=== PATIENT | female | born 2000 | race Caucasian/White ===

== ENCOUNTER → 2018-06-01 | Outpatient (CLI) | payer BC, OTHER | LOC: M RAD 07:55 | DX: K22.70 Barrett's esophagus without dysplasia (principal); R11.2 Nausea with vomiting, unspecified; R19.07 Generalized intra-abdominal and pelvic swelling, mass and lump; K59.00 Constipation, unspecified | CPT/HCPCS: 78264 ==

== ENCOUNTER → 2018-10-23 | Outpatient (REF) | payer OTHER ==
[2018-10-23 18:48] LABS: AMORPHOUS SEDIMENT LARGE (NEGATIVE); APPEARANCE, URINE TURBID (CLEAR); BACTERIA, URINE AUTO NEGATIVE (NEGATIVE); BILIRUBIN, URINE AUTO NEGATIVE (NEGATIVE); BLOOD, URINE BLOOD NEGATIVE (NEGATIVE); COLOR, URINE YELLOW (YELLOW); GLUCOSE, URINE (UA) AUTO NEGATIVE (NEGATIVE); KETONE, URINE AUTO NEGATIVE (NEGATIVE); LEUKOCYTE ESTERASE, URINE AUTO NEGATIVE (NEGATIVE); MUCUS, URINE SMALL (NEGATIVE); NITRITE, URINE AUTO NEGATIVE (NEGATIVE); PROTEIN, URINE AUTO NEGATIVE (NEGATIVE); RBC, URINE AUTO 0 /HPF (0-3); SPECIFIC GRAVITY URINE AUTO 1.026 (1.002-1.035); SQUAMOUS EPITHELIAL CELL UR AU 3 /HPF (0-6); UROBILINOGEN, URINE AUTO 0.2 mg/dL (0.0-2.0); WBC, URINE AUTO 2 /HPF (0-3)
[2018-10-23 18:50] LABS: TOTAL PROTEIN,RANDOM URINE 11.6 MG/DL (0.0-12.0)
[2018-10-23 19:00] LABS: HCG, SERUM QUALITATIVE NEGATIVE (NEGATIVE)
[2018-10-23 19:06] LABS: FREE T4 1.34 NG/DL (0.78-1.33); THYROID STIMULATING HORMONE 0.702 uIU/ML (0.463-3.98)
== END ==
LOC: M SFHCLERA 10:43
PROVIDERS: ATTEND Family Medicine
DX: I10 Essential (primary) hypertension (principal); R63.5 Abnormal weight gain

== ENCOUNTER → 2018-12-21 | Outpatient (CLI) | payer BC, OTHER ==
--- NOTE | 2018-12-21 09:10 | REP ---
Clinical: Hypertension and chronic medical renal disease. Technique: Dockery scale and color Doppler evaluation of the kidneys and renal vasculature using curved array transducer. Findings: The kidneys are essentially normal in contour size and echogenicity and reniform shape without hydronephrosis, nephrolithiasis, cystic or renal mass lesion. Right kidney measures 11.1 x 4.2 x 4.8 cm . Left kidney measures 12.4 x 4.9 x 5.2 cm. Bladder is incompletely distended and grossly normal by current evaluation. Color Doppler evaluation of the renal vasculature demonstrates normal arterial wave patterns, velocities, renal aortic ratios, resistive indices and the acceleration time. No sonographic evidence for renal arterial stenosis noted. Renal vein is patent. Right Kidney: Peak arterial velocity: 99 cm/sec . Renal aortic ratio: 0.70 . Resistive indices: 0.57 - 0.70 . Acceleration times: 0.025 - 0.031 . Left kidney: Peak arterial velocity: 120 cm/sec . Renal aortic ratio: 0.85 . Resistive indices: 0.59 - 0.64 . Acceleration times: 0.023 - 0.036 . Impression: 1. Kidneys are normal in appearance. 2. Slight asymmetric main renal arterial velocities are nonspecific. No sonographic evidence for renal arterial stenosis. Electronically Signed by Jose Gonzalez MD 12/21/2018 09:02 A
== END ==
LOC: M RAD 07:17
PROVIDERS: ATTEND Family Medicine
DX: I10 Essential (primary) hypertension (principal)

== ENCOUNTER → 2019-03-04 | Outpatient (CLI) | payer BC, OTHER ==
--- NOTE | 2019-03-05 05:22 | REP ---
Clinical: Left foot pain Technique: AP, lateral, bilateral oblique views left foot . Findings: The osseous structures and joint spaces are intact and normal. There is no evidence for acute fracture or dislocation. Surrounding soft tissues are unremarkable. No subcutaneous emphysema or radiodense foreign body. Impression: Normal left foot series . No acute fracture or dislocation. Electronically Signed by Jose Gonzalez MD 03/05/2019 05:14 A
== END ==
LOC: M WUC 17:30
PROVIDERS: ATTEND Physician Assistant
DX: M79.672 Pain in left foot (principal)

== ENCOUNTER 2019-09-03 03:02 | Emergency (ER) | payer BC, OTHER ==
[~2019-09-03] VITALS: Ht 152.4 cm; Wt 66.7 kg
[2019-09-03] MEDS ORDERED: HYDR25TAB PO (03:09)
[2019-09-03] MEDS ORDERED: FAMO40TA3 PO (03:09)
[2019-09-03] MEDS ORDERED: LANS30CA PO (03:09)
[2019-09-03] MEDS ORDERED: AMLO5TAB6 PO (03:09)
[2019-09-03] MEDS ORDERED: NS 1,000 ML IV ONE (04:15)
[2019-09-03] MEDS ORDERED: PANTOPRAZOLE 40MG INJ (PROTONIX) (C9113) IV ONE (04:15)
[2019-09-03] MEDS ORDERED: GI COCKTAIL 50ML BTL(HYOSCYAMINE/MAALOX/LIDOCAINE VISCOUS)(1:3:1) PO ONE (04:15)
[2019-09-03 04:37] LABS: BASO # 0.1 10^3/uL (0.0-0.2); BASO % 0.6 % (0.0-1.0); EOS # 0.1 10^3/uL (0.0-0.5); EOS % 1.5 % (0.0-3.0); HEMATOCRIT 42.3 % (36.0-47.0); HEMOGLOBIN 14.1 g/dl (12.0-15.5); LYMPH # 3.1 10^3/uL (1.5-5.0); LYMPH % 32.5 % (24.0-44.0); MEAN CORPUSCULAR HEMOGLOBIN 28.8 pg (27.0-33.0); MEAN CORPUSCULAR HGB CONC 33.3 g/dl (32.0-36.5); MEAN CORPUSCULAR VOLUME 86.5 fl (80.0-96.0); MONO # 0.8 10^3/uL (0.0-0.8); MONO % 8.4 % (0.0-5.0); NEUTROPHILS # 5.5 10^3/uL (1.5-8.5); NEUTROPHILS % 56.8 % (36.0-66.0); PLATELET COUNT, AUTOMATED 252 10^3/uL (150-450); RED BLOOD COUNT 4.89 10^6/uL (4.00-5.40); WHITE BLOOD COUNT 9.6 10^3/uL (4.0-10.0)
[2019-09-03 05:24] LABS: ALBUMIN 3.8 GM/DL (3.2-5.2); ALT/SGPT 28 U/L (12-78); BILIRUBIN,DIRECT 0.1 MG/DL (0.0-0.2); BILIRUBIN,TOTAL 0.3 MG/DL (0.2-1.0); LIPASE 108 U/L (73-393); TOTAL PROTEIN 6.9 GM/DL (6.4-8.2)
[2019-09-03 05:29] LABS: HCG, SERUM QUALITATIVE NEGATIVE (NEGATIVE)
--- NOTE | 2019-09-03 06:40 | REPVR ---
PROCEDURE INFORMATION: Exam: CT Abdomen And Pelvis Without Contrast Exam date and time: 09/03/2019 5:54 AM Age: 19 years old Clinical indication: Abdominal pain; Flank; Right; Additional info: R pain TECHNIQUE: Imaging protocol: Computed tomography of the abdomen and pelvis without contrast. Radiation optimization: All CT scans at this facility use at least one of these dose optimization techniques: automated exposure control; mA and/or kV adjustment per patient size (includes targeted exams where dose is matched to clinical indication); or iterative reconstruction. COMPARISON: RENAL US 12/21/2018 7:19 AM FINDINGS: Liver: Normal. No mass. Gallbladder and bile ducts: The gallbladder is contracted with no stones. Pancreas: Normal. No ductal dilation. Spleen: Normal. No splenomegaly. Adrenals: Normal. No mass. Kidneys and ureters: Malrotation of the right kidney. No renal or ureteral calculi. Stomach and bowel: Unremarkable. No obstruction. No mucosal thickening. Appendix: A normal appendix is seen. Intraperitoneal space: Unremarkable. No free air. No significant fluid collection. Vasculature: Unremarkable. No abdominal aortic aneurysm. Lymph nodes: Unremarkable. No enlarged lymph nodes. Bladder: Unremarkable as visualized. Reproductive: Bilateral ovarian follicles. Bones/joints: Unremarkable. No acute fracture. Soft tissues: Unremarkable. IMPRESSION: 1. Malrotation of the right kidney. No renal or ureteral calculi are evident and there is no evidence of obstructive uropathy. 2. Otherwise negative CT abdomen/pelvis. Electronically signed by: Cj Mcmahan On 09/03/2019 06:40:42 AM
[2019-09-03 06:54] VITALS: BP 122/62
== END 2019-09-03 07:00 | disposition home or self-care (01) ==
LOC: M ED 03:02
DX: K29.50 Unspecified chronic gastritis without bleeding (principal); K21.9 Gastro-esophageal reflux disease without esophagitis; K59.04 Chronic idiopathic constipation; F90.9 Attention-deficit hyperactivity disorder, unspecified type; Z79.899 Other long term (current) drug therapy
CPT/HCPCS: 74176; 80047; 80076; 83690; 84703; 85025; 96374; 99284; C9113

== ENCOUNTER 2020-01-29 03:08 | Emergency (ER) | payer BC, OTHER ==
[~2020-01-29] VITALS: Ht 152.4 cm; Wt 69.4 kg
[~2020-01-29 03:08] MED LIST: AMLO5TAB6 PO; FAMO40TA3 PO; HYDR25TAB PO; LANS30CA PO
[2020-01-29 03:41] LABS: BILIRUBIN, URINE MANUAL NEGATIVE (NEGATIVE); GLUCOSE, URINE (UA) MANUAL NEGATIVE (NEGATIVE); KETONE, URINE MANUAL NEGATIVE (NEGATIVE); UROBILINOGEN, URINE MANUAL NORMAL (NORMAL)
[2020-01-29 03:45] LABS: RBC, URINE TNTC /hpf (0-3); SQUAMOUS EPITHELIAL CELL URINE SMALL AMOUNT /hpf (SMALL AMT)
[2020-01-29] MEDS ORDERED: NS 1,000 ML IV ONE (03:45)
[2020-01-29 03:49] LABS: BACTERIA, URINE NONE SEEN; HYALINE CAST, URINE NONE SEEN /lpf (0-1)
[2020-01-29 03:58] LABS: BASO # 0.1 10^3/uL (0.0-0.2); BASO % 0.4 % (0.0-1.0); EOS # 0.1 10^3/uL (0.0-0.5); EOS % 0.8 % (0.0-3.0); HEMATOCRIT 45.4 % (36.0-47.0); LYMPH # 3.1 10^3/uL (1.5-5.0); LYMPH % 19.6 % (24.0-44.0); MEAN CORPUSCULAR HEMOGLOBIN 30.2 pg (27.0-33.0); MEAN CORPUSCULAR HGB CONC 35.2 g/dl (32.0-36.5); MEAN CORPUSCULAR VOLUME 85.7 fl (80.0-96.0); MONO # 1.2 10^3/uL (0.0-0.8); MONO % 7.5 % (0.0-5.0); NEUTROPHILS # 11.2 10^3/uL (1.5-8.5); NEUTROPHILS % 71.4 % (36.0-66.0); PLATELET COUNT, AUTOMATED 297 10^3/uL (150-450); WHITE BLOOD COUNT 15.7 10^3/uL (4.0-10.0)
[2020-01-29] MEDS ORDERED: MORPHINE 4 MG/ML 1ML VIAL/SYRINGE (J2270) IV ONE (04:00)
[2020-01-29] MEDS ORDERED: ONDANSETRON 4MG/2ML VIAL IV ONE (04:00)
[2020-01-29 04:29] LABS: HCG, SERUM QUALITATIVE NEGATIVE (NEGATIVE)
[2020-01-29 04:44] LABS: ALBUMIN 4.3 GM/DL (3.2-5.2); ALT/SGPT 37 U/L (12-78); BILIRUBIN,DIRECT 0.1 MG/DL (0.0-0.2); BILIRUBIN,TOTAL 0.4 MG/DL (0.2-1.0); BLOOD UREA NITROGEN 11 MG/DL (7-18); CALCIUM LEVEL 9.1 MG/DL (8.5-10.1); CARBON DIOXIDE LEVEL 21 MEQ/L (21-32); CHLORIDE LEVEL 112 MEQ/L (98-107); CREATININE FOR GFR 0.82 MG/DL (0.55-1.30); GLOMERULAR FILTRATION RATE > 60.0 (>60); GLUCOSE, FASTING 97 MG/DL (70-100); LIPASE 83 U/L (73-393); POTASSIUM SERUM 4.4 MEQ/L (3.5-5.1); SODIUM LEVEL 140 MEQ/L (136-145); TOTAL PROTEIN 7.7 GM/DL (6.4-8.2)
--- NOTE | 2020-01-29 05:05 | REPVR ---
PROCEDURE INFORMATION: Exam: CT Abdomen And Pelvis Without Contrast Exam date and time: 01/29/2020 4:37 AM Age: 20 years old Clinical indication: Abdominal pain; Flank; Right; Additional info: R colic TECHNIQUE: Imaging protocol: Computed tomography of the abdomen and pelvis without contrast. Radiation optimization: All CT scans at this facility use at least one of these dose optimization techniques: automated exposure control; mA and/or kV adjustment per patient size (includes targeted exams where dose is matched to clinical indication); or iterative reconstruction. COMPARISON: CT ABD PELVIS W/O CONTRAST 09/03/2019 5:56 AM FINDINGS: Mediastinal space: There is food like material in the distal esophagus. Liver: Normal. No mass. Gallbladder and bile ducts: Normal. No calcified stones. No ductal dilation. Pancreas: Normal. No ductal dilation. Spleen: Normal. No splenomegaly. Adrenals: Normal. No mass. Kidneys and ureters: Normal. No hydronephrosis. Stomach and bowel: There is moderate to large colonic stool burden in the cecum and right colon. Appendix: The proximal aspect of the appendix is normal. The mid and distal aspect are obscured. Intraperitoneal space: Unremarkable. No free air. No significant fluid collection. Vasculature: Unremarkable. No abdominal aortic aneurysm. Lymph nodes: There is nonspecific small shotty mesenteric lymph nodes. Bladder: Unremarkable as visualized. Reproductive: Unremarkable as visualized. Bones/joints: Unremarkable. No acute fracture. Soft tissues: Unremarkable. IMPRESSION: 1. No CT evidence of nephrolithiasis or hydronephrosis. 2. Moderate to large cecal and right colonic stool burden. Proximal appendix is normal. Mid to distal aspect of the appendix are obscured and could not be evaluated however no gross evidence inflammation seen. Correlate with clinical history and symptoms. 3. Nonspecific small mesenteric shotty lymph nodes. Correlate clinically for enteritis. 4. Food like material in the distal esophagus. Correlate clinically for GERD and or esophagitis among other etiologies. Electronically signed by: Lemuel Palmer On 01/29/2020 05:04:51 AM
[2020-01-29] MEDS ORDERED: PHENAZOPYRIDINE 100 MG TAB PO ONE (05:15)
[2020-01-29] MEDS ORDERED: BACTRIM 160MG/800MG DS TAB PO ONE (05:15)
[2020-01-29] MEDS ORDERED: KETOROLAC 30 MG/ML 1ML VIAL IV ONE (05:30)
[2020-01-29] MEDS ORDERED: BACT800T5 PO (05:51)
[2020-01-29] MEDS ORDERED: PYRI1TAB5 PO (05:51)
[2020-01-29 06:00] VITALS: BP 101/73
== END 2020-01-29 06:18 | disposition home or self-care (01) ==
LOC: M ED 03:08
DX: N30.91 Cystitis, unspecified with hematuria (principal); I10 Essential (primary) hypertension; K21.9 Gastro-esophageal reflux disease without esophagitis; Z79.899 Other long term (current) drug therapy
CPT/HCPCS: 74176; 80048; 80076; 81000; 83690; 84703; 85025; 87088; 87186; 96374; 96375; 99284; J1885; J2270; J2405

== ENCOUNTER 2020-09-06 22:18 | Emergency (ER) | payer BC, OTHER ==
[~2020-09-06] VITALS: Ht 157.5 cm; Wt 67.7 kg
[~2020-09-06 22:18] MED LIST changes: +AMLO1TAB24 PO; -AMLO5TAB6 PO; +BACT800T5 PO; +HYDR-3490 PO; -HYDR25TAB PO; +PYRI1TAB5 PO
[2020-09-06] MEDS ORDERED: KETOROLAC 30 MG/ML 1ML VIAL IV ONE (22:45)
[2020-09-06] MEDS ORDERED: PANTOPRAZOLE 40MG VIAL (C9113 PER 1) IV ONE (22:45)
[2020-09-06] MEDS ORDERED: NS 1,000 ML IV ONE (22:45)
[2020-09-06] MEDS ORDERED: METOCLOPRAMIDE INJ 10MG/2ML VIAL (J2765 PER 1) IV ONE (22:45)
[2020-09-06] MEDS ORDERED: ONDANSETRON 4MG/2ML VIAL IV ONE (22:45)
[2020-09-06 23:22] LABS: BASO % 0.3 % (0.0-1.0); HEMATOCRIT 42.7 % (36.0-47.0); HEMOGLOBIN 14.9 g/dl (12.0-15.5); LYMPH # 0.9 10^3/uL (1.5-5.0); LYMPH % 14.5 % (24.0-44.0); MEAN CORPUSCULAR HEMOGLOBIN 28.1 pg (27.0-33.0); MEAN CORPUSCULAR HGB CONC 34.9 g/dl (32.0-36.5); MEAN CORPUSCULAR VOLUME 80.6 fl (80.0-96.0); MONO # 0.5 10^3/uL (0.0-0.8); MONO % 8.1 % (0.0-5.0); NEUTROPHILS # 4.6 10^3/uL (1.5-8.5); NEUTROPHILS % 76.8 % (36.0-66.0); PLATELET COUNT, AUTOMATED 339 10^3/uL (150-450)
[2020-09-06] MEDS ORDERED: HYOSPOW (23:33)
[2020-09-06] MEDS ORDERED: PRED20TA (23:33)
[2020-09-06] MEDS ORDERED: HYDR-3490 (23:33)
[2020-09-06 23:49] LABS: ALBUMIN 4.1 GM/DL (3.2-5.2); ALT/SGPT 31 U/L (12-78); BILIRUBIN,DIRECT 0.2 MG/DL (0.0-0.2); BILIRUBIN,TOTAL 0.6 MG/DL (0.2-1.0); BLOOD UREA NITROGEN 11 MG/DL (7-18); CALCIUM LEVEL 10.4 MG/DL (8.5-10.1); CARBON DIOXIDE LEVEL 21 MEQ/L (21-32); CHLORIDE LEVEL 107 MEQ/L (98-107); CREATININE FOR GFR 0.93 MG/DL (0.55-1.30); GLOMERULAR FILTRATION RATE > 60.0 (>60); GLUCOSE, FASTING 122 MG/DL (70-100); LIPASE 67 U/L (73-393); SODIUM LEVEL 138 MEQ/L (136-145); TOTAL PROTEIN 7.7 GM/DL (6.4-8.2)
[2020-09-06] MEDS ORDERED: HALOPERIDOL 5MG/ML VIAL (J1630 PER 1) IV STA (23:53)
[2020-09-07] MEDS ORDERED: ISOVUE-370 76% 100ML VIAL As Ordered ONE (00:01)
--- NOTE | 2020-09-07 00:01 | REPVR ---
PROCEDURE INFORMATION: Exam: XR Complete Acute Abdomen Series Exam date and time: 09/06/2020 11:47 PM Age: 20 years old Clinical indication: Abdominal pain; Acute; Prior surgery; Surgery date: <1 month; Surgery type: Hilital hernia post operative approximately 2weeks; Additional info: Abdominal pain/ vomiting TECHNIQUE: Imaging protocol: XR complete acute abdomen series, including 2 or more views of the abdomen and a single view chest. COMPARISON: CT ABD PELVIS W/O CONTRAST 01/29/2020 4:39 AM FINDINGS: Lungs: Minimal left lung base linear atelectasis or scar. Pleural spaces: Normal. No pleural effusions. No pneumothorax. Heart/Mediastinum: Normal. No cardiomegaly. Gastrointestinal tract: Mild gas throughout the GI tract, greatest in the colon without abnormal dilatation with extension of the level of the rectum. No abnormal air-fluid levels. Intraperitoneal space: No free air. Bones/joints: Normal. No acute fracture. Soft tissues: Normal. IMPRESSION: 1. Minimal left lung base linear atelectasis or scar. Otherwise negative chest. 2. Negative abdomen with mild gas which is within normal limits. Electronically signed by: Cj Mcmahan On 09/07/2020 00:01:32 AM
--- NOTE | 2020-09-07 00:27 | REPVR ---
PROCEDURE INFORMATION: Exam: CT Abdomen And Pelvis With Contrast Exam date and time: 09/06/2020 12:08 AM Age: 20 years old Clinical indication: Abdominal pain; Prior surgery; Surgery date: <1 month; Surgery type: Hiatal hernia; Additional info: Abd pain TECHNIQUE: Imaging protocol: Computed tomography of the abdomen and pelvis with contrast. Radiation optimization: All CT scans at this facility use at least one of these dose optimization techniques: automated exposure control; mA and/or kV adjustment per patient size (includes targeted exams where dose is matched to clinical indication); or iterative reconstruction. Contrast material: ISO 370; Contrast volume: 100 ml; Contrast route: INTRAVENOUS (IV); COMPARISON: CT ABD PELVIS W/O CONTRAST 01/29/2020 4:39 AM FINDINGS: Lungs: Minimal left lower lobe infiltrates and atelectasis. Pleural spaces: Trace left pleural effusion. Mediastinal space: There is trace gas adjacent to the distal esophagus and induration around the GE junction. There is probable fundoplication and may account for the extension of gas adjacent to the distal esophagus. Liver: Normal. No mass. Gallbladder and bile ducts: Normal. No calcified stones. No ductal dilation. Pancreas: Normal. No ductal dilation. Spleen: Normal. No splenomegaly. Adrenal glands: Normal. No mass. Kidneys and ureters: Malrotation of the right kidney. Stomach and bowel: Borderline fluid distention of small bowel with air-fluid levels which may reflect minimal ileus. Low-grade obstruction or enteritis is not excluded. Appendix: A normal appendix is seen. Intraperitoneal space: Mild free fluid in the pelvis with a Hounsfield measurement of 11. Vasculature: Unremarkable. No abdominal aortic aneurysm. Lymph nodes: Unremarkable. No enlarged lymph nodes. Urinary bladder: Unremarkable as visualized. Reproductive: Unremarkable as visualized. Bones/joints: Unremarkable. No acute fracture. Soft tissues: Unremarkable. IMPRESSION: 1. Suggestion of recent fundoplication at the GE junction. 2. Minimal left lower lobe infiltrates and atelectasis with trace left pleural effusion. 3. Mild free fluid in the pelvis which is nonspecific. 4. Borderline fluid distention of small bowel which may reflect minimal ileus. Low-grade obstruction or enteritis is not excluded. Electronically signed by: Cj Mcmahan On 09/07/2020 00:27:21 AM
[2020-09-07] MEDS ORDERED: PROMETHAZINE INJ 25 MG/ML VIAL (J2550) IV ONE (01:45)
[2020-09-07 02:27] LABS: AMPHETAMINES LEVEL URINE NEGATIVE (NEGATIVE); BARBITURATES URINE NEGATIVE (NEGATIVE); BENZODIAZEPINES URINE NEGATIVE (NEGATIVE); CANNABINOIDS URINE NEGATIVE (NEGATIVE); COCAINE METABOLITE URINE NEGATIVE (NEGATIVE); METHADONE URINE NEGATIVE (NEGATIVE); OPIATES URINE POSITIVE (NEGATIVE); PHENCYCLIDINE URINE NEGATIVE (NEGATIVE)
[2020-09-07] MEDS ORDERED: PROM12.56 PO (03:24)
[2020-09-07] MEDS ORDERED: ONDA4TAB6 PO (03:24)
[2020-09-07 03:51] VITALS: BP 126/62
== END 2020-09-07 03:58 | disposition home or self-care (01) ==
LOC: M ED 22:18
DX: R10.9 Unspecified abdominal pain (principal); I10 Essential (primary) hypertension; K21.9 Gastro-esophageal reflux disease without esophagitis
CPT/HCPCS: 74021; 74177; 80048; 80076; 80307; 81001; 83690; 85025; 87086; 96361; 96374; 96375; 99284; C9113; J1630; J1885; J2405; J2765; Q9967

== ENCOUNTER 2020-09-16 19:04 | Emergency (ER) | payer BC, OTHER ==
[~2020-09-16] VITALS: Ht 152.4 cm; Wt 60.9 kg
[~2020-09-16 19:04] MED LIST changes: +HYDR-3490; +HYOSPOW; +ONDA4TAB6 PO; +PRED20TA; +PROM12.56 PO
[2020-09-16 19:57] LABS: BASO % 0.2 % (0.0-1.0); HEMATOCRIT 47.6 % (36.0-47.0); LYMPH # 1.9 10^3/uL (1.5-5.0); LYMPH % 16.5 % (24.0-44.0); MEAN CORPUSCULAR HGB CONC 35.7 g/dl (32.0-36.5); MEAN CORPUSCULAR VOLUME 78.4 fl (80.0-96.0); MONO # 0.9 10^3/uL (0.0-0.8); MONO % 8.1 % (2.0-8.0); NEUTROPHILS # 8.4 10^3/uL (1.5-8.5); NEUTROPHILS % 74.1 % (36.0-66.0); PLATELET COUNT, AUTOMATED 408 10^3/uL (150-450); RED BLOOD COUNT 6.07 10^6/uL (4.00-5.40); WHITE BLOOD COUNT 11.4 10^3/uL (4.0-10.0)
[2020-09-16] MEDS ORDERED: HALOPERIDOL 5MG/ML VIAL (J1630 PER 1) IV ONE (20:00)
[2020-09-16] MEDS ORDERED: NS 500 ML IV ONE (20:00)
--- OUTSIDE RECORDS SUMMARY | 2020-09-16 20:06 | CCD ---
Author Author [facility] Organization [facility] [employer] Address Unknown Phone Unavailable Care Team Providers Care Tennis Coach Name Role Phone Lance Osborn Unavailable PROBLEMS Type Condition ICD9-CM Code [id number] Code Onset Dates Condition S tatus SNOMED Code Notes Problem General counseling for initiation of oth er contraceptive measures V25.02 Active [id number] Problem Depo contraception V25.49 Active 616217954 Problem Cyst on ear Q18.1 Active 07667251 Problem Hypertension, unspecified type I10 Active 3 7853919 Problem Screening examination for venereal disease V74.5 Active 434436003 Problem Irritable bowel syndrome with constipation K58.1 Active 368675532 Problem Surveillance for Depo-Provera contraception Z30.42 Active 780284515 Problem Influenza vaccination declined Z28.21 Active 3 67428043 Problem Adjustment disorder with mixed anxiety and depressed mood F43.23 Active 17414282 Problem Freedman''s esophagus with dysplasia K22.719 Acti ve [id number] ALLERGIES No Known Allergies ENCOUNTERS from 1998 to 2020-07-16 Encounter Location Date Provider Diagnosis [facility] [address] [place] [id number] 16 Jun, 2020 Lance Osborn Encounter for Depo-P rovera contraception Z30.42 IMMUNIZATIONS Vaccine Route Administration Date Status Depo-Provera 150mg/1mL (Medroxy-Progestrone Acetate) IM Intr amuscular Sep 12, 2017 Administered Depo-Provera 150mg/1mL (Medroxy-Progestrone Acetate) IM Intr amuscular December 05, 2017 Administered Depo-Provera 150mg/1mL (Medroxy-Progestrone Acetate) IM Intr amuscular Mar 01, 2018 Administered Depo-Provera 150mg/1mL (Medroxy-Progestrone Acetate) IM Intr amuscular May 22, 2018 Administered Depo-Provera 150mg/1mL (Medroxy-Progestrone Acetate) IM Intr amuscular Jul 15, 2020 Administered Depo provera 150mg (Medroxy-progestrone acetate) IM Intramus cular October 10, 2016 Administered Depo-Provera 150mg/1mL (Medroxy-Progestrone Acetate) ID Intr adermal January 03, 2017 Administered Depo-Provera 150mg/1mL (Medroxy-Progestrone Acetate) IM Intr amuscular Mar 30, 2017 Administered Influenza (6mo & up) Fluzone Unknown May 02, 2016 Adm inistered Depo-Provera 150mg/1mL (Medroxy-Progestrone Acetate) IM Intr amuscular Aug 20, 2018 Administered Depo-Provera 150mg/1mL (Medroxy-Progestrone Acetate) IM Intr amuscular November 12, 2019 Administered Depo-Provera 150mg/1mL (Medroxy-Progestrone Acetate) IM Intr amuscular February 04, 2020 Administered Depo provera 150mg (Medroxy-progestrone acetate) IM Intramuscula r Jul 19, 2016 Administered Depo provera 150mg (Medroxy-progestrone acetate) IM Intramuscula r Apr 28, 2016 Administered Depo provera 150mg (Medroxy-progestrone acetate) IM Intramuscula r February 04, 2016 Administered Depo provera 150mg (Medroxy-progestrone acetate) IM Intramus cular November 12, 2015 Administered Depo provera 150mg (Medroxy-progestrone acetate) IM Intramuscula r Aug 27, 2015 Administered Depo provera 150mg (Medroxy-progestrone acetate) IM Intramuscula r Jun 10, 2015 Administered Influenza Nasal Unknown May 14, 2015 Administered Influenza (6mo & up) Fluzone Unknown Jun 11, 2018 Adm inistered SOCIAL HISTORY Tobacco Use: Social History Observation Description Date Details (start date - stop date) Never Smoker Sex Assigned At : Social History Observation Description Sex Assigned At Unknown Education: Question Answer Notes Level of Education: College Audit Question Answer Notes Total Score: 1 Interpretation: Alcohol Education Language: Question Answer Notes Languages spoken: Venezuelan Restorationism: Question Answer Notes Restorationism 15 [employer] Sexual Hx: Question Answer Notes Had sex in the last 12 months (vaginal, oral, or anal)? Yes LMP: depo provera Have you ever had an STD? No Prevention Strategies discussed: Condoms with Men only Use protection? Yes How often? All of the time Drug and Alcohol Question Answer Notes Total Score: 0 Interpretation: No problems reported Alcohol Screening: Question Answer Notes Did you have a drink containing alcohol in the past year? Ye s Points 1 Interpretation Negative How often did you have six or more drinks on one occas ion in the past year? Never (0 points) How many drinks did you have on a typica l day when you were drinking in the past year? 1 or 2 (0 points) How often did you have a drink containing alcohol in t he past year? Monthly or less (1 point) Tobacco Use: Question Answer Notes Are you a: never smoker REASON FOR REFERRAL No Information VITAL SIGNS No information MEDICATIONS Medication SIG (Take, Route, Frequency, Duration) Notes Start Da te End Date Status Methocarbamol 500 MG 2 tablets Orally QID prn for 5 days 1 3 Dec, 2019 Active Amitiza 8 MCG 1 capsule with food Orally Twice a day for 90 days Unknown Norvasc 5 MG 1 tablet Orally Once a day for 90 days Active Depo-Provera 150 MG/ML 1 ml Intramuscular every 3 months for 30 day(s) Oct, Active Ondansetron 4 MG DISSOLVE ONE TABLET ON THE T ONGUE EVERY 8 HOURS NEEDED FOR NAUSEA Oral for 7 Active Pantoprazole Sodium 20 MG TAKE ONE TABLET BY MOUTH ONCE A DAY Oral fo r 30 Active Famotidine 20 MG TAKE ONE TABLET BY MOUTH AT BEDTIME DIRECTED Oral for 30 Active Hydrochlorothiazide 25 mg 1 tablet in the morning Orally Once a day for 30 Active PROCEDURES from 1998 to 2020-07-16 Procedure Date Ordered Result Body Site Medication: Depo-Provera 150mg/1mL IM (Medroxyprogesterone A cetate) 2020-07-15 N/A RESULTS No Results REASON FOR VISIT depo shot MEDICAL (GENERAL) HISTORY Type Description Date Medical History No chronic medical problems Surgical History endoscope & colonoscopy 01/2018 Hospitalization History [facility] - dehydration Hospitalization History [facility] 02/2018 Goals Section No Information Health Concerns No Information MEDICAL EQUIPMENT No Information MENTAL STATUS No Information FUNCTIONAL STATUS No Information ASSESSMENTS Encounter Date Diagnosis Assessment Notes Treatment Notes Treatm ent Clinical Notes Jun, Encounter for Depo-Provera contraception (ICD-10 - Z30.42) PLAN OF TREATMENT Medication Medication Name Sig Start Date Stop Date Methocarbamol 500 MG 2 tablets Orally QID prn for 5 days Dec, Next Appt Details Provider Name:Akilah Patel, 2020-09-30 08:00:00 AM, [address] [place], [id number], Insurance Providers Payer Name Payer Address Payer Phone Insured Name Patient Relati onship to Insured Coverage Start Date Coverage End Date [facility] [address] [facility] [id number] HARLEY VIZCAINO
--- OUTSIDE RECORDS SUMMARY | 2020-09-16 20:06 | CCD | Continuity of Care Document ---
Author Author Carol HOLM Organization Unknown Address [address] [place] [address] [address] [id number] Phone [phone] Care Team Providers Care Kier Boiler Name Role Phone Ruth Holm AUTM [phone] Ally Oconnor PA-C AUTM [phone] Problems Active Problems Provider Date Freedman's esophagus GEOVANNA Burns, PNP Onset: 0 Diaphragmatic hernia GEOVANNA Burns, PNP Onset: 02/11/20 20 Social History Type Date Description Comments Sex Unknown Tobacco Use Start: Unknown Never Smoked Cigarettes Tobacco Use Start: Unknown Never Smoked Cigars Tobacco Use Start: Unknown Never Smoked A Pipe Tobacco Use Start: Unknown Never Used Smokeless Tobacco ETOH Use Currently consumes alcohol twice a week Tobacco Use Start: Unknown Patient has never smoked Recreational Drug Use Denies Drug Use Allergies, Adverse Reactions, Alerts Description No Known Drug Allergies Medications Active Medications SIG Qnty Indications Ordering Provide r Date Advil 200mg Capsules 3 caps by mouth twice a day as needed GEOVANNA Burns, PNP 08/31/19 21 Escitalopram Oxalate 20mg Tablets 1 Half tab x 1 week then 1 whole tablet daily by mouth every day 30tabs GEOVANNA Burns, PNP 08/31/2020 Prazosin HCL 2mg Capsules 1 by mouth at bedtime 30caps GEOVANNA Burns, PNP 06/10/20 20 Ondansetron HCL 4mg Tablets 1 by mouth twice a day as needed 120tabs Unknown Hydrochlorothiazide 25mg Tablets 1 by mouth every morning 30tabs Unknown History Medications Bupropion Hydrochloride ER (SR) 150mg Tablets ER 12HR take one tablet by mouth every day in the morning 30tabs GEOVANNA Burns, PNP 06/10/2020 - 06/30/2020 Immunizations Description No Information Available Vital Signs Date Vital Result Comment 08/31/2020 8:53am BP Systolic 142 mmHg BP Diastolic 90 mmHg Heart Rate 96 /min Body Temperature 97.0 F Respiratory Rate 18 /min O2 % BldC Oximetry 98 % Weight 149.50 lb Weight 67.813 kg Height 60 inches 5'0" BMI (Body Mass Index) 29.2 kg/m2 BSA (Body Surface Area) 1.65 m2 06/10/2020 2:37pm BP Systolic 148 mmHg BP Diastolic 72 mmHg Heart Rate 100 /min Body Temperature 97.4 F Respiratory Rate 18 /min O2 % BldC Oximetry 98 % Weight 153.38 lb Weight 69.571 kg Height 60 inches 5'0" BMI (Body Mass Index) 30.0 kg/m2 BSA (Body Surface Area) 1.67 m2 Results Test Acquired Date Facility Test Result H/L Range Note Laboratory test finding 06/01/2020 [facility] Coronavirus Covid-19 Not Detected Not Detected 1 Laboratory test finding 04/10/2020 [facility] Coronavirus Covid-19 Not Detected Not Detected 2 1 This nucleic acid amplificat ion test was developed and its performance characteristics determined by [employer]. Nucleic acid amplification tests include PCR and TMA. This test has not been FDA cleared or approved. This test has been authorized by FDA under an Emergency Use Authorization (EUA). This test is only authorized for the duration of time the declaration that circumstances exist justifying the authorization of the emergency use of in vitro diagnostic tests for detection of SARS-CoV-2 virus and/or diagnosis of COVID-19 infection under section 564(b)(1) of the Act, 21 U.S.C. 360bbb-3(b) (1), unless the authorizatio n is terminated or revoked sooner. When diagnostic testing is negative, the possibility of a false negative result should be considered in the context of a patient's recent exposures and the presence of clinical signs and symptoms consistent with COVID-19. An individual without symptoms of COVID-19 and who is not shedding SARS-CoV-2 virus would expect to have a negative (not detected) result in this assay. 2 This nucleic acid amplificat ion test was developed and its performance characteristics determined by [facility]. Nucleic acid amplification tests include PCR and TMA. This test has not been FDA cleared or approved. This test has been authorized by FDA under an Emergency Use Authorization (EUA). This test is only authorized for the duration of time the declaration that circumstances exist justifying the authorization of the emergency use of in vitro diagnostic tests for detection of SARS-CoV-2 virus and/or diagnosis of COVID-19 infection under section 564(b)(1) of the Act, 21 U.S.C. 360bbb-3(b) (1), unless the authorizatio n is terminated or revoked sooner. When diagnostic testing is negative, the possibility of a false negative result should be considered in the context of a patient's recent exposures and the presence of clinical signs and symptoms consistent with COVID-19. An individual without symptoms of COVID-19 and who is not shedding SARS-CoV-2 virus would expect to have a negative (not detected) result in this assay. Procedures Description No Information Available Medical Devices Description No Information Available Encounters Description No Information Available Assessments Date Code Description Provider 08/31/2020 I10 Essential (primary) hypertension GEOVANNA Burns, PNP 08/31/2020 F43.23 Adjustment disorder with mixed a nxiety and depressed mood GEOVANNA Burns, PNP 08/31/2020 K22.70 Freedman's esophagus without dysp lasia GEOVANNA Burns, PNP 08/31/2020 K44.9 Diaphragmatic hernia without obs truction or gangrene GEOVANNA Burns, PNP 08/31/2020 K21.9 Gastro-esophageal reflux disease without esophagitis GEOVANNA Burns, PNP 06/10/2020 I10 Essential (primary) hypertension GEOVANNA Burns, PNP 06/10/2020 F43.23 Adjustment disorder with mixed a nxiety and depressed mood GEOVANNA Burns, PNP 06/10/2020 K22.70 Freedman's esophagus without dysp lasia GEOVANNA Burns, PNP 06/10/2020 K44.9 Diaphragmatic hernia without obs truction or gangrene GEOVANNA Burns, PNP 06/10/2020 Z02.1 Encounter for pre-employment exa mination GEOVANNA Burns, PNP 06/01/2020 Z20.828 Contact with and (giang spected) exposure to other viral communicable diseases GEOVANNA Burns, RAFIQ 06/01/2020 I10 Essential (primary) hypertension GEOVANNA Burns, RAFIQ 03/02/2020 I10 Essential (primary) hypertension GEOVANNA Burns, PNP 03/02/2020 K22.70 Freedman's esophagus without dysp lasia GEOVANNA Burns, PNP 03/02/2020 K44.9 Diaphragmatic hernia without obs truction or gangrene GEOVANNA Burns, PNP 03/02/2020 F43.23 Adjustment disorder with mixed a nxiety and depressed mood GEOVANNA Burns, PNP Plan of Treatment Future Appointment(s):* 09/29/2020 8:00 am - GEOVANNA Burns, PNP at [facility] 08/31/2020 - GEOVANNA Burns, RAFIQ* I10 Essential (primary) hypertension* Comments:* JNC8 Guidelines - Pt white Female > 60 To continue the prescribed thiazide diuretic.BP is at goal 142/90. Continue current treatment and monitor. She will benefit from maintaining a low sodium diet. * F43.23 Adjustment disorder with mixed anxiety and depressed mood* Comments:* Condition reviewed in detail, patient has emotional outburst.To continue Prazosin 2 mg 1 cap PO QHS for nightmares.To start Escitalopram 20 mg 1 half tab x1 week, then 1 tab PO daily.We will continue to monitor. * K22.70 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* Comments:* The patient was advised to continue with current medication. Avoid spicy food and control diet as advised. Maintain a healthy weight.Avoid lying down after a meal or eating late in the day. * K44.9 Diaphragmatic hernia without obstruction or gangrene* Comments:* She had her robotic primary repair of type 1 paraesophageal hernia and robotic p osterior [id number] fundoplication. She tolerated the procedure well.Patient to continue on the current plan of care and treatment.We will continue to monitor. * K21.9 Gastro-esophageal reflux disease without esophagitis* Comments:* She had her robotic primary repair of type 1 paraesophageal hernia and robotic p osterior [id number] fundoplication. She was advised to continue with her current medication. Avoid spicy food and control diet as advised. Functional Status Description No Information Available Mental Status Description No Information Available Referrals Description No Information Available
--- OUTSIDE RECORDS SUMMARY | 2020-09-16 20:06 | CCD | Continuity of Care Document ---
Author Carol Akhtar Organization Unknown Address Unknown Phone [phone] Care Team Providers Care Needle Punch Machine Operator Name Role Phone Ruth Holm AUTM [phone] Ally Oconnor PA-C AUTM [phone] Problems Active Problems Provider Date Freedman's esophagus [...] Date Facility Test Result H/L Range Note CBC W/Automated Diff 09/09/2020 [facility] CBC W/Automated Diff (SEE NOTE) 1 WBC 8.2 10^3/uL 4.2 - 11.0 RBC 4.69 10^6/uL 4.20 - 5.40 Hemoglobin 13.6 g/dL 12.0 - 16.0 Hematocrit 38.3 % 37.0 - 47.0 MCV 81.7 fL 81.0 - 101 MCH 29.0 pg 27.0 - 34.0 MCHC 35.5 g/dL 31.0 - 36.0 RDW 11.4 % Low 11.5 - 14.5 Platelets 342 10^3/uL 150 - 450 MPV 9.7 fL 7.4 - 10.4 Neut 67.6 % 37.0 - 80.0 Lymph 21.8 % Low 25.0 - 40.0 [place] 8.7 % High 3.0 - 8.0 Eos 1.2 % 0.0 - 7.0 Baso 0.6 % 0.0 - 2.5 %Ig 0.1 % High 0.0 - 0.0 %NRBC 0.0 % 0.0 - 0.0 #Neut 5.56 10^3/uL 2.00 - 6.90 #Lymph 1.80 10^3/uL 0.60 - 3.40 #[place] 0.72 10^3/uL 0.00 - 0.90 #Eos 0.10 10^3/uL 0.00 - 0.70 #Baso 0.05 10^3/uL 0.00 - 0.20 #Ig 0.01 10^3/uL 0.00 - 0.10 #NRBC 0.00 10^3/uL 0.00 - 0.00 Manual Diff NOT INDICATED RBC Morph NOT INDICATED Laboratory test [facility] 09[facility]09[facility] Serum Quant <0.5 mIU/mL 2 Lactic Acid (Lactate) 1.4 mmol/L 0.2 - 2.2 Lipase Serum 23 U/L 13 - 60 Comprehensive Metabolic Panel 09/09/2020 [facility] Comprehensive Metabo (SEE NOTE) 3 Sodium 138 mEq/L 134 - 153 Potassium 3.5 mEq/L Low 3.6 - 5.0 Chloride 101 mEq/L 98 - 107 Co2 21 mEq/L Low 22 - 30 Glucose 80 mg/dL 70 - 99 BUN 11 mg/dL 7 - 21 Creatinine 0.9 mg/dL 0.7 - 1.5 BUN/Creat 12 8 - 27 Total Protein 6.4 g/dL 6.3 - 8.2 Albumin 4.3 g/dL 3.9 - 5.0 Globulin 2.1 GM/DL Low 2.4 - 3.2 A/G Ratio 2.0 0.8 - 2.0 Calcium 9.4 mg/dL 8.4 - 10.2 Total Bili <0.7 mg/dL 0.2 - 1.3 Alkaline Phos 67 U/L 38 - 126 Sgot/Ast 17 U/L 5 - 40 SGPT/Alt 22 U/L 7 - 56 Anion Gap 16.0 mmol/L 8.0 - 16.0 Age 20 yrs Non-Aa GFR >60 mL/min Afr Amer GFR >60 mL/min 4 Laboratory test finding 06/01/2020 [facility] l Coronavirus Covid-19 Not Detected Not Detected 5 Laboratory test finding 04/10/2020 [facility] Coronavirus Covid-19 Not Detected Not Detected 6 1 COMPLETE BLOOD COUNT 2 Interpretation: Less than 5 mU/mL: Negative 6-10 mU/mL: Borderline (suggest repeat i n 48 hours) >10: Positive Approx HCG range (mU/mL) Weeks post LMP 5.4-708 mU/mL 3-4 Weeks 217-10935 mU/mL 5-6 Weeks 4059-787268 mU/mL 7-8 Weeks 58183-800143 mU/mL 9-10 Weeks 76247-42957 mU/mL 12-14 Weeks 44253-43281 mU/mL 15-16 Weeks 8240-64495 mU/mL 17-18 Weeks 3 COMPREHENSIVE METABOLIC PANE L 4 Male GFR Interprentation 20-49 yrs >60 mL/min Normal 50-59 yrs >56 mL/min Normal 60-69 yrs >49 mL/min Normal 70-79yrs >42 mL/min Normal 80 and above >35 mL/min Normal Female GFR Interpretation 20-39 yrs >60 mL/min Normal 40-49 yrs >58 mL/min Normal 50-59 yrs >51 mL/min Normal 60-69 yrs >45 mL/min Normal 70-79 yrs >39 mL/min Normal 80 and above >32 mL/min Normal 5 This nucleic acid amplificat ion test was developed and its performance characteristics determined by [employer]. Nucleic acid amplification tests include PCR and [...] negative (not detected) result in this assay. 6 This nucleic acid amplificat ion test was developed and its performance characteristics determined by [employer]. Nucleic acid amplification tests include PCR and [...] to other viral communicable diseases GEOVANNA Burns, PNP 06/01/2020 I10 Essential (primary) hypertension GEOVANNA Burns, PNP Plan of Treatment Future Appointment(s):* 09/29/2020 8:00 am - GEOVANNA Burns, PNP at [facility] 08/31/2020 - GEOVANNA Burns, PNP* I10 Essential (primary) hypertension* Comments:* JNC8 Guidelines - Pt white Female > 60 To continue the prescribed thiazide diuretic.BP is at goal 142/90. Continue current treatment and monitor. She will benefit from maintaining a low sodium diet. * Follow up:* FU 1 month for reassessment * F43.23 Adjustment disorder with mixed anxiety and depressed mood* Comments:* Condition reviewed in detail, patient has emotional outburst.Continue Prazosin 2 mg 1 cap PO QHS for nightmares.Start Escitalopram 20 mg 1 half tab x 1 week, then 1 tab PO daily.We will continue to monitor. * Follow up:* In 1 month for assessment response to new med. * K22.70 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* Comments:* Post surgical repair T[place]et - 270 Degree FundoplicationThe patient was advised to continue with current medication. Avoid spicy food and control diet as advised. Maintain a healthy weight.Avoid lying down after a meal or eating late in the day. * Follow up:* FU 1 month for reassessment * K44.9 Diaphragmatic hernia without obstruction or gangrene* Comments:* She had her robotic primary repair of type 1 paraesophageal hernia and robotic p osterior [id number] fundoplication. She tolerated the procedure well.Patient to continue on the current plan of care and treatment.We will continue to monitor. * K21.9 Gastro-esophageal reflux disease without esophagitis* Comments:* She had her robotic primary repair of type 1 paraesophageal hernia and robotic p osterior [id number] fundoplication. She was advised to continue with her current medication. Avoid spicy food and control diet as advised. Functional Status Description No Information Available Mental Status Description No Information Available Referrals Description No Information Available
--- OUTSIDE RECORDS SUMMARY | 2020-09-16 20:09 | CCD ---
Author Author [facility] Organization [facility] Address Unknown Phone Unavailable Care Team Providers Care Application Architect Manager Name Role Phone Rich SAMS IDALIA PA Unavailable Unavailable MATTES, L IDALIA PA Unavailable Unavailable MATTES, L IDALIA PA Unavailable Unavailable MATTES, L IDALIA PA Unavailable Unavailable MATTES, L IDALIA PA Unavailable Unavailable MATTES, L IDALIA PA Unavailable Unavailable MATTES, L IDALIA PA Unavailable Unavailable MATTES, L IDALIA PA Unavailable Unavailable MATTES, L IDALIA PA Unavailable Unavailable MATTES, L IDALIA PA Unavailable Unavailable MATTES, L IDALIA PA Unavailable Unavailable MATTES, L IDALIA PA Unavailable Unavailable MATTES, L IDALIA PA Unavailable Unavailable MATTES, L IDALIA PA Unavailable Unavailable MATTES, L IDALIA PA Unavailable Unavailable MATTES, L IDALIA PA Unavailable Unavailable MATTES, L IDALIA PA Unavailable Unavailable MATTES, L IDALIA PA Unavailable Unavailable MATTES, L IDALIA PA Unavailable Unavailable MATTES, L IDALIA PA Unavailable Unavailable MATTES, L IDALIA PA Unavailable Unavailable Ahmed, Holloway Unavailable Unavailable Ahmed, Holloway Unavailable Unavailable Ahmed, Holloway Unavailable Unavailable Ahmed, Holloway Unavailable Unavailable Ahmed, Holloway Unavailable Unavailable Marion, A Tamera FINANCIAL SERVICES SPECIALIST Unavailable Unavailable Marion, A Tamera FINANCIAL SERVICES SPECIALIST Unavailable Unavailable Marion, A Tamera FINANCIAL SERVICES SPECIALIST Unavailable Unavailable Marion, A Tamera FINANCIAL SERVICES SPECIALIST Unavailable Unavailable Marion, A Tamera FINANCIAL SERVICES SPECIALIST Unavailable Unavailable Marion, A Tamera FINANCIAL SERVICES SPECIALIST Unavailable Unavailable Marion, A Tamera FINANCIAL SERVICES SPECIALIST Unavailable Unavailable Marion, A Tamera FINANCIAL SERVICES SPECIALIST Unavailable Unavailable Marion, A Tamera FINANCIAL SERVICES SPECIALIST Unavailable Unavailable Marion, A Tamera FINANCIAL SERVICES SPECIALIST Unavailable Unavailable Marion, A Tamera FINANCIAL SERVICES SPECIALIST Unavailable Unavailable Marion, A Tamera FINANCIAL SERVICES SPECIALIST Unavailable Unavailable Marion, A Tamera FINANCIAL SERVICES SPECIALIST Unavailable Unavailable Marion, A Tamera FINANCIAL SERVICES SPECIALIST Unavailable Unavailable Marion, A Tamera FINANCIAL SERVICES SPECIALIST Unavailable Unavailable Marion, A Tamera FINANCIAL SERVICES SPECIALIST Unavailable Unavailable Marion, A Tamera FINANCIAL SERVICES SPECIALIST Unavailable Unavailable Marion, A Tamera FINANCIAL SERVICES SPECIALIST Unavailable Unavailable Marion, A Tamera FINANCIAL SERVICES SPECIALIST Unavailable Unavailable Marion, A Tamera FINANCIAL SERVICES SPECIALIST Unavailable Unavailable Marion, A Tamera FINANCIAL SERVICES SPECIALIST Unavailable Unavailable Marion, A Tamera FINANCIAL SERVICES SPECIALIST Unavailable Unavailable Marion, A Tamera FINANCIAL SERVICES SPECIALIST Unavailable Unavailable Marion, A Tamera FINANCIAL SERVICES SPECIALIST Unavailable Unavailable Marion, A Tamera FINANCIAL SERVICES SPECIALIST Unavailable Unavailable Marion, A Tamera FINANCIAL SERVICES SPECIALIST Unavailable Unavailable Marion, A Tamera FINANCIAL SERVICES SPECIALIST Unavailable Unavailable Marion, A Tamera FINANCIAL SERVICES SPECIALIST Unavailable Unavailable Marion, A Tamera FINANCIAL SERVICES SPECIALIST Unavailable Unavailable Marion, A Tamera FINANCIAL SERVICES SPECIALIST Unavailable Unavailable Marion, A Tamera FINANCIAL SERVICES SPECIALIST Unavailable Unavailable Marion, A Tamera FINANCIAL SERVICES SPECIALIST Unavailable Unavailable Marion, A Tamera FINANCIAL SERVICES SPECIALIST Unavailable Unavailable Marion, A Tamera FINANCIAL SERVICES SPECIALIST Unavailable Unavailable Marion, A Tamera FINANCIAL SERVICES SPECIALIST Unavailable Unavailable Marion, A Tamera FINANCIAL SERVICES SPECIALIST Unavailable Unavailable Marion, A Tamera FINANCIAL SERVICES SPECIALIST Unavailable Unavailable Marion, A Tamera FINANCIAL SERVICES SPECIALIST Unavailable Unavailable Marion, A Tamera FINANCIAL SERVICES SPECIALIST Unavailable Unavailable Maroin, A Tamera FINANCIAL SERVICES SPECIALIST Unavailable Unavailable Marion, A Tamera FINANCIAL SERVICES SPECIALIST Unavailable Unavailable Marion, A Tamera FINANCIAL SERVICES SPECIALIST Unavailable Unavailable Marion, A Tamera FINANCIAL SERVICES SPECIALIST Unavailable Unavailable Marion, A Tamera FINANCIAL SERVICES SPECIALIST Unavailable Unavailable MihaiShauna Ruth ANP-BC Unavailable Unavailable Mihai Shauna Ruth ANP-BC Unavailable Unavailable Mihai Shauna Ruth ANP-BC Unavailable Unavailable Mihai Shauna Ruth ANP-BC Unavailable Unavailable Shauna Holm Ruth ANP-BC Unavailable Unavailable Mihai Shauna Ruth ANP-BC Unavailable Unavailable Mihai Shauna Ruth ANP-BC Unavailable Unavailable Mihai Shauna Ruth ANP-BC Unavailable Unavailable Shauna Holm Ruth ANP-BC Unavailable Unavailable Shauna Holm Ruth ANP-BC Unavailable Unavailable Shauna Holm Ruth ANP-BC Unavailable Unavailable Shauna Holm Ruth ANP-BC Unavailable Unavailable Mihai Shauna Ruth ANP-BC Unavailable Unavailable Mihai Shauna Ruth ANP-BC Unavailable Unavailable Mihai Shauna Ruth ANP-BC Unavailable Unavailable Mihai Shauna Ruth ANP-BC Unavailable Unavailable Mihai Shauna Ruth ANP-BC Unavailable Unavailable Mihai Shauna Ruth ANP-BC Unavailable Unavailable Mihai Shauna Ruth ANP-BC Unavailable Unavailable Mihai Shauna Ruth ANP-BC Unavailable Unavailable Mihai Shauna Ruth ANP-BC Unavailable Unavailable Mihai Shauna Ruth ANP-BC Unavailable Unavailable Mihai Shauna Ruth ANP-BC Unavailable Unavailable Mihai Shauna Ruth ANP-BC Unavailable Unavailable Mihai Shauna Ruth ANP-BC Unavailable Unavailable Mihai Shauna Ruth ANP-BC Unavailable Unavailable Mihai, Shauna Ruth ANP-BC Unavailable Unavailable Mihai, Shauna Ruth ANP-BC Unavailable Unavailable Mihai, Shauna Ruth ANP-BC Unavailable Unavailable Mihai, Shauna Ruth ANP-BC Unavailable Unavailable Mihai, Shauna Ruth ANP-BC Unavailable Unavailable Mihai, Shauna Ruth ANP-BC Unavailable Unavailable Mihai, Shauna Ruth ANP-BC Unavailable Unavailable Mihai, Shauna Ruth ANP-BC Unavailable Unavailable Mihai, Shauna Ruth ANP-BC Unavailable Unavailable Mihai, Shauna Ruth ANP-BC Unavailable Unavailable Mihai, Shauna Ruth ANP-BC Unavailable Unavailable Mihai, Shauna Ruth ANP-BC Unavailable Unavailable Mihai, Shauna Ruth ANP-BC Unavailable Unavailable Mihai, Shauna Ruth ANP-BC Unavailable Unavailable Mihai, Shauna Ruth ANP-BC Unavailable Unavailable Mihai, Shauna Ruth ANP-BC Unavailable Unavailable Mihai, Shauna Ruth ANP-BC Unavailable Unavailable Mihai, Shauna Ruth ANP-BC Unavailable Unavailable Mihai, Shauna Ruth ANP-BC Unavailable Unavailable Mihai, Shauna Ruth ANP-BC Unavailable Unavailable Mihai, Shauna Ruth ANP-BC Unavailable Unavailable Mihai, Shauna Ruth ANP-BC Unavailable Unavailable Mihai, Shauna Ruth ANP-BC Unavailable Unavailable Mihai, Shauna Ruth ANP-BC Unavailable Unavailable Mihai, Shauna Ruth ANP-BC Unavailable Unavailable Mihai, Shauna Ruth ANP-BC Unavailable Unavailable Mihai, Shauna Ruth ANP-BC Unavailable Unavailable Mihai, Shauna Ruth ANP-BC Unavailable Unavailable Mihai, Shauna Ruth ANP-BC Unavailable Unavailable Mihai, Shauna Ruth ANP-BC Unavailable Unavailable Mihai, Shauna Ruth ANP-BC Unavailable Unavailable Mihai, Shauna Ruth ANP-BC Unavailable Unavailable Mihai, Shauna Ruth ANP-BC Unavailable Unavailable Mihai, Shauna Ruth ANP-BC Unavailable Unavailable Mihai, Shauna Ruth ANP-BC Unavailable Unavailable Mihai, Shauna Ruth ANP-BC Unavailable Unavailable Mihai, Shauna Ruth ANP-BC Unavailable Unavailable Mihai, Shauna Ruth ANP-BC Unavailable Unavailable Robert BOND Unavailable Unavailable TURRIN, OZZY Unavailable Unavailable TURRIN, OZZY Unavailable Unavailable TURRIN, OZZY Unavailable Unavailable TURRIN, OZZY Unavailable Unavailable MAINI, JOE MD Unavailable Unavailable MAINI, JOE MD Unavailable Unavailable MAINI, JOE MD Unavailable Unavailable MAINI, JOE MD Unavailable Unavailable MAINI, JOE MD Unavailable Unavailable MAINI, JOE MD Unavailable Unavailable MAINI, JOE MD Unavailable Unavailable MAINI, JOE MD Unavailable Unavailable MAINI, JOE MD Unavailable Unavailable MAINI, JOE MD Unavailable Unavailable MAINI, JOE MD Unavailable Unavailable MAINI, JOE MD Unavailable Unavailable MAINI, JOE MD Unavailable Unavailable MAINI, JOE MD Unavailable Unavailable MAINI, JOE MD Unavailable Unavailable MAINI, JOE MD Unavailable Unavailable MAINI, JOE MD Unavailable Unavailable MAINI, JOE MD Unavailable Unavailable MAINI, JOE MD Unavailable Unavailable MAINI, JOE MD Unavailable Unavailable MAINI, JOE MD Unavailable Unavailable MAINI, JOE MD Unavailable Unavailable MAINI, JOE MD Unavailable Unavailable MAINI, JOE MD Unavailable Unavailable MAINI, JOE MD Unavailable Unavailable MAINI, JOE MD Unavailable Unavailable MAINI, JOE MD Unavailable Unavailable MAINI, JOE MD Unavailable Unavailable MAINI, JOE MD Unavailable Unavailable MAINI, JOE MD Unavailable Unavailable MAINI, JOE MD Unavailable Unavailable MAINI, JOE MD Unavailable Unavailable MAINI, JOE MD Unavailable Unavailable MAINI, JOE MD Unavailable Unavailable MAINI, JOE MD Unavailable Unavailable MAINI, JOE MD Unavailable Unavailable MAINI, JOE MD Unavailable Unavailable MAINI, JOE MD Unavailable Unavailable MAINI, JOE MD Unavailable Unavailable MAINI, JOE MD Unavailable Unavailable MAINI, JOE MD Unavailable Unavailable MAINI, JOE MD Unavailable Unavailable MAINI, JOE MD Unavailable Unavailable MAINI, JOE MD Unavailable Unavailable MAINI, JOE MD Unavailable Unavailable MAINI, JOE MD Unavailable Unavailable MAINI, JOE MD Unavailable Unavailable MAINI, JOE MD Unavailable Unavailable MAINI, JOE MD Unavailable Unavailable MAINI, JOE MD Unavailable Unavailable MAINI, JOE MD Unavailable Unavailable MAINI, JOE MD Unavailable Unavailable MAINI, JOE MD Unavailable Unavailable MAINI, JOE MD Unavailable Unavailable MAINI, JOE MD Unavailable Unavailable MAINI, JOE MD Unavailable Unavailable MAINI, JOE MD Unavailable Unavailable MAINI, JOE MD Unavailable Unavailable MAINI, JOE MD Unavailable Unavailable MAINI, JOE MD Unavailable Unavailable MAINI, JOE MD Unavailable Unavailable MAINI, JOE MD Unavailable Unavailable MAINI, JOE MD Unavailable Unavailable MAINI, JOE MD Unavailable Unavailable MAINI, JOE MD Unavailable Unavailable JOE HELTON MD Unavailable Unavailable JOE HELTON MD Unavailable Unavailable Kia Eden MD Unavailable Unavailable Kia Eden MD Unavailable Unavailable Kia Eden MD Unavailable Unavailable Kia Eden MD Unavailable Unavailable Kia Eden MD Unavailable Unavailable Mihai, Shauna Ruth ANP-BC Unavailable Unavailable Mihai, Shauna Ruth ANP-BC Unavailable Unavailable Mihai, Shauna Ruth ANP-BC Unavailable Unavailable Mihai, Shauna Ruth ANP-BC Unavailable Unavailable Mihai, Shauna Ruth ANP-BC Unavailable Unavailable Mihai, Shauna Ruth ANP-BC Unavailable Unavailable Mihai, Shauna Ruth ANP-BC Unavailable Unavailable Mihai, Shauna Ruth ANP-BC Unavailable Unavailable Mihai, Shauna Ruth ANP-BC Unavailable Unavailable Mihai, Shauna Ruth ANP-BC Unavailable Unavailable Mihai, Shauna Ruth ANP-BC Unavailable Unavailable Mihai, Shauna Ruth ANP-BC Unavailable Unavailable Mihai, Shauna Ruth ANP-BC Unavailable Unavailable Mihai, Shauna Ruth ANP-BC Unavailable Unavailable Mihai, Shauna Ruth ANP-BC Unavailable Unavailable Mihai, Shauna Ruth ANP-BC Unavailable Unavailable Mihai, Shauna Ruth ANP-BC Unavailable Unavailable Mihai, Shauna Ruth ANP-BC Unavailable Unavailable Mihai, Shauna Ruth ANP-BC Unavailable Unavailable Mihai, Shauna Ruth ANP-BC Unavailable Unavailable Mihai, Shauna Ruth ANP-BC Unavailable Unavailable Mihai, Shauna Ruth ANP-BC Unavailable Unavailable Mihai, Shauna Ruth ANP-BC Unavailable Unavailable Mihai, Shauna Ruth ANP-BC Unavailable Unavailable Mihai, Shauna Ruth ANP-BC Unavailable Unavailable Mihai, Shauna Ruth ANP-BC Unavailable Unavailable Mihai, Shauna Ruth ANP-BC Unavailable Unavailable Mihai, Shauna Ruth ANP-BC Unavailable Unavailable Mihai, Shauna Ruth ANP-BC Unavailable Unavailable Mihai, Shauna Ruth ANP-BC Unavailable Unavailable Mihai, Shauna Ruth ANP-BC Unavailable Unavailable Mihai, Shauna Ruth ANP-BC Unavailable Unavailable Mihai, Shauna Ruth ANP-BC Unavailable Unavailable Mihai, Shauna Ruth ANP-BC Unavailable Unavailable Mihai, Shauna Ruth ANP-BC Unavailable Unavailable Mihai, Shauna Ruth ANP-BC Unavailable Unavailable Mihai, Shauna Ruth ANP-BC Unavailable Unavailable Mihai, Shauna Ruth ANP-BC Unavailable Unavailable Mihai, Shauna Ruth ANP-BC Unavailable Unavailable Mihai, Shauna Ruth ANP-BC Unavailable Unavailable Mihai, Shauna Ruth ANP-BC Unavailable Unavailable Mihai, Shauna Ruth ANP-BC Unavailable Unavailable Mihai, Shauna Ruth ANP-BC Unavailable Unavailable Mihai, Shauna Ruth ANP-BC Unavailable Unavailable Mihai, Shauna Ruth ANP-BC Unavailable Unavailable Mihai, Shauna Ruth ANP-BC Unavailable Unavailable Mihai, Shauna Ruth ANP-BC Unavailable Unavailable Mihai, Shauna Ruth ANP-BC Unavailable Unavailable Mihai, Shauna Ruth ANP-BC Unavailable Unavailable Mihai, Shauna Ruth ANP-BC Unavailable Unavailable Mihai, Shauna Ruth ANP-BC Unavailable Unavailable Mihai, Shauna Ruth ANP-BC Unavailable Unavailable Mihai, Shauna Ruth ANP-BC Unavailable Unavailable Mihai, Shauna Ruth ANP-BC Unavailable Unavailable Mihai, Shauna Ruth ANP-BC Unavailable Unavailable Mihai, Shauna Ruth ANP-BC Unavailable Unavailable Mihai, Shauna Ruth ANP-BC Unavailable Unavailable Mihai, Shauna Ruth ANP-BC Unavailable Unavailable Mihai, Shauna Ruth ANP-BC Unavailable Unavailable Mihai, Shauna Ruht ANP-BC Unavailable Unavailable Mihai, Shauna Ruth ANP-BC Unavailable Unavailable Mihai, Shauna Ruth ANP-BC Unavailable Unavailable Mihai, Shauna Ruth ANP-BC Unavailable Unavailable Mihai, Shauna Ruth ANP-BC Unavailable Unavailable Oconnor, M Ally PA-C Unavailable Unavailable Oconnor, M Ally PA-C Unavailable Unavailable Oconnor, M Ally PA-C Unavailable Unavailable Oconnor, M Ally PA-C Unavailable Unavailable Oconnor, M Ally PA-C Unavailable Unavailable Oconnor, M Ally PA-C Unavailable Unavailable Oconnor, M Ally PA-C Unavailable Unavailable Oconnor, M Ally PA-C Unavailable Unavailable Oconnor, M Ally PA-C Unavailable Unavailable Oconnor, M Ally PA-C Unavailable Unavailable Oconnor, M Ally PA-C Unavailable Unavailable Oconnor, M Ally PA-C Unavailable Unavailable Oconnor, M Ally PA-C Unavailable Unavailable Oconnor, M Ally PA-C Unavailable Unavailable Oconnor, M Ally PA-C Unavailable Unavailable Oconnor, M Ally PA-C Unavailable Unavailable Oconnor, M Ally PA-C Unavailable Unavailable Oconnor, M Ally PA-C Unavailable Unavailable Oconnor, M Ally PA-C Unavailable Unavailable Oconnor, M Ally PA-C Unavailable Unavailable Oconnor, M Ally PA-C Unavailable Unavailable Oconnor, M Ally PA-C Unavailable Unavailable Oconnor, M Ally PA-C Unavailable Unavailable Oconnor, M Ally PA-C Unavailable Unavailable Oconnor, M Ally PA-C Unavailable Unavailable Oconnor, M Ally PA-C Unavailable Unavailable Oconnor, M Ally PA-C Unavailable Unavailable Oconnor, M Ally PA-C Unavailable Unavailable Oconnor, M Ally PA-C Unavailable Unavailable Oconnor, M Ally PA-C Unavailable Unavailable Oconnor, M Ally PA-C Unavailable Unavailable Oconnor, M Ally PA-C Unavailable Unavailable Oconnor, M Ally PA-C Unavailable Unavailable SHAHAB (MALI), Robert RECIO MD Unavailable Unavailab le SHAHAB (MALI), Robert RECIO MD Unavailable Unavailab le SHAHAB (MALI), Robert RECIO MD Unavailable Unavailab le SHAHAB (MALI), Robert RECIO MD Unavailable Unavailab le SHAHAB (MALI), Robert RECIO MD Unavailable Unavailab le SHAHAB (MALI), Robert RECIO MD Unavailable Unavailab le SHAHAB (MALI), Robert RECIO MD Unavailable Unavailab le SHAHAB (MALI), Robert RECIO MD Unavailable Unavailab le SHAHAB (MALI), Robert RECIO MD Unavailable Unavailab le SHAHAB (MALI), Robert RECIO MD Unavailable Unavailab le SHAHAB (MALI), Robert RECIO MD Unavailable Unavailab le SHAHAB (MALI), Robert RECIO MD Unavailable Unavailab le SHAHAB (MALI), Robert RECIO MD Unavailable Unavailab le SHAHAB (MALI), Robert RECIO MD Unavailable Unavailab le SHAHAB (MALI), Robert RECIO MD Unavailable Unavailab le SHAHAB (MALI), Robert RECIO MD Unavailable Unavailab le SHAHAB (MALI), Robert RECIO MD Unavailable Unavailab le SHAHAB (MALI), Robert RECIO MD Unavailable Unavailab le SHAHAB (MALI), Robert RECIO MD Unavailable Unavailab le SHAHAB (MALI), Robert RECIO MD Unavailable Unavailab le SHAHAB (MALI), Robert RECIO MD Unavailable Unavailab le SHAHAB (MALI), Robert RECIO MD Unavailable Unavailab le SHAHAB (MALI), Robert RECIO MD Unavailable Unavailab le SHAHAB (MALI), Robert RECIO MD Unavailable Unavailab le SHAHAB (MALI), Robert RECIO MD Unavailable Unavailab le SHAHAB (MALI), Robert RECIO MD Unavailable Unavailab le SHAHAB (MALI), Robert RECIO MD Unavailable Unavailab le SHAHAB (MALI), Robert RECIO MD Unavailable Unavailab le SHAHAB (MALI), Robert RECIO MD Unavailable Unavailab le SHAHAB (MALI), Robert RECIO MD Unavailable Unavailab le SHAHAB (MALI), Robert RECIO MD Unavailable Unavailab le SHAHAB (MALI), Robert RECIO MD Unavailable Unavailab le SHAHAB (MALI), Robert RECIO MD Unavailable Unavailab le SHAHAB (MALI), Robert RECIO MD Unavailable Unavailab le SHAHAB (MALI), Robert RECIO MD Unavailable Unavailab le SHAHAB (MALI), Robert RECIO MD Unavailable Unavailab le SHAHAB (MALI), Robert RECIO MD Unavailable Unavailab le SHAHAB (MALI), Robert RECIO MD Unavailable Unavailab le SHAHAB (MALI), Robert RECIO MD Unavailable Unavailab le SHAHAB (MALI), Robert RECIO MD Unavailable Unavailab le SHAHAB (MALI), Robert RECIO MD Unavailable Unavailab le SHAHAB (MALI), Robert RECIO MD Unavailable Unavailab le SHAHAB (MALI), Robert RECIO MD Unavailable Unavailab le SHAHAB (MALI), Robert RECIO MD Unavailable Unavailab le SHAHAB (MALI), Robert RECIO MD Unavailable Unavailab le SHAHAB (MALI), Robert RECIO MD Unavailable Unavailab le SHAHAB (MALI), Robert RECIO MD Unavailable Unavailab le SHAHAB (MALI), Robert RECIO MD Unavailable Unavailab le SHAHAB (MALI), Robert RECIO MD Unavailable Unavailab le SHAHAB (MALI), Robert RECIO MD Unavailable Unavailab le SHAHAB (MALI), Robert RECIO MD Unavailable Unavailab le SHAHAB (MALI), Robert RECIO MD Unavailable Unavailab le SHAHAB (MALI), Robert RECIO MD Unavailable Unavailab le SHAHAB (MALI), Robert RECIO MD Unavailable Unavailab le SHAHAB (MALI), Robert RECIO MD Unavailable Unavailab le SHAHAB (MALI), Robert RECIO MD Unavailable Unavailab le SHAHAB (MALI), Robert RECIO MD Unavailable Unavailab le SHAHAB (MALI), Robert RECIO MD Unavailable Unavailab le SHAHAB (MALI), Robert RECIO MD Unavailable Unavailab le SHAHAB (MALI), Robert RECIO MD Unavailable Unavailab le SHAHAB (MALI), Robert RECIO MD Unavailable Unavailab le SHAHAB (MALI), Robert RECIO MD Unavailable Unavailab le SHAHAB (MALI), Robert RECIO MD Unavailable Unavailab le SHAHAB (MALI), Robert RECIO MD Unavailable Unavailab le SHAHAB (MALI), Robert RECIO MD Unavailable Unavailab le SHAHAB (MALI), Robert RECIO MD Unavailable Unavailab le SHAHAB (MALI), Robert RECIO MD Unavailable Unavailab le SHAHAB (MALI), Robert RECIO MD Unavailable Unavailab le SHAHAB (MALI), Robert RECIO MD Unavailable Unavailab le SHAHAB (MALI), Robert RECIO MD Unavailable Unavailab le SHAHAB (MALI), Robert RECIO MD Unavailable Unavailab le SHAHAB (MALI), Robert RECIO MD Unavailable Unavailab le SHAHAB (MALI), Robert RECIO MD Unavailable Unavailab le SHAHAB (MALI), Robert RECIO MD Unavailable Unavailab le SHAHAB (MALI), Robert RECIO MD Unavailable Unavailab le SHAHAB (MALI), Robert RECIO MD Unavailable Unavailab le SHAHAB (MALI), Robert RECIO MD Unavailable Unavailab le SHAHAB (MALI), Robert RECIO MD Unavailable Unavailab le SHAHAB (MALI), Robert RECIO MD Unavailable Unavailab le SHAHAB (MALI), Robert RECIO MD Unavailable Unavailab le SHAHAB (MALI), Robert RECIO MD Unavailable Unavailab le SHAHAB (MALI), Robert RECIO MD Unavailable Unavailab le SHAHAB (MALI), Robert RECIO MD Unavailable Unavailab le SHAHAB (MALI), Robert RECIO MD Unavailable Unavailab le SHAHAB (MALI), Robert RECIO MD Unavailable Unavailab le SHAHAB (MALI), Robert RECIO MD Unavailable Unavailab le SHAHAB (MALI), Robert RECIO MD Unavailable Unavailab le SHAHAB (MALI), Robert RECIO MD Unavailable Unavailab le SHAHAB (MALI), Robert RECIO MD Unavailable Unavailab le SHAHAB (MALI), Robert RECIO MD Unavailable Unavailab le SHAHAB (MALI), Robert RECIO MD Unavailable Unavailab le SHAHAB (MALI), Robert RECIO MD Unavailable Unavailab le SHAHAB (MALI), Robert RECIO MD Unavailable Unavailab le KRACHT, J MARIVEL DO Unavailable Unavailable KRACHT, J MARIVEL DO Unavailable Unavailable KRACHT, J MARIVEL DO Unavailable Unavailable KRACHT, J MARIVEL DO Unavailable Unavailable KRACHT, J MARIVEL DO Unavailable Unavailable KRACHT, J MARIVEL DO Unavailable Unavailable KRACHT, J MARIVEL DO Unavailable Unavailable KRACHT, J MARIVEL DO Unavailable Unavailable KRACHT, J MARIVEL DO Unavailable Unavailable KRACHT, J MARIVEL DO Unavailable Unavailable KARL PALAFOX Unavailable Unavailable Rydberg, Alison PA Unavailable Unavailable Rydberg, Alison PA Unavailable Unavailable Rydberg, Alison PA Unavailable Unavailable Rydberg, Alison PA Unavailable Unavailable Rydberg, Alison PA Unavailable Unavailable Rydberg, Alison PA Unavailable Unavailable Rydberg, Alison PA Unavailable Unavailable Rydberg, Alison PA Unavailable Unavailable Rydberg, Alison PA Unavailable Unavailable Rydberg, Alison PA Unavailable Unavailable Rydberg, Alison PA Unavailable Unavailable Rydberg, Alison PA Unavailable Unavailable Rydberg, Alison PA Unavailable Unavailable Rydberg, Alison PA Unavailable Unavailable Rydberg, Alison PA Unavailable Unavailable Rydberg, Alison PA Unavailable Unavailable Rydberg, Alison PA Unavailable Unavailable Rydberg, Alison PA Unavailable Unavailable Rydberg, Alison PA Unavailable Unavailable Rydberg, Alison PA Unavailable Unavailable Rydberg, Alison PA Unavailable Unavailable Rydberg, Alison PA Unavailable Unavailable SHAHAB (MALI), Robert RECIO MD Unavailable Unavailab le SHAHAB (MALI), Robert RECIO MD Unavailable Unavailab le SHAHAB (MALI), Robert RECIO MD Unavailable Unavailab le SHAHAB (MLAI), Robert RECIO MD Unavailable Unavailab le SHAAHB (MALI), Robert RECIO MD Unavailable Unavailab le SHAHAB (MALI), Robert RECIO MD Unavailable Unavailab le SHAHAB (MALI), Robert RECIO MD Unavailable Unavailab le SHAHAB (MALI), Robert RECIO MD Unavailable Unavailab le SHAHAB (MALI), Robert RECIO MD Unavailable Unavailab le SHAHAB (MALI), Robert RECIO MD Unavailable Unavailab le SHAHAB (MALI), Robert RECIO MD Unavailable Unavailab le SHAHAB (MALI), Robert RECIO MD Unavailable Unavailab le SHAHAB (MALI), Robert RECIO MD Unavailable Unavailab le SHAHAB (MALI), Robert RECIO MD Unavailable Unavailab le SHAHAB (MALI), Robert RECIO MD Unavailable Unavailab le SHAHAB (MALI), Robert RECIO MD Unavailable Unavailab le SHAHAB (MALI), Robert RECIO MD Unavailable Unavailab le SHAHAB (MALI), Robert RECIO MD Unavailable Unavailab le SHAHAB (MALI), Robert RECIO MD Unavailable Unavailab le SHAHAB (MALI), Robert RECIO MD Unavailable Unavailab le SHAHAB (MALI), Robert RECIO MD Unavailable Unavailab le SHAHAB (MALI), Robert RECIO MD Unavailable Unavailab le SHAHAB (MALI), Robert RECIO MD Unavailable Unavailab le SHAHAB (MALI), Robert RECIO MD Unavailable Unavailab le SHAHAB (MALI), Robert RECIO MD Unavailable Unavailab le SHAHAB (MALI), Robert RECIO MD Unavailable Unavailab le SHAHAB (MALI), Robert RECIO MD Unavailable Unavailab le SHAHAB (MALI), Robert RECIO MD Unavailable Unavailab le SHAHAB (MALI), Robert RECIO MD Unavailable Unavailab le SHAHAB (MALI), Robert RECIO MD Unavailable Unavailab le SHAHAB (MALI), Robert RECIO MD Unavailable Unavailab le SHAHAB (MALI), Robert RECIO MD Unavailable Unavailab le SHAHAB (MALI), Robert RECIO MD Unavailable Unavailab le SHAHAB (MALI), Robert RECIO MD Unavailable Unavailab le SHAHAB (MALI), Robert RECIO MD Unavailable Unavailab le SHAHAB (MALI), Robert RECIO MD Unavailable Unavailab le SHAHAB (MALI), Robert RECIO MD Unavailable Unavailab le SHAHAB (MALI), Robert RECIO MD Unavailable Unavailab le SHAHAB (MALI), Robert RECIO MD Unavailable Unavailab le SHAHAB (MALI), Robert RECIO MD Unavailable Unavailab le SHAHAB (MALI), Robert RECIO MD Unavailable Unavailab le SHAHAB (MALI), Robert RECIO MD Unavailable Unavailab le SHAHAB (MALI), Robert RECIO MD Unavailable Unavailab le SHAHAB (MALI), Robert RECIO MD Unavailable Unavailab le SHAHAB (MALI), Robert RECIO MD Unavailable Unavailab le SHAHAB (MALI), Robert RECIO MD Unavailable Unavailab le SHAHAB (MALI), Robert RECIO MD Unavailable Unavailab le SHAHAB (MALI), Robert RECIO MD Unavailable Unavailab le SHAHAB (MALI), Robert RECIO MD Unavailable Unavailab le SHAHAB (MALI), Robert RECIO MD Unavailable Unavailab le SHAHAB (MALI), Robert RECIO MD Unavailable Unavailab le SHAHAB (MALI), Robert RECIO MD Unavailable Unavailab le SHAHAB (MALI), Robert RECIO MD Unavailable Unavailab le SHAHAB (MALI), Robert RECIO MD Unavailable Unavailab le SHAHAB (MALI), Robert RECIO MD Unavailable Unavailab le SHAHAB (MALI), Robert RECIO MD Unavailable Unavailab le SHAHAB (MALI), Robert RECIO MD Unavailable Unavailab le SHAHAB (MALI), Robert RECIO MD Unavailable Unavailab le SHAHAB (MALI), Robert RECIO MD Unavailable Unavailab le SHAHAB (MALI), Robert RECIO MD Unavailable Unavailab le SHAHAB (AMLI), Robert RECIO MD Unavailable Unavailab le SHAHAB (MALI), Robert RECIO MD Unavailable Unavailab le SHAHAB (MALI), Robert RECIO MD Unavailable Unavailab le SHAHAB (MALI), Robert RECIO MD Unavailable Unavailab le SHAHAB (MALI), Robert RECIO MD Unavailable Unavailab le SHAHAB (MALI), Robert RECIO MD Unavailable Unavailab le SHAHAB (MALI), Robert RECIO MD Unavailable Unavailab le SHAHAB (MALI), Robert RECIO MD Unavailable Unavailab le SHAHAB (MALI), Robert RECIO MD Unavailable Unavailab le SHAHAB (MALI), Robert RECIO MD Unavailable Unavailab le SHAHAB (MALI), Robert RECIO MD Unavailable Unavailab le SHAHAB (MALI), Robert RECIO MD Unavailable Unavailab le SHAHAB (MALI), Robert RECIO MD Unavailable Unavailab le SHAHAB (MALI), Robert RECIO MD Unavailable Unavailab le SHAHAB (MALI), Robert RECIO MD Unavailable Unavailab le SHAHAB (MALI), Robert RECIO MD Unavailable Unavailab le SHAHAB (MALI), Robert RECIO MD Unavailable Unavailab le SHAHAB (MALI), Robert RECIO MD Unavailable Unavailab le SHAHAB (MALI), Robert RECIO MD Unavailable Unavailab le SHAHAB (MALI), Robert RECIO MD Unavailable Unavailab le SHAHAB (MALI), Robert RECIO MD Unavailable Unavailab le SHAHAB (MALI), Robert RECIO MD Unavailable Unavailab le SHAHAB (MALI), Robert RECIO MD Unavailable Unavailab le SHAHAB (MALI), Robert RECIO MD Unavailable Unavailab le SHAHAB (MALI), Robert RECIO MD Unavailable Unavailab le SHAHAB (MALI), Robert RECIO MD Unavailable Unavailab le SHAHAB (MALI), Robert RECIO MD Unavailable Unavailab le SHAHAB (MALI), Robert RECIO MD Unavailable Unavailab le SHAHAB (MALI), Robert RECIO MD Unavailable Unavailab le SHAHAB (MALI), Robert HEMAL BONNER Unavailable Unavailab le SHAHAB (MALI), Robert HEMAL BONNER Unavailable Unavailab le SHAHAB (MALI), Robert HEMAL BONNER Unavailable Unavailab le SHAHAB (MALI), Robert RECIO MD Unavailable Unavailab le Diliberto, A Alice PA Unavailable Unavailable Diliberto, A Alice PA Unavailable Unavailable Diliberto, A Alice PA Unavailable Unavailable Diliberto, A Alice PA Unavailable Unavailable Diliberto, A Alice PA Unavailable Unavailable Diliberto, A Alice PA Unavailable Unavailable Diliberto, A Alice PA Unavailable Unavailable Diliberto, A Alice PA Unavailable Unavailable Diliberto, A Aliec PA Unavailable Unavailable Diliberto, A Alice PA Unavailable Unavailable Diliberto, A Alice PA Unavailable Unavailable Diliberto, A Alice PA Unavailable Unavailable Diliberto, A Alice PA Unavailable Unavailable Diliberto, A Alice PA Unavailable Unavailable Diliberto, A Alice PA Unavailable Unavailable Diliberto, A Alice PA Unavailable Unavailable Diliberto, A Alice PA Unavailable Unavailable Diliberto, A Alice PA Unavailable Unavailable Diliberto, A Alice PA Unavailable Unavailable Diliberto, A Alice PA Unavailable Unavailable Diliberto, A Alice PA Unavailable Unavailable Diliberto, A Alice PA Unavailable Unavailable Diliberto, A Alice PA Unavailable Unavailable Diliberto, A Alice PA Unavailable Unavailable Diliberto, A Alice PA Unavailable Unavailable Diliberto, A Alice PA Unavailable Unavailable Diliberto, A Alice PA Unavailable Unavailable Diliberto, A Alice PA Unavailable Unavailable Diliberto, A Alice PA Unavailable Unavailable Diliberto, A Alice PA Unavailable Unavailable Diliberto, A Alice PA Unavailable Unavailable Diliberto, A Alice PA Unavailable Unavailable Diliberto, A Alice PA Unavailable Unavailable Diliberto, A Alice PA Unavailable Unavailable Re-disclosure Warning The records that you are about to access may contain information from federally-assisted alcohol or drug abuse programs. If such information is present, then the following federally mandated warning applies: This information has been disclosed to you from records protected by federal confidentiality rules (42 CFR part 2). The federal rules prohibit you from making any further disclosure of this information unless further disclosure is expressly permitted by the written consent of the person to whom it pertains or as otherwise permitted by 42 CFR part 2. A general authorization for the release of medical or other information is NOT sufficient for this purpose. The Federal rules restrict any use of the information to criminally investigate or prosecute any alcohol or drug abuse patient.The records that you are about to access may contain highly sensitive health information, the redisclosure of which is protected by Article 27-F of the [facility] Public Health law. If you continue you may have access to information: Regarding HIV / AIDS; Provided by facilities licensed or operated by the [facility] Office of Mental Health; or Provided by the [facility] Office for People With Developmental Disabilities. If such information is present, then the following [facility] mandated warning applies: This information has been disclosed to you from confidential records which are protected by state law. State law prohibits you from making any further disclosure of this information without the specific written consent of the person to whom it pertains, or as otherwise permitted by law. Any unauthorized further disclosure in violation of state law may result in a fine or assisted sentence or both. A general authorization for the release of medical or other information is NOT sufficient authorization for further disc losure. Family History Family Member Name Family Member Gender Family Member Status Date o f Status Description Data Source(s) Unknown Unknown Problem [facility] ([facility] Encounters Encounter Providers Location Date Indications Data Source(s ) Inpatient Attender: JOE Verdugo ruiz: Jewel AhmedAdmitter: JOE HELTON MDConsultant: Cher Eden MD [id number] 09/09/2020 06:51:00 PM EST - 09/14/2020 01:54:00 PM EST [facility] Patient discharged. Emergency Attender: OZZY ZEPEDAConsultant: Ruth JOHNSTON-BC 09/09/2020 07:01:00 AM EST - 09/09/2020 09:28:00 AM EST [facility] Patient discharged. Outpatient Attender: IDALIA MORALES [id number] 09/08 10:08:40 AM EST - 09/08/2020 11:21:33 AM EST [facility] Outpatient Attender: KARL PALAFOX 09/07/2020 11:10:00 AM [facility] Outpatient Attender: Ruth Holm ANP-BCConsultant: Ruth bryant ANP-BC 08/31/2020 08:52:00 AM EST - 08/31/2020 08:52:00 AM EST [facility] Inpatient Attender: JOE HELTON MDAdmit ter: JOE HELTON MDReferrer: IDALIA MORALES 1-31 08/24/2020 05:25:00 AM EST - 08/25/2020 04:14:00 PM EST [facility] Patient discharged. Outpatient Attender: RAMIRO BOND 08/20/2020 01:00:00 PM [facility] Outpatient Referrer: JOE HELTON MD MOB-MOB.PAT 08/19/19 11:18:52 AM EST - 08/19/2020 11:18:57 AM EST [facility] Outpatient Attender: JOE HELTON MDReferrer: JOE Jones OB-MOB.PAT 08/19/2020 10:10:15 AM EST - 08/19/2020 11:35:45 AM EST [facility] Attender: HEMAL GUDINO MD ([place]) 08:21:01 PM EST [facility] Attender: HEMAL GUDINO MD ([place]) 08:21:01 PM EST [facility] Outpatient Attender: RAMIRO BOND 08/12/2020 08:02:00 AM [facility] Outpatient Attender: RAMIRO BOND 08/05/2020 08:56:00 AM [facility] Outpatient Attender: RAMIRO BOND 07/20/2020 05:00:00 PM [facility] Attender: HEMAL GUDINO MD ([place]) 0 08:20:12 PM EST [facility] Attender: HEMAL GUDINO MD ([place]) 0 08:20:12 PM EST [facility] Attender: HEMAL GUDINO MD ([place]) 0 08:20:12 PM EST [facility] Attender: HEMAL GUDINO MD ([place]) 0 08:20:12 PM EST [facility] ([facility]) [facility] Nurse Visit [address] [place] [id number] 07/15/2020 12:00:00 AM EST eCW1 ([facility]) Attender: HEMAL GUDINO MD ([place]) 0 08:20:12 PM EST [facility] Attender: HEMAL GUDINO MD ([place]) 0 08:20:12 PM EST [facility] Attender: HEMAL GUDINO MD ([place]) 0 08:20:12 PM EST [facility] Attender: HEMAL GUDINO MD ([place]) 0 08:20:12 PM EST [facility] Attender: HEMAL GUDINO MD ([place]) 0 08:20:12 PM EST [facility] Attender: HEMAL GUDINO MD ([place]) 0 08:20:12 PM EST [facility] Attender: HEMAL GUDINO MD ([place]LL) 0 08:20:12 PM EST [facility] Attender: HEMAL GUDINO MD ([place]) 0 08:20:12 PM EST [facility] Attender: HEMAL GUDINO MD ([place]) 0 08:20:12 PM EST [facility] Attender: HEMAL GUDINO MD ([place]) 0 08:20:12 PM EST [facility] Outpatient Attender: JOE HELTON MDRefer rer: HEMAL GUDINO ([place]) MDConsultant: JOE HELTON MD [id number] 07/02/2020 12:06:33 PM EST - 07/02/2020 11:01:20 AM EST [facility] Outpatient Attender: Ruth KAUFFMANonsultant: Ruth AUSTIN 06/10/2020 02:31:00 PM EST - 06/10/2020 02:31:00 PM [facility] Outpatient Attender: Ruth BEEBE ttender: Ally BENAVIDEZCConsultant: Ruth AUSTIN 06/01/2020 11:31:00 AM EST - 06/01/2020 11:31: 00 AM [facility] Attender: HEMAL GUDINO MD ([place]) 0 08:20:09 PM EDT [facility] Attender: HEMAL GUDINO MD ([place]) 0 08:20:09 PM EDT [facility] Attender: HEMAL GUDINO MD ([place]) 0 08:20:09 PM EDT [facility] Attender: HEMAL GUDINO MD ([place]) 0 08:20:09 PM EDT [facility] Outpatient Attender: Ruth KAUFFMANonsultant: Ruth AUSTIN 04/10/2020 01:09:00 PM EDT - 04/10/2020 02:09:00 PM EDT [facility] Attender: HEMAL GUDINO MD ([place]) 0 08:20:09 PM EDT [facility] Attender: HEMAL GUDINO MD ([place]) 0 08:20:09 PM EDT [facility] Attender: HEMAL GUDINO MD ([place]) 0 08:20:07 PM EDT [facility] Attender: HEMAL GUDINO MD ([place]) 0 08:20:07 PM EDT [facility] Attender: HEMAL GUDINO MD ([place]) 0 08:20:07 PM EDT [facility] Outpatient Attender: Ruth AUSTIN [facility] 01/28 09:20:00 AM EDT [facility] ([facility]) Outpatient Attender: Ruth JOHNSTON-BC 01/28 09:17:00 AM EDT - 02/11/2020 09:17:00 AM EDT [facility] [address] [place] [address] 02/03/2020 12:00:00 AM EDT eCW1 ([facility]) [facility] Dermatology [address] [place] [address] 01/24/2020 12:00:00 AM EDT eCW1 (Pending sale to [facility]) Attender: HEMAL GUDINO MD ([place]) 0 08:20:05 PM EDT [facility] [address] [place] [address] 11/12/2019 12:00:00 AM EDT eCW1 ([facility]) Outpatient Attender: MARIVEL CHU DO ED-LAB 10/22/2019 08 :37:00 AM [facility] Referrer: Alice MORALES 10/01/2019 08:54:00 AM EST [facility] Outpatient Referrer: Alice MORALES 10/01/2019 08:51:00 AM EST [facility] Outpatient Attender: HEMAL GUDINO ([facility]) MDAdmitter: HEMAL GUDINO MD ([place]) [id number].[id number] 09/27/2019 09:34:55 AM EST [facility] Attender: HEMAL GUDINO MD ([place]) 0 08:20:02 PM EST [facility] Outpatient Referrer: Alice MORALES 09/26/2019 10:40:00 AM EST [facility] Outpatient Referrer: Alice MORALES 09/26/2019 10:07:00 AM EST [facility] Outpatient 09/26/2019 10:05:00 AM EST [facility] Attender: HEMAL GUDINO MD ([place]) 0 08:20:02 PM EST [facility] Outpatient 09/21/2019 08:36:00 AM EST [facility] Outpatient Attender: Alison Matthew: Tamera GODOY 12/11/2017 06:01:00 PM EDT - 12/11/2017 06:01:00 PM EDT [facility] Immunizations Vaccine Date Status Description Data Source(s) Depo-Provera 150mg/1mL (Medroxy-Progestrone Acetate) 03:48:00 PM EST completed eCW1 (Pending sale to [facility]) Depo-Provera 150mg/1mL (Medroxy-Progestrone Acetate) 09:58:00 AM EDT completed eCW1 (Pending sale to [facility]) Depo-Provera 150mg/1mL (Medroxy-Progestrone Acetate) 02:08:00 PM EDT completed eCW1 (Pending sale to [facility]) Depo-Provera 150mg/1mL (Medroxy-Progestrone Acetate) 02:08:00 PM EDT completed eCW1 (Pending sale to [facility]) Medications Medication Brand Name Start Date Product Form Dose Route Admi nistrative Instructions Pharmacy Instructions Status Indications Reaction Description Data Source(s) Metoclopramide 10 MG Oral Tablet metoclopramide (GREGG N) tablet 10 mg metoclopramide (REGLAN) tablet 10 mg 09/14/2020 02:00:00 PM EST 10 mg Oral active 10 mg, Oral, Nilsa ry 6 hours PRN, heartburn, Starting 09/14/20 at 1400 [facility] Medication administered onsite pantoprazole 40 MG Delayed Release Oral Tablet pantoprazole (PROTONIX) 40 MG tablet pantoprazole (PROTONIX) 40 MG tablet 09/14/2020 12:00:00 AM EST 40 mg Oral aborted Take 1 tablet (40 mg total) by mouth 2 (two) times a day [facility] Sucralfate 1000 MG Oral Tablet sucralfate (CARAFATE) 1 g tablet sucralfate (CARAFATE) 1 g tablet 09/14/2020 12:00:00 AM EST 1 g Oral active Take 1 tablet (1 g total) by mouth 4 (four) times a day for 28 days [facility] POLYETHYLENE GLYCOL 3350 142 MG/ML Oral Solution polyethylene glycol (GLYCOLAX) 17 g packet polyethylene glycol (GLYCOLAX) 17 g packet 09/14/2020 12:00:00 AM EST 17 g Oral active Take 17 g by mouth daily for 5 days Then as needed for constipation [facility] Sertraline 100 MG Oral Tablet sertraline (ZOLOFT) 100 MG tablet sertraline (ZOLOFT) 100 MG tablet 09/14/2020 12:00:00 AM EST 100 mg Oral active Take 1 tablet (100 mg total) by mouth nightly [facility] Ondansetron 4 MG Disintegrating Oral Tab let ondansetron (ZOFRAN-ODT) 4 MG disintegrating tablet ondansetron (ZOFRAN-ODT) 4 MG disintegrating tablet 09/14/2020 12:00:00 AM EST 4 mg Oral active Take 1 tablet (4 mg total) by mouth every 8 (eight) hours as needed for nausea [facility] lansoprazole 15 MG Delayed Release Oral Capsule lansoprazole (PREVACID) 15 MG capsule lansoprazole (PREVACID) 15 MG capsule 09/14/2020 12:00:00 AM EST 30 mg Oral active Take 2 capsules (30 mg t otal) by mouth 2 (two) times a day [facility] 1 ML Lorazepam 2 MG/ML Injection LORazepam (ATIVAN) in jection 0.5 mg LORazepam (ATIVAN) injection 0.5 mg 09/13/2020 03:06:44 PM EST 0.5 mg Intrave nous active 0.5 mg, Intravenous, Every 6 hours PRN, N/V, Starting 09/13/20 at 1506, For 7 days
immediately prior to intravenous use, lorazepam injection must be diluted with an equal volume of sodium chloride 0.9%
[facility] Medication administered onsite Sertraline 100 MG Oral Tablet sertraline (ZOLOFT) tabl et 100 mg sertraline (ZOLOFT) tablet 100 mg 09/12/2020 09:00:00 PM EST 100 mg Oral active 100 mg, Oral, Nightly, First dose on 09/12/20 at 2100 [facility] Medication administered onsite diphenhydrAMINE (BENADRYL) injection 50 mg [id number] 09/12/2020 02:00:00 PM EST 50 mg Intravenous completed 50 mg, Intravenous, Once, 09/12/20 at 1400, For 1 dose [facility] Medication administered onsite pantoprazole 4 MG/ML Injectable Solution pantoprazole (PROTONIX) injection 40 mg pantoprazole (PROTONIX) injection 40 mg 09/12/2020 02:00:00 PM EST 40 mg Intravenous active Vomiting 40 mg, Intrav enous, Daily, Indications: Vomiting, First dose on 09/12/20 at 1400
For IV Push - Dilute with 10 mL of 0.9% NaCl and push over 2 minutes.
[facility] Vomiting Medication administered onsite sodium chloride 0.9% (NS) infusion [id number] 09/12/2020 12:00:00 P M EST Intravenous active at 75 mL/hr, Intravenous, Continuous, Starting 09/12/20 at 1200 [facility] Medication administered onsite Prochlorperazine 5 MG/ML Injectable Solu tion Prochlorperazine Edisylate (COMPAZINE) injection 5 mg Prochlorperazine Edisylate (COMPAZINE) i njection 5 mg 09/11/2020 07:51:26 PM EST 5 mg Intravenous active 5 mg, Intravenous, Every 6 hours PRN, nausea, vomiting, Starting 09/11/20 at 1951 [facility] Medication administered onsite Sucralfate 1000 MG Oral Tablet sucralfate (CARAFATE) t ablet 1 g sucralfate (CARAFATE) tablet 1 g 09/11/2020 07:00:00 PM EST 1 g Oral active 1 g, Oral, Every 6 hours (scheduled), First dose on 09/11/20 at 1900, For 30 doses
If patient is unable to swallow the tablet, Nursing should dissolve tablet in 10-15 ml of water prior to administration. Sucralfate should NOT be administered via feeding tubes.
[facility] Medication administered onsite pantoprazole 40 MG Delayed Release Oral Tablet pantoprazole (PROTONIX) EC tablet 40 mg pantoprazole (PROTONIX) EC tablet 40 mg 09/11/2020 06:00:[address] 40 mg Oral aborted Gastroesophageal Reflux Diseas e 40 mg, Oral, 2 times daily, Indications: Gastroesophageal Reflux Disease, First dose on Mon09/11/20 at 1800, For 30 days [facility] Gastroesophageal Reflux Disease Medication administered onsite 1 ML Lorazepam 2 MG/ML Injection LORazepam (ATIVAN) in jection 0.5 mg LORazepam (ATIVAN) injection 0.5 mg 09/11/2020 12:19:37 PM EST 0.5 mg Intrave nous completed 0.5 mg, Intravenous, Every 6 hours PRN, anxiety, Starting Mon09/11/20 at 1219, For 3 doses
immediately prior to intravenous use, lorazepam injection must be diluted with an equal volume of sodium chloride 0.9%
[facility] Medication administered onsite 72 HR Scopolamine 0.0139 MG/HR Transderm al Patch scopolamine (TRANSDERM-SCOP) 1.5 MG 1 patch scopolamine (TRANSDERM-SCOP) 1.5 MG 1 patch 09/11/2020 12:00:00 PM EST 1 {patch} Transdermal active 1 patch, Transdermal, Administer over 72 Hours, Every 72 hours, First dose on Mon09/11/20 at 1200 [facility] Medication administered onsite Bisacodyl 10 MG Rectal Suppository bisacodyl (DULCOLAX ) suppository 10 mg bisacodyl (DULCOLAX) suppository 10 mg 09/11/2020 11:00:00 AM EST 10 mg Rectal active 10 mg, Rectal, Daily, First dose on Mon09/11/20 at 1100
hold for loose stools
[facility] Medication administered onsite Prednisone 20 MG Oral Tablet predniSONE (DELTASONE) 20 MG tablet predniSONE (DELTASONE) 20 MG tablet 09/11/2020 12:00:00 AM EST active 2 tablet qd for 5 days [facility] Famotidine 20 MG Oral Tablet famotidine (PEPCID) 20 MG tablet famotidine (PEPCID) 20 MG tablet 09/11/2020 12:00:00 AM EST 20 mg Oral active Take 1 tablet (20 mg total) by mouth nightly [facility] Acetaminophen 32 MG/ML Oral Solution susana taminophen (TYLENOL) 160 MG/5ML solution acetaminophen (TYLENOL) 160 MG/5ML solution 09/11/2020 12:00:00 AM EST 650 mg Oral active Take 20.3 mL ( 650 mg total) by mouth every 6 (six) hours as needed [facility] dexamethasone (DECADRON) injection 8 mg [id number] 09/10/19 10:00:00 AM EST 8 mg Intravenous active 8 mg, Intrav enous, Every 6 hours (relative), First dose on Annie 09/10/20 at 1000 [facility] Medication administered onsite normal saline flush 0.9 % injection 3 mL [id number] 09/09/2020 10:00:00 PM EST 3 mL Intravenous active 3 mL , Intravenous, PROTOCOL, First dose on Mon09/09/20 at 2200
flush per protocol, D/C Main IV fluid if appropriate
[facility] Medication administered onsite Glucose 50 MG/ML / Potassium Chloride 0. 04 MEQ/ML / Sodium Chloride 0.0769 MEQ/ML Injectable Solution dextrose 5 % and sodium chloride 0.45 % with KCl 40 mEq/L infusion dextrose 5 % and sodium chloride 0.45 % with KCl 40 mEq/L infusion 09/09/2020 10:00:00 PM EST Intravenous abor heidi at 75 mL/hr, Intravenous, Continuous, Starting Mon09/09/20 at 2200
This is a "Triggered Filled Infusion" and is automatically sent based on the current rate documented in the flow sheets
[facility] Medication administered onsite heparin (porcine) injection 5,000 Units [id number] 09/09/19 09:00:00 PM EST 5000 U Subcutaneous active 5,000 Units , Subcutaneous, Every 12 hours (scheduled), First dose on Mon09/09/20 at 2100
If platelet count is less than 100,000 or hematocrit is less than 25, or if there is a 5 point decrease in hematocrit, do not give the dose and call physician/designee.
[facility] Medication administered onsite Famotidine (PEPCID) injection 20 mg [id number] 09/09/2020 09:00:0 0 PM EST 20 mg Intravenous aborted 20 mg, I ntravenous, 2 times daily, First dose on Mon09/09/20 at 2100
Refrigerated only product.Located in med refrigerator on unit.Dilute with sodium chloride 0.9% to equal 10 ml. Administration Rate = 20mg/2 minutes

Alternative medication per therapeutic substitution policy
(pantoprazole iv for non-GIB indication --> famotidine iv, renally dose adjusted)
[facility] Medication administered onsite Hyoscyamine Sulfate 0.125 MG Sublingual Tablet hyoscyamine (LEVSIN/SL) SL tablet 250 mcg hyoscyamine (LEVSIN/SL) SL tablet 250 mcg 09/09/2020 08:52:26 PM EST 250 ug Sublingual active 250 mcg, Sublingual, Every 4 hours PRN, esophageal spasms, Starting Mon09/09/20 at 2052 [facility] Medication administered onsite Morphine Sulfate (PF) injection 4 mg [id number] 09/09/2020 08:14: 22 PM EST 4 mg Intravenous active 4 mg, In travenous, Every 4 hours PRN, severe pain (7-10), Starting Mon09/09/20 at 2014, For 7 days [facility] Medication administered onsite 1 ML Ketorolac Tromethamine 15 MG/ML [place] ketorolac (TORADOL) injection 15 mg ketorolac (TORADOL) injection 15 mg 09/09/2020 08:13:45 PM EST 15 mg Intravenous completed 15 mg, Intrav enous, Every 6 hours PRN, moderate pain (4-6), Starting Mon09/09/20 at 2013, For 24 hours [facility] Medication administered onsite dextrose 5 % and sodium chloride 0.9 % infusion [id number] 09/09/2020 08:00:00 PM EST Intravenous aborted at 1 25 mL/hr, Intravenous, Continuous, Starting Mon09/09/20 at 2000 [facility] Medication administered onsite Acetaminophen 32 MG/ML Oral Solution susana taminophen (TYLENOL) 160 MG/5ML solution 650 mg acetaminophen (TYLENOL) 160 MG/5ML solution 650 mg 04/2021 07:41:57 PM EST 650 mg Oral active 650 mg, Oral, Every 6 hours PRN, mild pain (1- 3), Starting Mon09/09/20 at 194 [facility] Medication administered onsite 2 ML Metoclopramide 5 MG/ML Prefilled Sy ringe metoclopramide (REGLAN) injection 10 mg metoclopramide (REGLAN) injection 10 mg 09/09/2020 07:41:[address] 10 mg Intravenous aborted 10 mg, I ntravenous, Every 6 hours PRN, for Nausea/Vomiting not relieved by zofran, Starting Mon09/09/20 at 194 [facility] Medication administered onsite ondansetron (ZOFRAN) injection 4 mg [id number] 09/09/2020 07:41:0 7 PM EST 4 mg Intravenous active 4 mg, In travenous, Every 4 hours PRN, nausea, vomiting, Starting Mon09/09/20 at 194 [facility] Medication administered onsite sodium chloride 0.9% (NS) bolus 1,000 mL [id number] 09/09/2020 07:40:00 PM EST 1000 mL Intravenous completed 1, 000 mL, Intravenous, Administer over 1 Hours, Once, Mon09/09/20 at 1940, For 1 dose [facility] Medication administered onsite ondansetron (ZOFRAN) injection 4 mg [id number] 09/09/2020 07:40:0 0 PM EST 4 mg completed 4 mg, Intr avenous Push, Once, Mon09/09/20 at 1940, For 1 dose [facility] Medication administered onsite Lorazepam 0.5 MG Oral Tablet LORazepam (ATIVAN) 0.5 MG tablet LORazepam (ATIVAN) 0.5 MG tablet 09/08/2020 12:00:00 AM EST 0.5 mg Oral acti ve Take 1 tablet (0.5 mg total) by mouth every 6 (six) hours as needed for anxiety Max Daily Amount: 2 mg [facility] 72 HR Scopolamine 0.0139 MG/HR Transderm al Patch scopolamine (TRANSDERM-SCOP) 1.5 MG scopolamine (TRANSDERM-SCOP) 1.5 MG 09/08/2020 12:00:00 AM EST 1 {patch} Transdermal active Place 1 patch on the skin every third day [facility] Prochlorperazine 5 MG Oral Tablet prochlorperazine (CO MPAZINE) 5 MG tablet prochlorperazine (COMPAZINE) 5 MG tablet 09/08/2020 12:00:00 AM EST 5 mg Oral active Take 1 tablet ( 5 mg total) by mouth every 6 (six) hours as needed for nausea [facility] Hyoscyamine Sulfate 0.125 MG Oral Tablet hyoscyamine (ANASPAZ,LEVSIN) 0.125 MG tablet hyoscyamine (ANASPAZ,LEVSIN) 0.125 MG tablet 09/04/2020 12:0 0:00 AM EST active One tablet q 4 h ours for gi symptoms [facility] Prednisone 20 MG Oral Tablet predniSONE (DELTASONE) 20 MG tablet predniSONE (DELTASONE) 20 MG tablet 09/04/2020 12:00:00 AM EST aborted 2 tablet qd for 5 days [facility] Escitalopram 20 MG Oral Tablet Escitalopram Oxalate 08/31/2020 1 2:00:00 AM EST ORAL active [facility] ( [facility]) Ibuprofen 200 MG Oral Capsule [Advil] Advil 08/31/2020 12:00:00 AM EST ORAL active [facility] ([facility]) Simethicone 80 MG Chewable Tablet simethicone (MYLICON ) chewable tablet 80 mg simethicone (MYLICON) chewable tablet 80 mg 08/24/2020 11:30:46 PM EST 80 mg Oral active 80 mg, Oral, 4 times daily PRN, flatulence, Starting 08/24/20 at 2330 [facility] Medication administered onsite 1 ML Ketorolac Tromethamine 15 MG/ML [place] ketorolac (TORADOL) injection 15 mg ketorolac (TORADOL) injection 15 mg 08/24/2020 03:00:00 PM EST 15 mg Intravenous completed 15 mg, Intrav enous, Once, Mon08/24/20 at 1500, For 1 dose [facility] Medication administered onsite heparin (porcine) injection 5,000 Units [id number] 08/24/19 02:00:00 PM EST 5000 U Subcutaneous active 5,000 Units , Subcutaneous, Every 8 hours (scheduled), First dose on Mon08/24/20 at 1400, Post-op
If platelet count is less than 100,000 or hematocrit is less than 30, or if there is a 5 point decrea se in hematocrit, do not give the dose and call physician/designee.
[facility] Medication administered onsite sodium chloride 0.9% (NS) infusion [id number] 08/24/2020 01:00:00 P M EST Intravenous active at 100 mL/hr, Intravenous, Continuous, Starting Mon08/24/20 at 1300, Post-op [facility] Medication administered onsite Docusate Sodium 100 MG Oral Capsule docusate sodium (C OLACE) capsule 100 mg docusate sodium (COLACE) capsule 100 mg 08/24/2020 01:00:00 PM EST 100 mg Oral active 100 mg, Oral, 2 times daily, First dose on Mon08/24/20 at 1300, Post-op
Hold for loose stool.
[facility] Medication administered onsite 2 ML Metoclopramide 5 MG/ML Prefilled Sy ringe metoclopramide (REGLAN) injection 10 mg metoclopramide (REGLAN) injection 10 mg 08/24/2020 11:59:[address] 10 mg Intravenous active 10 mg, I ntravenous, Every 6 hours PRN, nausea, vomiting, if zofran is not effective, Starting Mon08/24/20 at 1159, Post-op [facility] Medication administered onsite ondansetron (ZOFRAN) injection 4 mg [id number] 08/24/2020 11:59:2 6 AM EST 4 mg Intravenous active 4 mg, In travenous, Every 6 hours PRN, nausea, vomiting, Starting Mon08/24/20 at 1159, Post-op [facility] Medication administered onsite Morphine Sulfate (PF) injection 4 mg [id number] 08/24/2020 11:59: 26 AM EST 4 mg Intravenous active 4 mg, In travenous, Every 4 hours PRN, severe pain (7-10), when Oral pain meds can't be used, Starting Mon08/24/20 at 1159, For 7 days, Post-op [facility] Medication administered onsite Acetaminophen 325 MG / Hydrocodone Ángela trate 5 MG Oral Tablet HYDROcodone- acetaminophen (NORCO) 5-325 MG per tablet 1-2 tablet HYDROcodone-acetaminophen (NORCO) 5-325 MG per tablet 1-2 tablet 08/24/2020 11:18:02 AM EST Oral active 1-2 tablet, Oral, Ev nadege 4 hours PRN, moderate pain (4-6), severe pain (7-10), Starting Mon08/24/20 at 1118, For 7 days, Post-op [facility] Medication administered onsite Magnesium Chloride 0.82292 MEQ/ML / Pota ssium Chloride 0.0497 MEQ/ML / Sodium Acetate 0.0163 MEQ/ML / Sodium Chloride 0.0899 MEQ/ML / Sodium gluconate 5.02 MG/ML Injectable Solution [Normosol-R] electrolyte-R (NORMOSOL-R/PLASMALYTE-R) solution electrolyte-R (NORMOSOL-R/PLASMALYTE-R) solution 08/24 08:00:00 AM EST Intravenous aborted at 1 00 mL/hr, Intravenous, Continuous, Starting Mon08/24/20 at 0800 [facility] Medication administered onsite Docusate Sodium 100 MG Oral Capsule docusate sodium (C OLACE) 100 MG capsule docusate sodium (COLACE) 100 MG capsule 08/24/2020 12:00:00 AM EST 100 mg Oral active Take 1 capsule (100 mg total) by mouth 2 (two) times a day [facility] Acetaminophen 325 MG / Hydrocodone Ángela trate 5 MG Oral Tablet HYDROcodone- acetaminophen (NORCO) 5-325 MG per tablet HYDROcodone-acetaminophen (NORCO) 5- 325 MG per tablet 08/24/2020 12:00:00 AM EST Oral active Take 1-2 tablets by mouth every 6 (six) hours as needed Max Daily Amount: 8 tablets [facility] 12 HR Bupropion Hydrochloride 150 MG Extended Release Oral Tablet Bupropion Hydrochloride ER (SR) 06/10/2020 12:00:00 AM EST ORAL c ompleted [facility] ([facility]) Prazosin 2 MG Oral Capsule Prazosin HCL 06/10/2020 12:00:00 AM EST ORAL active [facility] ([facility]) Escitalopram 10 MG Oral Tablet Escitalopram Oxalate 02/11/2020 1 2:00:00 AM EDT ORAL completed [facility] ([facility]) Methocarbamol 500 MG Oral Tablet Methocarbamol 500 MG 2019 12:00:00 AM EDT 2.0 {tablets} active Methocarba mol 500 MG eCW1 ([facility]) medroxyprogesterone acetate 150 MG/ML In jectable Suspension [Depo-Provera] Depo- Provera 150 MG/ML Depo-Provera 150 MG/ML 11/12/2019 12:00:00 AM EDT active 1 ml eCW1 ([facility]) medroxyprogesterone acetate 150 MG/ML In jectable Suspension [Depo-Provera] Depo- Provera 150 MG/ML Depo-Provera 150 MG/ML 11/12/2019 12:00:00 AM EDT 1.0 {ml} active Depo-Provera 150 MG/ ML eCW1 ([facility]) Metoclopramide 5 MG Oral Tablet metoclopramide (REGLAN ) 5 MG tablet metoclopramide (REGLAN) 5 MG tablet 5 mg Oral ab orted Take 5 mg by mouth 2 (two) times a day [facility] Ondansetron 4 MG Disintegrating Oral Tab let ondansetron (ZOFRAN-ODT) 4 MG disintegrating tablet ondansetron (ZOFRAN-ODT) 4 MG disintegrating tablet 4 mg Oral aborted Take 4 mg by mouth 2 (two) times a day as needed for nausea [facility] Cholestyramine Resin 66.7 MG/ML Oral Sivan pension cholestyramine (QUESTRAN) 4 GM/DOSE powder cholestyramine (QUESTRAN) 4 GM/DOSE powder 4 g Oral aborted Take 4 g by mouth nightly [facility] pantoprazole 40 MG Delayed Release Oral Tablet pantoprazole (PROTONIX) 40 MG tablet pantoprazole (PROTONIX) 40 MG tablet 40 mg Oral aborted Take 40 mg by mouth 2 (two) times a day [facility] Insurance Providers Payer name Policy type / Coverage type Policy ID Covered republican ID Covered republican's relationship to renae Policy Renae Plan Information [facility] [id number] FA2 [id number] BCBS EMPIRE TASHA DIV [id number] FA2 [id number] [facility] [id number] CHILD [id number] [employer] BCBS [id number] [facility] EMPIRE -PHYSICIAN [id number] [facility] EMPIRE -CLINIC [id number] 19 [id number] EMPIRE BLUE CROSS BLUE SHIELD -O/P [id number] [employer] BCBS [id number] CDF [id number] [id number] INSURANCE COVID-19 COVID Latrice C OVID [facility] [id number] FA2 [id number] BCBS EMPIRE [id number] CHILD [id number] [facility] [id number] CHILD [id number] [facility] [id number] [facility] LTV STEEL [id number] S [id number] INSURANCE COVID-19 [id number] BCBS EMPIRE [id number] CHILD [id number] [facility] [id number] CHILD [id number] [facility] [id number] CHILD [id number] [facility] [id number] [facility] [id number] 3 [id number] [facility] MEDICAID [id number] S [id number] [facility] Insurance [id number] 3 [id number] [facility] -CLINIC [id number] [facility] [place] [id number] 19 [id number] [facility] [place] PLAN [place] [id number] EMPIRE (STATE EMP) O [id number] C [id number] [facility] [id number] S [id number] [facility] [id number] CHILD [id number] BCBS EMPIRE [id number] CHILD [id number] ANSI-Commercial [id number] [facility] [id number] FA2 [id number] ANSI-Commercial [id number] PREFERRED MUTUAL [id number] MIREYA [id number] [employer] [place]MPIRE [id number] MIREYA [id number] ANSI-Commercial [id number] BCBS EMPIRE TASHA DIV [id number] PREFERRED MUTUAL [id number] MIREYA [id number] [employer]CE[employer]BS [place] EMPIRE [id number] MIREYA [id number] ANSI-Commercial [id number] ANSI-Commercial [id number] [facility] [id number] CHILD [id number] [facility] [id number] FA2 [id number] BCBS EMPIRE TASHA DIV [id number] FA2 [id number] BCBS EMPIRE [id number] CHILD [id number] [facility] [id number] CHILD [id number] [employer] [id number] CHILD [id number] [facility] [id number] CHILD [id number] [employer] [id number] CHILD [id number] ANSI-Commercial [id number] BLUE CROSS [id number] [facility] EMPIRE [id number] CHILD [id number] ANSI-Commercial [id number] ANSI-Commercial [id number] [facility] Commercial [id number] Family Dependent [id number] SELF-PAY UNAVAILABLE UNAVAILA BLE OTHER1 / S / [id number] Problems, Conditions, and Diagnoses Code Display Name Description Problem Type Effective Dates Data Source(s) K20.90 Esophagitis Esophagitis [id number] 09/14/2020 12:00:00 AM [facility] R13.10 Dysphagia Dysphagia [id number] 09/09/2020 12:00:00 AM [facility] R11.2 Nausea and vomiting Nausea and vomiting [id number] 0 09/09/2020 12:00:00 AM [facility] K44.9 Paraesophageal hernia Paraesophageal hernia [id number] 08/31/2020 12:00:00 AM [facility] R07.89 Other chest pain Other chest pain [id number] 08/25/2020 12 :00:00 AM [facility] K21.9 Gastroesophageal reflux disease with hia donte hernia Gastroesophageal reflux disease with hiatal hernia [id number] 07/02/2020 12:00:00 AM [facility] [id number] Diaphragmatic hernia Diaphragmatic hernia Problem 02/11/2020 12:00:00 AM EDT [facility] ([facility]) [id number] Freedman's esophagus Freedman's esophagus Problem 0 02/11/2020 12:00:00 AM EDT [facility] ([facility]) R11.2 Nausea with vomiting, unspecified Nausea with vo miting, unspecified Diagnosis 09/09/2020 07:18:31 PM [facility] P25897 Other specified postprocedural states Ot her specified postprocedural states Diagnosis 09/09/2020 07:01:00 AM [facility] I10 Essential (primary) hypertension Essential (primary) h ypertension Diagnosis 09/09/2020 07:01:00 AM [facility] F411 Generalized anxiety disorder Generalized anxiety disor ruiz Diagnosis 09/09/2020 07:01:00 AM [facility] K2900 Acute gastritis without bleeding Acute gastritis without bleeding Diagnosis 09/09/2020 07:01:00 AM [facility] K2100 Gastro-esophageal reflux disease with es ophagitis, without bleeding Gastro-esophageal reflux disease with esophagitis, without bleeding Diagnosis 09/09/2020 07:01:00 AM [facility] R112 Nausea with vomiting, unspecified Nausea with vo miting, unspecified Diagnosis 09/09/2020 07:01:00 AM [facility] F32.9 Major depressive disorder, single episod e, unspecified MAJOR DEPRESSIVE DISORDER, SINGLE EPISODE, UNSPECIFIED Diagnosis 09/07/2020 11:10:00 AM [facility] K44.9 Diaphragmatic hernia without obstruction or gangrene Diaphragmatic hernia without obstruction Diagnosis 08/24/2020 05:25:00 AM [facility] K21.9 Gastro-esophageal reflux disease without esophagitis Gastro-esophageal reflux disease without Diagnosis 08/24/2020 05:25:00 AM [facility] F41.9 Anxiety disorder, unspecified ANXIETY DISORDER, UNSPEC IFIED Diagnosis 08/20/2020 01:00:00 PM [facility] U07.1 COVID-19 COVID-19 Diagnosis 08/19/2020 11:18:52 AM ES T [facility] K449 Diaphragmatic hernia without obstruction or gangrene Diaphragmatic hernia without obstruction or gangrene Diagnosis 06/10/2020 02:31:00 PM [facility] K2270 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 Ba rrett's esophagus without dysplasia Diagnosis 06/10/2020 02:31:00 PM [facility] F4323 Adjustment disorder with mixed anxiety a nd depressed mood Adjustment disorder with mixed anxiety and depressed mood Diagnosis 020 02:31:00 PM [facility] P41105 Contact with and (suspected) exposure to other viral communicable diseases Contact with and (suspected) exposure to other viral communicable diseases Diagnosis 06/01/2020 11:31:00 AM [facility] R1013 Epigastric pain Epigastric pain Diagnosis 04/10/2020 01:0 9:00 PM EDT [facility] R1084 Generalized abdominal pain Generalized abdominal pain Diagnosis 04/10/2020 01:09:00 PM EDT [facility] K5900 Constipation, unspecified Constipation, unspecified Di agnosis 04/10/2020 01:09:00 PM EDT [facility] R13.10 Dysphagia, unspecified Dysphagia, unspecified Diagnosi s 10/17/2019 05:22:50 PM EDT [facility] Surgeries/Procedures Procedure Description Date Indications Data Source(s) GLUC BLD GLUC MNTR DEV CLEARED FDA SPEC HOME USE POCT GLUCOSE Routine 09/13/2020 6:07 PM EST 09/13/2020 11:07:00 PM [facility] GLUC BLD GLUC MNTR DEV CLEARED FDA SPEC HOME USE POCT GLUCOSE Routine 09/13/2020 8:54 AM EST 09/13/2020 01:54:00 PM [facility] BLOOD COUNT COMPLETE AUTOMATED CBC Routine 09/12/2020 6:31 A M EST 09/12/2020 11:31:00 AM [facility] BASIC METABOLIC PANEL CALCIUM TOTAL BASIC METABOLIC PANEL Routi ne 09/12/2020 6:31 AM EST 09/12/2020 11:31:00 AM [facility] UPPER GI NDSC DX W/WO COLLECTION SPECIMEN ESOPHAGOGASTRODUODENO SCOPY (EGD) 09/11/2020 5:04 PM EST Nausea and vomiting, intractability of vomiting not specified, unspecified vomiting type Esophagitis determined by endoscopy 09/11/2020 10:04:0 0 PM EST - 09/11/2020 10:39:00 PM EST Esophagitis determined by endoscopyNause a and vomiting, intractability of vomiting not specified, unspecified vomiting type [facility] Esophagitis determined by endoscopy Nausea and vomiting, intractability of v omiting not specified, unspecified vomiting type BLOOD COUNT COMPLETE AUTOMATED CBC Routine 09/11/2020 5:47 A M EST 09/11/2020 10:47:00 AM EST [facility] BASIC METABOLIC PANEL CALCIUM TOTAL BASIC METABOLIC PANEL Routi ne 09/11/2020 5:47 AM EST 09/11/2020 10:47:00 AM [facility] CT HEAD/BRAIN W/O CONTRAST MATERIAL CT HEAD WO CONTRAST STAT 09/10/2020 7:48 PM EST 09/11/2020 12:48:24 AM [facility] URINE CULTURE HOLD SPECIMEN URINE CULTURE HOLD SPECIMEN STAT 09/10/2020 10:13 AM EST 09/10/2020 03:13:00 PM [facility] URINE TEST VISUAL COLOR CMPRSN METHS , URINE STAT 09/10/2020 10:13 AM EST 09/10/2020 03:13:00 PM [facility] URNLS DIP STICK/TABLET RGNT AUTO W/O MICROSCOPY URINALYSIS W/O MICRO STAT 09/10/2020 10:13 AM EST 09/10/2020 03:13:00 PM EST [facility] BLOOD COUNT COMPLETE AUTOMATED CBC Routine 09/10/2020 4:41 A M EST 09/10/2020 09:41:00 AM EST [facility] BASIC METABOLIC PANEL CALCIUM TOTAL BASIC METABOLIC PANEL Routi ne 09/10/2020 4:41 AM EST 09/10/2020 09:41:[address] [facility] COVID/FLU AB/RSV PCR COVID/FLU AB/RSV PCR STAT 09/09/2020 8:06 PM EST 09/10/2020 01:06:00 AM EST [facility] BLOOD COUNT COMPLETE AUTO&AUTO DIFRNTL WBC COUNT CBC AND DIFFER ENTIAL STAT 09/09/2020 7:38 PM EST 09/10/2020 12:38:00 AM EST [facility] PHOSPHORUS INORGANIC PHOSPHORUS STAT 09/09/2020 7:38 PM EST 09/10/2020 12:38:00 AM EST [facility] MAGNESIUM MAGNESIUM STAT 09/09/2020 7:38 PM EST 09/10/2020 12:38:00 AM EST [facility] LIPASE LIPASE STAT 09/09/2020 7:38 PM EST 09/10/19 12:38:00 AM EST [facility] COMPREHENSIVE METABOLIC PANEL COMPREHENSIVE METABOLIC PANEL STA T 09/09/2020 7:38 PM EST 09/10/2020 12:38:00 AM [facility] ECG ROUTINE ECG W/LEAST 12 LDS TRCG ONLY W/O I&R ECG 12-LEAD STAT 08/25/2020 9:43 AM EST 08/25/2020 02:43:27 PM [facility] LAPS RPR PARAESPHGL HRNA INCL FUNDPLSTY W/O MESH FUND OPLICATION, ROBOT- ASSISTED, LAPAROSCOPIC, USING XI, WITH PARAESOPHAGEAL HERNIA REPAIR 08/24/2020 7:29 AM EST Gastroesophageal reflux disease with hiatal hernia 12:29:00 PM EST - 08/24/2020 02:38:00 PM EST Gastroesophageal reflux disease with hiatal hernia [facility] Gastroesophageal reflux disease with hia donte hernia POCT I-STAT BETA HCG POCT I-STAT BETA HCG Routine 08/24/2020 7:00 AM EST 08/24/2020 12:00:00 PM EST [facility] BLOOD TYPING ABO TYPE AND SCREEN Routine 08/24/2020 6:54 AM EST 08/24/2020 11:54:00 AM EST [facility] BASIC METABOLIC PANEL CALCIUM TOTAL BASIC METABOLIC PANEL Routi ne 08/19/2020 11:30 AM EST Gastroesophageal reflux disease with hiatal hernia 1 04:30:00 PM EST Gastroesophageal reflux disease with hiatal hernia [facility] Gastroesophageal reflux disease with hia donte hernia ECG ROUTINE ECG W/LEAST 12 LDS TRCG ONLY W/O I&R ECG 12-LEAD Routine 08/19/2020 11:25 AM EST Gastroesophageal reflux disease with hiatal hernia 1 04:25:12 PM EST Gastroesophageal reflux disease with hiatal hernia [facility] Gastroesophageal reflux disease with hia donte hernia Injection, medroxyprogesterone acetate for contraceptive use , 150 mg 07/15/2020 12:00:00 AM EST eCW1 ([facility]) Brief Emotional/Behav Assessment W/ Scoring Doc Per Standard Inst 02/11/2020 12:00:00 AM EDT [facility] ([facility]) Admin Patient Focused Health Risk Assessment Instrument 02/11/2020 12:00:00 AM EDT [facility] ([facility]) Injection, medroxyprogesterone acetate, 1 mg 0 12:00:00 AM EDT eCW1 ([facility]) THER/PROPH/DIAG INJ, SC/IM 11/12/2019 12:00:00 AM EDT eCW1 ([facility]) REMOVE DRUG IMPLANT DEVICE 11/12/2019 12:00:00 AM EDT eCW1 ([facility]) Results ID Date Data Source [id number] 09/13/2020 06:09:50 PM EST [facility] Name Value Range Interpretation Code Description Data Yisel rce(s) Supporting Document(s) POC NOVA GLU 108 mg/dL (70-99) H [facility] [place] [facility]ICAL STAFF ID Date Data Source [id number] 09/13/2020 10:05:41 AM EST [facility] Name Value Range Interpretation Code Description Data Yisel rce(s) Supporting Document(s) POC NOVA GLU 108 mg/dL (70-99) H [facility] [place] [facility] ID Date Data Source [id number] 09/12/2020 08:20:34 AM EST [facility] Name Value Range Interpretation Code Description Data Yisel rce(s) Supporting Document(s) SODIUM 138 mmol/L (136-145) [facility] POTASSIUM 4.0 mmol/L (3.6-5.2) [facility] CHLORIDE 104 mmol/L (100-108) [facility] CO2 19 mmol/L (22-31) L [facility] ANION GAP 15 mmol/L (7-16) [facility] UREA NITROGEN 10 mg/dL (7-24) [facility] CREATININE 1.04 mg/dL (0.60-1.00) H [facility] BUN/CREAT RATIO 9.6 RATIO (10.0-20.0) L [facility] GLUCOSE 160 mg/dL (70-99) H [facility] CALCIUM 9.7 mg/dL (8.4-10.2) [facility] GFR >60 ml/min/1.73m2 (>59) [facility] GFR ( AMER) >60 ml/min/1.73m2 (>59) [facility] GFR INTERPRETATION [facility] --NORMAL KIDNEY FUNCTION OR MILD DISEASE - GFR >OR= 60CHRONIC KIDNEY DISEASE - GFR 15 - 59RENAL FAILURE - GFR <15 Est. GFR calculation based on the MDRDstudy equation, which assumes a steadystate for creatinine. Est. GFR should notbe used for medication dosing. ID Date Data Source [id number] 09/12/2020 08:11:45 AM EST [facility] Name Value Range Interpretation Code Description Data Yisel rce(s) Supporting Document(s) WBC 11.2 10*3/uL (4.1-11.0) H [facility] RBC 5.09 10*6/uL (4.00-5.40) [facility] HGB 14.7 g/dL (12.0-16.0) [facility] HCT 41.2 % (36.0-47.0) [facility] PERFOR[facility] [place] [address] [place] [address] MCV 81.0 fL (80.0-95.0) [facility] MCH 28.8 pg (27.0-32.0) [facility] MCHC 35.5 g/dL (32.0-36.0) [facility] RDW 12.5 % (10.5-14.5) [facility] PLT 426 10*3/uL (150-450) [facility] MPV 8.8 fL (7.1-10.7) [facility] ID Date Data Source [id number] 09/11/2020 05:27:46 PM [facility]FORMATION[facility] MR[facility] Name Date of Age Gend*PT [id number] Carol Rasheed 2000 20 years F OBSPT Location Admission Date/Time Visit ID Attending ProviderEndo [place] 09/09/201917 --- Joe Helton MD([id number]) EPI ID [facility] Admitting Provider [id number] Joe Helton MD([id number])EGD Procedure NoteIndication: 20-year-old female having EGD done for evaluation of dysphagia,nausea and vomiting.A full consultation was placed in the chart. Please refer to that note forfurther details.Participants:Surgeon(s):Sheikh Kenneth MDENDO Nurse: Tabby Hlal, TATA; Analy Lombardo RNENDO Tech: LOUISE Pulidore-operative Diagnosis:Nausea and vomiting, intractability of vomiting not specified, unspecifiedvomiting type [R11.2]Post-Op Diagnosis Codes: * Nausea and vomiting, intractability of vomiting not specified, unspecifiedvomiting type [R11.2] * Esophagitis determined by endoscopy [K20.90]Procedure(s):ESOPHAGOGASTRODUODENOSCOPY (EGD)Consent: An informed consent was obtained and placed in the chart.Risks,benefits, & other alternatives to the procedure were explained to thepatient/HCP in detail. Risks included, but are not limited to bleeding,infection, perforation, possible need for immediate corrective surgery, andrisks of cardiopulmonary events. These were explained to the patient in detail.The patient requests that we proceed with the procedure.Sedation: MAC per anesthesiologist.Procedure description: Vital signs and pulse oximetry were monitored throughoutthe procedure, and they remained acceptable. The patient was placed in the leftlateral decubitus position, and a bite block was put in place. After adequatemonitored sedation was obtained, the endoscope was introduced into oropharynxand advanced under direct visualization to the 3rd portion of the duodenum. Thefindings are listed below. Subsequently, the endoscope was withdrawn withcareful examination of the mucosa.Findings:Duodenum: NormalStomach: NormalRetroflexion: No mass or varices seen.Esophagus: Distal esophagitis. Diaphragmatic pinch was at 40 cm, GE junctionwas at 40 cm. The Z line was irregular. The tubular esophagus was otherwisenormal.Specimens:* No specimens in log *Grafts/Implants:NoneComplications: None; patient tolerated the procedure well.Impression:1. Distal esophagitis2. Irregular Z- lineRecommendations:1. Return the patient to the inpatient [facility] for ongoing care.2. Resume diet as tolerated.3. Carafate 1 g 4 times daily for 4 weeks4. Pantoprazole 40 mg twice daily (if unable to swallow pills this can bereplaced with soluble lansoprazole 30 mg twice daily) for 8 weeks.5. Avoid NSAIDs6. Outpatient GI clinic follow up.Sheikh Kenneth MD5:24 PM 09/11/2020 Name Value Range Interpretation Code Description Data Yisel rce(s) Supporting Document(s) ID Date Data Source [id number] 09/11/2020 04:58:55 PM EST [facility] INFORMATIONPatient MRN Name Date of Age Gend*PT [id number] Carol Rasheed 2000 20 years F OBSPT Location Admission Date/Time Visit ID Attending [id number] 09/09/201917 --- Joe Helton MD([id number]) EPI ID CSN Admitting Provider [id number] Joe Helton MD([id number])Gastroenterology Consult NotePHYSICIAN REQUESTING CONSULT: MANSOOR Escobar FOR GI CONSULT: Dysphagia, chronic nausea and vomitingHOSPITAL PROBLEM LIST:Principal Problem: DysphagiaActive Problems: Nausea and vomitingIMPRESSION AND RECOMMENDATIONS:Ms. Carol Rasheed is a 20 years female patient with history of dysphagia,chronic nausea and vomiting, distal ulcerative esophagitis noted on EGD on 2019, paraesophageal hernia s/p Toupet fundoplication on is admitted to the hospital for dysphagia, nausea and vomiting. Reportstaking [id number]-qqghieu NSAIDs for pain at home. We will plan on doingendoscopy for further evaluation of her symptoms.HISTORYHistory of Presenting IllnessMs. Carol Rasheed is a 20 years female with a past medical history ofdysphagia, chronic nausea and vomiting, distal ulcerative esophagitis noted onEGD on April,, paraesophageal hernia s/p fundoplication on 2020 he was admitted to the hospital for dysphagia, nausea andvomiting.Patient report that she has had nausea, vomiting and dysphagia for years. Aftersurgery she felt better for a week but now she is again having the symptoms.Reports that she is unable to swallow and throws up right away. She reportshaving abdominal pain in the epigastric area. No fever or chills. She has beentaking [id number] NSAIDs for pain. She denies any history of alcoholabuse.Past Medical & Surgical HistoryPast Medical History:Diagnosis Date Hiatal hernia with GERD Hypertension PUD (peptic ulcer disease)Past Surgical History:Procedure Laterality Date COLONOSCOPY PANENDOSCOPY PARAESOPHAGEAL HERNIA REPAIR N/A 08/24/2020 Procedure: FUNDOPLICATION, ROBOT- ASSISTED, LAPAROSCOPIC, USING XI, WITHPARAESOPHAGEAL HERNIA REPAIR; Surgeon: Joe Helton MD; Laterality: N/A;No Known Drug AllergiesMedications at this timeCurrent Facility-Administered MedicationsMedication Dose Route Frequency Provider Last Rate Last Dose acetaminophen (TYLENOL) 160 MG/5ML solution 650 mg 650 mg Oral Q6H PRN ANDREW Vegas bisacodyl (DULCOLAX) suppository 10 mg 10 mg Rectal Daily Galina Peraltamarissa NP10 mg at 09/11/20 1220 dexamethasone (DECADRON) injection 8 mg 8 mg Intravenous Q6H ANDREW Walker 8 mg at 09/11/20 0931 Famotidine (PEPCID) injection 20 mg 20 mg Intravenous BID ANDREW Moore20 mg at 09/11/20 0849 heparin (porcine) injection 5,000 Units 5,000 Units Subcutaneous Q12H ANDREW Schmidt hyoscyamine (LEVSIN/SL) SL tablet 250 mcg 250 mcg Sublingual Q4H PRN ANDREW Vegas LORazepam (ATIVAN) injection 0.5 mg 0.5 mg Intravenous Q6H PRN ANDREW Love 0.5 mg at 09/11/20 1233 metoclopramide (REGLAN) injection 10 mg 10 mg Intravenous Q6H PRN ANDREW Vegas 10 mg at 09/11/20 1008 Morphine Sulfate (PF) injection 4 mg 4 mg Intravenous Q4H PRN ANDREW Moore4 mg at 09/11/20 1016 normal saline flush 0.9 % injection 3 mL 3 mL Intravenous Per Protocol ANDREW Vegas 3 mL at 09/11/20 0516 ondansetron (ZOFRAN) injection 4 mg 4 mg Intravenous Q4H PRN ANDREW Moore4 mg at 09/11/20 0929 scopolamine (TRANSDERM-SCOP) 1.5 MG 1 patch 1 patch Transdermal Q72H ANDREW Avitia 1 patch at 09/11/20 1226 sertraline (ZOLOFT) tablet 50 mg 50 mg Oral Nightly ANDREW Walker 50mg at 09/10/202106 Followed by [START ON 09/12/2020] sertraline (ZOLOFT) tablet 100 mg 100 mg Oral NightlyPReno Piedra HistoryShe is Single. She reports that she has quit smoking. Her smoking use includedcigarettes. She has a 0.50 pack-year smoking history. She has never usedsmokeless tobacco. She reports that she drank alcohol. She reports that she doesnot use drugs.Family History no pertinent family history.Review of systems:All systems reviewed. Please see HPI for pertinent findings.PHYSICAL EXAMINATIONBlood pressure (!) 175/96, pulse 78, te mperature 98.3 F, temperature sourceOral, resp. rate 18, height 1.524 m (5'), SpO2 97 %, not currentlybreastfeeding.Constitutional: She is oriented to person, place, and time.HENT: Head: Normocephalic and atraumatic. Eyes: Pupils are equal, round, andreactive to light. No scleral icterus.Neck: Normal range of motion. Neck supple. No tracheal deviation present.Pulmonary/Chest: Effort normal and breath sounds normal. No stridor.There are nowheezes.Abdominal: Bowel sounds are normal. She exhibits no distension and no mass.There is generalized tenderness. There is no rebound and no guarding.Musculoskeletal: Normal range of motion.Neurological: She is alert and oriented to person, place, and time.Extremities: No cyanosis, clubbing or edema.DATA REVIEWAll relevant laboratory data, outside records and imaging that were availablewere reviewed.Laboratory Data:HemoglobinDate Value Ref Range Cawzib4509/11/2020 13.6 12.0 - 16.0 g/dL Final09/10/2020 11.3 (L) 12.0 - 16.0 g/dL Final09/09/2020 13.4 12.0 - 16.0 g/dL FinalHematocritDate Value Ref Range Ussyuc6809/11/2020 38.8 36.0 - 47.0 % Final09/10/2020 31.2 (L) 36.0 - 47.0 % Final Comment: PERFORMED AT [address] [place] [address] 3209038/04/2021 38.0 36.0 - 47.0 % Final Comment: PERFORMED AT [address] [place] [address] [id number] Value Ref Range Tockkl2209/11/2020 82.8 80.0 - 95.0 fL Final09/10/2020 81.1 80.0 - 95.0 fL Final09/09/2020 83.4 80.0 - 95.0 fL FinalPlateletsDate Value Ref Range Mqhffh0209/11/2020 354 150 - 450 10*3/uL Final09/10/2020 280 150 - 450 10*3/uL Final09/09/2020 328 150 - 450 10*3/uL FinalWBCDate Value Ref Range Jpurjr9209/11/2020 8.0 4.1 - 11.0 10*3/uL Final09/10/2020 6.6 4.1 - 11.0 10*3/uL Final09/09/2020 6.9 4.1 - 11.0 10*3/uL FinalSodiumDate Value Ref Range Qsqwpl0509/11/2020 140 136 - 145 mmol/L Final09/10/2020 142 136 - 145 mmol/L Final09/09/2020 139 136 - 145 mmol/L Final08/19/2020 141 136 - 145 mmol/L FinalPotassiumDate Value Ref Range Khjtvd0709/11/2020 4.5 3.6 - 5.2 mmol/L Final09/10/2020 3.8 3.6 - 5.2 mmol/L Final09/09/2020 3.4 (L) 3.6 - 5.2 mmol/L Final08/19/2020 4.5 3.6 - 5.2 mmol/L FinalChlorideDate Value Ref Range Giykeh0009/11/2020 108 100 - 108 mmol/L Final09/10/2020 112 (H) 100 - 108 mmol/L Final09/09/2020 107 100 - 108 mmol/L Final08/19/2020 108 100 - 108 mmol/L FinalUrea nitrogenDate Value Ref Range Vattle4709/11/2020 4 (L) 7 - 24 mg/dL Final09/10/2020 10 7 - 24 mg/dL Final09/09/2020 9 7 - 24 mg/dL Final08/19/2020 13 7 - 24 mg/dL FinalCreatinineDate Value Ref Range Qvjbsv9009/11/2020 0.68 0.60 - 1.00 mg/dL Final09/10/2020 0.61 0.60 - 1.00 mg/dL Final09/09/2020 0.69 0.60 - 1.00 mg/dL Final08/19/2020 0.95 0.60 - 1.00 mg/dL FinalAlbuminDate Value Ref Range Fqkxhs9309/09/2020 3.8 3.5 - 4.6 g/dL FinalALTDate Value Ref Range Csbzae0609/09/2020 31 12 - 78 U/L FinalASTDate Value Ref Range Ltzyvd9209/09/2020 11 11 - 39 U/L FinalAlkaline PhosphataseDate Value Ref Range Nnawwz8409/09/2020 69 45 - 117 U/L FinalLipaseDate Value Ref Range Smddsw1009/09/2020 78 65 - 230 U/L FinalSignature: Sheikh Kenneth, MDDate: September 11, 2020Time: 4:45 PM Name Value Range Interpretation Code Description Data Yisel rce(s) Supporting Document(s) ID Date Data Source [id number] 09/11/2020 06:42:40 AM EST [facility] Name Value Range Interpretation Code Description Data [facility] Supporting Document(s) SODIUM 140 mmol/L (136-145) [facility] POTASSIUM 4.5 mmol/L (3.6-5.2) [facility] CHLORIDE 108 mmol/L (100-108) [facility] CO2 23 mmol/L (22-31) [facility] ANION GAP 9 mmol/L (7-16) [facility] UREA NITROGEN 4 mg/dL (7-24) L [facility] CREATININE 0.68 mg/dL (0.60-1.00) [facility] BUN/CREAT RATIO 5.9 RATIO (10.0-20.0) L [facility] GLUCOSE 101 mg/dL (70-99) H [facility] CALCIUM 9.3 mg/dL (8.4-10.2) [facility] GFR >60 ml/min/1.73m2 (>59) [facility] GFR ( AMER) >60 ml/min/1.73m2 (>59) [facility] GFR INTERPRETATION [facility] --NORMAL KIDNEY FUNCTION OR MILD DISEASE - GFR >OR= 60CHRONIC KIDNEY DISEASE - GFR 15 - 59RENAL FAILURE - GFR <15 Est. GFR calculation based on the MDRDstudy equation, which assumes a steadystate for creatinine. Est. GFR should notbe used for medication dosing. ID Date Data Source [id number] 09/11/2020 06:18:58 AM EST [facility] Name Value Range Interpretation Code Description Data Yisel rce(s) Supporting Document(s) WBC 8.0 10*3/uL (4.1-11.0) [facility] RBC 4.69 10*6/uL (4.00-5.40) [facility] HGB 13.6 g/dL (12.0-16.0) [facility] HCT 38.8 % (36.0-47.0) [facility] MCV 82.8 fL (80.0-95.0) [facility] MCH 29.0 pg (27.0-32.0) [facility] MCHC 35.0 g/dL (32.0-36.0) [facility] RDW 12.1 % (10.5-14.5) [facility] PLT 354 10*3/uL (150-450) [facility] MPV 8.0 fL (7.1-10.7) [facility] ID Date Data Source [id number] 09/10/2020 08:20:51 PM EST [address] [address]E[place] Name: Carol Jones RadhaB: 2000Sex: FOrdering Provider: ELANA Reese Prov: ELANA Urena Provider: Procedure Performed: CT HEAD WO CONTRASTExam Date: 09/10/2020 19:37MRN: [id number] Number: [id number] Class: INFORMATION: Exam: CT Head Without Contrast Exam date and time: 09/10/2020 7:37 PM Age: 20 years old Clinical indication: Other: Blurred vision; Additional info: New onset of blurry vision TECHNIQUE: Imaging protocol: Computed tomography of the head without contrast. Radiation optimization: All CT scans at this facility use at least one of these dose optimization techniques: automated exposure control; mA and/or kV adjustment per patient size (includes targeted exams where dose is matched to clinical indication); or iterative reconstruction. COMPARISON: No relevant prior studies available. FINDINGS: Limitations: Extreme posterior scalp not included. Brain: N ormal. No hemorrhage. Unremarkable white matter. No mass effect. Cerebral ventricles: No ventriculomegaly. Bones/joints: Unremarkable. No acute fracture. Paranasal sinuses: Visualized sinuses are unremarkable. No fluid levels. Mastoid air cells: Visualized mastoid air cells are well aerated. Soft tissues: Unremarkable. IMPRESSION: No acute intracranial process. Report electronically signed by: YASMIN JORDAN MD on 09/10/2020 20:20:51 Name Value Range Interpretation Code Description Data Yisel rce(s) Supporting Document(s) ID Date Data Source [id number] 09/10/2020 03:49:26 PM EST [facility] NT INFORMATIONPatient MRN Name Date of Age Gend*PT [id number] Carol Rasheed 2000 20 years F OBSPT Location Admission Date/Time Visit ID Attending [id number] 09/09/201917 --- Joe Helton MD([id number]) EPI ID CSN Admitting Provider [id number] Joe Helton MD([id number]) Attestation signed by Joe Helton MD at 09/10/2020 3:49 PMPatient well-known to me admitted by my partner overnight for observationShe has more of psychiatric issues than a mechanical problem at the [facility]. I discussed the case with the PA and agree with the findings andplan as documented in the PAt's note.Joe Helton MDFACS213:49 PM --- Surgical Services History&PhysicalCarol Rasheed 2000 20 years09/09/2020 PCP: RUTH HOLM NPInformant: Carol Rasheed, Reliable Yes; [facility] Nausea and vomiting with dysphagiaHPI: Carol Rasheed is a 20 years old White or female [facility] today with c/o nausea vomiting with dysphagia since her surgery inJanuary. Patient is familiar to the surgical service and is status post roboticprimary repair of type I Paraesophageal hernia and Robotic posterior / Toupet-270 degree fundoplication on 08/24/2020. Since patient has had symptoms ofnausea vomiting, dysphagia with solids and occasionally fluids. She was seen inDr. Helton's office yesterday by ANDREW Mclean. Patient has been on multiplemedications such as steroids, muscle relaxant and antianxiety medications.Unfortunately, patient has not been able to tolerate the medications either.No abdominal pain, diarrhea or constipation. No melena or BRBPR. Last oralintake was minimal today which is a glass of water. Last BM was Monday.PMH:Past Medical History:Diagnosis Date Hiatal hernia with GERD Hypertension PUD (peptic ulcer disease)PSH:Past Surgical History:Procedure Laterality Date COLONOSCOPY PANENDOSCOPY PARAESOPHAGEAL HERNIA REPAIR N/A 08/24/2020 Procedure: FUNDOPLICATION, ROBOT- ASSISTED, LAPAROSCOPIC, USING XI, WITHPARAESOPHAGEAL HERNIA REPAIR; Surgeon: Joe Helton MD; Laterality: N/A;MEDICATIONS: Medication reconciliation will be completed separately.Medications Prior to AdmissionMedication Sig Dispense Refill Last Dose docusate sodium (COLACE) 100 MG capsule Take 1 capsule (100 mg total) by mouth2 (two) times a day 60 capsule 5 09/09/2020 at 1000 hydrochlorothiazide (HYDRODIURIL) 25 MG tablet Take 25 mg by mouth daily09/09/2020 at 1000 hyoscyamine (ANASPAZ,LEVSIN) 0.125 MG tablet One tablet q 4 hours for gisymptoms (Patient taking differently: Take 0.125 mg by mouth every 4 (four)hours as needed (for GI symptoms) ) 30 tablet 0 09/08/2020 at Unknown time LORazepam (ATIVAN) 0.5 MG tablet Take 1 tablet (0.5 mg total) by mouth every 6(six) hours as needed for anxiety Max Daily Amount: 2 mg 30 tablet 0 1at 1000 ondansetron (ZOFRAN-ODT) 4 MG disintegrating tablet Take 4 mg by mouth 2 (two)times a day as needed for nausea 09/08/2020 at Unknown time predniSONE (DELTASONE) 20 MG tablet 2 tablet qd for 5 days 10 tablet 09/08/2020 at Unknown time prochlorperazine (COMPAZINE) 5 MG tablet Take 1 tablet (5 mg total) by mouthevery 6 (six) hours as needed for nausea 30 tablet 0 09/09/2020 at 1000 scopolamine (TRANSDERM-SCOP) 1.[address] 1 patch on the skin every third day10 patch 1 09/09/2020 at 1000ALLERGY: No Known Drug AllergiesFH:Family HistoryProblem Relation Age of Onset Malig Hyperthermia Neg HxPt is unaware of a personal or familial intolerance to general anesthesia.SH:Social HistorySocioeconomic History Marital status: Single Spouse name: Not on file Number of children: Not on file Years of education: Not on file Highest education level: Not on fileOccupational History Not on fileSocial Needs Financial resource strain: Not on file Food insecurity: Worry: Not on file Inability: Not on file Transportation needs: Medical: Not on file Non-medical: Not on fileTobacco Use Smoking status: Former Smoker Packs/day: 0.25 Years: 2.00 Pack years: 0.50 Types: Cigarettes Smokeless tobacco: Never Used Tobacco comment: has not smoked since 07/03/20ubstance and Sexual Activity Alcohol use: Not Currently Comment: social Drug use: Never Sexual activity: Not on fileLifestyle Physical activity: Days per week: Not on file Minutes per session: Not on file Stress: Not on fileRelationships Social connections: Talks on phone: Not on file Gets together: Not on file Attends faith service: Not on file Active member of club or organization: Not on file Attends meetings of clubs or organizations: Not on file Relationship status: Not on file Intimate partner violence: Fear of current or ex partner: Not on file Emotionally abused: Not on file Physically abused: Not on file Forced sexual activity: Not on fileOther Topics Concern Not on fileSocial History Narrative Not on fileROS:Constitutional: Denies fever, chills, general malaise or recent weight change.HEENT: Denies recent visual or hearing changes.Respiratory: Denies cough, shortness of breath, wheezing, or hemoptysis.Cardiovascular: Denies chest pain or pressure, or palpitations.Gastrointestinal: See HPI.Genitourinary: Denies dysuria, hematuria or difficulty urinating.Extremities/Musculoskeletal: Denies current joint pain or muscle weakness.Neurological: Denies dizziness, seizures, speech difficulty, or headaches.Psychiatric: Denies anxiety or depression.Endocrine: Denies night sweats or temperature intolerance.Hematological: Denies unusual bruising or bleeding disorder.Integumentary: Denies current rashes or lesions.Allergic/Immunology: Denies current hives/itchingPhysical Exam:BP 128/77 | Pulse 65 | Temp 98.5 F (Oral) | Resp 12 | Ht 1.524 m (5') |LMP (LMP Unknown) | SpO2 99% | BMI 29.10 kg/m General: Alert and oriented. NAD, cooperative.Skin: Warm and dry. No rashes/lesions.Head: Atraumatic, normocephalic.Eyes: PERRL. Sclerae anicteric, conjunctivae clear bilaterally.Ears: Hearing grossly intact, external ears normal.Nose: Symmetric.Mouth: Dentition is fair, oropharynx without exudates or lesions.Neck: Supple, no lymphadenopathy, ROM appears normal.Heart: S1S2 regular rate and rhythm.Lungs: CTA bilaterally. Respiratory effort non-labored.Abdomen: soft, non distended. Nontender with no guarding. No rebound tendernessis noted on exam.Incision/Trocar sites/dressings, C/D/I without drainage, erythema or edema.Back: Normal curvature, no CVA tenderness.: Deferred.Musculoskeletal: No muscle atrophy or weakness appreciated.Vascular/Ext: No JVD, calf tenderness or LE edema. Distal pulses intact.Neurologic: Cranial nerves II-XII grossly intact. No focal deficits appreciated.Rectal/breast exam: Deferred to PCP.Labs, Imaging and other Diagnostics:PendingAssessment and Plan:Principal Problem: Dysphagia Nausea and vomitingStatus post robotic primary repair of type I Paraesophageal hernia and Roboticposterior / Toupet -270 degree fundoplication on 08/24/2020- Plan: VSS. Labs pending The patient does not have an acute surgical abdomen.Patient will be admitted to the hospital under the service of Dr. Helton.Plan is for conservative management tonight with hydration and strict bowel restPatient will be made NPO. IVF will be started. IV morphine and Toradol will beused for analgesic therapy, and zofran will be provided for antiemetic therapy.IV Protonix, Levsin ordered.Hypertension-we will resume home meds when med rec is done. Current bloodpressure stableThe patient and/or HCP has been encouraged to contact appropriate medical staffwith any questions or concerns she may have in the interim. I have discussedthis patient with ethylbenzene converter operator Dr. Eden. Further plan per the attendingphysician.Patient did not want her boyfriend called.ADOD: TBDCode status: Full CodeSignature: Jeffrey Moore 18:17 PM Name Value Range Interpretation Code Description Data Yisel rce(s) Supporting Document(s) ID Date Data Source [id number] 09/10/2020 02:49:54 PM EST [facility] NT INFORMATIONPatient MRN Name Date of Age Gend*PT [id number] Carol Rasheed 2000 20 years F OBSPT Location Admission Date/Time Visit ID Attending [id number] 09/09/201917 --- Joe Helton MD([id number]) EPI ID CSN Admitting Provider [id number] Joe Helton MD([id number])Psychiatric Consult NoteBajose RasheedMRN: [id number] for consult:Evaluate for anxiety and depressionImpression and Recommendations:Principal Problem: DysphagiaActive Problems: Nausea and vomitingPsychiatric Diagnosis:Major Depressive Disorder, moderate.Recommendations:Start Pt on Zoloft 50 mg at HS,if Pt tolerates itcan be increased to 100 mg intwo or three days.Pt also agrees to follow outpatient Psychiatric treatment, please haveyourSocial Worker or Tie Knitter Helper refer Pt to a Mental health clinic.There are several alcoholics in her family, Benzodiazepines are not indicated,because of increased risk of abuse, in children of alcoholics.HPI:Pt is a 20y/o W/S/F, who says she has been feeling depressed and anxious for"months" even before having the surgery. 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 Denies suicidal ideation.Pt denies past suicidal behaviors.Denies drug, tobacco and alcohol abuse.Family History: Father is alcoholic, Paternal aunt is alcoholic, aunt's son 17y/o committed suicide by hanging.Pt lives with her Lana, who is 20 years her senior, herfamily doesn't likehim, so she has been apart From them. Says her relationship with Lana isvery good, "he is very supportive"Past Medical History:Past Medical History:Diagnosis Date Hiatal hernia with GERD Hypertension PUD (peptic ulcer disease)Past Surgical History:Past Surgical History:Procedure Laterality Date COLONOSCOPY PANENDOSCOPY PARAESOPHAGEAL HERNIA REPAIR N/A 08/24/2020 Procedure: FUNDOPLICATION, ROBOT- ASSISTED, LAPAROSCOPIC, USING XI, WITHPARAESOPHAGEAL HERNIA REPAIR; Surgeon: Joe Helton MD; Laterality: N/A;Medications:Medications Prior to AdmissionMedication Sig Dispense Refill Last Dose docusate sodium (COLACE) 100 MG capsule Take 1 capsule (100 mg total) by mouth2 (two) times a day 60 capsule 5 09/09/2020 at 1000 hydrochlorothiazide (HYDRODIURIL) 25 MG tablet Take 25 mg by mouth daily09/09/2020 at 1000 hyoscyamine (ANASPAZ,LEVSIN) 0.125 MG tablet One tablet q 4 hours for gisymptoms (Patient taking differently: Take 0.125 mg by mouth every 4 (f our)hours as needed (for GI symptoms) ) 30 tablet 0 09/08/2020 at Unknown time LORazepam (ATIVAN) 0.5 MG tablet Take 1 tablet (0.5 mg total) by mouth every 6(six) hours as needed for anxiety Max Daily Amount: 2 mg 30 tablet 0 09/09/2020t 1000 ondansetron (ZOFRAN-ODT) 4 MG disintegrating tablet Take 4 mg by mouth 2 (two)times a day as needed for nausea 09/08/2020 at Unknown time predniSONE (DELTASONE) 20 MG tablet 2 tablet qd for 5 days 10 tablet 09/08/2020 at Unknown time prochlorperazine (COMPAZINE) 5 MG tablet Take 1 tablet (5 mg total) by mouthevery 6 (six) hours as needed for nausea 30 tablet 0 09/09/2020 at 1000 scopolamine (TRANSDERM-SCOP) 1.[address] 1 patch on the skin every third day10 patch 1 09/09/2020 at 1000Allergies:Patient has no known drug allergies. Family History: See above.Family HistoryProblem Relation Age of Onset Malig Hyperthermia Neg HxSocial History:Social HistoryTobacco Use Smoking status: Former Smoker Packs/day: 0.25 Years: 2.00 Pack years: 0.50 Types: Cigarettes Smokeless tobacco: Never Used Tobacco comment: has not smoked since 07/03/20ubstance Use Topics Alcohol use: Not Currently Comment: social Drug use: NeverReview of SystemsAs per ROS by ANDREW Pryor on 09/09/20Psychiatric: See HPI.Mental Status Exam/Findings:Pt is sitting in bed, in NAD, she is cooperative during the interview, has goodeye contact. No Abnormal movements.Alert, well oriented as in time, person and place.Memory is intact.Insight is fair.Judgement is good.Intellect is average.Thought Process: Coherent and goal directed.Thought Content: No hallucinations, but has had auditory illusions; when she isalone, sometimes hears her name being called. Not delusional. Denies suicidalideation, intentions and plans. Not homicidal.Affect: anxious and depressed.Electronic Signature: SAGAR Alexate: September 10, 2020Time: 2:25 PM Name Value Range Interpretation Code Description Data Yisel iniguez(s) Supporting Document(s) ID Date Data Source [id number] 09/10/2020 10:48:04 AM EST [facility] Name Value Range Interpretation Code Description Data Yisel rce(s) Supporting Document(s) URINE HCG (NEG) [facility] ID Date Data Source [id number] 09/10/2020 10:43:05 AM EST [facility] Name Value Range Interpretation Code Description Data Yisel rce(s) Supporting Document(s) COLOR [facility] APPEARANCE [facility] SPEC GRAV URINE 1.003 (1.003-1.030) [facility] PH URINE 6.5 (5.0-7.5) [facility] LEUK ESTERASE (NEG) A [facility] NITRITE URINE (NEG) [facility] PROTEIN URINE (NEG) [facility] GLUCOSE URINE (NEG) [facility] KETONE URINE (NEG) [facility] UROBILINOGEN 1.0 mg/dL (0-1.0) [facility] BILIRUBIN URINE (NEG) [facility] BLOOD/HGB URINE (NEG) [facility] EPITHELIAL CELLS (NEG) [facility] HYALINE CASTS 0.0 [LPF] (0-5) [facility] BACTERIA (NEG) [facility] URINE WBC 2.9 [HPF] (0-8) [facility] URINE RBC 0.2 [HPF] (0-3) [facility] ID Date Data Source [id number] 09/10/2020 10:28:58 AM EST [facility] Name Value Range Interpretation Code Description Data Yisel rce(s) Supporting Document(s) URN CULTURE HOLD [facility] FOR ADD ON CULTURE ID Date Data Source [id number] 09/10/2020 06:20:28 AM EST [facility] Name Value Range Interpretation Code Description Data Yisel rce(s) Supporting Document(s) SODIUM 142 mmol/L (136-145) [facility] POTASSIUM 3.8 mmol/L (3.6-5.2) [facility] CHLORIDE 112 mmol/L (100-108) H [facility] CO2 22 mmol/L (22-31) [facility] ANION GAP 8 mmol/L (7-16) [facility] UREA NITROGEN 10 mg/dL (7-24) [facility] CREATININE 0.61 mg/dL (0.60-1.00) [facility] BUN/CREAT RATIO 16.4 RATIO (10.0-20.0) [facility] GLUCOSE 88 mg/dL (70-99) [facility] CALCIUM 8.0 mg/dL (8.4-10.2) L [facility] GFR >60 ml/min/1.73m2 (>59) [facility] GFR ( AMER) >60 ml/min/1.73m2 (>59) [facility] GFR INTERPRETATION [facility] --NORMAL KIDNEY FUNCTION OR MILD DISEASE - GFR >OR= 60CHRONIC KIDNEY DISEASE - GFR 15 - 59RENAL FAILURE - GFR <15 Est. GFR calculation based on the MDRDstudy equation, which assumes a steadystate for creatinine. Est. GFR should notbe used for medication dosing. ID Date Data Source [id number] 09/10/2020 05:54:43 AM EST [facility] Name Value Range Interpretation Code Description Data Yisel rce(s) Supporting Document(s) WBC 6.6 10*3/uL (4.1-11.0) [facility] RBC 3.84 10*6/uL (4.00-5.40) L [facility] HGB 11.3 g/dL (12.0-16.0) L [facility] HCT 31.2 % (36.0-47.0) L [facility] PERFORMED AT [address] [place] [address] [address] [place] [address] MCV 81.1 fL (80.0-95.0) [facility] MCH 29.3 pg (27.0-32.0) [facility] MCHC 36.1 g/dL (32.0-36.0) H [facility] RDW 12.0 % (10.5-14.5) [facility] PLT 280 10*3/uL (150-450) [facility] MPV 8.0 fL (7.1-10.7) [facility] ID Date Data Source [id number] 09/09/2020 08:08:22 PM EST [facility] INFORMATIONPatient MRN Name Date of Age Gend*PT [id number] Carol Rasheed 2000 20 years F OBSPT Location Admission Date/Time Visit ID Attending [id number] 09/09/201917 --- Joe Helton MD([id number]) EPI ID CSN Admitting Provider [id number] Joe Helton MD([id number]) Attestation signed by Rosita Chaparro MD at 09/09/2020 8:08 PMED Attestations:Attestation Type: Mid-Level: SUPERVISED APC: I was the attending physician onduty at the time the patient visited the ED . The patient was evaluated by thePA/[employer] STUDIES PROFESSOR. I was personally available for consultation; however, I did not seethe patient nor participated in the medical decision making [facility]. The patient was dispositioned without my knowledge and I amadministratively signing the chart after the fact.Rosita Chaparro MD 8:08 PM --Provider in Triage NotesNo notes on fileHistory of Present IllnessChief ComplaintPatient presents with Post-op Problem "i had fundoplication with Dr Helton 08/24 and since monday I haven't beenable to keep anything down even water" reports abd pain EmesisThe patient is a 20yo female s/p hiatal hernia repair with Toupet fundoplicationfor GERD by Dr. Helton on 08/24. Presented her [place] ED today as she has beenunable to eat or drink for the last 4 days. She was hydrated and went home withnausea medicine but has continued to have persistent nausea, vomiting. Calledon-call for Dr. Helton, Dr. Eden who instructed her to come to [facility] admission to better evaluate cause of persistent n/v. Patient does notesome mild epigastric abdominal tenderness, worse with vomiting but better withrest. No other complaints at this time. Denies headache, blurry vision,dizziness, chest pain, shortness of breath, change in bowel or bladder habits,diarrhea, fever, chills.History provided by: PatientNauseaSeverity: ModerateOnset quality: GradualDuration: 4 daysTiming: ConstantProgression: UnchangedChronicity: NewAssociated symptoms: abdominal pain, nausea and vomitingAssociated symptoms: no chest pain, no congestion, no cough, no diarrhea, no earpain, no fatigue, no fever, no headaches, no loss of consciousness, no myalgias,no rash, no rhinorrhea, no shortness of breath, no sore throat and no wheezingHistoryPast Medical History:Diagnosis Date Hiatal hernia with GERD Hypertension PUD (peptic ulcer disease)Past Surgical History:Procedure Laterality Date COLONOSCOPY PANENDOSCOPY PARAESOPHAGEAL HERNIA REPAIR N/A 08/24/2020 Procedure: FUNDOPLICATION, ROBOT- ASSISTED, LAPAROSCOPIC, USING XI, WITHPARAESOPHAGEAL HERNIA REPAIR; Surgeon: Rosemary Helton MD; Laterality: N/A;Family HistoryProblem Relation Age of Onset Malig Hyperthermia Neg HxSocial HistoryTobacco Use Smoking status: Former Smoker Packs/day: 0.25 Years: 2.00 Pack years: 0.50 Types: Cigarettes Smokeless tobacco: Never Used Tobacco comment: has not smoked since 07/03/20ubstance Use Topics Alcohol use: Not Currently Comment: social Drug use: NeverROSReview of SystemsConstitutional: Negative for activity change, chills, fatigue and fever.HENT: Negative for congestion, ear pain, rhinorrhea and sore throat.Respiratory: Negative for cough, shortness of breath and wheezing.Cardiovascular: Negative for chest pain.Gastrointestinal: Positive for abdominal pain, nausea and vomiting. Negative forconstipation and diarrhea.Genitourinary: Negative for dysuria, frequency and hematuria.Musculoskeletal: Negative for joint swelling, myalgias and neck stiffness.Skin: Negative for color change and rash.Neurological: Positive for weakness. Negative for loss of consciousness,numbness and headaches.Psychiatric/Behavioral: The patient is not nervous/anxious.All other systems reviewed and are negative.Physical ExamBP 144/84 (BP Location: Left upp er arm, Patient Position: Sitting) | Pulse 62| Temp 98.2 F (Oral) | Resp 18 | LMP (LMP Unknown) | SpO2 98%Physical ExamConstitutional: She is oriented to person, place, and time. Vital signs ar enormal. She appears well-developed.HENT:Head: Normocephalic.Eyes: Conjunctivae and lids are normal.Cardiovascular: Normal rate, regular rhythm, normal heart sounds and normalpulses. Exam reveals no gallop and no friction rub.No murmur heard.Pulmonary/Chest: Effort normal and breath sounds normal. No stridor. Norespiratory distress. She has no wheezes. She has no rales. She exhibits notenderness.Abdominal: Soft. Normal appearance and bowel sounds are normal. She exhibits nodistension and no mass. There is tenderness (minimal epigastric tenderness).There is no rebound and no guarding. No hernia.Neurological: She is alert and oriented to person, place, and time. No cranialnerve deficit or sensory deficit. She exhibits normal muscle tone. Coordinationnormal.Skin: Skin is warm and dry.Psychiatric: She has a normal mood and affect. Her behavior is normal. Judgmentand thought content normal.Nursing note and vitals reviewed.ED CourseED Course as of Sep 09 1944Wed Sep 09 Patient admitted to [facility] rgical service via physician office assistant Elana Colladofor further management. [MM]ED Course User Index[MM] Eleanor Zamarripa, PAProceduresMDMNumber of Diagnoses or Management OptionsDiagnosis management comments: 20yo female with post-op nausea, vomiting,inability to keep anything down. Labs ordered but patient was instructed tocome to ED for surgical admission. Patient has been admitted by the surgicalteam at this time.Amount and/or Complexity of Data ReviewedClinical lab tests: reviewed and ordered (CBC, CMP, Lipase, UA, Upreg, Mag,Phos)Risk of Complications, Morbidity, and/or MortalityPresenting problems: lowDiagnostic procedures: lowManagement options: lowPatient ProgressPatient progress: stableThis was electronically signed by ANDREW Campbell, 09/09/20 7:22 PM.ANDREW Campbell09/09/20 1946Rosita Chaparro MD09/09/202007 Name Value Range Interpretation Code Description Data Yisel rce(s) Supporting Document(s) ID Date Data Source [id number] 09/09/2020 08:06:00 PM EST [facility] Name Value Range Interpretation Code Description Data Yisel rce(s) Supporting Document(s) SARS coronavirus 2 RNA [Presence] in Res piratory specimen by SANTY with probe detection NOT DETECTED [facility] This lab was reported by [facility]. ID Date Data Source [id number] 09/09/2020 09:37:29 PM EST [facility] Name Value Range Interpretation Code Description Data Yisel rce(s) Supporting Document(s) SPECIMEN DESCRIPTION [facility] INFLUENZA A (NEG) [facility] INFLUENZA B (NEG) [facility] RSV (NEG) [facility] COMMENT [facility] THE U.[place]. FDA HAS MADE THIS TEST AVAILABL EUNDER AN EMERGENCY USE AUTHORIZATION(EUA) FOR THE DETECTION AND/OR DIAGNOSISOF THE VIRUS THAT CAUSES COVID-19.PERFORMED AT [address] [place] [id number] COVID19 RESULT (NDET) [facility] THIS ASSAY AMPLIFIES AND DETECTSTHE TARG ET RNA USING REAL-TIME PCR.TESTING PERFORMED ON Social RecruitingID GENEXPERTNEGATIVE 2019_NCOV RT-PCR RESULTS DONOT PRECLUDE 2019_NCOV INFECTION ANDSHOULD NOT BE USED THE SOLE BASISFOR PATIENT MANAGEMENT DECISIONS. FIRST TEST [facility] SYMPTOMATIC [facility] DATE OF SYMPT ONSET [facility] HOSPITALIZED [facility] ICU [facility] CONGREGATE CARE SET [facility] ID Date Data Source [id number] 09/09/2020 09:34:48 PM EST [facility] Name Value Range Interpretation Code Description Data Yisel rce(s) Supporting Document(s) SODIUM 139 mmol/L (136-145) [facility] POTASSIUM 3.4 mmol/L (3.6-5.2) L [facility] CHLORIDE 107 mmol/L (100-108) [facility] CO2 19 mmol/L (22-31) L [facility] ANION GAP 13 mmol/L (7-16) [facility] UREA NITROGEN 9 mg/dL (7-24) [facility] CREATININE 0.69 mg/dL (0.60-1.00) [facility] BUN/CREAT RATIO 13.0 RATIO (10.0-20.0) [facility] GLUCOSE 78 mg/dL (70-99) [facility] CALCIUM 8.6 mg/dL (8.4-10.2) [facility] TOTAL PROTEIN 7.1 g/dL (6.4-8.2) [facility] ALBUMIN 3.8 g/dL (3.5-4.6) [facility] GLOBULIN 3.3 g/dL (2.7-4.3) [facility] ALB/GLOB RATIO 1.2 RATIO [facility] ALKALINE PHOSPHATASE 69 U/L (45-117) [facility] BILIRUBIN,TOTAL 0.7 mg/dL (0.0-1.0) [facility] PLEASE NOTE:Total bilirubin results may be falselyelevated in patients taking Eltrombopag. AST (SGOT) 11 U/L (11-39) [facility] ALT (SGPT) 31 U/L (12-78) [facility] GFR >60 ml/min/1.73m2 (>59) [facility] GFR ( AMER) >60 ml/min/1.73m2 (>59) [facility] GFR INTERPRETATION [facility] --NORMAL KIDNEY FUNCTION OR MILD DISEASE - GFR >OR= 60CHRONIC KIDNEY DISEASE - GFR 15 - 59RENAL FAILURE - GFR <15 Est. GFR calculation based on the MDRDstudy equation, which assumes a steadystate for creatinine. Est. GFR should notbe used for medication dosing. ID Date Data Source [id number] 09/09/2020 09:31:52 PM EST [facility] Name Value Range Interpretation Code Description Data Yisel rce(s) Supporting Document(s) PHOSPHORUS 3.0 mg/dL (2.5-4.5) [facility] ID Date Data Source [id number] 09/09/2020 09:31:52 PM EST [facility] Name Value Range Interpretation Code Description Data Yisel rce(s) Supporting Document(s) MAGNESIUM 2.0 mg/dL (1.7-2.4) [facility] ID Date Data Source [id number] 09/09/2020 09:31:52 PM EST [facility] Name Value Range Interpretation Code Description Data Yisel rce(s) Supporting Document(s) LIPASE 78 U/L (65-230) [facility] ID Date Data Source [id number] 09/09/2020 09:18:50 PM EST [facility] Name Value Range Interpretation Code Description Data Yisel rce(s) Supporting Document(s) WBC 6.9 10*3/uL (4.1-11.0) [facility] RBC 4.55 10*6/uL (4.00-5.40) [facility] HGB 13.4 g/dL (12.0-16.0) [facility] HCT 38.0 % (36.0-47.0) [facility] PERFORMED AT [address] [place] [address] [address] [place] [address] MCV 83.4 fL (80.0-95.0) [facility] MCH 29.4 pg (27.0-32.0) [facility] MCHC 35.2 g/dL (32.0-36.0) [facility] RDW 11.8 % (10.5-14.5) [facility] PLT 328 10*3/uL (150-450) [facility] MPV 8.5 fL (7.1-10.7) [facility] NEUT % 62.6 % (35.0-75.0) [facility] LYMPH % 27.7 % (16.0-52.0) [facility] MONO % 8.1 % (0.0-8.0) H [facility] EOS % 0.9 % (0.0-5.0) [facility] BASO % 0.7 % (0.0-4.0) [facility] NEUT # 4.3 10*3/uL (1.8-7.7) [facility] LYMPH # 1.9 10*3/uL (1.2-4.8) [facility] MONO # 0.6 10*3/uL (0.0-0.8) [facility] Eosinophils [#/volume] in Blood by Automated count 0.1 10*3/uL (0.0-0 .5) [facility] BASO # 0.0 10*3/uL (0.0-0.2) [facility] ID Date Data Source [id number] 09/09/2020 02:19:38 PM EST [facility] NT INFORMATIONPatient MRN Name Date of Age Gend*PT [id number] Carol Rasheed 2000 20 years F ---PT Location Admission Date/Time Visit ID Attending Provider --- --- --- --- EPI ID CSN Admitting Provider [id number] ---Carol [id number]/08/2020HPI : Pt presents s/p paraesophageal hernia repair.2 weeks.PROCEDURE:1. Robotic primary repair of type I Paraesophageal hernia.2. Robotic posterior / Toupet -270 degree fundoplication. she is here today with her boyfriend. She is complaining of severe dysphagiato everything solid and liquid. She is only able to get down some liquids. Sheis not hungry. She is weak. She went to the ER in [place] on Monday night.She had called last week and was given steroids and levsin on Monday, but shedidn't pick them up until Monday. In the ER, a CT scan was done and it isnegative for any post op problems. She states she is always nauseated.HB Intake Assessment 07/01/20 Consult 09/08/20 post opHeartburn Intake Call/QuestionaireHow Bad Is Your Heartburn? 5Heartburn lying down? 5Heartburn when standing up? 3Heartburn after meals? 5Does heartburn change your diet? 5Does heartburn wake you from sleep 5Do you have difficulty swallowing 3Do you have bloating or gassy feelings? 5Do you have pain with swallowing? 0Heartburn total score 36If you take medication does heartburn still affect your daily life? yesHow satisfied are you with your present condition? noGERD/Medication HistoryHow many months/years have you taken anti-reflux medications? 2+ yrsWhat medications (including dose) have you taken and are currently taking?How many months/years have you experienced heartburn? 2+ yrsPast Medical HistoryPast Medical History:Diagnosis Date Hiatal hernia with GERD Hypertension PUD (peptic ulcer disease)Past Surgical HistoryPast Surgical History:Procedure Laterality Date COLONOSCOPY PANENDOSCOPY PARAESOPHAGEAL HERNIA REPAIR N/A 08/24/2020 Procedure: FUNDOPLICATION, ROBOT- ASSISTED, LAPAROSCOPIC, USING XI, WITHPARAESOPHAGEAL HERNIA REPAIR; Surgeon: Joe Helton MD; Laterality: N/A;(Not in a hospital admission)Patient has no known drug allergies.Family HistoryProblem Relation Age of Onset Malig Hyperthermia Neg HxSocial HistoryTobacco Use Smoking status: Former Smoker Packs/day: 0.25 Years: 2.00 Pack years: 0.50 Types: Cigarettes Smokeless tobacco: Never Used Tobacco comment: has not smoked since 07/03/20ubstance Use Topics Alcohol use: Not Currently Comment: social Drug use: NeverReview of Systems: As per HPI all other systems are negative.There were no vitals filed for this visit.Exam:Const: Appears pleasant. No signs of acute distress present. Alert and oriented.Patient is a good historian.Head/Face: Atraumatic, normocephalic and no lesions or masses.Eyes: Conjunctivae clear. Sclerae are anicteric.Abdomen: Bowel sounds are normoactive. Palpation of the abdomen revealssoftness, but no distension. No palpable hepat osplenomegaly. Post-Op wound:Erythema is not present. Induration is not present. Drainage is not present.Five laparoscopy incision sites are well approximated.Skin: No jaundice, rash.Neuro: No focal deficits noted.A/P: S/p davinci assisted paraesophageal hernia repairDysphagia- she is not quite done with steroids which she started on Monday.Levsin she states to be taking every 4 hours routinely. States zofran does notwork on her.I have advised her to finish the steroids at this time and I will supplement hermeds with anti-nausea medications of compazine and scopolamine patch. I alsodiscussed this case with Dr. Helton who advised I should start her onanti-anxiety meds as well. I have given her ativan. Looking back her SPEEDY scoreis marginal at 13. She does not appear toxic or ill today in the office. Maybetired, but not critically ill. I urged protein shakes or ensure drinks at leastthree times a day. The inflammation at the GE will get better. I will call tiffany to check in.Signature: JUANJO Gilate: September 09, 2020Time: 2:19 PM Name Value Range Interpretation Code Description Data Yisel rce(s) Supporting Document(s) ID Date Data Source [id number] 09/09/2020 07:01:00 AM EST [facility] 1 OrderSheet [facility] Emergency Department [address] [place] [address] Phone #: ext- [phone] 09/09/2020 06:55 Patient: CAROL RASHEED Sex: F : 2000 Age: 20yWEIGHT:64.4 kg (S) HEIGHT:60 inches (S) BMI:27.7ALLERGIES: No Known Drug AllergyCHIEF COMPLAINT: vomiting, nauseaDIAGNOSIS: Gastritis, Gastroesophageal reflux disease, AnxietyLAB ORDERSOrder Description Priority Entered Acknowledged InitialedCBC w Diff STAT 07:23 09/09/2020 07:25 Fareed, Turrin, Ozzy Ethel R.N. M.D.;CMP STAT 07:09/09/2020 07:25 Fareed, Turrin, Ozzy Ethel R.N. M.D.;Lipase STAT 07:09/09/2020 07:25 Fareed, Turrin, Ozzy Ethel R.N. M.D.;Urinalysis (Clean STAT 07:09/09/2020 Cancelled: Physician Order 09:13Catch) Ozzy Zepeda Blair M.D.;Lactic Acid STAT 07:09/09/2020 07:25 Fareed, Aliciarin, Ozzy Ethel R.N. M.D.;HCG Serum Qual STAT 07:09/09/2020 07:25 Fareed, Ken, Ozzy Ethel R.N. M.D.; DIAGNOSTIC STUDY ORDERSOrder Description Priority Entered Acknowledged InitialedMEDICATION/IV/DRIP/FLUID ORDERSOrder Description Priority Entered Acknowledged InitialedNS IV 1000 mL 07:23 09/09/2020 07:38 Fareed,Bolus: : Bolus 1000 Turrin, Ozzy Ethel R.N.mL (X1) M.D.;Phenergan IV 25mg 07:09/09/2020 07:39 Fareed,in 50mL NS, give Turrin, Ozzy Ethel R.N.wide open: 25 mg M.D.;(NOW x1, HIGH 2 OrderSheet [facility] Emergency Department [address] [place] [address] Phone #: ext- [phone] 09/09/2020 06:55 Patient: CAROL RASHEED Sex: F : 2000 Age: 20yALERTMEDICATION)Protonix IV Push 40 07:23 09/09/2020 07:38 Fareed, (in 10 mL NS, Ozzy Zepeda R.N.administer over at M.D.;least 2 minutes,NOW x1)GENERAL ORDERSOrder Description Priority Entered Acknowledged Initia ledNPO 07:09/09/2020 07:37 Ken Guerrier Riccardo Jessica R.N. M.D.;Saline Lock 07:09/09/2020 07:25 Ken Guerrier Riccardo Jessica R.N. M.D.;[Electronically signed by Ethel Guerrier R.N. (09/09/2020)][Electronically signed by Ozzy Zepeda M.D. (11:18 09/09/2020)][Electronically locked by Ethel Guerrier R.N. (09/09/2020)] Name Value Range Interpretation Code Description Data Yisel rce(s) Supporting Document(s) ID Date Data Source [id number] 09/09/2020 07:01:00 AM EST [facility] 1 Medication Reconciliation Report [facility] Emergency Department [address] [place] [address] Phone #: ext- [phone] 09/09/2020 06:55 Patient: CAROL RASHEED Sex: F : 2000 Age: 20yWeight: 64.4 kgHeight/Length: 60 in.BMI: 27.7ALLERGIES: No Known Drug AllergyThe patient's Home Medications are listed below:CONTINUE TAKING THE FOLLOWING MEDICATIONS: Colace Oral Famotidine Oral hydroCHLOROthiazide Oral predniSONE Oral Reglan Oral Zofran OralThe source(s) of the original Home Medication information:Not obtained.The following Medications were given to the patient in the Emergency Department:PROTONIX [IVP] IVP 40 mg, administered: 07:33 09/09/2020NS [IV] IV Fluids bolus 1000 mL over 60 minute(s), administered: 07:36 09/09/2020henergan [IV Drip] Drip IV bolus 0, then 25 mg 100 mL/hr, administered: 07:39 09/09/2020The following Medications were prescribed to the patient:None. Name Value Range Interpretation Code Description Data Yisel rce(s) Supporting Document(s) ID Date Data Source [id number] 09/09/2020 07:01:00 AM EST [facility] 1 Medication Administration Record [facility] Emergency Department [address] [place] [address] Phone #: ext- [phone] 09/09/2020 06:55 Patient: CAROL RASHEED Sex: F : 2000 Age: 20yWeight: 64.4 kgHeight/Length: 60 inBMI: 27.7ALLERGIES: No Known Drug Allergy Date/Time Medication Administered Medication OrderedStart NS [IV] NS IV 1000 mL Bolus: : Bolus [id number] 09/09/2020 Dose: IV Fluids mL (X1)Ethel Guerrier, R.NIleana Bolus: 1000 mL over 60 minute(s)---- Dispensed: 1000 mL bagStop Site: #1 right :03 09/09/2020Ethel Guerrier, R.NIleanaStart PHENERGAN [IV DRIP] Phenergan IV 25mg in 50mL NS,07:39 09/09/2020 (PROMETHAZINE HCL) give wide open: 25 mg (NOW x1,Ethel Guerrier, R.NIleana Dose: 25 mg Drip IV HIGH ALERT MEDICATION)---- Rate: 100 mL/hr over 30 minute(s)Stop Dispensed: 50 mL bag08:00 09/09/2020 Site: #1 right forearmEthel Guerrier R.N.Given PROTONIX [IVP] (PANTOPRAZOLE Protonix IV Push 40 mg (in 10 mL07:33 09/09/2020 SODIUM) NS, administer over at least 2WaiteEthel R.N. Dose: 40 mg IVP minutes, NOW x1) Site: #1 right forearm Name Value Range Interpretation Code Description Data Yisel rce(s) Supporting Document(s) ID Date Data Source [id number] 09/09/2020 07:01:00 AM EST [facility] 1 General Instructions [facility] Emergency Department [address] [place] [address] Phone #: ext- [id number] 09/09/2020 06:55 Patient: CAROL RASHEED Sex: F : 2000 Age: 20yGastroesophageal reflux disease with esophagitis (chronic).Acute gastritis. No alcoholic gastritis or hemorrhagic gastritis.Anxiety reaction.S/P Teri Fundoplication (08-24-20).INSTRUCTIONSDrink plenty of fluids. Avoid alcohol and NSAIDS. NSAIDS include aspirin, ibuprofen (Advil) and naproxen(Aleve). Avoid fatty, fried/greasy, lactose-containing (such as milk, cheese and ice cream), salty and spicyfoods. No alcohol. Do not smoke.(THE PHARMACY HAS A LORAZEPAM SCRIPT FROM THE SURGICAL CLINIC (30 DAYS WORTH)FROM YESTERDAY, SO WE CANCELLED THE XANAX SCRIPT).Warnings: Further evaluation is necessary (Gastric surgeon). It is very [facility]GENERAL WARNINGS: Return or contact your physician immediately if your condition worsens orchanges unexpectedly, if not improving as expected, or if other problems arise. SPECIFICALLY, return ifyou develop pain in the abdomen, pelvis or back, fever, vomiting, the inability to keep fluids down, blood invomitus, blood in diarrhea, fainting or lightheadedness.Your Current Medications: Your current home medications have been reviewed.CONTINUE TAKING THE FOLLOWING MEDICATIONS:Colace Oral.Famotidine Oral.hydroCHLOROthiazide Oral.predniSONE Oral.Reglan Oral.Zofran Oral.Follow-up:Return to the emergency department as needed. Follow up with your healthcare provider in five dayseven if well. Call for an appointment. Reason for referral: evaluation and treatment. Summary of careprovided to iradorinda t via paper. Follow up with a surgeon in five days even if well. Call for an appointment.Reason for referral: evaluation and treatment. Summary of care provided to patient via paper.Understanding of the discharge instructions verbalized by patient. Expected course of illness, dischargeinstructions, activity level, diet, prescriptions x1, follow-up appointment and risks and benefits of treatmentreviewed with patient and understanding verbalized. Agrees to plan of care. 2 General Instructions [facility] Emergency Department [address] [place] [address] Phone #: ext- [phone] 09/09/2020 06:55 Patient: CAROL RASHEED Sex: F : 2000 Age: 20y ADDITIONAL INFORMATIONGastritis (Adult)Gastritis is inflammation and irritation of the stomach lining. You can have it for a short time (acute) guille long lasting (chronic). Infection with bacteria called H pylori most often causes gastritis. More thana third of people in the [place] have these bacteria in their bodies. In many cases, H pylori causes noproblems or symptoms. In some people, though, the infection irritates the stomach lining and causesgastritis. H. pylori may be diagnosed through blood, stool, or breath tests, we well as through biopsyduring an endoscopy. Other causes of stomach irritation include drinking alcohol, smoking or chewingtobacco, or taking pain-relieving medicines called NSAIDs (such as aspirin or ibuprofen). Certaindrugs (such as cocaine) and immune conditions can also cause gastritis.Symptoms of gastritis can include: Belly pain or bloating Feeling full quickly Loss of appetite Nausea or vomiting Vomiting blood or having black stools 3 General Instructions [facility] Emergency Department [address] [place] [address] Phone #: ext- [phone] 09/09/2020 06:55 Patient: CAROL RASHEED Sex: F : 2000 Age: 20y Feeling more tired than usualAn inflamed and irritated stomach lining is more likely to develop a sore called an ulcer. To helpprevent this, gastritis should be treated.Home careIf needed, our healthcare provider may prescribe medicines. If you have H pylori infection, treating itwill likely relieve your symptoms. Other changes can help reduce stomach irritation and help it heal. If you have been prescribed medicines for H pylori infection, take them as directed. Take all of the medicine until it is finished or your healthcare provider tells you to stop, even if you feel better. Your healthcare provider may advise you not to take NSAIDs. If you take daily aspirin for your heart or other medical reasons, do not stop without talking to your healthcare provider first. Don't drink alcohol. Stop smoking. Smoking can irritate the stomach and delay healing. As much as possible, stay away from second hand smoke.Follow-up careFollow up with your healthcare provider, or as advised by our staff. You may need testing to check forinflammation or an ulcer.When to seek medical adviceCall your healthcare provider for any of the following: Stomach pain that gets worse or moves to the lower right belly (appendix area) Chest pain that appears or gets worse, or spreads to the back, neck, shoulder, or arm Frequent vomiting (can't keep down liquids) Blood in the stool or vomit (red or black in color) Feeling weak or dizzy Shortness of breath Unexplained weight loss Fever of 100.4F (38C) or higher, or as directed by your healthcare provider [phone] [employer]. [address] [place] [address], [place] [address]. All rights reserved. 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 Always follow your healthcare professional's instructions.Anxiety ReactionAnxiety is the feeling we all get when we think something bad might happen. It is a normal responseto stress and usually causes only a mild reaction. When anxiety becomes more severe, itcan interfere with daily life. In some cases, you may not even be aware of what it is you're anxiousabout. There may also be a genetic link or it may be a learned behavior in the home.Both psychological and physical triggers cause stress reaction. It's often a response to fear oremotional stress, real or imagined. This stress may come from home, family, work, or socialrelationships.During an anxiety reaction, you may feel: Helpless Nervous Depressed IrritableYour body may show signs of anxiety in many ways. You may experience: Dry mouth Shakiness Dizziness Weakness Trouble breathing Breathing fast (hyperventilating) Chest pressure Sweating Headache Nausea Diarrhea Tiredness Inability to sleep 5 General Instructions [facility] Emergency Department [address] [place], [place] [id number] Phone #: ext- [phone] 09/09/2020 06:55 Patient: CAROL RASHEED Sex: F : 2000 Age: 20y Sexual problemsHome care Try to locate the sources of stress in your life. They may not be obvious. These may include: o Daily hassles of life (such as traffic jams, missed appointments, or car troubles) o Major life changes, both good (new baby or job promotion) and bad (loss of job or loss of loved one) o Overload: feeling that you have too many responsibilities and can't take care of all of them at once o Feeling helpless or feeling that your problems are beyond what you're able to solve Notice how your body reacts to stress. Learn to listen to your body signals. This will help you take action before the stress becomes severe. When you can, do something about the source of your stress. (Avoid hassles, limit the amount of change that happens in your life at one time and take a break when you feel overloaded). Unfortunately, many stressful situations can't be avoided. It is necessary to learn how to better manage stress. There are many proven methods that will reduce your anxiety. These include simple things like exercise, good nutrition, and adequate rest. Also, there are certain techniques that are helpful: o Relaxation o Breathing exercises o Visualization o Biofeedback o MeditationFor more information about this, consult your healthcare provider or go to a local bookstore andreview the many books and tapes available on this subject.Follow-up careIf you feel that your anxiety is not responding to self- help measures, contact your healthcare provideror make an appointment with a counselor. You may need short-term psychological counseling andtemporary medicine to help you manage stress. 6 General Instructions [facility] Emergency Department [address] [place] [address] Phone #: ext- [phone] 09/09/2020 06:55 Patient: CAROL RASHEED Sex: F : 2000 Age: 20yCall 911Call 911 if any of these happen: Trouble breathing Confusion Drowsiness or trouble wakening Fainting or loss of consciousness Rapid heart rate Seizure New chest pain that becomes more severe, lasts longer, or spreads into your shoulder, arm, neck, jaw, or backWhen to seek medical adviceCall your healthcare provider right away if any of these happen: Your symptoms get worse Severe headache not relieved by rest and mild pain reliever [id number] [employer]. [address] [place] [address]. All rights reserved. This information is not intended as asubstitute for professional medical care. Always follow your healthcare professional's instructions.GERD (Adult) 7 General Instructions [facility] Emergency Department [address] [place] [address] Phone #: ext- [phone] 09/09/2020 06:55 Patient: CAROL RASHEED Sex: F : 2000 Age: 20y The esophagus is a tube that carries food from the mouthto the stomach. A valve (the LES, lower esophageal sphincter) at the lower end of the esophagusprevents stomach acid from flowing upward. When this valve doesn't work properly, stomach contentsmay repeatedly flow back up (reflux) into the esophagus. This is called gastroesophageal refluxdisease (GERD). GERD can irritate the esophagus. It can cause problems with pain, swallowing orbreathing. In severe cases, GERD can cause recurrent pneumonia (from aspiration or breathing inparticles) or other serious problems.Symptoms of reflux include burning, pressure or sharp pain in the upper abdomen or mid to lowerchest. The pain can spread to the neck, back, or shoulder. There may be belching, an acid taste inthe back of the throat, chronic cough, or sore throat, or hoarseness. GERD symptoms often occurduring the day after a big meal. They can also occur at night when lying down.Home careLifestyle changes can help reduce symptoms. If needed, your healthcare provider may prescribemedicines. Symptoms often improve with treatment, but if treatment is stopped, the symptoms oftenreturn after a few months. So most persons with GERD will need to continue treatment or gettreatment on and off.Lifestyle changes 8 General Instructions [facility] Emergency Department [address] [place] [address] Phone #: ext- [phone] 09/09/2020 06:55 Patient: CAROL RASHEED Sex: F : 2000 Age: 20y Limit or avoid fatty, fried, and spicy foods, as well as coffee, chocolate, mint, and foods with high acid content such as tomatoes and citrus fruit and juices (orange, grapefruit, lemon). Don't eat large meals, especially at night. Frequent, smaller meals are best. Don't lie down right after eating. And don't eat anything 3 hours before going to bed. Don't drink alcohol or smoke. As much as possible, stay away from second hand smoke. If you are overweight, losing weight will reduce symptoms. Don't wear tight clothing around your stomach area. If your symptoms occur during sleep, use a foam wedge to elevate your upper body (not just your head.) Or, place 4" blocks under the head of your bed. Or use 2 bed risers under your bedframe.MedicinesIf needed, medicines can help relieve the symptoms of GERD and prevent damage to the esophagus.Discuss a medicine plan with your healthcare provider. This may include one or more of the followingmedicines: Antacids to help neutralize the normal acids in your stomach. Acid blockers (Histamine or H2 blockers) to decrease acid production. Acid inhibitors (proton pump inhibitors PPIs) to decrease acid production in a different way than the blockers. They may work better, but can take a little longer to take effect.Take an antacid 30 to 60 minutes after eating and at bedtime, but not at the same time as an acidblocker.Try not to take medicines such as ibuprofen and aspirin. If you are taking aspirin for your heart orother medical reasons, talk to your healthcare provider about stopping it.Follow-up careFollow up with your healthcare provider or as advised by our staff.When to seek medical adviceCall your healthcare provider if any of the following occur: Stomach pain gets worse or moves to the lower right abdomen (appendix area) Chest pain appears or gets worse, or spreads to the back, neck, shoulder, or arm An [id number] trial of medicine doesn't relieve your symptoms 9 General Instructions [facility] Emergency Department [address] [place] [address] Phone #: ext- [phone] 09/09/2020 06:55 Patient: CAROL RASHEED Sex: F : 2000 Age: 20y Weight loss that can't be explained Trouble or pain swallowing Frequent vomiting (can't keep down liquids) Blood in the stool or vomit (red or black in color) Feeling weak or dizzy Fever of 100.4F (38C) or higher, or as directed by your healthcare provider [phone] [employer]. [address] [place] [address]. All rights reserved. This information is not intended as asubstitute for professional medical care. Always follow your healthcare professional's instructions. You have been given the following additional information: Gastritis (Adult) Anxiety Reaction GERD (Adult)(Electronically signed by Ozzy Zepeda M.D. 09/09/2020 11:18) Name Value Range Interpretation Code Description Data Yisel rce(s) Supporting Document(s) ID Date Data Source [id number] 09/09/2020 07:01:00 AM EST [facility] 1 Clinical Report - Nurses [facility] Emergency Department [address] [place] [address] Phone #: exu- [phone] 09/09/2020 06:55 Patient: CAROL RASHEED Sex: F : 2000 Age: 20yTRIAGEArrived by EMS. Historian: patient. ( Patient has had Nausea and vomiting starting this past monday.Patient had a recent surgery at [facility], surgery was called teri fundoplication for Tylor esophasusdisease. Patient states abd 12/07.).Acuity: LEVEL 3.Chief Complaint: ABDOMINAL PAIN, NAUSEA and VOMITING.Alert. No acute distress.Onset. (3 days). The patient has had nausea, vomiting and abdominal pain.SEPSIS SCREEN: SIRS SCREEN NEGATIVE. SEPSIS SCREEN NEGATIVE. No suspected or confirmedsigns of infection present. --07:01 09/09/20 Sandip Garcia06:56 09/09/20. BP: 141/71 taken on the right arm, via an automated monitor, while sitting. MAP: 94. HR:89 (regular, normal rate and strong). RR: 16 (regular, unlabored and normal). O2 saturation: 99% on roomair. Temp: 98.3 F (oral). Pain level now: 12/07. --07:01 09/09/20 Sandip Garcia.Weight: 64.4 kg stated. Height/Length: 60 inches Per Patient. BMI: 27.7. --07:00 09/09/20 Sandip Garcia.MedicationsFamotidine Oral. --07:13 09/09/20 Ethel Guerrier R.NIleana hydroCHLOROthiazide Oral. --07:14 09/09/20 Ethel Guerrier R.N. Reglan Oral. --07:14 09/09/20 Ethel Guerrier R.N. Zofran Oral. --07:14 09/09/20 Ethel Guerrier R.N. predniSONE Oral. --07:14 09/09/20 Ethel Guerrier R.N. Colace Oral. --07:14 09/09/20 Ethel Guerrier R.N.AllergiesNo Known Drug Allergy. --06:58 09/09/20 Sandip Garcia.PROBLEMS:Freedman's esophagus: Active. --06:58 09/09/20 Rene Garcia. --07:15 09/09/20 Ethel Guerrier R.N.ADDITIONAL SURGERIES:Hernia Repair. --07:21 09/09/20 Ethel Guerrier R.N.Teri Fundoplasty [08/24/2020]. --07:37 09/09/20 Ozzy Zepeda M.D.The following entry was struck by Ozzy Zepeda M.D., 07:37 09/09/20 2 Clinical Report - Nurses [facility] Emergency Department [address] [place] [address] Phone #: ext- [phone] 09/09/2020 06:55 Patient: CAROL RASHEED Sex: F : 2000 Age: 20y Teri Fundoplasty. --07:20 09/09/20 Ethel Guerrier R.N.. History PAST MEDICAL HX: Last normal menstrual period unknown. SURGERY HX: ( Teri Fundoplication and Hernia Repair). SOCIAL HX: Never smoker. No alcohol use or drug use. The patient was offered HIV testing but declined and hepatitis C testing but declined. The patient has not traveled outside the [place] SELF HARM ASSESSMENT: Self harm assessment was performed. The patient answered "no" to the question(s) "Have you recently felt down, depressed, or hopeless?", "Do you have thoughts of harming or killing yourself?", "Do you have a plan for harming or killing yourself?", "Have you recently had thoughts about harming or killing others?", "Do you have any dangerous items in your possession?", "Have you noticed less interest or pleasure in doing things?", "Are you here because you tried to hurt yourself?" and "Have you ever tried to hurt yourself before today?". ABUSE ASSESSMENT: Abuse assessment. Abuse denied. No report of abuse. NUTRITIONAL RISK ASSESSMENT: The nutritional risk assessment revealed no deficiencies. FUNCTIONAL ASSESSMENT: Functional assessment: no impairments noted. LEARNING NEEDS ASSESSMENT: The learning needs assessment revealed no barriers. FALL RISK ASSESSMENT: Fall risk assessment completed. No risk factors identified. SKIN INTEGRITY ASSESSMENT: Skin integrity risk assessment completed. No skin integrity risk identified. --07:09/09/20 Sandip Garcia SOCIAL HX: The patient has not traveled outside the [place] Infectious disease exposure: No infectious disease exposure. --09:27 09/09/20 Ethel Guerrier R.N. Interventions Identification band on patient. To treatment room. --07:09/09/20 Sandip Garcia.PHYSICAL ASSESSMENTTo room via stretcher. Patient gowned.GENERAL / NEURO / PSYCH: Alert. Oriented X 4. Appears in pain.HEENT: Mucous membranes are pink.RESPIRATORY: Respirations not labored. Breath sounds within normal limits.CVS: Normal sinus rhythm noted. Capillary refill less than 2 seconds.GI / : The patient has had nausea. Emesis noted. Has vomited several times. Abdominal tendernessin the upper abdomen. Bowel sounds within normal limits. No diarrhea.SKIN: Skin is warm and dry. ( 5 lap sites to ABD s/p teri fundoplica tion/hernia repair surgery on 3 Clinical Report - Nurses [facility] Emergency Department [address] [place] [address] Phone #: ext- [phone] 09/09/2020 06:55 Patient: CAROL RASHEED Sex: F : 2000 Age: 20y 08/24/20. All sites C/D/I). --07:20 09/09/20 Ethel Guerrier R.N.NURSING PROGRESS NOTES07:03 09/09/2020 Site #1 started via IV in the right forearm with an 20g angiocath, with aseptic techniqueand good blood return; one attempt. Blo od drawn: rainbow set. Saline lock flushed with 10 mL saline.--07:08 09/09/20 Finn De Leon RN 07:33 09/09/2020 PROTONIX (Pantoprazole Sodium) IVP 40 mg given over 4 minute(s) via site #1. Allergies verified and confirmed 5 rights. IV patency established. IV site checked: no pain, redness, or swelling. IV flushed thoroughly pre- and post-medication administration. IVP given by RN. Information reviewed with patient. --07:38 09/09/20 Ethel Guerrier R.N. 07:36 09/09/2020 Started bag #1 1000 mL IV Fluids NS; bolus of 1000 mL over 60 minute(s) via site #1 via IV pump. Allergies verified and confirmed 5 rights. IV patency established. IV site checked: no pain, redness, or swelling. IV flushed thoroughly pre- and post-medication administration. Information reviewed with patient. --07:38 09/09/20 Ethel Guerrier R.N. 07:39 09/09/2020 Started 25 mg of Phenergan (Promethazine HCl) Drip IV in bag #1 50 mL; at 100 mL/hr over 30 minute(s) via site #1. via IV pump. Allergies verified and confirmed 5 rights. I V patency established. IV site checked: no pain, redness, or swelling. IV flushed thoroughly pre- and post-medication administration. Information reviewed with patient. --07:39 09/09/20 Ethel Guerrier R.N. 08:00 09/09/2020 Phenergan Drip IV via IV site #1 Discontinued: completed. Total amount infused: 50 mL. IV patency established. IV site checked: no pain, redness, or swelling. IV flushed thoroughly. --08:49 09/09/20 Ethel Guerrier R.N. 09:00 09/09/20. Reassessment after medication administered and fluids administered. She is calm and resting quietly. Overall patient status is improved- she states feels better. --09:09/09/20 Ethel Guerrier R.N. 09:09/09/2020 IV Fluids NS via IV site #1 Discontinued: completed. Total amount infused: 1000 mL. IV patency established. IV site checked: no pain, redness, or swelling. IV flushed thoroughly. --09:09/09/20 Ethel Guerrier R.N. 09:09/09/2020 Site #1 removed upon discharge. Bandaid applied. --09:09/09/20 Ethel Guerrier R.N.DISPOSITION / DISCHARGE 09:09/09/20. BP: 141/80. MAP: 100. HR: 75. RR: 16. O2 saturation: 98%. Temp: 98.2 F. Pain level now: 010. --09:09/09/20 Ethel Guerrier R.N. No learning barriers present. Discharge instructions provided and reviewed with the patient. Reviewed medication(s). Reviewed referral to a packing machine feeder. Reviewed low fat diet and need for increased fluid intake. Patient verbalized understanding. Written instructions provided in Maltese. --:09/09/20 Ethel Guerrier R.N. 4 Clinical Report - Nurses [facility] Emergency Department [address] [place] [address] Phone #: ext- [phone] 09/09/2020 06:55 Patient: CAROL RASHEED Sex: F : 2000 Age: 20y Departure time: 09:09/09/2020. --09:09/09/20 Ethel Guerrier R.N.Locked/Released at 09/09/2020 09:27 by Ethel Guerrier R.N. Name Value Range Interpretation Code Description Data Yisel rce(s) Supporting Document(s) ID Date Data Source [id number] 09/09/2020 07:01:00 AM [facility] 1 Clinical Report - Physicians/Mid Levels [facility] Emergency Department [address] [place] [address] Phone #: ext- [phone] 09/09/2020 06:55 Patient: CAROL RASHEED Sex: F : 2000 Age: 20y Time Seen: 07:11 09/09/2020; initial patient contact. Arrived- By ambulance. Historian- patient. Disposition decision: 09:08 09/09/2020.HISTORY OF PRESENT ILLNESS Chief Complaint: VOMITING. NAUSEA. No recent travel. She has had severe nausea. She has had severe vomiting (per day). The vomiting has occurred several times. No diarrhea, black stools, bloody stools, constipation or flank pain. No history of possible bad food exposure, known contact with a sick individual or change in routine. She has had mild, intermittent abdominal pain (since Teri on 08-24-20). The pain is described as located in the upper abdomen and epigastrium and associated with nausea and vomiting. Has not recently been camping or on antibiotics. This started 5 days ago and is still present. It was gradual in onset and has been intermittent. The illness is described as severe. (pt had Teri Fundoplication on 08-24-[address] [facility], Dr. Keane (#[phone]) for Freedman's esophagitis; pt has had post-op epigastric pain since; pt started w N/V on 09-05-20, several times per day; pt saw PA of Dr. Keane yesterday at [facility] and was prescribed scopolamine patch which she did not black pickler yet and was also told that "this was nml healing process"). Similar symptoms previously. Recent medical care: The patient was seen recently at another facility in the office. ( see above; and [facility] ER 09-05-20, was given anti-nausea Rx).REVIEW OF SYSTEMSNo fever, muscle aches, difficulty with urination, dark urine or headache. No dizziness, sore throat, cough,chest pain or difficulty breathing. No excessive urination, skin rash, jaundice, back pain or faintingepisodes. No blurred vision. All other systems reviewed and are negative.PAST HISTORYSee nurses notes. Problems: Hypertension. Freedman's esophagus. Additional Surgeries: Hernia Repair. Teri Fundoplasty [08/24/2020]. 2 Clinical Report - Physicians/Mid Levels [facility] Emergency Department [address] [place] [address] Phone #: ext- [phone] 09/09/2020 06:55 Patient: CAROL RASHEED Sex: F : 2000 Age: 20y Medications: Colace Oral. predniSONE Oral. Zofran Oral. Reglan Oral. hydroCHLOROthiazide Oral. Famotidine Oral. Allergies: No Known Drug Allergy.SOCIAL HISTORYNever smoker. No alcohol use or drug use.ADDITIONAL NOTESThe nursing notes have been reviewed with agreement regarding the chief complaint, HPI, ROS, PMH andpatient medications and allergies.PHYSICAL EXAMVital Signs: 09/09/2020 06:56 BP: sitting 141/71. MAP: 94. HR: 89. RR: 16. O2 saturation: 99% on roomair. Temp: 98.3 F. Pain level now: 10. Have been reviewed. Oxygen saturation normal.Appearance: Alert. Oriented X3. No acute distress. Anxious.Eyes: Pupils equal, round and reactive to light. Eyes normal inspection.ENT: Nose normal. Pharynx normal.Neck: Normal inspection. Neck supple.CVS: Normal heart rate and rhythm. Heart sounds normal. Pulses normal.Respiratory: No respiratory distress. Painless inspiration. Breath sounds normal.Abdomen: Soft. Mild tenderness in the upper abdomen and epigastric area. No guarding or reboundtenderness. Bowel sounds normal. No organomegaly. No mass. Femoral pulses equal.Back: Normal inspection. No CVA tenderness.Skin: Skin warm and dry. Normal skin color. No rash. Normal skin turgor.Extremities: Extremities exhibit normal ROM. No lower extremity edema.Neuro: Oriented X 3. No motor deficit. No sensory deficit.LABS, X-RAYS, AND EKGLaboratory Tests: Laboratory tests have been ordered, with results reviewed and considered in themedical decision making process. CBC w Diff: (JAZZY: 09/09/2020 07:00) ( MsgRcvd 09/09/2020 07:46) Final results Test Result Flag Units (Reference) CBC W/AUTOMATED DIFF COMPLETE BLOOD COUNT WBC 8.2 10/uL (4.2 - 11.0) RBC 4.69 10/uL (4.20 - 5.40) HEMOGLOBIN 13.6 g/dL (12.0 - 16.0) HEMATOCRIT 38.3 % (37.0 - 47.0) MCV 81.7 fL (81.0 - 101) 3 Clinical Report - Physicians/Mid Levels [facility] Emergency Department [address] [place] [address] Phone #: ext- [phone] 09/09/2020 06:55 Patient: CAROL RASHEED Sex: F : 2000 Age: 20y MCH 29.0 pg (27.0 - 34.0) MCHC 35.5 g/dL (31.0 - 36.0) RDW 11.4 L % (11.5 - 14.5) PLATELETS 342 10/uL (150 - 450) MPV 9.7 fL (7.4 - 10.4) NEUT 67.6 % (37.0 - 80.0) LYMPH 21.8 L % (25.0 - 40.0) MONO 8.7 H % (3.0 - 8.0) EOS 1.2 % (0.0 - 7.0) BASO 0.6 % (0.0 - 2.5) %IG 0.1 H % (0.0 - 0.0) %NRBC 0.0 % (0.0 - 0.0) #NEUT 5.56 10/uL (2.00 - 6.90) #LYMPH 1.80 10/uL (0.60 - 3.40) #MONO 0.72 10/uL (0.00 - 0.90) #EOS 0.10 10/uL (0.00 - 0.70) #BASO 0.05 10/uL (0.00 - 0.20) #IG 0.01 10/uL (0.00 - 0.10) #NRBC 0.00 10/uL (0.00 - 0.00) MANUAL DIFF NOT INDICATED RBC MORPH NOT INDICATEDCMP: (JAZZY: 09/09/2020 07:00) ( MsgRcvd 09/09/2020 08:34) Final results Test Result Flag Units (Reference) COMPREHENSIVE METABOLIC PANEL COMPREHENSIVE METABOLIC PANEL SODIUM 138 mEq/L (134 - 153) POTASSIUM 3.5 L mEq/L (3.6 - 5.0) CHLORIDE 101 mEq/L (98 - 107) CO2 21 L MEQ/L (22 - 30) GLUCOSE 80 MG/DL (70 - 99) BUN 11 MG/DL (7 - 21) CREATININE 0.9 MG/DL (0.7 - 1.5) BUN/CREAT 12 (8 - 27) TOTAL PROTEIN 6.4 G/DL (6.3 - 8.2) ALBUMIN 4.3 G/DL (3.9 - 5.0) GLOBULIN 2.1 L GM/DL (2.4 - 3.2) A/G RATIO 2.0 (0.8 - 2.0) CALCIUM 9.4 MG/DL (8.4 - 10.2) TOTAL BILI <0.7 MG/DL (0.2 - 1.3) ALKALINE PHOS 67 U/L (38 - 126) SGOT/AST 17 U/L (5 - 40) SGPT/ALT 22 U/L (7 - 56) ANION GAP 16.0 mmol/L (8.0 - 16.0) AGE 20 yrs NON-AA GFR >60 mL/min AFR AMER GFR >60 mL/min Male GFR Interprentation 20-49 yrs >60 mL/min Xarzps05-46 yrs >56 mL/min Normal 60-69 yrs >49 mL/min Normal 70-79yrs>42 mL/min Normal 80 and above >35 mL/min Normal Female GFRInterpretation 20-39 yrs >60 mL/min Normal 40-49 yrs >58 mL/minNormal 50-59 yrs >51 mL/min Normal 60-69 yrs >45 mL/min Jdckuj11-19 yrs >39 mL/min Normal 80 and above >32 mL/min NormalLipase: (JAZZY: 09/09/2020 07:00) ( MsgRcvd 09/09/2020 08:21) Final results Test Result Flag Units (Reference) LIPASE 23 U/L (13 - 60) 4 Clinical Report - Physicians/Mid Levels [facility] Emergency Department [address] [place] [address] Phone #: ext- [phone] 09/09/2020 06:55 Patient: CAROL RASHEED Sex: F : 2000 Age: 20y Lactic Acid: (JAZZY: 09/09/2020 07:00) ( MsgRcvd 09/09/2020 08:12) Final results Test Result Flag Units (Reference) LACTIC ACID 1.4 MMOL/L (0.2 - 2.2) Beta-HCG, Qual Serum: (JAZZY: 09/09/2020 07:23) ( MsgRcvd 09/09/2020 07:26) Canceled Beta-HCG, Quant Serum: (JAZZY: 09/09/2020 07:00) ( MsgRcvd 09/09/2020 08:10) Final results Test Result Flag Units (Reference) HCG QUANT <0.5 mIU/mL Interpretation: Less than 5 mU/mL: Negative 6-10 mU/mL: Borderline (suggest repeat in 48 hours) >10: Positive Approx HCG range (mU/mL) Weeks post LMP 5.4-708 mU/mL 3-4 Weeks 217-05597 mU/mL 5-6 Weeks 4059-124735 mU/mL 7-8 Weeks 75962-303995 mU/mL 9-10 Weeks 90433-26692 mU/mL 12-14 Weeks 74978-19170 mU/mL 15-16 Weeks 8240-63961 mU/mL 17-18 Weeks.PROGRESS AND PROCEDURESCourse of Care: 08:54 09/09/20. workup all in and reviewed and nml except mild hypoK at 3.5; pt has notvomited in ER at all; call made out to Dr. Keane, her surgeon 09:05 09/09/20. Dr. Keane called back and recommends Xanax PO since he stated that there is nothing physically wrong with patient; pt made aware of the conve rsation and understands d/c instructions and agrees 09:18 09/09/20. [facility] pharmacy called back and they have a 30 day Lorazepam script from surgical clinic from yesterday so Xanax script cancelled. Patient counseled in person regarding the patient's stable condition, test results, diagnosis and need for follow-up. Patient agrees with plan of care. Disposition: Condition: good and stable. Discharge decision based on the following: patient's condition is stable; patient's condition is improved; patient is ambulatory; patient is active; patient drinking fluids; patient's pain is controlled; patient's exam is improved; no abnormal test results; improving condition on multiple repeat evaluations; social support is good; transportation is available; follow-up is available; clinical impression is consistent with outpatient treatment.CLINICAL IMPRESSION Gastroesophageal reflux disease with esophagitis (chronic). Acute gastritis. No alcoholic gastritis or hemorrhagic gastritis. Anxiety reaction. S/P Teri Fundoplication (08-24-20). 5 Clinical Report - Physicians/Mid Levels [facility] Emergency Department [address] [place] [address] Phone #: ext- [phone] 09/09/2020 06:55 Patient: CAROL RASHEED Sex: F : 2000 Age: 20yINSTRUCTIONS Drink plenty of fluids. Avoid alcohol and NSAIDS. NSAIDS include aspirin, ibuprofen (Advil) and naproxen (Aleve). Avoid fatty, fried/greasy, lactose-containing (such as milk, cheese and ice cream), salty and spicy foods. No alcohol. Do not smoke. (THE PHARMACY HAS A LORAZEPAM SCRIPT FROM THE SURGICAL CLINIC (30 DAYS WORTH) FROM YESTERDAY, SO WE CANCELLED THE XANAX SCRIPT). Warnings: Further evaluation is necessary (Gastric surgeon). It is very important to follow up with a healthcare provider. GENERAL WARNINGS: Return or contact your physician immediately if your condition worsens or changes unexpectedly, if not improving as expected, or if other problems arise. SPECIFICALLY, return if you develop pain in the abdomen, pelvis or back, fever, vomiting, the inability to keep fluids down, blood in vomitus, blood in diarrhea, fainting or lightheadedness. Your Current Medications: Your current home medications have been reviewed. CONTINUE TAKING THE FOLLOWING MEDICATIONS: Colace Oral. Famotidine Oral. hydroCHLOROthiazide Oral. predniSONE Oral. Reglan Oral. Zofran Oral. Follow-up: Return to the emergency department as needed. Follow up with your healthcare provider in five days even if well. Call for an appointment. Reason for referral: evaluation and treatment. Summary of care provided to patient via paper. Follow up with a surgeon in five days even if well. Call for an appointment. Reason for referral: evaluation and treatment. Summary of care provided to patient via paper. Understanding of the discharge instructions verbalized by patient. Expected course of illness, discharge instructions, activity level, diet, prescriptions x1, follow-up appointment and risks and benefits of treatment reviewed with patient and understanding verbalized. Agrees to plan of care.(Electronically signed by Ozzy Zepeda M.D. 09/09/2020 11:18) Name Value Range Interpretation Code Description [facility] Supporting Document(s) ID Date Data Source [id number] 09/09/2020 07:00:00 AM EST [facility] ([facility]) Name Value Range Interpretation Code Description Data Yisel e(s) Supporting Document(s) Comprehensive [facility] Laboratory test result [facility] ([facility]) COMPREHENSIVE METABOLIC PANEL Sodium 138 meq/L 134-153 [facility] ([facility]) Chloride 101 meq/L 98-107 [facility] ([facility]) Potassium 3.5 meq/L 3.6-5.0 Below low normal [facility] ( [facility]) Co2 21 meq/L 22-30 Below low normal [facility] ([facility]) BUN 11 mg/dL 7-21 [facility] ([facility]) Creatinine 0.9 mg/dL 0.7-1.5 [facility] ([facility]) Glucose 80 mg/dL 70-99 [facility] ([facility]) Total Protein 6.4 g/dL 6.3-8.2 [facility] ([facility]) Albumin 4.3 g/dL 3.9-5.0 [facility] ([facility]) BUN/Creat 12 8-27 [facility] ([facility]) A/G Ratio 2.0 0.8-2.0 [facility] ([facility]) Calcium 9.4 mg/dL 8.4-10.2 [facility] ([facility]) Globulin 2.1 GM/DL 2.4-3.2 Below low normal [facility] ( [facility]) Sgot/Ast 17 U/L 5-40 [facility] ([facility]) Alkaline Phos 67 U/L 38-126 [facility] ([facility]) Total Bili Laboratory test result 0.2-1.3 [facility] ([facility]) Anion Gap 16.0 mmol/L 8.0-16.0 [facility] ([facility]) Age 20 yrs [facility] ([facility]) SGPT/Alt 22 U/L 7-56 [facility] ([facility]) Non-Aa GFR Laboratory test result [facility] ([facility]) Afr Amer GFR Laboratory test result [facility] ([facility]) Male GFR Interprentation 20-49 yrs >60 mL/min Normal 50-59 yrs >56 mL/min Normal 60-69 yrs >49 mL/min Normal 70-79yrs >42 mL/min Normal 80 and above >35 mL/min Normal Female GFR Interpretation 20-39 yrs >60 mL/min Normal 40-49 yrs >58 mL/min Normal 50-59 yrs >51 mL/min Normal 60-69 yrs >45 mL/min Normal 70-79 yrs >39 mL/min Normal 80 and above >32 mL/min Normal ID Date Data Source [id number] 09/09/2020 07:00:00 AM EST [facility] ([facility]) Name Value Range Interpretation Code Description Data Yisel rce(s) Supporting Document(s) Lactate [Mass/volume] in Serum or Plasma 1.4 mmol/L 0.2-2.2 [facility] ([facility]) Choriogonadotropin.beta subunit [Moles/volume] in Seru m or Plasma Laboratory test result [facility] ([facility]) Interpretation: Less than 5 mU/mL: Negative 6-10 mU/mL: Borderline (suggest repeat i n 48 hours) >10: Positive Approx HCG range (mU/mL) Weeks post LMP 5.4-708 mU/mL 3-4 Weeks 217-33891 mU/mL 5-6 Weeks 4059-175610 mU/mL 7-8 Weeks 09414-639618 mU/mL 9-10 Weeks 13696-95061 mU/mL 12-14 Weeks 18520-18313 mU/mL 15-16 Weeks 8240-72398 mU/mL 17-18 Weeks Lipase [Enzymatic activity/volume] in Serum or Plasma 23 U/L 13-6 0 [facility] ([facility]) ID Date Data Source [id number] 09/09/2020 07:00:00 AM EST [facility] ([facility]) Name Value Range Interpretation Code Description Data Yisel rce(s) Supporting Document(s) CBC W/Automated Diff Laboratory test result [facility] ([facility]) COMPLETE BLOOD COUNT WBC 8.2 10^3/uL 4.2-11.0 [facility] ([facility]) RBC 4.69 10^6/uL 4.20-5.40 [facility] ([facility]) Hematocrit 38.3 % 37.0-47.0 [facility] ([facility]) Hemoglobin 13.6 g/dL 12.0-16.0 [facility] ([facility]) MCH 29.0 pg 27.0-34.0 [facility] ([facility]) MCHC 35.5 g/dL 31.0-36.0 [facility] ([facility]) MCV 81.7 fL 81.0-101 [facility] ([facility]) Platelets 342 10^3/uL 150-450 [facility] ([facility]) RDW 11.4 % 11.5-14.5 Below low normal [facility] ([facility]) MPV 9.7 fL 7.4-10.4 [facility] ([facility]) Lymph 21.8 % 25.0-40.0 Below low normal [facility] ( [facility]) Alger 8.7 % 3.0-8.0 Above high normal [facility] ([facility]) Neut 67.6 % 37.0-80.0 [facility] ([facility]) %Ig 0.1 % 0.0-0.0 Above high normal [facility] ([facility]) Eos 1.2 % 0.0-7.0 [facility] ([facility]) Baso 0.6 % 0.0-2.5 [facility] ([facility]) %NRBC 0.0 % 0.0-0.0 [facility] ([facility]) #Lymph 1.80 10^3/uL 0.60-3.40 [facility] ([facility]) #Neut 5.56 10^3/uL 2.00-6.90 [facility] ([facility]) #Alger 0.72 10^3/uL 0.00-0.90 [facility] ([facility]) #Eos 0.10 10^3/uL 0.00-0.70 [facility] ([facility]) #Baso 0.05 10^3/uL 0.00-0.20 [facility] ([facility]) #Ig 0.01 10^3/uL 0.00-0.10 [facility] ([facility]) Manual Diff Laboratory test result [facility] ([facility]) #NRBC 0.00 10^3/uL 0.00-0.00 [facility] ([facility]) RBC Morph Laboratory test result [facility] ([facility]) ID Date Data Source [id number] 09/09/2020 08:34:00 AM EST [facility] Name Value Range Interpretation Code Description Data Yisel rce(s) Supporting Document(s) COMPREHENSIVE METABOLIC PANEL [facility] COMPREHENSIVE METABOLIC PANEL Sodium [Moles/volume] in Serum or Plasma 138 mEq/L 134 - 153 [facility] Potassium [Moles/volume] in Serum or Plasma 3.5 mEq/L 3.6 - 5.0 L [facility] Chloride [Moles/volume] in Serum or Plasma 101 mEq/L 98 - 107 [facility] Carbon dioxide, total [Moles/volume] in Serum or Plasma 21 MEQ/L 22 - 30 L [facility] Glucose [Mass/volume] in Serum or Plasma 80 MG/DL 70 - 99 [facility] BUN 11 MG/DL 7 - 21 [facility] al Creatinine [Mass/volume] in Serum or Plasma 0.9 MG/DL 0.7 - 1.5 [facility] BUN/CREAT 12 8 - 27 [facility] al Protein [Mass/volume] in Serum or Plasma 6.4 G/DL 6.3 - 8.2 [facility] Albumin [Mass/volume] in Serum or Plasma 4.3 G/DL 3.9 - 5.0 [facility] Globulin [Mass/volume] in Serum by calculation 2.1 GM/DL 2.4 - 3.2 L [facility] A/G RATIO 2.0 0.8 - 2.0 [facility] Calcium [Mass/volume] in Serum or Plasma 9.4 MG/DL 8.4 - 10.2 [facility] Bilirubin.total [Mass/volume] in Serum or Plasma <0.7 MG/DL 0.2 - 1.3 [facility] Alkaline phosphatase [Enzymatic activity/volume] in Serum or Plasma 67 U/L 38 - 126 [facility] Aspartate aminotransferase [Enzymatic activity/volume] in Serum or Plasma 17 U/L 5 - 40 [facility] Alanine aminotransferase [Enzymatic activity/volume] in Seru m or Plasma 22 U/L 7 - 56 [facility] Anion gap 3 in Serum or Plasma 16.0 mmol/L 8.0 - 16.0 [facility]GE 20 [facility] >60 mL/min [facility] ital AFR AMER GFR >60 mL/min [facility] Ho spital Male GFR In terprentation 20-49 yrs >60 mL/min Normal 50-59 yrs >56 mL/min Normal 60-69 yrs >49 mL/min Normal 70-79yrs >42 mL/min Normal 80 and above >35 mL/min Normal Female GFR Interpretation 20-39 yrs >60 mL/min Normal 40-49 yrs >58 mL/min Normal 50-59 yrs >51 mL/min Normal 60-69 yrs >45 mL/min Normal 70-79 yrs >39 mL/min Normal 80 and above >32 mL/min Normal ID Date Data Source [id number] 09/09/2020 08:21:00 AM [facility] Name Value Range Interpretation Code Description Data Yisel rce(s) Supporting Document(s) Lipase [Enzymatic activity/volume] in Serum or Plasma 23 U/L 13 - 60 [facility] ID Date Data Source [id number] 09/09/2020 08:12:00 AM [facility] Name Value Range Interpretation Code Description Data Yisel rce(s) Supporting Document(s) Lactate [Moles/volume] in Serum or Plasma 1.4 MMOL/L 0.2 - 2.2 [facility] ID Date Data Source [id number] 09/09/2020 08:10:00 AM [facility] Value Range Interpretation Code Description Data Yisel rce(s) Supporting Document(s) Choriogonadotropin.intact [Units/volume] in Serum or Plasma <0.5 mIU/ mL [facility] Interpr etation: Less than 5 mU/mL: Negative 6-10 mU/mL: Borderline (suggest repeat in 48 hours) >10: Positive Approx HCG range (mU/mL) Weeks post LMP 5.4-708 mU/mL 3-4 Weeks 217-01697 mU/mL 5-6 Weeks 4059-093041 mU/mL 7-8 Weeks 55119-062405 mU/mL 9-10 Weeks 85757-74854 mU/mL 12-14 Weeks 39126-37629 mU/mL 15-16 Weeks 8240- 07808 mU/mL 17-18 Weeks ID Date Data Source [id number] 09/09/2020 07:46:00 AM EST [facility] Name Value Range Interpretation Code Description Data Yisel e(s) Supporting Document(s) CBC W/AUTOMATED DIFF [facility] COMPLETE BLOOD COUNT Leukocytes [#/volume] in Blood by Automated count 8.2 10^3/uL 4.2 - 1 1.0 [facility] Erythrocytes [#/volume] in Blood by Automated count 4.69 10^6/uL 4. 20 - 5.40 [facility] Hemoglobin [Mass/volume] in Blood 13.6 g/dL 12.0 - 16.0 [facility] Hematocrit [Volume Fraction] of Blood by Automated count 38.3 % 3 7.0 - 47.0 [facility] Erythrocyte mean corpuscular volume [Entitic volume] by Auto mated count 81.7 fL 81.0 - 101 [facility] Erythrocyte mean corpuscular hemoglobin [Entitic mass] by Automated count 29.0 pg 27.0 - 34.0 [facility] Erythrocyte mean corpuscular hemoglobin concentration [Mass/volume] by Automated count 35.5 g/dL 31.0 - 36.0 [facility] Erythrocyte distribution width [Ratio] by Automated count 11.4 % 11.5 - 14.5 L [facility] Platelets [#/volume] in Blood by Automated count 342 10^3/uL 150 - 45 0 [facility] Platelet mean volume [Entitic volume] in Blood by Automated count 9.7 fL 7.4 - 10.4 [facility] Neutrophils/100 leukocytes in Blood by Automated count 67.6 % 37. 0 - 80.0 [facility] Lymphocytes/100 leukocytes in Blood by Manual count 21.8 % 25.0 - 40.0 L [facility] Monocytes/100 leukocytes in Blood by Automated count 8.7 % 3.0 - 8.0 H [facility] Eosinophils/100 leukocytes in Blood by Automated count 1.2 % 0.0 - 7.0 [facility] Basophils/100 leukocytes in Blood by Automated count 0.6 % 0.0 - 2.5 [facility] %IG 0.1 % 0.0 - 0.0 [facility] %NRBC 0.0 % 0.0 - 0.0 [facility] al Neutrophils [#/volume] in Blood by Automated count 5.56 10^3/uL 2.00 - 6.90 [facility] Lymphocytes [#/volume] in Blood by Automated count 1.80 10^3/uL 0.60 - 3.40 [facility] Monocytes [#/volume] in Blood by Automated count 0.72 10^3/uL 0.00 - 0.90 [facility] Eosinophils [#/volume] in Blood by Automated count 0.10 10^3/uL 0.00 - 0.70 [facility] Basophils [#/volume] in Blood by Automated count 0.05 10^3/uL 0.00 - 0.20 [facility] #IG 0.01 10^3/uL 0.00 - 0.10 [facility]ital #NRBC 0.00 10^3/uL 0.00 - 0.00 [facility] MANUAL DIFF NOT INDICATED [facility] RBC MORPH NOT INDICATED [facility] Ho spital ID Date Data Source [id number] 08/25/2020 10:45:15 AM EST [facility] Name Value Range Interpretation Code Description Data Yisel rce(s) Supporting Document(s) EKG [facility] YSWETi7sIzFMMxUff9ArVlIiINIdSX0zqtj1E2X7nJLfH9PsaTFap0yrK6HkZ8PtOVBuJGRRIF4QjAIq jb2 [file] 3J8VL8XoCPfL7P2XA9OiEngJ8T7Un1OlNjmJ6J1Pc6SwOlzY6h0BcC72CM4ILawDJ86Qnp4h+6+R/+claim technician uPvLgt4mP0aYWpRcKY9zDonXVbWQ7e0kXtJQLCnZCvK+XwDfsqChizRZncyVrRfL4OvTI3IChVTPIBfT gWU6ZNQugMQKEx4hqTic8tXWvO4FhOGjMkMxMwYFPE 7DLLxped8sKNvhHVEgiVOmdxVDHKuYGNwhDLQGAlvnQPGZt+q0ANC8IwvCCnRvPwGEwsgJGS6o2KzDUp D6SfQcn7RD/95YylUoeMsJrhHKODKvXTKvfPWcNHB4wuInAF+q5Jx2CSNAzvVFB4rYuOI1ce3zCQYQb2 1EiXUbQT5qx4Sxro2XHQ/llU37uVvtDH47v4Oq3dC4 Qe0kugQTavC3No851Vok2vx6gedYnIA7406OoTah2hydV1yOfhgopvCdJX2/0OmkKsWE9EhZLpcDl0Bs M29b/+IS56Wpz78EV88naZjYCBoNX3LCmOvieK3fI9XqNqi2tO3FkCVyVchrHOBoac8+PYzFBIC2gpDr UXZwAQFmNRtgE1pJ00ehMx45gQSCoRfkgLUirZJLhO HvgwXW8yVjneVIBKqH50vNOU2kYRnkiH1mJDveZuGXLMPap92oOBy09OFkW8+Kv9qmg5M21LxbW4+Jailene [file] Ana Cristina+HUaZtojQGUhsKAfHTs0pegD9aqZfeiCIGZOcAFH5FHrOJnE4hwT6PmzS1jRaGLHG1tthBQiXbbTR [file] accounts manager//ef/7V7uRxtUPYN/WK3Lcf9v8gjZgwyODbFBPV+yb5jcjcFVquSrSo2wxuw9KoCKTmXBGX5oufcz [file] kgMDAwMDAgbiAKMDAwMDAwMTczNCAwMDAwMCBuIAow XUNoORZnBPT3GPTwHOQdNK8nInWeCWXsOWMgPMRvEzX8FqZaPeOIsGNhpNrwhyo8SHoaK9a1MEVaWWsz UI3swqWvZKHxWlulKn0sbSC8WXZdKjoNDv4Hu6HcmqD7bhKdMwU0DHx9OwPzUH4Y ID Date Data Source [id number] 08/24/2020 11:15:08 AM EST [facility] INFORMATIONPatient MRN Name Date of Age Gend*PT [id number] Carol Rasheed 2000 20 years F SDCXPT Location Ad[facility] Date/[facility] --- Joe Helton MD([id number]) EPI ID [facility] Admitting Provider [id number] Joe Helton MD([id number])NameAlistairjose Jones WiliMRN:[id number] Surgeon: Joe Helton MD FIleanaAAllaSAssistant: Idalia Sams Surgical PAPreoperative Diagnosis: Gastroesophageal reflux disease with a type I hiatalhernia.Postoperative Diagnosis: Gastroesophageal reflux disease with a typeI hiatalhernia.Informed Consent:A thorough informed consent was taken from the patient in the office and thecomplications including but not limited to infection, bleeding, injury toabdominal viscera with their own surgical management and chronic pain syndromewas again discussed with patient in the preop holding area. Patient seemed tounderstand the complications and agree with the planned procedure.PROCEDURE:1. Robotic primary repair of type I Paraesophageal hernia.2. Robotic posterior / Toupet -270 degreefundoplication.ANESTHESIA: General.COMPLICATIONS: None.Specimen: noneEBL: Minimal.REASON FOR SURGERY: The patient had multiple episodes of chest discomfort andreflux disease for many years and was unable to be managed conservatively withmedical management. A diagnosis of GERD was made. A decision was made tooperate on the patient semi-electively to perform a robotic possible open repairof paraesophageal hernia and fundoplication.Informed Consent:A thorough informed consent was taken from the patient in the office and thecomplications including but not limited to infection, bleeding, injury toabdominal viscera with their own surgical management and chronic pain syndromewas again discussed with patient in the preop holding area. Patient and familymembers seemed to understand the complications and agree with the plannedprocedure.ANESTHESIA: GETACOMPLICATIONS: None.ESTIMATED BLOOD LOSS: Minimal.SPECIMEN REMOVED: NONECOMPLICATIONS: None.DESCRIPTION OF PROCEDURE:The patient was taken to the operating room and placed supine on the table.After successful endotracheal intubation anterior abdominal wall was prepped anddraped in usual fashion. We made an incision in the epigastric region carrieddown to the fascia and a 8 mm port was introduced by an Optiview method.Pneumoperitoneum was created, a camera was introduced, two separate incisionswere made in the subcostal region and Da Amarilis 8 mm ports were introducedthrough these incisions in the abdominal cavity under direct vision. Twoseparate incisions were made l ateral to umbilicus on either side and two 12 mmports were introduced under direct vision. A liver paddle retractor wasintroduced through the patient's right lateral umbilical port and left lobe ofthe liver was retracted laterally and upwards. Da Amarilis robot was now broughtin, arms and camera were docked. A forced bipolar was introduced through thepatient's right subcostal Da Amarilis 8-mm trocar and Harmonic was introducedthrough the patient's left subcostal 8-mm trocar. A 10 mm [place] was nowintroduced through the patient's left lower trocar. Stomach was manipulatedthroughout the case using the chu.At this point I broke my scrubs and went to the surgeons console and dissectionwas started . It was type I hiatal hernia. Initially gastrohepatic omentum wastaken down completely exposing the right deyvi of the diaphragm. Then thephreno- esophageal membrane was carefully taken down and now the right deyvi ofthe diaphragm was now completely exposed. Now we started mobilizing thephreno-esop hageal membrane thus freeing up the stomach on the left deyvi area.Once that was done we identified the sac of the hernia into the mediastinumwhich was taken down from the patient's left deyvi and completely dissected outand removed. Now we returned back to the right side and the right deyvi wasdissected out all the way distally and with some fine and blunt dissection theleft deyvi was also brought into the view. The V junction of the left andright deyvi was identified cleanly. The fenestrated bipolar was passed underthe GE junction in the retrogastric space and a Anam drain was passedunderneath the esophagus and controlled using an Endoloop. The Attica drainwas now utilized to basically retract and manipulate the esophagus. Now shortgastric vessels were taken from upper third of the stomach using HarmonicScalpel mobilizing the stomach completely. By this time esophagus has mobilizedcompletely into the abdominal cavity at least 2 to 3 cm. Both deyvi were nowidentified and clearly visible. The greater curvature of the stomach wasbrought underneath the esophagus and a Shoe-shine maneuver was performed, themobilization was satisfactory.Now the harmonic scalpel was exchanged to a needle suture cut. The 0 PBTsuture was introduced and the hiatus was loosely closed in a running fashionthus approximating the crura primarily. The suture was run back onto the crurato provide more strength to the closure.. Once this was done we were satisfiedwith this part and now 2-0 silk sutures were brought in to do a Toupet repair.The posterior fundus was brought posterior to the Esophagus and medial to theright deyvi. Now using 2-0 silk sutures a 270 degree wrap was done around thedistal esophagus. . On the right side at the highest point on the esophagusstich was placed from the esophagus to right deyvi to the stomch and tied in anintracorporal fashion. On the left side the stomach was sutured to the leftcrus and then to the esophagus using the 2 O silk stich. A single stitchof 2 O Silk was also placed on either side securing the fundus to theEsophagus in interrupted fashion. A third stitch was placed on either sideusing 2-0 silk to perform a longer neck of the fundoplication wrap. The Penrosedrain was now transected and removed. We were satisfied with our repair. All the trocars were now removed under vision. The skin incisions were closedusing 4-0 Monocryl in running fashion. Steri-Strips were applied. Steriledressing applied. The patient extubated and sent to recovery room in stablecondition.I personally called the family member explained to them the surgical proceedingsand discharge planning.Joe Helton [facility] 20200731:11 AM Name Value Range Interpretation Code Description Data Yisel rce(s) Supporting Document(s) ID Date Data Source [id number] 08/24/2020 07:50:34 AM EST [facility] INFORMATIONPatient MRN Name Date of Age Gend*PT [id number] Carol Rasheed 2000 20 years F SDCXPT Location Admission Date/Time Visit ID Attending Provider --- --- --- --- EPI ID CSN Admitting Provider [id number] ---AirwayPatient location during procedure: ORUrgency: electiveDifficult airway: noAdvanced airway equipment used: noStaffingPerformed by: Francosi Dutton CRNAAnesthesiologist: Freddie Kirkpatrick MDIndications and Patient ConditionIndications for airway management: anesthesiaPreoxygenated: yesPatient position: sniffingIn-line stabilization: noMask ventilation: 0 - not attemptedFinal Airway/ApproachesFinal airway type: ETTNumber of attempts at final approach: 1Number of other approaches attempted: 0Final Airway DetailsFinal ETT airway: ETT - singleCuffed: yesTechnique used for successful ETT placement: direct laryngoscopyCricoid pressure: noRSI: noInsertion site: oralBlade type/size: MAC 3.5ETT size: 7.0 mmMeasured from: lipsETT to lips: 22 cmPlacement verified by: chest auscultation and + [id number]: equal breath sounds bilateralGrade view: grade I - full view of glottis Name Value Range Interpretation Code Description Data Yisel rce(s) Supporting Document(s) ID Date Data Source [id number] 08/24/2020 07:37:04 AM EST [facility] INFORMATIONPatient MRN Name Date of Age Gend*PT [id number] Carol Rasheed 2000 20 years F SDCXPT Location Admission Date/Time Visit [facility] --- Joe Helton MD([id number]) EPI ID CSN Admitting Provider [id number] Joe Helton MD([id number])H&P reviewed. The patient was examined and there are no changes to the H&P.Joe Helton MD7:36 AM Name Value Range Interpretation Code Description Data Yisel rce(s) Supporting Document(s) ID Date Data Source [id number] 08/24/2020 07:12:32 AM EST [facility] Name Value Range Interpretation Code Description Data Yisel rce(s) Supporting Document(s) POC [facility] <5.0 IU/L [facility] INTERPRETATION:<5.0 NEGATIVE5.0- 25.0 INDETERMINATE>25.0 POSITIVELEVELS BETWEEN 5 AND 25 IU/L MAY INDICATEEARLY AND SHOULD BE REPEATED AL BLOOD SAMPLE AFTER 48 HOURS.PERFORMED BY [facility] CLIN[facility] ID Date Data Source [id number] 08/24/2020 08:47:23 AM EST [facility] SPE[facility] EXP DATE 08/27/2020ATI ENT ABO/Rh O POSITIVEANTIBODY SCREEN NEGATIVETESTING SITE PERFORMED AT [address] [place] [address] [id number] BANK COMMENT BLOOD TYPE CONFIRMED. 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 [file] OTggMDAwMDAgbiAKMDAwMDAwMDQwOSAwMDAwMCBuIA xePPEzIJInNBOjVMSgDBMkFW7rBjXyOKEjSKM2OIFfQEOaLXTbjyORSRUuDZXnYEd4QXImWCIsDCItMA feMPStBZYtYYX7XEBgSEHbOM8tMvHfVRSbVDM5LkGbTSFqVZMyonYMUBIfLZPeUGU8BoSsJWPrPOVsXS ggGFWgZETxPMaiTHCpFBTsUN9gYiDuICQzIDLuKLsm XIFvZUBmhqAAZADsNGZvOEMbCgLiWJXiAKVkUGufJOCzKFEaVPupENRsCXYnQS6mAdJbPEHfMEC9QWns TYXrZUMsxxCOEATtHNUjJKbfMCQmNPTmIYIqCYzyVXTrZSVuUNB3RTXdYUNcQY3zMrWaMCUeLOXjQBJo GnY9BpThDvEJwCSwqZzvkvi5ILjjZ1s7DRTdMLnsBB 2drfIsXAZyJfzuBg5eoQU3BVXkPhcEId7Xz2WzgtJ5iaLoZbJuKHK1CxGxMY8L ID Date Data Source [id number] 08/19/2020 12:05:41 PM EST [facility] NT INFORMATIONPatient MRN Name Date of Age Gend*PT [id number] Carol Rasheed 2000 20 years F OPPT Location Admission Date/Time Visit ID Attending Provider --- --- --- Joe Helton MD([id number]) EPI ID CSN Admitting Provider [id number] ---OUTPATIENT / OBSERVATIONAL SURGICAL OR INVASIVE PROCEDUREName: Carol Rasheed : 2000 Sex: female Care Provider: RUTH HOLM NPAttending Physician: Dr. BolañosISTORY OF PRESENT ILLNESS: Ms Rasheed is a 20 years old white female withhistory of hypertension who reports of 2-year history of epigastric pain,belching, coughing, heartburn, nausea, and early satiety. She was evaluated bygastroenterologist. Patient was diagnosed with hiatal hernia and GERD. She wasreferred to Dr. Helton for surgical evaluation. Options were discussed. Patienthas elected to undergo ossicle intervention.PAST MEDICAL HISTORY:Past Medical History:Diagnosis Date Hiatal hernia with GERD Hypertension PUD (peptic ulcer disease)PAST SURGICAL HISTORY:Past Surgical History:Procedure Laterality Date COLONOSCOPY PANENDOSCOPYALLERGIES: No Known Drug AllergiesMEDICATIONS:Prior to Admission medicationsMedication Sig Start Date End Date Taking? Authorizing Providercholestyramine (QUESTRAN) 4 GM/DOSE powder Take 4 g by mouth nightlyHistorical Provider, hydrochlorothiazide (HYDRODIURIL) 25 MG tablet Take 25 mg by mouth dailyHistorical Provider, MDmetoclopramide (REGLAN) 5 MG tablet Take 5 mg by mouth 2 (two) times a dayHistorical Provider, ondansetron (ZOFRAN-ODT) 4 MG disintegrating tablet Take 4 mg by mouth daily asneeded for nausea Historical Provider, MDpantoprazole (PROTONIX) 40 MG tablet Take 40 mg by mouth 2 (two) times a dayHistorical Provider, MDSocial HistoryTobacco Use Smoking status: Current Every Day Smoker Packs/day: 0.25 Years: 2.00 Pack years: 0.50 Types: Cigarettes Smokeless tobacco: Never Used Tobacco comment: has not smoked since 07/03/20ubstance Use Topics Alcohol use: Yes Comment: 3-4 a week or more on weekends Drug use: NeverFamily HistoryProblem Relation Age of Onset Malig Hyperthermia Neg HxREVIEW OF SYSTEMS:Respiratory: Denies any shortness of breath, cough, yellow sputum production orwheezing.Cardiovascular: Denies any chest pain, pressure or tightness. Denies anyparoxysmal nocturnal dyspnea or orthopnea.GI: Positive nausea, vomiting as above. Denies diarrhea, constipation ormelena.Neurologic: Denies any numbness, tingling, tremors or syncope.Vascular: Denies any edema. Denies claudication.PHYSICAL EXAM:GENERAL: She is a 20 years old, pleasant white female, in no acute distress attime of examination. Vitals on arrival to the office are BP 137/90 (BP Location:Left upper arm, Patient Position: Sitting) | Pulse 69 | Ht 1.575 m (5' 2") |Wt 67.9 kg (149 lb 11.2 oz) | SpO2 98% | BMI 27.38 kg/m Body mass index is27.38 kg/m ..Skin is pink, warm, and dry.NECK: She has a grade I airway. Neck is supple, midline, without cervicaladenopathy. No thyromegaly. No carotid bruits.MENTAL / NEUROLOGICAL STATUS: [id number]: Clear to auscultation. No wheezes, rhonchi or crackles.HEART: Rate rhythm regular. S1, S2. No murmur, rub or gallop.ABDOMEN: Bowel sounds positive times four. Soft, non tender. No reboundtenderness. No hepatosplenomegaly. Negative CVAT.EXTREMITIES: Pulses are symmetrical. No edema.Anesthesia complications: DeniesHA Frailty Scale :: 2/10 Well (without active disease, but less fit thanpeople in category I. Often they exercise or are very active occasionally, e.g.seasonally).Stop Bang Questionnaire - Total Score:STOP-Bang Total Score: 1ASSESSMENT: Primary Diagnosis/Indication: Gastroesophageal reflux disease withhiatal hernia.PLAN: Procedure: Ms Rasheed is a 20-year-old female with hiatal hernia and GERD.She now has elected to undergo FUNDOPLICATION, ROBOT-ASSISTED, LAPAROSCOPIC,USING XI, WITH PARAESOPHAGEAL HERNIA REPAIR on 12:05 Claudy Casillas document or parts of this document, were dictated using [employer] software. A reasonable attempt at proofreading has beenmade to minimize errors. Please call with any questions or corrections.* Name Value Range Interpretation Code Description Data Yisel rce(s) Supporting Document(s) ID Date Data Source [id number] 08/19/2020 04:04:26 PM EST [facility] Name Value Range Interpretation Code Description Data Yisel rce(s) Supporting Document(s) SODIUM 141 mmol/L (136-145) [facility] POTASSIUM 4.5 mmol/L (3.6-5.2) [facility] CHLORIDE 108 mmol/L (100-108) [facility] CO2 25 mmol/L (22-31) [facility] ANION GAP 8 mmol/L (7-16) [facility] UREA NITROGEN 13 mg/dL (7-24) [facility] CREATININE 0.95 mg/dL (0.60-1.00) [facility] BUN/CREAT RATIO 13.7 RATIO (10.0-20.0) [facility] GLUCOSE 77 mg/dL (70-99) [facility] CALCIUM 9.3 mg/dL (8.4-10.2) [facility] GFR >60 ml/min/1.73m2 (>59) [facility] GFR ( AMER) >60 ml/min/1.73m2 (>59) [facility] GFR INTERPRETATION [facility] --NORMAL KIDNEY FUNCTION OR MILD DISEASE - GFR >OR= 60CHRONIC KIDNEY DISEASE - GFR 15 - 59RENAL FAILURE - GFR <15 Est. GFR calculation based on the MDRDstudy equation, which assumes a steadystate for creatinine. Est. GFR should notbe used for medication dosing. ID Date Data Source [id number] 08/19/2020 09:35:00 AM EST [facility] Name Value Range Interpretation Code Description Data Yisel rce(s) Supporting Document(s) SARS coronavirus 2 RNA Not Detected [facility] [place] This lab was ordered by [facility] and reported by [employer]. ID Date Data Source [id number] 08/20/2020 06:07:39 PM EST [facility] Name Value Range Interpretation Code Description Data Yisel rce(s) Supporting Document(s) SARS-COV-2 SANTY [facility] Not DetectedReference range: Not Detecte d This nucleic acid amplification test was developed and its performance characteristics determined by [employer]. Nucleic acid amplification tests include RT-PCR and TMA. This test has not been [...] Act, 21 U.S.C. 360bbb-3(b) (1), unless the authorization is terminated or revoked sooner. When diagnostic testing is negative, the possibility of a false negative result should be considered in the context of a patient's recent exposures and the presence of clinical signs and symptoms consistent with COVID- 19. An individual without symptoms of COVID- 19 and who is not shedding S ARS-CoV-2 virus would expect to have a negative (not detected) result in this assay. Performed At: [facility] [address] [place], [place] [id number] Brittney Riley PhD Ph:[phone] ID Date Data Source [id number] 07/02/2020 12:06:33 PM EST [facility] NT INFORMATIONPatient MRN Name Date of Age Gend*PT [id number] Carol Rasheed 2000 20 years F ---PT Location Admission Date/Time Visit ID Attending Provider --- --- --- --- EPI ID CSN Admitting Provider [id number] ---NameBajose RasheedMRN:[id number] The patient presents for consultation of hiatal hernia. The patient hasbeen referred by Dr Hemal Gudino. The patient is accompanied by boyfriend,Lennox.Gastroesophageal RefluxShe complains of abdominal pain, belching, coughing, dysphagia, early satiety,heartburn and nausea. She reports no chest pain, no choking, no globussensation, no hoarse voice, no sore throat or no wheezing. This is a chronicproblem. The current episode started more than 1 year ago. The problem occursconstantly. The problem has been gradually worsening. The heartburn duration ismore than one hour. The heartburn is located in the substernum. The heartburn isof severe intensity. The heartburn wakes her from sleep. The heartburn limitsher activity. The heartburn changes with position. The symptoms are aggravatedby certain foods, exertion, lying down, smoking, stress and ETOH. Associatedsymptoms include fatigue. Pertinent negatives include no melena or weight loss.Risk factors include smoking/tobacco exposure and hiatal hernia. She has tried adiet change, head elevation and a PPI for the symptoms. The treatment providedmild relief. Past procedures include an EGD, esophageal manometry, esophageal pHmonitoring and a UGI. .HB Intake Assessment 07/01/20 ConsultHeartburn Intake Call/QuestionaireHow Bad Is Your Heartburn? 5Heartburn lying down? 5Heartburn when standing up? 3Heartburn after meals? 5Does heartburn change your diet? 5Does heartburn wake you from sleep 5Do you have difficulty swallowing 3Do you have bloating or gassy feelings? 5Do you have pain with swallowing? 0Heartburn total score 36If you take medication does heartburn still affect your daily life? yesHow satisfied are you with your present condition? noGERD/Medication HistoryHow many months/years have you taken anti-reflux medications? 2+ yrsWhat medications (including dose) have you taken and are currently taking?How many months/years have you experienced heartburn? 2+ yrsGAD Score 13 somewhat difficultPast Medical HistoryNo past medical history on file.Past Surgical HistoryNo past surgical history on file.Patient has no allergy information on record.No family history on file.Social HistoryTobacco Use Smoking status: Not on fileSubstance Use Topics Alcohol use: Not on file Drug use: Not on fileReview of SystemsConstitutional: Positive for fatigue. Negative for weight loss.HENT: Negative. Negative for hoarse voice and sore throat.Eyes: Negative.Respiratory: Positive for cough. Negative for choking and wheezing.Cardiovascular: Negative. Negative for chest pain.Gastrointestinal: Positive for abdominal pain, diarrhea, dysphagia, heartburn,nausea and vomiting. Negative for melena.Endocrine: Positive for polyphagia.Genitourinary: Negative.Musculoskeletal: Negative.Skin: Negative.Allergic/Immunologic: Negative.Neurological: Positive for dizziness and light- headedness.Hematological: Negative.Psychiatric/Behavioral: Positive for sleep disturbance.Physical Exam:Vitals: 07/02/20 1036BP: 143/88Pulse: 83Weight: 68.5 kg (151 lb)Height: 1.524 m (5')Exam:Const: Appears healthy and well developed. No signs of acute distress present.Neuro: Alert and oriented x3.Head/Face: Atraumatic, normocephalic on inspection.Eyes: Sclerae are anicteric.ENMT: Oral mucosa: pink, smooth and moist.Neck: No masses appreciated. Trachea midline.Resp: Respiration rate is normal. No use of accessory muscles noted. Nowheezing.CV: Rate is regular. Rhythm is regular.Extremities: No clubbing, cyanosis or edema.Abdomen: Soft non distended non tenderNo inguinal hernias bilaterally. No palpable hepatosplenomegaly.Upper Extremities: Normal to inspectionLower Extremities: Normal to inspectionSkin: Skin is warm and dry.Labs, Imaging and other Diagnostics Reviewed:EGD:BARIUM SWALLOW:ESOPHAGEAL MOTILITY STUDY: none yet24 HOUR PH: .DeMeester score- 6411/2/18 gastric emptying Normal.Service Date and Time: 01/29/2020 0447Technologist: Cha Requested: CT ABD & PELVIS W/O CONTRASTReason for Patient Visit: Madhavi Malloy for Exam: R colicPROCEDURE INFORMATION:Exam: CT Abdomen And Pelvis Without ContrastExam date and time: 01/29/2020 4:37 AMAge: 20 years oldClinical indication: Abdominal pain; Flank; Right; Additional info: R colicTECHNIQUE:Imaging protocol: Computed tomography of the abdomen and pelvis withoutcontrast.Radiation optimization: All CT scans at this facility use at least one of thesedose optimization techniques: automated exposure control; mA and/or kVadjustment per patient size (includes targeted exams where dose is matched toclinical indication); or iterative reconstruction.COMPARISON:CT ABD PELVIS W/O CONTRAST 09/03/2019 5:56 AMFINDINGS:Mediastinal space: There is food like material in the distal esophagus.Liver: Normal. No mass.Gallbladder and bile ducts: Normal. No calcified stones. No ductal dilation.Pancreas: Normal. No ductal dilation.Spleen: Normal. No splenomegaly.Adrenals: Normal. No mass.Kidneys and ureters: Normal. No hydronephrosis.Stomach and bowel: There is moderate to large colonic stool burden in the cecumand right colon.Appendix: The proximal aspect of the appendix is normal. The mid and distalaspect are obscured.Intraperitoneal space: Unremarkable. No free air. No significant fluidcollection.Vasculature: Unremarkable. No abdominal aortic aneurysm.Lymph nodes: There is nonspecific small shotty mesenteric lymph nodes.Bladder: Unremarkable as visualized.Reproductive: Unremarkable as visualized.Bones/joints: Unremarkable. No acute fracture.Soft tissues: Unremarkable.IMPRESSION:1. No CT evidence of nephrolithiasis or hyd ronephrosis.2. Moderate to large cecal and right colonic stool burden. Proximal appendix isnormal. Mid to distal aspect of the appendix are obscured and could not beevaluated however no gross evidence inflammation seen. Correlate with clinicalhistory and symptoms.3. Nonspecific small mesenteric shotty lymph nodes. Correlate clinically forenteritis.4. Food like material in the distal esophagus. Correlate clinically for GERDand or esophagitis among other etiologies.Electronically signed by: Lemuel Palmer On 01/29/2020 05:04:51 AMAssessment and plan:Patient presents with chronic and progressive gastro esophageal reflux diseasedespite maximal medical therapy. 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 Radha Gudino in the past.Patient should benefit from an anti-reflux procedure given the severity andchronicity of the disease despite maximal medical therapy.The options arerobotic hiatal hernia repair with placement of magnetic sphincter augmentationdevice versus creation of partial fundoplication. Unfortunately because of patient's strictures and dilatation in the past amagnetic sphincter device placement is probably not the right surgery in thispatient. I discussed this with her and her boyfriendwho agreed with the plan ofher robotic hiatal hernia repair and fundoplication.Patient also smokes e-cigarettes and drinks about 4-5 drinks on the weekendsevery day. Explained to her that she needs to work on her lifestylemodification and needs to give up smoking and drinking before the surgery.Complications from surgery include but not limited to infection, bleeding,injury to bowel or other organs, including spleen, with its own seriousconsequences. Side effects also include gas bloat syndrome, inability to vomit,and short and long-term dysphagia. Patient verbalizes understanding of therisks and benefits and has decided to go ahead with surgery to be arranged inthe near future.Migdalia Escobar 201912:03 PM Name Value Range Interpretation Code Description Data [facility] rce(s) Supporting Document(s) ID Date Data Source [id number] 06/01/2020 12:05:00 PM EST [facility] ([facility]) Name Value Range Interpretation Code Description Data [facility] rce(s) Supporting Document(s) Coronavirus Covid-19 Laboratory test result [facility] ([facility]) This nucleic acid amplification test was developed and its performance characteristics determined by [employer]. Nucleic acid amplification tests include PCR and [...] negative (not detected) result in this assay. ID Date Data Source [id number] 06/01/2020 12:04:00 PM EST [facility] Name Value Range Interpretation Code Description Data Yisel rce(s) Supporting Document(s) SARS coronavirus 2 RNA [facility] This lab was ordered by [facility] gomez and reported by [facility]. ID Date Data Source [id number] 06/03/2020 07:14:00 PM EST [facility] Name Value Range Interpretation Code Description Data Yisel rce(s) Supporting Document(s) SARS-CoV-2, SANTY Not Detected Not Detected [facility] This nucleic acid amplification test was developed and its performancecharacteristics determined by [facility]. Nucleic acidamplification tests include PCR and TMA. This test has not been FDAcleared or approved. This test has been authorized by FDA under anEmergency Use Authorization (EUA). This test is only authorized forthe duration of time the declaration that circumstances existjustifying the authorization of the emergency use of in vitrodiagnostic tests for detection of SARS-CoV-2 virus and/or diagnosisof COVID-19 infection under section 564(b)(1) of the Act, 21 U.S.C.360bbb-3(b) (1), unless the authorization is terminated or revokedsooner.When diagnostic testing is negative, the possibility of a falsenegative result should be considered in the context of a patient'srecent exposures and the presence of clinical signs and symptomsconsistent with COVID- 19. An individual without symptoms of COVID-19and who is not shedding SARS-CoV-2 virus would expect to have anegative (not detected) result in this assay. ID Date Data Source [id number] 05/27/2020 09:00:00 AM EDT [facility] Name Value Range Interpretation Code Description Data Yisel rce(s) Supporting Document(s) EGD [facility] NGOJHn4qWwTIPhWuYFCvNapSJOmfOImdXIUwQ9Z5GMmrCq5VPSkuciRvZBDwQa3+FZSnBL1rwb2rQPPa gMy 0jWKVyRnndH9KdEETjx22RKYYdNMsUNqPeBeAgGDQ2JPitNNM2ZKU4NiVxXgfoPX7xHYH5LLSrSAdaTK OvINKyKJF2TpasKZ9kVDewQEzpMo3WYN1oa5MzWSHuDIGsErqZAMpdWLlgIICqZPMhUZChE448euQlVg 9TkYLsSGp6TXUhYcX9QAPrOuR3JBLtYm5sJwXwp5Il L3EySUd1L0lKUbsgF3BfQSnhYO9uTJX7VSOlHc5LaTkpEZcwSIBIV4acEqCfXAEiPWTJPp6+Pj4+DWVu UG6zzs67HMAvg5HtBZa7U5H3bSYrC6ReA8JbOQSftIVJc1qsXnYpCCN3SNUzXgrkEL8YVAGxiIEfAISj QIytAN7viaUycHZ1JB1XiOpiBPHgTSRGOd0+Pi9QYX WdhdJeQfKgLJSeV44ptWYbcTQpQxeyUPPYDB5+LBUnEB8ttg09DVPxj4IbXZa1R3tvcxs0jXWaFkE5FM TqJwApUUPtPC9rBB1CmKR1dQIrXL2DmATzQM5LfRNqJV3SK2TkUVF1O6VnjRRiinGhF4FaAMQqVHAck6 QdXQ1FZ8YNYWLeGCHvH6IspO9oF2IlB4BvP1Lculkv OTTAAy5BdEJ7oXOeCYDgR9iltLpvnVGdMEkbS5GnjNIZTFDPp32ef15gyvBsZO0+c3BkZMCrWUe21jp5 ZVAcX/rsUQZZQud9MTbxCJHfGcUEnw7jV2uoXmJ2LUy2LtjemKG6L2dJvHRE3//shxo3puz1yy/eD+/z 8XDSqd9+q7kp5lQo3zNd4QZTMZvcZKQKjXTDHMPC69 yghSm6ICzwqFafnXcM+AZmDINTyOWay2pK8M0Qh8PJxtJkMeW96+He6ulh5zbv9oYi2+Lm/PciUS7xt2 ZHQyfGwCDmfEv+lvP/DE61HFkszAvcqsBRNmWNHgNHL+IrZ6FMLHLaJpfTAP9gVNmMJsLna1Zxh0W3XB CPDXiFAAS+QgQiISEi/u31+ghRWSWUpe2Q6CSCA2aF [file] xyKZiUPRaYEZJ3DPU+Rf8oc+7kxDhrtcePX/cKPiGVi26D6sd7hLB4URIaSjgwKNQeBmKbCYDPnI/Everett 6Z5Ls/ulT7k0Jjq1x6Dcm0/bYKZ/f1SHUQhjHc6tONBp4rw1+keg varnisher+OEfr2EO+sjG1crAXxL0yy7Om6v+ [file] PRIVATE CHEF+YOs/yEnWtjTUSpOixaNkCU3r3i4Z8G+m0uvA+3b hYvbWKq/XkN9S44KNuX9GrzBUuIpgkp6SP/w0eBKE/Rn5fNapXr0UnP4+x6CeQ5uwrvUpvQWtIDbvPTV x2H0xo3FR960WAAYr7vCMayq1gOdkFwr8R/oYVqspri4rIfey7w2qLPeSvlibJJsv854KFGftpz1fSfP 07IWqAA/fe22Wrg+wV9eMWvFTKCr+P6Xz5xd9u7LRG RoKmEArDTY2iFy7KE3e1NUC1kojXS7p7+fvf2D1ib4oxuNKMIF/VqEILHFji+r6Zf13KTHDtJHJjZfs5 C0DLyFysRsLsG80dZKYTYas5yX4eAMaxUDm82aFjqYGpwv3Rd348KBjd/L1IStS9I2yj/NZb55/7HAX5 Debbie/ZnR6EFXjPbqym7BRrOs6/nmEK6qzb4RlAId4vB [file] 3CdBph67p6dtC0Jt4pSaAGeLetqJT83YNK9vKih9JynfQd3y3/clarification operator+r7HvAYSS9T0kmIVuADzptMxUZx [file] Wu0Ky1PJC0LV5aWx9+RuX+LFMsXgVn3lDFIm1KDa9m93xbrArANh0v4JZ/+evp [place]+fMcx1AEuL1EJDAMdr2 S3QvhMLRSzgGzoIsdhpR4jirSbaYBHqHw+cdVEGW6n FaibxzTf2BEZqT83bzLJ6X23hnjH16YsYraATJiIXbVxHxu5/T2uX9s+y8Clc2gntaw/ZG8kjRNgwoSp TiG0RCb7Rhw3whdG9rCEbkLq0ps/qMY+GXJMJ8SaeOlz8xep4iTPLyzzGQvrJzdgUwPcYzXd7epZRAz0 56a/aFLnegMrNT2HXJmGkM12hg5642n5qHboEmn04O LhZr7J7nuhoT4b30UBD3Rzga8U6r4qs/y2Xye+K4+Fo5KGFrzEnyFBpGkjxBtE4QusHXDgttwrwNe3i6 vkYUy7rmIJZOSAEhP8P4Rp3gsTXAC5cWq+3wxES1B2XK4B5CAct0DFZY5LFfZNFp7dXmQArQo7uA/MhX 3r3xX6jv3exaFeFA5bxWwxVCgTBJ2FJ3azewUbMAv6 +LOPjCBpnLYSbzsvISME3aGjv+u3uEFN6dC9iUJnL/6wc4xSX/LuOITM1f3NE7BBfe41jPYryENozeYL 0xdb3ShDPOc/PHNVobb7lL8bom1e3KccNPgJCYzc2KecL8LaYZ/fv8iEPOwtfHAjIjwS4QyOmEgKy5jJ HwYhBQoAXZOWBwIGxEu9/n/FfqRmGhWhN7bhZZLnOc Mallory+xIMFOXEN9eO1K3y+yVv39VHYlCXCJYNSheyrw5C7N+6/ygJSY8w1i8Tjw8m1YhD9ugRlZn90R1BW [file] RApn80oaBqsFpCuqkD6OxIpyLWqpoxPr3jzR2er [file] ppkb9DBeqaKLOML4R0Ncrside0OtDQbJLQPst/5+evp [place] [file] HNgFf2PJj6t6YAZg3gJEPKK9EnghheodUdTcZc++3lUJp2kjpWq86zcThfOxN11BO677hZChHkH//food and nutrition professor [file] RQFsIuJx00D4v18cwgRvjqplEhqFauLNythTmB0/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 [file] wVCkAj0VMTd9IqbtGBfiRKBGDe== ID Date Data Source [id number] 04/15/2020 10:45:00 AM EDT [facility] Name Value Range Interpretation Code Description Data Yisel rce(s) Supporting Document(s) EGD with MAXWELL [facility] EVUWLt6tBbZJMsBnQQHhVhwYATvpIMabLUTeJ0R8QNltQv5DEYuxohGuVEEfAf0+SRWeGJ9ysd1cSNNy gMy [file] XWuj2E2i+U4Yv/OuVgJmMyUehbaEx+K/PRIVATE CHEF+fziUrtbzcNM9gqh31Fzf18ThogspTkPCJ6FNYkaBgQzF8 [file] 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+rhRxibayciuvwzSTdjUrVwWK0hSJrjdvxBEcAoYe0yrhh5okV/nAogftficiPM85xbWIOtKRK69l+ [file] Plisse Machine Operator/8zkq7ESPaqLaQBD4HmxOkJuqFNzyknpKESCA6smkAOa8tbilFjjXdspWTLPYz/I6YG2IoGB8VNA1b [file] pryY2YYpNPlato0SZLH7RO6imF2OoJF2ONGVc01bBju25f2k0VwvGmCWxVmwKlnegYlsjLm6f8Un7+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 [file] nrFM3+Plisse Machine [file] 1+DK/VwjFKX2B2kWiUTEEf8HNIxppASB4XqtP720BHhX7mQ8lpyhgrjHi4zS1Rt/Business Support Assistant+eGzKlzigktmU [file] DaSdIkCDV1DJSvPz2kwPMjOK8HVoYMJZWMYPFMFSJJJDTCFGD2LUBNSGBrUYXXAIFtRKDXNJDPDLUOJ8 srVRLEQ1kyTVHTP6g1XIILKIpFBMHUFUmrUC7XPA1r r5KgNELjDHbrfuUbVapSFXxqdPWwtHncKNFKHbQjZYvkFM5YYGGEQ3U= ID Date Data Source [id number] 04/10/2020 01:25:00 PM EDT [facility] ([facility]) Name Value Range Interpretation Code Description Data Yisel rce(s) Supporting Document(s) Coronavirus Covid-19 Laboratory test result [facility] ([facility]) This nucleic acid amplification test was developed and its performance characteristics determined by [facility]. Nucleic acid amplification tests include PCR and [...] negative (not detected) result in this assay. ID Date Data Source [id number] 04/10/2020 01:25:00 PM EDT [facility] Name Value Range Interpretation Code Description Data Yisel rce(s) Supporting Document(s) SARS coronavirus 2 RNA [facility] This lab was ordered by [facility] and reported by [facility]. ID Date Data Source [id number] 04/11/2020 11:01:00 PM EDT [facility] Name Value Range Interpretation Code Description Data Yisel rce(s) Supporting Document(s) SARS-CoV-2, SANTY Not Detected Not Detected [facility] This nucleic acid amplification test was developed and its performancecharacteristics determined by [facility]. Nucleic acidamplification tests include PCR and TMA. This test has not been FDAcleared or approved. This test has been authorized by FDA under anEmergency Use Authorization (EUA). This test is only authorized forthe duration of time the declaration that circumstances existjustifying the authorization of the emergency use of in vitrodiagnostic tests for detection of SARS-CoV-2 virus and/or diagnosisof COVID-19 infection under section 564(b)(1) of the Act, 21 U.S.C.360bbb-3(b) (1), unless the authorization is terminated or revokedsooner.When diagnostic testing is negative, the possibility of a falsenegative result should be considered in the context of a patient'srecent exposures and the presence of clinical signs and symptomsconsistent with COVID- 19. An individual without symptoms of COVID-19and who is not shedding SARS-CoV-2 virus would expect to have anegative (not detected) result in this assay. ID Date Data Source [id number] 02/26/2020 10:15:00 AM EDT [facility] Name Value Range Interpretation Code Description Data Yisel rce(s) Supporting Document(s) Follow Up [facility] NNVIEt4iNfUPCoUoFKCaCbpOFSojFFsnHHQeH7W3AQbbSg4HXNzmurKsJRZvQy7+JKZxSL9wmt0fJBUx [facility] [file] pW6mgLaAIptrZYuKFvbmxRC9C5bwxdOvnnanTW5H2JyElHboEroAAydB7xnfCb2eYOXcdYZs72z2/Trap Operator JnDmtfT5ju0wO9B6ecJO9pemlDIfNIXMz0ngOketvV v3pdWW8R6BclST7/4P/MuxfOMXlhHA95n2x50YRALBmEGuiE4V7dv+UBUU4Q+GWQ8eqWGrU1Vg0sTGm6 Q8JJ42LIq914RhuHujosowMT72V5R2ryLD9u2Z/IT8UWZQliuf2LM6yZen+oGN6CF4PRihsnEy5RkFX4 jkkPxC0Zy100erRz44yWS4lDd8f35CiBpdrI9IxYLn hMVt0mGOL/Y4hnTZQeq5rzmQyhmXs//lzctzDdnDrGclboKf/3JyhP34Xfs8Qu1baIBf3znL5EuIjQX1 8U/ctKrv3i9ksItT9Q//j9zt6tA9GuR0zyJIaQhhFetVYM91aJm1k7db2n18DUYsU6fILD2jUwG7e4ce OMj9GCQt+lozdKpFD+b6Nv6pZYYqImdvbP+V0LvPf5 CM7ddk8a/p7CU8AzuoYhR2FmqHM1jcNVpl2Mve/A8USk1GdmuaO+l3P8RHDyxrsO0Hih0u7vJ4Pw/Eber [file] mTiI10dkLLb5pOzcvQNqP1lM6AC8UHxD4/yQ951J0WuIa7bkb0S+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/TKJma+PXt8+Tn4nYWdEXDm9H7 [file] eba6ckrdDGwLBBK8z6kpcy0+veCqf3n4o4qdj+MTZUagravbZNCaKw9vsg8lwM3nFj6Kr74DHl/+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+1 [file] HHad2Q1Bu6h/Xz2YuRYZZW9RWMus5IMA8aDw23BmmJSlWonHY712uaMKGzhBCFZGQy43qDbCDCvR/salesperson flying squad cpXspDYlnKI5q7YmJSfL8G2xxtUphlSWFvrGYEI2lt XHIEBth+j69uDblreTj3E+Pjb8WJM5ZUIAJJZ8a/BgZ71YNY2cV1yf/XiIOK62ZJYmyQUbTJfAK7ju+D yDvuFYQqrtBu34RimQOqSRf15peb8V0Bd7pir3eUVLguDdOkyiLumEaJREk6HkJwVyZJswY5JjXqnfoy TXgEMeS5Hxejh0/TY9OEemfeCK+LAuxgQ1Wz1WFEud L833jezAQdVNBZtq6OxuXlagMNQ0OtDnlkrHE56FFCzDziIvsGVepo5yPknUUjI/mXYL+FCdbf81bVyE 1T2p+IOrC5rUJBRFPISwsErUiUm2MgI4icfCkC3x9kFvzdeK38vZOZtAJZ3WavxFkAvb/Ei5ql0wj9tL 4fKAXvqVfd53aXLTXbDtE+llPGxYRehPJkH0fFQcdc HTUdd73wyQlji5+Ybx+HCvQJ++PgrCs/4xkwHYBbyKCR4UMwLkK6joeEdN3fdBd29AdR51W7+Luther+733 [file] +hDDlVkI5f+Enmanuel+BorURe5reQcx6wiwN+ostdbkFYB qiCp2BbIgL5sXut6Ksc3/2H6h85Hy9xV/b2cFBBwfSHBrRegnvpaVi5eiWoCIfg8f2oT0sakkd9KhdwO 8X27fZFMWDm4aWscY6DPj1Li+JXbfnuhSzJ+qoKE7WFcST+aXjN5fcV7q8DhvlzncfG7xyhhodnUjLox jXwFnlR9efIJN7y41TkONP7XxWCKeNnBNfae/I8Hqq q5wM4Q+2RgHkGEjM3DvuphM8zEAIbr96GogM3GQ6V4bVve0jC+aYpYYOVnioXHJkrB9oVPa7y+tJLzeW BMNeL2mgXeRJpfL8Q018VXS85XAkPPESEdBm6Eb5r142mdDO4ccjinq6mGEqiV8u8ikFWVm27EMs0Q6T hz/UHR4kxavFjXhvem8wVwV7cndNTqYO0r5CJW9pR1 colUdATCp32a2Yf7Gy9IbRjuKcPERMSQSCJ3KS1EQZKR95hg5v/UuGgfhZricV3ele3MmSRJTVgx6w8Y eWY6iDxy3xMxHhCInEAEwD9bivmsMVHF6chVBIvuI9z13F8x6kG4nfvvO59rAot+M7pUwUOSi1GbD6K8 6QXvUNR8s2h2mKgwlv/iCT/GH3kBEhYxtuLzSxHbZ6 +IqLQ+0Br1Z6c2vzcVj1Mc4dVXO04zISP/eSrrGR5vRlFXMimw9Rp1dQI+aWT7vPPVhCCE2rB6vWsaJo hyzo0SHvJBaNGr71uI2zRQ2E3ezDqnAvy5hv6Pl9ZkP3IXrpdUB9QhpM27LmfOGX5QPLcKqIwu2AV749 01Bvo7/6yOMm0JU5vNRx/aEFHJrj/4ihqM7lH8RnYo eONz5pV2DUTQWZriTD1g2uHixmoRP2sLYSNvl+wWWi9MDtMP692LMSfJC/faculty criminal justice/H/Xaj24pnD8c1k6PPk B6HpX9rGIpgxZGBq2oIJ/GV7/h3sCLKVj7f6/HtQf0stN9GnQBjZ3XWxZZsBo9wcywzNYuGsXpZbIPPv VXicc8gE4mTe1/o64RuYA23/kJ7306KiCewpNkerpL 4QyaGnbBuT9LdvL7UiRBC6SC5bdkh02ZHy2JicZ16z6lmet21kiLIIC4+E9kOgbdhUYl0JaDIHgj45rd ZBFAyhblnX2X7Bd7596LO/qYdLib0qNLTnERviu0lne+fUTtr6RTapQ4iQoDU5FjuzdWCtK7q6oCwIFf Bxwcznh6mN88BF79cd+L61NbJTkfA77gIALZxH5z8V JT/Top3jvNP0eJ/Patrick/Y5MrUBsGlMANuE4RWsT4/awINIGF/2T+pml/K7cvmJepz86JrlVldEJsK0wIFL [file] 5zYmo+Sánchez+N/3qU+oQlkc7ry1GchF6esMe33MJ+Kvw3vhnswgbQ/PEYvjXWNE1zqhEYdhElzqeoLCbOG [file] ryeEDiBbm1gMJucuc+PRIVATE CHEF/3rLC5MKixB+cHyv+1zbpd [file] D+4dpYbVXG+F/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/7/MT5UXeOwcfx6pxuxItcZHkXYpOn9O8oVmCSIv5PYAGIXH7PNcZ1FgAE5f0XlCg n932/4oxwYWqJz5ziN8WQoth/lROgGBXJa5XYp55ggl6J+e8b+G/+N/+/MxBbVtx12CVQaDhKvvymKXs coiY/5+MWAs0/uOQMoaws3H0e0JzLAkhy7l25TI/Te nG9satwGH29PcmtbK//7lz0v1ua7w8pvXr8qe6WibZIwdzFo8qxoMBF+fkb1HwpgZxeFIEOZFF4iOSwP wo4rHHMG6o0rdh10/SPuj+sErOloHUHCFEp9hM62j9xve6Y0koEUNrP5tkIUJS09YokTcHyoCqi3DJID cj8/+mOruhujeSTlRzYIQGIrTeq9tvvazkDS2L/9e7 DSXlZJk8lUGRxVh7qTV03Rxb5EwBa6URAya6l2NaolBUQpR87s8NuSvZvQaziPT/qOqbEvzZL+b28rDQ IxuFdWMeZT7/tMmImb1lWEfzBXQefNTSKDph27bDWMDe02ex/DqCR9wIBASIBJ7alTFBz+DR7bYlKNd5 n4IMcVs7xBlV5w6fRtQvVe1b+br527gW7C/0ugkVIW +3kfOVzFG3o24VjFqZ1A/DR+Msr8MG3vFJ+LMS2d3tISdat/ZL8hOR4YfoMB866mtWJP9Hm0TnsFds+5 qI0I+ajtgUsWVWs+zWaHXgFFXnom7klkLbcK0Mbb4RMX0oQbszxwYvGdKnjSjIhBJ5dEotE8RdA+HiJn Pfgx0LbJEYJr8X7RjzkkHBVT0NEXiaE2I0LWNFskMr RyiGsvFHdikMb6bzWqJ0UiXhqknYBWwRUO8PKyRZ6BiK8JCxoyimJD4QHmFbjosi9NTOUlpK9jalx+Khmer [file] F5B1bmDP/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/npuFNhjrbAZurxbLjLLvF9YUe8TplhXOf2VM3Aacbgx24ZUoGCO1+ZFQEWNda/1bc3Is [file] WpgkuMJvaj0EEDzSk30KemlZlvUx0Im/JOmpxlJ6IYyIHPzIDGdO4SCp1h0c9R+zQzOpKHAti3B6+Slip Seat Coverer [file] CA6TfbSlkqX7ezn8EodN5GosOUlYg2YnM9uqSxwsGBpDFEFKNRy8OOGhFRRM5tiTZ+jose antonio/9mZ/+uy00Z [file] L8wMT5cjSaqTdiNZoKjI3WGIaq21lQCRWGy0EsLu5QTM48L4nXscETCxdZ/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/kStexY1TxLtxBtKMP [file] Jni3wQwVTN1/9lBQnr2tgHIkmNR6deUFeE+pjWhhVtkYkWiKojJj33wD9JmW1E227eeik0KuL/w5c/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 [file] towyw/Io4itHPmDYHMHaMoORy/CcZPm7WHMq7k7KI+ohH1Z2k9C3m2+J7y0ThKGeS4nM/FQPtrT7/STACEY KIBVeNrqtwopO1VmR4GCmhx8G3Iw22qDLQv69RZE0haBlo6Lo92CKvLkwpiaZZ6urctzBkGVCHIiNIjz ssglKiRSyaRQOgEjuDelBgHtlZ5uRhORSkax/ZPUuQ uS5zBd8dfFtc6nMxOMBMgl/F7+fdxw6kcszUO9qZrc1o5/einTifhXKzmn77Q2oWjD0+mDiRUHi+XC7e dzjpaFXOEci+A3yLQNP4+OINlKnupicevqxEyHU6B6CMS9onRoNilC0T8ZOyT3hLUMmggYhT7jkDOCv7 XUb7fzMpy+NaokG8oWS6cRSVNYNQNP7UliURgSqz5M Uw/7la54Atz89+46oc2Spn8STkJEMouMN5EDXqiiMOQzt/lEstLTdX+p/YlNB5dxbRZl3Gzd/lkBHoFD ohLE58DZ2h8E9c023rOS0poX5dH6ox2VuEeHfsJ3271asVtTeA+vE3sX92+3C7gK8scZcG8ZjII7t7J2 yNpV43ClW+/04SOqaHxGNMsOw5hUgU/siebel crm developer+dF4CxxW [file] IOcPD9KNcp6QeQthesYxTHqv5d/Ольга+f09X/w95bBc [file] CbmFeRux6Qm3oCpwk/+og05Tx8ajB4f5i+n5FT+julián+IqQTsE7oiuFq6P/A8YYV+GgZaF+A53fkLuSTK [file] kCv8YY5Ab/wExJm9n3ppS9tpHYlTUR0nPaOd+WXt1CJ8CIKlzspe+aJMvZJvN64drwx5zYw7kr8A0+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 [file] SvdNX/iSdmv+c84vI/evp [place]/eseGn6hH/h3AdiThDnHeVBmm3feNRsD1pneiZyYZAK9zpUbLkcIAB3++2l/ [file] zBhObgJPff8onLqb3yJhFYH7OX4K+J3VFlcDCADxsK0nNFDljnBWvs7adOVe+pena/lX4iHhy8KkZbj7sQ 5zJzgGCnSHSv09gtLNmoVzZLxb9yY/qlGP9aa9p//1 YTYhh1wEiPu1NXqfapfV9Qvz4YXZm5r5ubmLw66D0OCKCAMg7CyJaWyFy0oTC2U0RHPU6pg4aUhs/Dq0 7c0fpC6EKdxVI/o+yaiq9ZAt7WO7foq+NjsfCDcyHJd0eh5mGVsFZMhrSu90lhjqipHjxpfohvEdajdB zzRxPxAVZVO/ZX5w8weuZTTrKyX84rmFuDGxD8iJuT UE91hkbHRuFXHwDFUFgUl/NtzstiOSo/9c6b6T9l4F0FnLKLMcnwYbe3x3S5PTrfFvip4sDHQAp3Bnha zx/w7Ft7ysQEnB0EAtUQdHm3a4MBEI3byQv/ajGqi3HK+Ai2Au8HZMffAbD7ozNvk3MVeRB3YL5kz9e2 k1Qgz2zSlMxfmXAOL6jKE9AmG9xpznGgRFIdha4qUz aBq90pp0JI9UzX6SF+rAg8MjW1c1+fx7k0vyxadyXRB1e4SDxE+jqzH0kl0pgruoT3lyau9KTUzKc8dX D4Dc+eiK9WvdZnX7bO1MSuFU/NwOIeBRXy6iWCB0QxiuE7nm2H4ei2tH4thVi09isQ6XIY6aBVxJzBBs PB7N2DxigCr48MadQaOYqH6fp98u+jdN4gcE4cryah txE6/mVhKaWvoPonPHpUPmgsPT1G9Jun5O2v9JHBfMR2GZImpYMCwcqNDLghJSTzjJ1t1xrTQFRfk+i1 aR/M3LC/vAzb+nX1DfRvgIcSY5+XAQk+CDpDsOnOgHC38ca++e0wbY9beoP/az27jlIZy2zgywlMthBA fDxZR66XyhtvA3vbebJ9Q1c9qfan638A31uFhhUCmk I832710NleKGNnvYA/MpoUBgjCZ8EHepGfwRdeJRw2SpHDz0bDRUZ4pw0719Vx3wZTV1LpT7kxmBYMCO [facility]+j446cfYxcps3GHZeD2ISNqH9YbBzmD7VrhKOdyvojLtZw5AgjDNYpGaGnFlZAsfL2SUMW2qcMF [file] Maicol/2yP2/7dSoWoUR6ZcYwnMASXVXs5OjtO2gDi4nU Mh+9k5BTCLqJcjHz8loXE2eqegE5DB6VYSg1CNeMNnPQBFgH5R85b37NeSQ6gc0k2XIg+qJT1jri14rQ ajDIGg3WRhSydvTKkdzmz4ZDT1fuf56L4ary91WS2QmUkBpCnWotvPrBO1GrA1XVM0ZMmQfBtsND7VFG n4O3qqOVuvMgByplFnlo/+bX02+FGoi2lmmIVHuyNi PwmgN96d3nBe092B4dt+WFAZQAfcxpOQFiq/f6ny6kQCs/PpX0ah02z2cXMV8/vc5/izam4NHkYwKV2Y 5XNp0hvA0y0z9Aujrc1E5/yAftnu3K/e6/Q0/eAJLzD9fXNGxwOTsjhHCWM/NsNw9UKdTzv20iyTMwSA DMlb9ZDVk93XsOaxgnsOvKPH0nN+HTos59QY4wco3s oV0kZZKx7h4vpRww10aWHJvxxNgid2kiX1h56SuJcQqjv9Xf9VZnk2ttIHEFpADcTFjo+CyiRDJt5cOj Ye0YnK+ANf3VFYPFZqf97pPc8qUkNSHcb7btrfkFb7oQPEIKhaYlDhYmLWs8OpXtR/y+PuDuAGt0meJs +iNi6VOXjpVjuMBDXkqLjPkMqV/xt+jMWvxjbiFAME oiuaoXUD+0J7/iAy6xf+YqbJhsPXGXMbVbYDnZcFmO7WHc8X5NdYcni016tbuYVCh+XBifN/9tb/TPxj 4nzrGVifu2R0HZ7yY6x5A0xs7jd/K0qYIYa3GYPcmUGwOXPJGss1BmvlrPWiEo63GX+gYwS1Uz9E0AJ8 hU0Jbv1UbIkVYAEUM5nQv7D3JIrPgmVxUYV+Yxzk40 Z2dco/roKrOctQQ9HyEj0qAWb2NhQ4aila6Bls2kAyezCRah2GWYbjWp3MMgiK+8AlDf6qs7briJukpn 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/bMDwU297Ew2e1pAIXpy1Q2pRC7aS/s4JF1auNBIqeCpu5CCCNuBvfUX0VdROurtV002hc7nKNS9ls [file] 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+DV8jnBJQnnbUS+s1SWRhqRYMi0xQG0vVOpkhW8YvQPFzz+pZoxDXfxH9dpFgTWLg+Lnw+xFbFSVJb [file] Matthias+iVcUpNtjHV845TWpp49Yg7BrrUxSOECEdMu8Y4 smJbWLbrQO/rD6uvmMxFgVxNcjapf67T5VzlXaNaZjRlVTSruAD67Mf2zwR17spWQDnEPZqiOj7CMzKN v4HNkGqlyDaJnYZgKaGmbBig3jW2m2/YJrlIFuuEO1OxqxxwBdEFieUva+sQ431WTBz9+LKbLR46m6Qq 972vtS+hL0GcZZvOZFuDlBZ2vsXiuedBeBDO6ijVf1 XkoQHPql49FawtjXOWE1s0KqafN1/4/5yyH7ePI2nUyFuK7F6U8xxDwGP5TLqc9Ia89/OgtensJMHIQq 33H2zSRPnKVIZi3SCT7/R3kkN/GI6V9VFXrnt0z5jGFfaFQdkMlhQbmTxE/z1AiR/GYrj+7rZ4+61FkD ELNQwJCel/BXiPC/7gMzOtPY2JIQ4tp1EeFDBiJHMz SQ4lzb1kDYNpGL3kqo75UO1MXL2gjPjxTvB+RpY6yqGixZ5ZwVu8LRDnWSLfUAt8IjWtSWVnN21AZ2wx JlGjQL1QHH8TZE5ow1MnMXUmPXCxTB2dqq0lQOLuLK8fbp79HS1ClZz3EOHaK1IkSAFtHNEpy2DcN5em oqj0dXK0Im2BLMDhGBI4XXPGFGE5PUXzX8I8PPw5Vs W6NznRY3SwUWsQTsJ2PuP9CHW6ZIYyLHSwWDZ3NAywCPXQDYceGOXhVjUPVEU8BeY+FZ9Uw382AKYrLQ FUH0ooJv3wEwAhTHHbI6n8NAYdXB6FpOFfIM9GPzPrE0rkKyCrQQZlPY0+i4LeQRAeEYw82wAmKHDEYz YGundh7bVVatNUtESLLAMiyAO7+JOqMdLI9I1hjDQa IOm3bpfGwmGxVYhNHlD2iZUTaIYm/ehD1cbLgymPjDG5QtvvXlXRqtOTol3TEX1by0BgYHErQHrypbYi YgiOVXlmxEEapDflFSRONjP6VJZ6WyVUHyImLL4X ID Date Data Source [id number] 02/11/2020 10:03:00 AM EDT [facility] ([facility]) Name Value Range Interpretation Code Description Data Yisel rce(s) Supporting Document(s) Thyrotropin [Units/volume] in Serum or Plasma 0.58 uIU/mL 0.47-5.01 [facility] ([facility]) FASTING~.~.~<DG1.3.1>K22.70</DG1.3.1><DG1.3.1>Z00.01</DG1.3.1><DG1.3.1>F43.23</D G1.3.1><DG1. ID Date Data Source [id number] 02/11/2020 10:03:00 AM EDT [facility] ([facility]) Name Value Range Interpretation Code Description Data Yisel rce(s) Supporting Document(s) Cve Panel Laboratory test result [facility] ([facility]) FASTING~.~.~<DG1.3.1>K22.70</DG1.3.1><DG1.3.1>Z00.01</DG1.3.1><DG1.3.1>F43.23</D G1.3.1><DG1. Triglycerides 127 mg/dL 35-160 [facility] ([facility]) FASTING~.~.~<DG1.3.1>K22.70</DG1.3.1><DG1.3.1>Z00.01</DG1.3.1><DG1.3.1>F43.23</D G1.3.1><DG1. Cholesterol 146 mg/dL 131-200 [facility] ([facility]) FASTING~.~.~<DG1.3.1>K22.70</DG1.3.1><DG1.3.1>Z00.01</DG1.3.1><DG1.3.1>F43.23</D G1.3.1><DG1. Risk Factor 2.8 3.4-4.9 Below low normal [facility] ([facility]) FASTING~.~.~<DG1.3.1>K22.70</DG1.3.1><DG1.3.1>Z00.01</DG1.3.1><DG1.3.1>F43.23</D G1.3.1><DG1. HDL 52 mg/dL 29-86 [facility] ([facility]) FASTING~.~.~<DG1.3.1>K22.70</DG1.3.1><DG1.3.1>Z00.01</DG1.3.1><DG1.3.1>F43.23</D G1.3.1><DG1. LDL 73 mg/dL 65-175 [facility] ([facility]) FASTING~.~.~<DG1.3.1>K22.70</DG1.3.1><DG1.3.1>Z00.01</DG1.3.1><DG1.3.1>F43.23</D G1.3.1><DG1. LDL/HDL 1.40 1.00-3.55 [facility] ([facility]) FASTING~.~.~<DG1.3.1>K22.70</DG1.3.1><DG1.3.1>Z00.01</DG1.3.1><DG1.3.1>F43.23</D G1.3.1><DG1. ID Date Data Source [id number] 02/11/2020 10:03:00 AM EDT [facility] ([facility]) Name Value Range Interpretation Code Description Data Yisel rce(s) Supporting Document(s) Hemoglobin A1c/Hemoglobin.total in Blood 5.0 % 4.4-6.1 [facility] ([facility]) FASTING~.~.~<DG1.3.1>K22.70</DG1.3.1><DG1.3.1>Z00.01</DG1.3.1><DG1.3.1>F43.23</D G1.3.1><DG1. ID Date Data Source [id number] 02/11/2020 10:03:00 AM EDT [facility] ([facility]) Name Value Range Interpretation Code Description Data Yisel rce(s) Supporting Document(s) Sodium 138 meq/L 134-153 [facility] ([facility]) FASTING~.~.~<DG1.3.1>K22.70</DG1.3.1><DG1.3.1>Z00.01</DG1.3.1><DG1.3.1>F43.23</D G1.3.1><DG1. Potassium 4.0 meq/L 3.6-5.0 [facility] ([facility]) FASTING~.~.~<DG1.3.1>K22.70</DG1.3.1><DG1.3.1>Z00.01</DG1.3.1><DG1.3.1>F43.23</D G1.3.1><DG1. Comprehensive [employer] Laboratory test result [facility] ([facility]) FASTING~.~.~<DG1.3.1>K22.70</DG1.3.1><DG1.3.1>Z00.01</DG1.3.1><DG1.3.1>F43.23</D G1.3.1><DG1. Glucose 91 mg/dL 65-110 [facility] ([facility]) FASTING~.~.~<DG1.3.1>K22.70</DG1.3.1><DG1.3.1>Z00.01</DG1.3.1><DG1.3.1>F43.23</D G1.3.1><DG1. Chloride 105 meq/L 98-107 [facility] ([facility]) FASTING~.~.~<DG1.3.1>K22.70</DG1.3.1><DG1.3.1>Z00.01</DG1.3.1><DG1.3.1>F43.23</D G1.3.1><DG1. Co2 22 meq/L 22-30 [facility] ([facility]) FASTING~.~.~<DG1.3.1>K22.70</DG1.3.1><DG1.3.1>Z00.01</DG1.3.1><DG1.3.1>F43.23</D G1.3.1><DG1. BUN/Creat 16 8-27 [facility] ([facility]) FASTING~.~.~<DG1.3.1>K22.70</DG1.3.1><DG1.3.1>Z00.01</DG1.3.1><DG1.3.1>F43.23</D G1.3.1><DG1. BUN 14 mg/dL 7-21 [facility] ([facility]) FASTING~.~.~<DG1.3.1>K22.70</DG1.3.1><DG1.3.1>Z00.01</DG1.3.1><DG1.3.1>F43.23</D G1.3.1><DG1. Creatinine 0.9 mg/dL 0.7-1.5 [facility] ([facility]) FASTING~.~.~<DG1.3.1>K22.70</DG1.3.1><DG1.3.1>Z00.01</DG1.3.1><DG1.3.1>F43.23</D G1.3.1><DG1. Total Protein 6.8 g/dL 6.3-8.2 [facility] ([facility]) FASTING~.~.~<DG1.3.1>K22.70</DG1.3.1><DG1.3.1>Z00.01</DG1.3.1><DG1.3.1>F43.23</D G1.3.1><DG1. Globulin 2.1 GM/DL 2.4-3.2 Below low normal [facility] ( [facility]) FASTING~.~.~<DG1.3.1>K22.70</DG1.3.1><DG1.3.1>Z00.01</DG1.3.1><DG1.3.1>F43.23</D G1.3.1><DG1. Albumin 4.7 g/dL 3.9-5.0 [facility] ([facility]) FASTING~.~.~<DG1.3.1>K22.70</DG1.3.1><DG1.3.1>Z00.01</DG1.3.1><DG1.3.1>F43.23</D G1.3.1><DG1. A/G Ratio 2.2 0.8-2.0 Above high normal [facility] ([facility]) FASTING~.~.~<DG1.3.1>K22.70</DG1.3.1><DG1.3.1>Z00.01</DG1.3.1><DG1.3.1>F43.23</D G1.3.1><DG1. Total Bili 0.7 mg/dL 0.2-1.3 [facility] ([facility]) FASTING~.~.~<DG1.3.1>K22.70</DG1.3.1><DG1.3.1>Z00.01</DG1.3.1><DG1.3.1>F43.23</D G1.3.1><DG1. Calcium 9.4 mg/dL 8.4-10.2 [facility] ([facility]) FASTING~.~.~<DG1.3.1>K22.70</DG1.3.1><DG1.3.1>Z00.01</DG1.3.1><DG1.3.1>F43.23</D G1.3.1><DG1. Alkaline Phos 84 U/L 38-126 [facility] ([facility]) FASTING~.~.~<DG1.3.1>K22.70</DG1.3.1><DG1.3.1>Z00.01</DG1.3.1><DG1.3.1>F43.23</D G1.3.1><DG1. Sgot/Ast 21 U/L 5-40 [facility] ([facility]) FASTING~.~.~<DG1.3.1>K22.70</DG1.3.1><DG1.3.1>Z00.01</DG1.3.1><DG1.3.1>F43.23</D G1.3.1><DG1. SGPT/Alt 34 U/L 7-56 [facility] ([facility]) FASTING~.~.~<DG1.3.1>K22.70</DG1.3.1><DG1.3.1>Z00.01</DG1.3.1><DG1.3.1>F43.23</D G1.3.1><DG1. Non-Aa GFR Laboratory test result [facility] ([facility]) FASTING~.~.~<DG1.3.1>K22.70</DG1.3.1><DG1.3.1>Z00.01</DG1.3.1><DG1.3.1>F43.23</D G1.3.1><DG1. Anion Gap 11.0 mmol/L 8.0-16.0 [facility] ([facility]) FASTING~.~.~<DG1.3.1>K22.70</DG1.3.1><DG1.3.1>Z00.01</DG1.3.1><DG1.3.1>F43.23</D G1.3.1><DG1. Age 20 yrs [facility] ([facility]) FASTING~.~.~<DG1.3.1>K22.70</DG1.3.1><DG1.3.1>Z00.01</DG1.3.1><DG1.3.1>F43.23</D G1.3.1><DG1. Afr Amer GFR Laboratory test result [facility] ([facility]) FASTING~.~.~<DG1.3.1>K22.70</DG1.3.1><DG1.3.1>Z00.01</DG1.3.1><DG1.3.1>F43.23</D G1.3.1><DG1. ID Date Data Source [id number] 02/11/2020 10:03:00 AM EDT [facility] ([facility]) Name Value Range Interpretation Code Description Data Yisel rce(s) Supporting Document(s) WBC 6.9 10^3/uL 4.2-11.0 [facility] ([facility]) FASTING~.~.~<DG1.3.1>K22.70</DG1.3.1><DG1.3.1>Z00.01</DG1.3.1><DG1.3.1>F43.23</D G1.3.1><DG1. CBC W/Automated Diff Laboratory test result [facility] ([facility]) FASTING~.~.~<DG1.3.1>K22.70</DG1.3.1><DG1.3.1>Z00.01</DG1.3.1><DG1.3.1>F43.23</D G1.3.1><DG1. Hematocrit 44.6 % 41.0-51.0 [facility] ([facility]) FASTING~.~.~<DG1.3.1>K22.70</DG1.3.1><DG1.3.1>Z00.01</DG1.3.1><DG1.3.1>F43.23</D G1.3.1><DG1. Hemoglobin 14.9 g/dL 14.0-16.0 [facility] ([facility]) FASTING~.~.~<DG1.3.1>K22.70</DG1.3.1><DG1.3.1>Z00.01</DG1.3.1><DG1.3.1>F43.23</D G1.3.1><DG1. RBC 5.07 10^6/uL 4.50-6.30 [facility] ([facility]) FASTING~.~.~<DG1.3.1>K22.70</DG1.3.1><DG1.3.1>Z00.01</DG1.3.1><DG1.3.1>F43.23</D G1.3.1><DG1. MCHC 33.4 g/dL 31.0-36.0 [facility] ([facility]) FASTING~.~.~<DG1.3.1>K22.70</DG1.3.1><DG1.3.1>Z00.01</DG1.3.1><DG1.3.1>F43.23</D G1.3.1><DG1. MCH 29.4 pg 27.0-34.0 [facility] ([facility]) FASTING~.~.~<DG1.3.1>K22.70</DG1.3.1><DG1.3.1>Z00.01</DG1.3.1><DG1.3.1>F43.23</D G1.3.1><DG1. MCV 88.0 fL 80.0-94.0 [facility] ([facility]) FASTING~.~.~<DG1.3.1>K22.70</DG1.3.1><DG1.3.1>Z00.01</DG1.3.1><DG1.3.1>F43.23</D G1.3.1><DG1. RDW 12.5 % 11.5-14.8 [facility] ([facility]) FASTING~.~.~<DG1.3.1>K22.70</DG1.3.1><DG1.3.1>Z00.01</DG1.3.1><DG1.3.1>F43.23</D G1.3.1><DG1. MPV 10.0 fL 7.4-10.4 [facility] ([facility]) FASTING~.~.~<DG1.3.1>K22.70</DG1.3.1><DG1.3.1>Z00.01</DG1.3.1><DG1.3.1>F43.23</D G1.3.1><DG1. Platelets 267 10^3/uL 150-450 [facility] ([facility]) FASTING~.~.~<DG1.3.1>K22.70</DG1.3.1><DG1.3.1>Z00.01</DG1.3.1><DG1.3.1>F43.23</D G1.3.1><DG1. Alger 8.2 % 3.0-8.0 Above high normal [facility] ([facility]) FASTING~.~.~<DG1.3.1>K22.70</DG1.3.1><DG1.3.1>Z00.01</DG1.3.1><DG1.3.1>F43.23</D G1.3.1><DG1. Neut 52.3 % 37.0-80.0 [facility] ([facility]) FASTING~.~.~<DG1.3.1>K22.70</DG1.3.1><DG1.3.1>Z00.01</DG1.3.1><DG1.3.1>F43.23</D G1.3.1><DG1. Lymph 36.8 % 25.0-40.0 [facility] ([facility]) FASTING~.~.~<DG1.3.1>K22.70</DG1.3.1><DG1.3.1>Z00.01</DG1.3.1><DG1.3.1>F43.23</D G1.3.1><DG1. Eos 1.7 % 0.0-7.0 [facility] ([facility]) FASTING~.~.~<DG1.3.1>K22.70</DG1.3.1><DG1.3.1>Z00.01</DG1.3.1><DG1.3.1>F43.23</D G1.3.1><DG1. Baso 0.7 % 0.0-2.0 [facility] ([facility]) FASTING~.~.~<DG1.3.1>K22.70</DG1.3.1><DG1.3.1>Z00.01</DG1.3.1><DG1.3.1>F43.23</D G1.3.1><DG1. %NRBC 0.0 % 0.0-0.0 [facility] ([facility]) FASTING~.~.~<DG1.3.1>K22.70</DG1.3.1><DG1.3.1>Z00.01</DG1.3.1><DG1.3.1>F43.23</D G1.3.1><DG1. %Ig 0.3 % 0.0-0.0 Above high normal [facility] ([facility]) FASTING~.~.~<DG1.3.1>K22.70</DG1.3.1><DG1.3.1>Z00.01</DG1.3.1><DG1.3.1>F43.23</D G1.3.1><DG1. #Neut 3.61 10^3/uL 2.00-6.90 [facility] ([facility]) FASTING~.~.~<DG1.3.1>K22.70</DG1.3.1><DG1.3.1>Z00.01</DG1.3.1><DG1.3.1>F43.23</D G1.3.1><DG1. #Eos 0.12 10^3/uL 0.00-0.70 [facility] ([facility]) FASTING~.~.~<DG1.3.1>K22.70</DG1.3.1><DG1.3.1>Z00.01</DG1.3.1><DG1.3.1>F43.23</D G1.3.1><DG1. #Alger 0.57 10^3/uL 0.00-0.90 [facility] ([facility]) FASTING~.~.~<DG1.3.1>K22.70</DG1.3.1><DG1.3.1>Z00.01</DG1.3.1><DG1.3.1>F43.23</D G1.3.1><DG1. #Lymph 2.55 10^3/uL 0.60-3.40 [facility] ([facility]) FASTING~.~.~<DG1.3.1>K22.70</DG1.3.1><DG1.3.1>Z00.01</DG1.3.1><DG1.3.1>F43.23</D G1.3.1><DG1. #Baso 0.05 10^3/uL 0.00-0.20 [facility] ([facility]) FASTING~.~.~<DG1.3.1>K22.70</DG1.3.1><DG1.3.1>Z00.01</DG1.3.1><DG1.3.1>F43.23</D G1.3.1><DG1. #Ig 0.02 10^3/uL 0.00-0.10 [facility] ([facility]) FASTING~.~.~<DG1.3.1>K22.70</DG1.3.1><DG1.3.1>Z00.01</DG1.3.1><DG1.3.1>F43.23</D G1.3.1><DG1. #NRBC 0.00 10^3/uL 0.00-0.00 [facility] ([facility]) FASTING~.~.~<DG1.3.1>K22.70</DG1.3.1><DG1.3.1>Z00.01</DG1.3.1><DG1.3.1>F43.23</D G1.3.1><DG1. RBC Morph Laboratory test result [facility] ([facility]) FASTING~.~.~<DG1.3.1>K22.70</DG1.3.1><DG1.3.1>Z00.01</DG1.3.1><DG1.3.1>F43.23</D G1.3.1><DG1. Manual Diff Laboratory test result [facility] ([facility]) FASTING~.~.~<DG1.3.1>K22.70</DG1.3.1><DG1.3.1>Z00.01</DG1.3.1><DG1.3.1>F43.23</D G1.3.1><DG1. ID Date Data Source [id number] 02/11/2020 05:44:00 PM EDT [facility] Name Value Range Interpretation Code Description Data Yisel rce(s) Supporting Document(s) COMPREHENSIVE METABOLIC PANEL [facility] COMPREHENSIVE METABOLIC PANEL Sodium [Moles/volume] in Serum or Plasma 138 mEq/L 134 - 153 [facility] Potassium [Moles/volume] in Serum or Plasma 4.0 mEq/L 3.6 - 5.0 [facility] Chloride [Moles/volume] in Serum or Plasma 105 mEq/L 98 - 107 [facility] Carbon dioxide, total [Moles/volume] in Serum or Plasma 22 MEQ/L 22 - 30 [facility] Glucose [Mass/volume] in Serum or Plasma 91 MG/DL 65 - 110 [facility] BUN 14 MG/DL 7 - [facility] Creatinine [Mass/volume] in Serum or Plasma 0.9 MG/DL 0.7 - 1.5 [facility] BUN/CREAT 16 8 - 27 [facility] Protein [Mass/volume] in Serum or Plasma 6.8 G/DL 6.3 - 8.2 [facility] Albumin [Mass/volume] in Serum or Plasma 4.7 G/DL 3.9 - 5.0 [facility] Globulin [Mass/volume] in Serum by calculation 2.1 GM/DL 2.4 - 3.2 L [facility] A/G RATIO 2.2 0.8 - 2.[address] [facility] Calcium [Mass/volume] in Serum or Plasma 9.4 MG/DL 8.4 - 10.2 [facility] Bilirubin.total [Mass/volume] in Serum or Plasma 0.7 MG/DL 0.2 - 1.3 [facility] Alkaline phosphatase [Enzymatic activity/volume] in Serum or Plasma 84 U/L 38 - 126 [facility] Aspartate aminotransferase [Enzymatic activity/volume] in Serum or Plasma 21 U/L 5 - 40 [facility] Alanine aminotransferase [Enzymatic activity/volume] in Seru m or Plasma 34 U/L 7 - 56 [facility] Anion gap 3 in Serum or Plasma 11.0 mmol/L 8.0 - 16.0 [facility] AGE [address] [facility] al NON-AA GFR >60 mL/min [facility] ital AFR AMER GFR >60 mL/min [facility] spital Male GFR In terprentation 20-49 yrs >60 mL/min Normal 50-59 yrs >56 mL/min Normal 60-69 yrs >49 mL/min Normal 70-79yrs >42 mL/min Normal 80 and above >35 mL/min Normal Female GFR Interpretation 20-39 yrs >60 mL/min Normal 40-49 yrs >58 mL/min Normal 50-59 yrs >51 mL/min Normal 60-69 yrs >45 mL/min Normal 70-79 yrs >39 mL/min Normal 80 and above >32 mL/min Normal ID Date Data Source [id number] 02/11/2020 05:44:00 PM EDT [facility] Name Value Range Interpretation Code Description Data Yisel rce(s) Supporting Document(s) CVE PANEL [facility] LIPID PANEL Cholesterol [Mass/volume] in Serum or Plasma 146 MG/DL 131 - 200 [facility] Deprecated Triglyceride [Mass/volume] in Serum or Plasma 127 MG/DL 3 5 - 160 [facility] HDL 52 MG/DL 29 - 86 [facility] Cholesterol in LDL [Mass/volume] in Serum or Plasma by Direc t assay 73 mg/dL 65 - 175 [facility] Cholesterol.total/Cholesterol in HDL [Mass Ratio] in Serum o r Plasma 2.8 3.4 - 4.9 L [facility] LDL/HDL 1.40 1.00 - 3.55 [facility] ital CVE RISK CHOL/HDL LDL/HDLMEN: 1/2 AVERAGE 3.43 1.00 AVERAGE 4.97 3.55 2X AVERAGE 9.55 6.25 3X AVERAGE 23.99 7.99WOMEN: 1/2 AVERAGE 3.27 1.47 AVERAGE 4.44 3.22 2X AVERAGE 7.05 5.03 3X AVERAGE 11.04 6.14 ID Date Data Source [id number] 02/11/2020 05:44:00 PM EDT [facility] Name Value Range Interpretation Code Description Data Yisel rce(s) Supporting Document(s) Thyrotropin [Units/volume] in Serum or Plasma by Detec tion limit <= 0.05 mIU/L 0.58 uIU/mL 0.47 - 5.01 [facility] ID Date Data Source [id number] 02/11/2020 05:08:00 PM EDT [facility] Name Value Range Interpretation Code Description Data Yisel rce(s) Supporting Document(s) Hemoglobin A1c/Hemoglobin.total in Blood 5.0 % 4.4 - 6.1 [facility] {A1]{HB] ID Date Data Source [id number] 02/11/2020 05:25:00 PM EDT [facility] Name Value Range Interpretation Code Description Data Yisel rce(s) Supporting Document(s) CBC W/AUTOMATED DIFF [facility] COMPLETE BLOOD COUNT Leukocytes [#/volume] in Blood by Automated count 6.9 10^3/uL 4.2 - 1 1.0 [facility] Erythrocytes [#/volume] in Blood by Automated count 5.07 10^6/uL 4. 50 - 6.30 [facility] Hemoglobin [Mass/volume] in Blood 14.9 g/dL 14.0 - 16.0 [facility] Hematocrit [Volume Fraction] of Blood by Automated count 44.6 % 4 1.0 - 51.0 [facility] Erythrocyte mean corpuscular volume [Entitic volume] by Auto mated count 88.0 fL 80.0 - 94.0 [facility] Erythrocyte mean corpuscular hemoglobin [Entitic mass] by Automated count 29.4 pg 27.0 - 34.0 [facility] Erythrocyte mean corpuscular hemoglobin concentration [Mass/volume] by Automated count 33.4 g/dL 31.0 - 36.0 [facility] Erythrocyte distribution width [Ratio] by Automated count 12.5 % 11.5 - 14.8 [facility] Platelets [#/volume] in Blood by Automated count 267 10^3/uL 150 - 45 0 [facility] Platelet mean volume [Entitic volume] in Blood by Automated count 10.0 fL 7.4 - 10.4 [facility] Neutrophils/100 leukocytes in Blood by Automated count 52.3 % 37. 0 - 80.0 [facility] Lymphocytes/100 leukocytes in Blood by Manual count 36.8 % 25.0 - 40.0 [facility] Monocytes/100 leukocytes in Blood by Automated count 8.2 % 3.0 - 8.0 H [facility] Eosinophils/100 leukocytes in Blood by Automated count 1.7 % 0.0 - 7.0 [facility] Basophils/100 leukocytes in Blood by Automated count 0.7 % 0.0 - 2.0 [facility] %IG 0.3 % 0.0 - 0.0 H [facility] al %NRBC 0.0 % 0.0 - 0.0 [facility] al Neutrophils [#/volume] in Blood by Automated count 3.61 10^3/uL 2.00 - 6.90 [facility] Lymphocytes [#/volume] in Blood by Automated count 2.55 10^3/uL 0.60 - 3.40 [facility] Monocytes [#/volume] in Blood by Automated count 0.57 10^3/uL 0.00 - 0.90 [facility] Eosinophils [#/volume] in Blood by Automated count 0.12 10^3/uL 0.00 - 0.70 [facility] Basophils [#/volume] in Blood by Automated count 0.05 10^3/uL 0.00 - 0.20 [facility] #IG 0.02 10^3/uL 0.00 - 0.10 [facility] ospital #NRBC 0.00 10^3/uL 0.00 - 0.00 [facility] H ospital MANUAL DIFF NOT INDICATED [facility] RBC MORPH NOT INDICATED [facility] spital ID Date Data Source [id number] 10/01/2019 12:00:00 AM EST [facility] ANDREW Gutierrez Patient Name: CAROL [id number] [facility] Date of Exam: 10/01/2019FLAVIA Gee [id number]#: Fax: [phone] EXAM: UGI AIR CONTRAST WITH KUBCLINICAL INFORMATION: Dysphagia, early satiety.The procedure was performed by Eulalio Talamantes [facility] under the directsupervision of Dr. Dockery. The images were reviewed with Dr. Dockery.The plate sensitizer film shows no organomegaly or pathological masses. The intestinalgas pattern is nonspecific.Liquid barium and gas producing granules were given in the erect positionas well as liquid barium in the prone oblique position in order to performa double contrast upper GI examination.The oral and pharyngeal stages of deglutition are unremarkable. Esophagealtransport is prompt and efficient. There is a mucosa irregularity in thedistal esophagus which likely is related to esophagitis. There is nostricture or hiatal hernia. There is gastroesophageal reflux demonstratedto above the level of the rylie.The stomach lawson are normally outlined. The rugal folds are smooth andregular. There is no gastritis, neoplasm, or ulcer disease.The duodenal lawson are normally outlined. The mucosal folds are smooth andregular. There is no duodenitis, pancreatitis, peptic ulcer disease orneoplasm. The visualized portions of the proximal small bowel appearsnormal in course and caliber.IMPRESSION:There is mucosal irregular ity in the distal esophagus which likely isrelated to esophagitis. There is gastroesophageal reflux demonstrated toabove the level of the rylie.Fluoroscopy time was 2 minutes and 19 seconds at 15 pulses/second. This isequal to 1 minute 32 seconds of continuous fluoroscopy time which is a 33%reduction in radiation.YASIR Morgan/Mathieu you for referring CAROL RASHEED to our office. 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 z55UPGHYEdp/V71lErZQ3t0SSC7jnsh1Xjn4n4S/rnoCv8BbdYscgYLcin+NzXYSP3OaVvUJyjEGBKTP ku1Rj/OEUnfZXcaU2YkkhmjqfM2uDaCHRXwHy2nARD IujfILFZqVNdht/njOsvJk2UJ98aCxDm+CFm8xAagELuLB3eAp65/I5X/SiwlvxOYscU3P0q2sg16mJp Vk6WPMpis2N6d6oCdygC+kYw9MQ55jywqdoNoj4RFwiGWV1HzQNA+M5roEXRjRwV/J+yGhbBUxPoochj PXRP9mZuDvSivFgWdJfcJnf4UAf9na2V6ExhMUFj9q BkHU3QfIVUVWZwEI/JG3JIm79eQEgbR4jLr4YWruCBVOqRyGcKpzliVTwgZxhZMza6A/+gTWHmgrwiFr uo82cInPUj5A0T1+qX8Ke5dmxG9srUkJcjZWqaukf2YkZAQssqWQVDHndJMVeA0lSyvn42NPgq4SLFTy eHs+29TXQxVhUhoLOdwXWxFFxvgMdBswx0guQTOeiC D+kj6uv7/6SCvOVusbzhMh4uLmUuRM+abEJJ60ydJWoqe+g1niF+Bg+77sOPpd8EZqZbRWHZ9sAW8cSN yuEOLEuHhr4dtsFoGMTLOKOOuaPOwdzttQtgXUh3AcilDnHJTQpQR9MHo8rq49PDcS3V7O1SgURH+c78 5f90USGAkB2n+yLu+eerqQcV1QkTER9gOGub57x57U bivLuLF+YT6ATNojAJ44WoVxmJ9KXKfxaHhZwW/eJYcyIA7jrqlL86yEZrWbH3/0N7IAyJnhT6q7l+ELIANA [file] [facility]+ln37CAH4ZQNOKETjpxEIkake1WovwDc3Lyg7gCosBOXWPp9B3eMMgU6ZRvsqnbA1QjiF/sJUFZ0v [file] cE0/n4OSKvcX/aDae87P9PHPeNhYHOWRvT7G7mtLOGjLoVGeZhlMf5SFrGfHmUmlLTiVYnb2Gopr+rose marie [file] RpvRbMTkmd6h/lKd/K+RavjYleHzpo808qGbqQ+[place] [file] r+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/ZgSYFQEfZEcxSjwCtCLBkaAze6FjbXiXGZNV+OCDJ3WgCqqWXaCYqP9RCoPEEyjdhHszseiKJPK [file] mutton puncher+3e3OGc9Wmmf9+LkkdvsaKrxDem+QeXeNN1RZy8JuIfI3Iy7hINH7jNs+9ZbMiSF3G/Xu6oUoiv2 [file] jlUZtLi2gpEUA+/Z9pBQPoagKD5kpk98kwCv+fsn1/mary ann/xDcekKcRenYF2HmtYaLLYxbSsRE1TDZPXj [file] BPJLM3lbzbEHDUOndNBoJe48hgeOEtw3itKQXIFBGG hXTJMTR8OH74n/94htwst3rVtaXiE6b19MaZaXXvYo7UnPtbgqbcaztdQWy9UEkxfcRuB2ykZqiixABj gypsum calciner+uJJujKvmFT/3PO3rRPkJRGQ3D323LhlIciboEtizlzD3TZNmLHTeT1kzEqMTM7NkNVZX3LWme9Z/ [file] +u8gijS4o4jA9/sMJgcEJM4MYBmiJkHJgRFBdvP302dHwkrJGNOn5ta2JRjM7kLIN0QDSllHgYSL+Derrell xzuEtZrw1MYnaNEuJIASlNZNc8+AojEq7ZTl5t+yAIGaV/2EaccHWO4GMYgJtCrpl9tr03BOlvamaU9S fSqlhFwTNuHytx/FVE7PSLu13W8SDoU7d++HsptcyI oUhFNiIfqZqHDXNfknCzn9wqbmP2XQ9jc8fXzdTg79KVW4daNXihU5ZPY9D8QW+h/na43tGRkOr1LfOo lX9fag+RJ4RjU8gyEinVwQktFxmOhYohhI2DfBDaQ1tt695EF4i17epxJL/Ymz3eurBZgQsyT/EWVWG/ PizTUXK21x7RHvx1PkQK8XobadeSKFR4c24bgHLCmA 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+sIkmXBRAZezmlZoyEPs15lOrPibhDFcWJkGm48xuQE8xfARUeqlhykD/VbXvLC/IX28uePJ0ZcH88 [file] t/aiOO//B1rW/GgnwYEE2rMizTI2/bE8dkliznD9Fio/9dih/w+EaQ1zddXe7zy13kJeIamdThSq/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 [file] [place]/p5i9XIUC60hE/LkgLrx9nwY9MKAcTqDFnz+VBG +NspKXo1p9xYH5NmusNz20YOblPOe30uvC/A/nxw3Y2k7auaYkgmzOQbFoHzFwq0IW0Vxf2cUHn0uB8E saUqzuklD9/2pRhD1Q9JS3AzmHKvZZ94BKf+KgAqtB6BtnBzPvKS65JU49OlblhO9eKehd/tXMN9Hx+w DfUqHtvvy4O6xc6+mfk+hKg0ltGkXdF72WmrVyusSX ltERKYe7mdaKMW4FB9wcdeG8ypCwqh+9Z5F3eQcKtMs7ibyXAQej5gtEGPdO8VdPBfKFr6jcjygKbqN0 6XnaF0nykwGTPxtg3U30VHO5Ey2z/bu08N9Hx8GuQwR+9O+bYkWQaSBiwCYYvKVayPY0M1ISX7lVvsHL Nmd773TglcT088v05vgg+muVywTIsMSyknDfAdSRe1 NRgZuVTWXTGIm+AETCJiNkfXU189Fm2C9No+WMcRX2uzVcXpynOMRDOHXcE3Ed8ieqZ2JfzRVBVHd8ws PD6d4Sn7RNjsPiIQzSXbJrzh0RspC5eTJkv27vbPsf4hiv3qx+lKeHMWo5mhnAK4bSeIqK3L5ZqslGiz FYxPS88QL7/bNHCRV9VxnQbd0zd7Ru8PfGMFNfWeiL VgJ/T2BGAgrqW2SK+uVUDkk0lvxcA3RJhd3qdyFj5q/Qz/tjt95jHcbvuczD2v+4Urf37SoQOJe6BZGs LxQmC9B4gnYmYh6x7HWVTd75esGoxhdCZmmkgyvmpMmFsNv0ZGTNo+trLkGt5dQZdqnFF8GT7kMuOnAN Vcx1xLJ/jek22mL6jmIazRVKY4uCIHxkQy+EDCD6ng CVc+38ut9enpoHD2U9UfZB2sDYNJNQ5LWncIp5Lhw4UUbA7dBkyB5TxWgiHkKYX8m8bdIU9r6jLyAxEl hcDfMIel8lBT5ZuQRok+Tj2qeXJ3Du3icXB0p34lKF5XdfE7A1EQSZcypO9zNinp67KO4KYlAoblQ6DE [facility] [place] [facility]+x3N4yCsyLrhNBR1slhod27a/lK3gG4CzVehU1 [file] ciEgh97sU/Ana Paula+9hgVcrYvAFz4HXgyhHIDbekbKrtAWw3Czo8FW/jeZ2i/4q1BAJVGv/oIpBOy2g2rr [file] D9R2X77tY0Xea9qoPA6TdCDJu4xtt+home based assistant/72Y4q4Bo [file] w/JF/Bm0lq6XRd35UMyrxIkJ2cik6ADGE0T2Mw [file] Tineo/+eG8nvg0RX033wusQJj2mmXawtiN8u4akxcvaui gY6vtMYduDdaxPra3GTM/zMOlPoe9VZhtmKjNuT5L/+nP3zVuB8zaQo2nSVI0nXi2ByympZssM47RKbO CTMkOk/2bsrOQfq6uGh1yE3DG1I7YoujggyRrRLcz47d59z3Ef8jWOM+bUWfdkS2hjVR0Dos6tT7dLgv 1mmypnge2DaC5/4QC2aDwIk4pYC81z63zbBDAEZkX/ eUnYJG30LUF/Kdgq/ltqnbECek+707O7vaA2p/c9+bJvV/Xzr/zXRIvBQhpaLPUxE89mKG+nHbzj82Xw CWzj2a89Ux0sppoAhT+mi8FTDtrOylBXR/4l6RQCprCpps8YYFCax7rTOGC0L2Pmu2LPSaiev0nNm9e+ oo+yQG6A1KfttIafFZQf44/vdMOv5/U+zZdMfgXyHW EUXxJpCxcOWQ8irgY08PVvvTehiZg8T5ut3Iity+V6XTk9/T5LBvdO0aoCRuCdJy+oadPlMSQ58vWN5R 59lJQXaoeZvX8RGMgV2N3TGR6f1ba3rSbyhgyiTMUttRwUwArBKIyxctUDgnV8C+BzCSYp+VpPGox0wG 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+wd91JdwORp4IcbTjn+wKi6WHCOO6ux9nJLsYdQ8 51t3E8120sJOJG3XY+qfmWgpIUT12fuYnEK38oMqSH26DeQ7GsqCZ7n91E/iMBYqLV8zgjyYjOXO3nm2 uG0LVoXEp3b0uMlrc5kKdc2KWkCY4HhMWAZvmAF6mb+wuIRVYlCTr3pVYYdSooY0lvmh11elmJ+uWlGC J+BE/a4L/kdtCIcne4QpjtW3vk5SqVkbWFGT/KRiaB zBB9olNm6cnSqKNyMS964LL2uGuoNc004IvFQTJZGCoD6goVD0GcLs1SeHzYfToRzvEC5oqG6B2t/pZc hn11xfigLVdT6iMU+deruH0x2THM/NwU5s9rgjOcGkWeCI1+atHwQaH3miKnh7BUfZzC7FFUFJR6+q5v 9oJ1EFcF+5k0W2OFpY1keczGdHVYdjKhwSLJGCZEex VVq2QzRe6BIvsxHrkolql9/luSvQTbCk9lC/LRObevWimLLVvrhjurIv57mNLoH0JDqHEZrgWrfuyqJO z2kc66xHzLiFsIbE13wHoWqNnfl1ynAFH78OhNDig0FcV9mV4rbNlZTF+0u3MAJS/T/4JFB0ej74Rn9L 8W+zRP8zxQkHg2sfX0KeRSyK9L6vXn9ft4evGDXe+n UyZvOc2VmdRXk5QID/S7YTljJ/aL7brR0dqHB8ZVM0KSda7ifJzp4Fv013hMhnflr6GEJZJtZ3o1k1vj +lX4HxaieqYxr9W6OoIILTAClvbngE8Azgju6l65x4EdbitFGSlZm1fSrHUt9yxjSybx87dLebuNQ0JO N9sb8pTnmgswl65mF18hntcjMfNBdfDqdwbvfx2/um [file] wv2iUIw+evp [place]+OvlAQMnxTnSGm1YMa3t1nCBHI+bLUKL [file] ZfDwxwylvctaxOlrp19K1LwcjHDLWqqo6t2uAY/Snh560MW1/tBzhM/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/3StTQTN7XuDuBEPSQOEBJl [file] 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+t5RzIUXziyBlnpdTLQRRM7EmJO5h3qUkWlwE5p4 [file] hyTbARRHA4cLQVmTT2iKW7HYDKfW6Q9nP6LGVZwIL18jzDp/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+FnBpyHRuQcLFdFZHjvI6ihASkH5HD [file] FAV5+Fa81dAkub9kaLSIpbJL2yMbsl6es0cfQmZL5vePtx/Slip Seat Coverer++v9gegEnQhUiKYgPay4E6A/9vNHK/ [file] OovIcSuBfUt9KFAXkxoukuPRHy04ek3Nn+czP1Wpo7Cx+LsZUTWgzuTp/claim technician+UD/zq4PBRGKQqib72Mop koH406NH6e1ZSEtxn2xhwFjD/6L5H59MUjt8olSJ2b1zAn2wUh5DdJewL5ZtDYWor+kbemyf82Cf7LFa ikWmsrUGAvDkZRl50rSiJhCH1BYUHtfLrS8hA94xXi uZVovfD4UGqFiqJKPocV5J1wRnG0AH/OZPzGCuVBNSn+N+XTh5QzX6E579Q2inpVs4dKha+6MPlSVFir 6PVwAN/9gvzoSF168ZbCEq80ElUeG3eApn82cUTE85jWpAd9A5uWrmx+hUd0zLyY/pinRRsgRoa0/BzU j2skq+wl4VLsjuRYuFIKMhJGAvY8OlOi6tm8iTzFtz NnahImAhZy7RxJHQpBVLHrfFDQNyrpTr/hXoKJ61hCGUipVYfMYRlw2VYjlzpskIBMszjZyziN/Q0/ELIANA [file] [employer]+EiR7iFeEbToFSKhfDq0yA0+R80O6W7N6DOr2xKx [file] P3Kh2rY7MLQu14G20V9g3m92p52wEsR01nnxQyhamO YXs+J39Kx6+zwO2ELq8AMo39Ctqcsb+oiuqIVp4Ep5Io2RyMKUVHbrnU374FY2vrdcWC5UjOH3w8UQ7R iUgkNtFHfo4x/A22Glvk4LrAx+hJBbvLSt/JiE550pa/C6hYxYMEjyvyDVzFjlavhHzwKaZFKUJr8Qu+ dXwAMxq+LYrt7bTxZE6P8zbf1KVxeQPoPXbzLGFkMw TbPLlFaaptuwC9DmL+KY/j8yMagL8KYNFGjjXmABEH7HEBfz4QuZTmeoggOmDCRwwH6mR80xNHqnC444 kuJx9Uhdm+M0dhzA467dQ3Ws7AStAyJIgDnFYNrcyVV1Ay8eJjz7XFhR96Px6dmpx9A6913gWpv0SSnj 6jyR57t9B6UP2aWN+HcNxRu+4evsycd7uJ6uDorxnd pPFrTG03AmQGVyeNedcqjLfUheQzkTo/IAzorbUt2vNFZX7IdQ74EXNHYDVpJcgQiWvvS9sGvRP7TvCN ehQz66QjH+YH78Wkur7Lf3e6ohLQjVVYiHXXjtZLZcUfy6tCScGZyreh8dRCUEIkpBWZTdmgsxa5lPsq XWx7gDnIFGa1Ze6bceiQI5b2w6BdZGo+v9eWhfA/N4 9LUBnUHF9AFpk5ZORgiKbGmAEpJwj7ddlkSStMyUusmUB0K5L0tJfopmfDw16btiRMO05IG/coQ9+6MI q0aR1tyhqPnZcaFYN2vs7CzSA2r59Q83cVl+eRQAgKZFn4p3pbp/4WwouVKnGPHqfi6YGsdREXAT2B6/ 0v9HIfuKfZOucL9ZR7HSVMUxg5Q+3WbPmrMiSinBEI 2iyYUKjOZ1+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/wbQLwrW0Co+WSbSQ4ZSRAqpqrNHMuJAwYdjRWq/lgxp5dNUJKtSlPOUmKWgGbazEyL [file] IOkKZttkjBHg/neLXKagaRmgEb6yKa3ss5oibaXshiZo8XOesttvdeZ4Og7VvwyYa1zUI3dLVEntv/TINEO bCFEIL//0o10F17WnL9iuOWwJWgqLV7FArejFdpEP7JMoL7bTkyKGzAtCsJJhkg9tS48LzqU/PWP8OZK eh8k8hIqqiJtHv3Wf9uNpurW6AdOzPpzv3v9dK3+O4 CZIbBuaEX/8980VRsqXoTetiO2IRw5P6Yq0aGWWQXBQpLT/dVeHKMSDL942+spn96Fub9v8cFmKb4gd3 eDK5UXAzfDqiqveMGENvIEBie+8lOUsgw+th2qIjT6nXR50tLW+6GG/Q2O7CE+oW1EXwFFYeXegus8M/ /whz/9GzA7CZZepF3AtN4YQV0yj3HlHLKsKTJrIE6z sc0hKXRxBG4aay78EA4VNB4ydDtmVmZ+CjP5phQctR5RzRy7DHOaYZSwBNv8OdGvLXItM46KX8mfRlNw YO2XVI0HDH8ww4ZvGKJkFRLbOM1xri9oOJHhDY5owa00CN0OzNi5AYWtD7LeZLMgDFNtz7JjK3xxbfj6 qBO0Uy0DVFDmGJx3CqEVKpJUHqAZJZA3TBX3MvPdIo Q7RVEVDiZGJ0KHFaI3Soc9MTJrT8FiNgKdUcHNDWBOEFJZOFDJDAFtFLXXWsE+CU2Bh257DILoTBYRN7 buRd6dSxCyDLClQ5i6SYQfST4NoOGeKF3OKwNsD0tbOxReXEIgHA0+j4EsUYYcIWc42cPqLBVJToOHqp kj8eJGzjYFhUPXSUCfmTOy/wQiO/JR7X5rmsYHVIuQ z9pMZFXn3UfUUdkD1WUwMHrFZnGIraHhVQYHN22BGpPJNILelT8wJSqswuSogXEnBH4VFwMoMB2kih8T AyM7GSV0xPDwYu4IESKdZbW8BJ6NKFDIK5V= Procedure Social History Code Duration Value Status Description Data Source(s ) Alcohol intake 09/14/2020 12:00:00 AM EST Not Currently completed [facility] Cigarette pack-years 09/14/2020 12:00:00 AM EST UNK completed [facility] Cigarettes smoked current (pack per day) - Reported 09/14/19 12:00:00 AM EST UNK completed [facility] Smoking 09/14/2020 12:00:00 AM EST Former smoker completed Former smoker [facility] Alcohol intake 08/25/2020 12:00:00 AM EST Not Currently completed [facility] Cigarette pack-years 08/25/2020 12:00:00 AM EST UNK completed [facility] Cigarettes smoked current (pack per day) - Reported 08/25/19 12:00:00 AM EST UNK completed [facility] Smoking 08/25/2020 12:00:00 AM EST Former smoker completed Former smoker [facility] Alcohol intake 08/19/2020 12:00:00 AM EST Yes completed [facility] Cigarette pack-years 08/19/2020 12:00:00 AM EST UNK completed [facility] Cigarettes smoked current (pack per day) - Reported 08/19/19 12:00:00 AM EST UNK completed [facility] Smoking 08/19/2020 12:00:00 AM EST Current every day smoker co mpleted Current every day smoker [facility] Smoking 01/11/2020 12:00:00 AM EDT Never Smoker completed Never [facility] [email or web address] ([facility]) Vital Signs ID Date Data Source UNK Name Value Range Interpretation Code Description Data Source(s) Oxygen saturation in Arterial blood by Pulse oximetry 97 % 97 % [facility] Respiratory rate 15 /min 15 /min [facility] Body temperature 36.61 Bert 36.61 Bert [facility] Heart rate 61 /min 61 /min [facility] Diastolic blood pressure 75 mm[Hg] 75 mm[Hg] [facility] Systolic blood pressure 130 mm[Hg] 130 mm[Hg] [facility] Body mass index (BMI) [Ratio] 26.83 kg/m2 26.83 kg/m2 [facility] Body weight 64.411 kg 64.411 kg [facility] Body height 154.9 cm 154.9 cm [facility] Oxygen saturation in [facility]terial blood by Pulse oximetry 98 % 98 % [facility] Respiratory rate 18 /min 18 /min [facility] ( [facility]) Body temperature 97.0 [degF] 97.0 [degF] [facility] ([facility]) Heart rate 96 /min 96 /min [facility] ([facility]) Diastolic blood pressure 90 mm[Hg] 90 mm[Hg] [facility] ([facility]) Systolic blood pressure 142 mm[Hg] 142 mm[Hg] [facility] ([facility]) Body surface area Derived from formula 1.65 m2 1.65 m2 [facility] ([facility]) Body mass index (BMI) [Ratio] 29.2 kg/m2 29.2 k g/m2 [facility] ([facility]) Body height 60 [in_i] 60 [in_i] [facility] ([facility]) 5'0" Body weight 67.813 kg 67.813 kg [facility] ([facility]) Body weight 149.50 [lb_av] 149.50 [lb_av] [facility] ([facility]) Oxygen saturation in Arterial blood by Pulse oximetry 96 % 96 % [facility] Respiratory rate 16 /min 16 /min [facility] Body temperature 37.06 Bert 37.06 Bert [facility] Heart rate 62 /min 62 /min [facility] Diastolic blood pressure 87 mm[Hg] 87 mm[Hg] [facility] Systolic blood pressure 141 mm[Hg] 141 mm[Hg] [facility] Body mass index (BMI) [Ratio] 27.25 kg/m2 27.25 kg/m2 [facility] Body weight 67.586 kg 67.586 kg [facility] Body height 157.5 cm 157.5 cm [facility] Oxygen saturation in Arterial blood by Pulse oximetry 98 % 98 % [facility] Body mass index (BMI) [Ratio] 27.38 kg/m2 27.38 kg/m2 [facility] Body weight 67.903 kg 67.903 kg [facility] Body height 157.5 cm 157.5 cm [facility] Heart rate 69 /min 69 /min [facility] Diastolic blood pressure 90 mm[Hg] 90 mm[Hg] [facility] Systolic blood pressure 137 mm[Hg] 137 mm[Hg] [facility] Body mass index (BMI) [Ratio] 29.49 kg/m2 29.49 kg/m2 [facility] Body weight 68.493 kg 68.493 kg [facility] Body height 152.4 cm 152.4 cm [facility] Heart rate 83 /min 83 /min [facility] Diastolic blood pressure 88 mm[Hg] 88 mm[Hg] [facility] Systolic blood pressure 143 mm[Hg] 143 mm[Hg] [facility] Body surface area Derived from formula 1.67 m2 1.67 m2 [facility] ([facility]) Body mass index (BMI) [Ratio] 30.0 kg/m2 30.0 k g/m2 [facility] ([facility]) Body height 60 [in_i] 60 [in_i] [facility] ([facility]) 5'0" Body weight 69.571 kg 69.571 kg [facility] ([facility]) Body weight 153.38 [lb_av] 153.38 [lb_av] [facility] ([facility]) Oxygen saturation in Arterial blood by Pulse oximetry 98 % 98 % [facility] ([facility]) Respiratory rate 18 /min 18 /min [facility] ( [facility]) Body temperature 97.4 [degF] 97.4 [degF] [facility] ([facility]) Heart rate 100 /min 100 /min [facility] ([facility]) Diastolic blood pressure 72 mm[Hg] 72 mm[Hg] [facility] ([facility]) Systolic blood pressure 148 mm[Hg] 148 mm[Hg] [facility] ([facility]) Body surface area Derived from formula 1.67 m2 1.67 m2 [facility] ([facility]) Body mass index (BMI) [Ratio] 30.0 kg/m2 30.0 k g/m2 [facility] ([facility]) Body height 60 [in_i] 60 [in_i] [facility] ([facility]) 5'0" Body weight 69.571 kg 69.571 kg [facility] ([facility]) Body weight 153.38 [lb_av] 153.38 [lb_av] [facility] ([facility]) Oxygen saturation in Arterial blood by Pulse oximetry 97 % 97 % [facility]) Respiratory rate 18 /min 18 /min [facility] ( [facility]) Body temperature 98.0 [degF] 98.0 [degF] [facility] ([facility]) Heart rate 88 /min 88 /min [facility] ([facility]) Diastolic blood pressure 90 mm[Hg] 90 mm[Hg] [facility] ([facility]) Systolic blood pressure 160 mm[Hg] 160 mm[Hg] [facility]) Body surface area Derived from formula 1.67 m2 1.67 m2 [facility] ([facility]) Body mass index (BMI) [Ratio] 29.9 kg/m2 29.9 k g/m2 [facility] ([facility]) Body height 60 [in_i] 60 [in_i] [facility] ([facility]) 5'0" Body weight 69.457 kg 69.457 kg [facility] ([facility]) Body weight 153.12 [lb_av] 153.12 [lb_av] [facility] ([facility]) Oxygen saturation in Arterial blood by Pulse oximetry 98 % 98 % [facility] ([facility]) Respiratory rate 18 /min 18 /min [facility] ( [facility]) Body temperature 99.2 [degF] 99.2 [degF] [facility] ([facility]) Heart rate 70 /min 70 /min [facility] ([facility]) Diastolic blood pressure 84 mm[Hg] 84 mm[Hg] [facility] ([facility]) Systolic blood pressure 140 mm[Hg] 140 mm[Hg] M [facility] ([facility]) Body surface area 1.67 m2 1.67 m2 [facility] ([facility]) Diastolic blood pressure 68 mm[Hg] 68 mm[Hg] eCW1 ([facility]) Systolic blood pressure 138 mm[Hg] 138 mm[Hg] e CW1 ([facility]) Body mass index (BMI) [Ratio] 27.72 kg/m2 27.72 kg/m2 eCW1 ([facility]) Body height 62 [in_us] 62 [in_us] W1 ([facility]) Body weight Measured 151.6 [lb_av] 151.6 [lb_av ] eCW1 ([facility]) Patient Treatment Plan of Care Planned Activity Planned Date Details Description Data Source (s) lansoprazole 15 MG Delayed Release Oral Capsule 09/14/2020 12:00:00 AM EST [facility] pantoprazole 40 MG Delayed Release Oral Tablet 09/14/2020 12:00:00 AM EST [facility] Sucralfate 1000 MG Oral Tablet 09/14/2020 12:00:00 AM EST [facility] POLYETHYLENE GLYCOL 3350 142 MG/ML Oral Solution 09/14/2020 12:00:0 0 AM EST [facility] Sertraline 100 MG Oral Tablet 09/14/2020 12:00:00 AM EST [facility] Ondansetron 4 MG Disintegrating Oral Tablet 09/14/2020 12:00:00 AM EST [facility] Famotidine 20 MG Oral Tablet 09/11/2020 12:00:00 AM [facility] Acetaminophen 32 MG/ML Oral Solution 09/11/2020 12:00:00 AM EST [facility] Prednisone 20 MG Oral Tablet 09/11/2020 12:00:00 AM EST [facility] Lorazepam 0.5 MG Oral Tablet 09/08/2020 12:00:00 AM [facility] 72 HR Scopolamine 0.0139 MG/HR Transdermal Patch 09/08/2020 12:00:0 0 AM [facility] Prochlorperazine 5 MG Oral Tablet 09/08/2020 12:00:00 AM [facility] Hyoscyamine Sulfate 0.125 MG Oral Tablet 09/04/2020 12:00:00 AM EST [facility] Prednisone 20 MG Oral Tablet 09/04/2020 12:00:00 AM [facility] Docusate Sodium 100 MG Oral Capsule 08/24/2020 12:00:00 AM EST [facility] Acetaminophen 325 MG / Hydrocodone Bitartrate 5 MG Ora l Tablet 08/24/2020 12:00:[address] [facility] Methocarbamol 500 MG Oral Tablet 01/11/2020 12:00:00 AM EDT eCW1 ([facility]) medroxyprogesterone acetate 150 MG/ML Injectable Suspe nsion [Depo-Provera] 11/12/2019 12:00:00 AM EDT eCW1 ([facility]) Cholestyramine Resin 66.7 MG/ML Oral Suspension [facility] Metoclopramide 5 MG Oral Tablet [facility] Ondansetron 4 MG Disintegrating Oral Tablet [facility] pantoprazole 40 MG Delayed Release Oral Tablet [facility]
[2020-09-16 20:11] LABS: HCG, SERUM QUALITATIVE NEGATIVE (NEGATIVE)
[2020-09-16 20:12] LABS: ALBUMIN 4.6 GM/DL (3.2-5.2); ALT/SGPT 100 U/L (12-78); BILIRUBIN,DIRECT 0.6 MG/DL (0.0-0.2); BILIRUBIN,TOTAL 1.7 MG/DL (0.2-1.0); BLOOD UREA NITROGEN 12 MG/DL (7-18); CALCIUM LEVEL 9.8 MG/DL (8.5-10.1); CARBON DIOXIDE LEVEL 19 MEQ/L (21-32); CHLORIDE LEVEL 100 MEQ/L (98-107); CREATININE FOR GFR 1.04 MG/DL (0.55-1.30); GLOMERULAR FILTRATION RATE > 60.0 (>60); GLUCOSE, FASTING 102 MG/DL (70-100); LIPASE 221 U/L (73-393); POTASSIUM SERUM 3.5 MEQ/L (3.5-5.1); SODIUM LEVEL 134 MEQ/L (136-145); TOTAL PROTEIN 7.6 GM/DL (6.4-8.2)
[2020-09-16 21:45] VITALS: BP 130/71
[2020-09-16 21:52] LABS: AMPHETAMINES LEVEL URINE NEGATIVE (NEGATIVE); BARBITURATES URINE NEGATIVE (NEGATIVE); BENZODIAZEPINES URINE NEGATIVE (NEGATIVE); CANNABINOIDS URINE NEGATIVE (NEGATIVE); COCAINE METABOLITE URINE NEGATIVE (NEGATIVE); METHADONE URINE NEGATIVE (NEGATIVE); OPIATES URINE NEGATIVE (NEGATIVE); PHENCYCLIDINE URINE NEGATIVE (NEGATIVE)
[2020-09-16] MEDS ORDERED: PROC25SU24 PR (22:07)
[2020-09-16] MEDS ORDERED: AMIT25TA17 PO (22:07)
== END 2020-09-16 22:38 | disposition home or self-care (01) ==
LOC: EDBD 19:04 → M ED 19:04
DX: R11.15 Cyclical vomiting syndrome unrelated to migraine (principal); Z79.899 Other long term (current) drug therapy
CPT/HCPCS: 80048; 80076; 80307; 83690; 84703; 85025; 96361; 96374; 99284; J1630

== ENCOUNTER 2020-10-13 19:29 | Inpatient (IN) | payer BC, OTHER ==
[~2020-10-13] VITALS: Ht 152.4 cm; Wt 62.0 kg
[2020-10-13] MEDS: HEPARIN SOD (PORCINE) 5000UNITS/ML 1ML VIAL/SYRINGE SC SCH (01:39)
[~2020-10-13 19:29] MED LIST changes: +AMIT25TA17 PO; +PROC25SU24 PR
--- NOTE | 2020-10-13 19:53 | REPVR ---
PROCEDURE INFORMATION: Exam: CT Head Without Contrast Exam date and time: 10/13/2020 7:45 PM Age: 20 years old Clinical indication: Weakness, extremity and weakness, facial; Left; Additional info: CVA - nursing interventions must not delay CT TECHNIQUE: Imaging protocol: Computed tomography of the head without contrast. Radiation optimization: All CT scans at this facility use at least one of these dose optimization techniques: automated exposure control; mA and/or kV adjustment per patient size (includes targeted exams where dose is matched to clinical indication); or iterative reconstruction. Other technique: STROKE PROTOCOL was implemented. COMPARISON: No relevant prior studies available. FINDINGS: Brain: No intracranial mass, mass effect or midline shift. No acute intracranial hemorrhage. No CT evidence of acute cortical infarct. Ventricles, cisterns, and sulci are normal in size for age. Bones/joints: No calvarial fracture or destructive process. Paranasal sinuses: Imaged paranasal sinuses are normally aerated. Mastoid air cells: Mastoid air cells and middle ear structures are normally aerated. Orbital cavity: Imaged orbits are unremarkable. Soft tissues: No focal extracranial soft tissue swelling. IMPRESSION: No acute or concerning focal intracranial abnormality. ASSESSMENT: ASPECTS ([place] Stroke Program Early CT Score) is 10. Electronically signed by: Sandip Muñoz On 10/13/2020 19:52:59 PM
[2020-10-13 19:54] LABS: BASO # 0.1 10^3/uL (0.0-0.2); BASO % 0.5 % (0.0-1.0); EOS # 0.1 10^3/uL (0.0-0.5); EOS % 1.2 % (0.0-3.0); HEMATOCRIT 41.4 % (36.0-47.0); HEMOGLOBIN 14.2 g/dl (12.0-15.5); LYMPH # 3.9 10^3/uL (1.5-5.0); LYMPH % 42.5 % (24.0-44.0); MEAN CORPUSCULAR HGB CONC 34.3 g/dl (32.0-36.5); MEAN CORPUSCULAR VOLUME 84.7 fl (80.0-96.0); MONO % 10.6 % (2.0-8.0); NEUTROPHILS # 4.1 10^3/uL (1.5-8.5); PLATELET COUNT, AUTOMATED 334 10^3/uL (150-450); RED BLOOD COUNT 4.89 10^6/uL (4.00-5.40); WHITE BLOOD COUNT 9.2 10^3/uL (4.0-10.0)
[2020-10-13 20:07] LABS: INR 0.9; PROTHROMBIN TIME 12.3 SECONDS (12.5-14.3)
[2020-10-13 20:08] LABS: PARTIAL THROMBOPLASTIN TIME 32.8 SECONDS (24.2-38.5)
[2020-10-13 20:26] LABS: CK-MB VALUE MASS < 1.0 NG/ML (<3.6); CPK CREATINE PHOSPHOKINASE 66 U/L (26-192); MB/CK RELATIVE INDEX 1.52 (< OR =4); TROPONIN I < 0.02 NG/ML (< 0.10)
--- NOTE | 2020-10-13 20:39 | REPVR ---
PROCEDURE INFORMATION: Exam: XR Chest Exam date and time: 10/13/2020 7:59 PM Age: 20 years old Clinical indication: Other: CVA TECHNIQUE: Imaging protocol: XR of the chest Views: 1 view. COMPARISON: CR Abdomen,Flat Upright,PA CHEST 09/06/2020 11:32 PM FINDINGS: Lungs: Degree of lung inflation is normal. No evidence of pulmonary edema. No focal consolidation or parenchymal lung mass. Pleural spaces: No pleural effusion or pneumothorax. Heart/Mediastinum: Cardiac silhouette appears normal. No adenopathy or hilar mass. Bones/joints: Osseous structures show no concerning abnormality. IMPRESSION: No acute or focal cardiopulmonary process. Electronically signed by: Sandip Muñoz On 10/13/2020 20:39:10 PM
--- NOTE | 2020-10-13 21:59 | REPVR ---
PROCEDURE INFORMATION: Exam: MR Head Without Contrast Exam date and time: 10/13/2020 9:19 PM Age: 20 years old Clinical indication: Visual disturbance; Additional info: Left sided weakness, vision loss TECHNIQUE: Imaging protocol: MR of the head without contrast. COMPARISON: CT Head without contrast 10/13/2020 7:41 PM FINDINGS: No abnormal restriction of diffusion to indicate acute CVA. Midline structures and cerebellar tonsillar position appear normal. Ventricles, cisterns and sulci are symmetric and normal for age. No intracranial mass, midline shift or abnormal extra-axial fluid. No acute intracranial hemorrhage. No abnormal white matter signal on FLAIR and T2 sequences. Optic chiasm and pituitary infundibulum appear normal. Normal vascular flow voids in major intracranial arteries and dural venous sinuses. Paranasal sinuses are normally aerated. Mastoid air cells are normally aerated. Optic globes and orbits are unremarkable. IMPRESSION: Unremarkable noncontrast MRI of the brain. Electronically signed by: Sandip Muñoz On 10/13/2020 21:59:01 PM
--- NOTE | 2020-10-13 22:01 | REPVR ---
PROCEDURE INFORMATION: Exam: MR Angiogram Head Without Contrast, Arteries Exam date and time: 10/13/2020 9:19 PM Age: 20 years old Clinical indication: Visual disturbance; Sudden visual loss; Additional info: Left sided weakness, vision loss TECHNIQUE: Imaging protocol: MR angiogram head without contrast. Exam focused on the arteries. 3D rendering (Not supervised by radiologist): MIP and/or 3D reconstructed images were created by the technologist. COMPARISON: CT Head without contrast 10/13/2020 7:41 PM FINDINGS: Anterior circulation: Normal flow signal and luminal caliber in the petrous, cavernous and supraclinoid internal carotid arteries. Normal appearance of the anterior cerebral artery branches and middle cerebral artery branches through the MCA trifurcations. No occlusion, high-grade focal stenosis or dissection. No aneurysm. Posterior circulation: Normal distal vertebral arteries, with patent normal caliber basilar artery, and normal superior cerebellar and posterior cerebral arteries. No occlusion, high-grade stenosis or aneurysm. IMPRESSION: Unremarkable MR angiogram of the resighini of Wilhelm and intracranial vertebrobasilar system. Electronically signed by: Sandip Muñoz On 10/13/2020 22:01:04 PM
[2020-10-13] MEDS ORDERED: LANS30CA PO (23:19)
[2020-10-13] MEDS ORDERED: MIRT-62 PO (23:19)
[2020-10-13] MEDS ORDERED: SCOP1PAT2 TOP (23:19)
[2020-10-13] MEDS ORDERED: PROC5TAB57 PO (23:19)
[2020-10-13] MEDS ORDERED: AMIT25TA17 PO (23:19)
[2020-10-13] MEDS ORDERED: ACETAMINOPHEN TAB 650MG DOSE (2X325MG) PO PRN (23:45)
[2020-10-14] VITALS (8 sets, daily range): BP systolic 126–164; BP diastolic 66–104
--- NOTE | 2020-10-14 00:09 | HPEPDOC ---
[facility] Medical History & Physical Date of Admission Oct 13, 2020 Date of Service: Oct 13, 2020 Attending Physician: MARJORIE WALL MD History and Physical CHIEF COMPLAINT: [20 y/o white female complaining of vision changes x 1day.] HISTORY OF PRESENT ILLNESS: [Patient presents to the ER today after stating that she began having new onset blurry vision at around 1800 on 10/13. Patient states that she has had a few episodes of blurry vision since undergoing adebayo fundilipication for hiatal hernia on 08/24/20. Patient states that the episodes come and go without any triggers or specific events. Patient states that she has tried wearing reading glasses for the episodes of blurry vision but to no ursula il. Patient states that she came to the ER this episode because of associated weakness of her left upper and lower extremity, and she noticed her left pupil was larger than the right. Patient also admits to "dull pain" in her left eye that is not worse with movement. Patient denies chest pain, shortness of breath, syncope, nausea, vomiting, diarrhea.] PAST MEDICAL HISTORY: 1. [HTN]. 2. [Freedman's esophagus]. PAST SURGICAL HISTORY: 1. [Adebayo fundilipication]. SOCIAL HISTORY: Marital status: [Single]. Children: [N] Employment: [Patient was not working d/t medical leave. Her first day back at work was today.] Tobacco use:[N] ETOH: [N] Illicit drug use: [N] ALLERGIES: Please see below. REVIEW OF SYSTEMS: CONSTITUTIONAL: [No fever, chills]. HEENT: [Refer to hpi]. CARDIOVASCULAR: [Refer to hpi]. RESPIRATORY: [Refer to hpi]. GASTROINTESTINAL: [Refer to hpi]. GENITOURINARY: [No burning with urination]. SKIN: [No rash, wound, lesion]. MUSCULOSKELETAL: [Refer to hpi]. NEUROLOGICAL: [Refer to hpi]. HOME MEDICATIONS: Please see below. PHYSICAL EXAMINATION: VITAL SIGNS: see below GENERAL APPEARANCE: [This is a 20 year old female who is resting comfortably in bed in no acute distress]. HEENT: [Left pupil roughly 6mm with appropriate light reflex. Right pupil approximately 4mm with appropriate light reflex. EOMI. No conjunctival erythema, lid lag, scleral icterus. Oral mucosa moist without erythema.]. CARDIOVASCULAR: [Regular rate, rhythm, a 3/6 murmur is appreciated.]. LUNGS: [Appropriate air exchange appreciated. No wheezes, rales or rhonchi noted.]. ABDOMEN: [Soft, non-tender, non-distended.]. MUSCULOSKELETAL: [No joint pain or deformity on exam.]. EXTREMITIES: [Pulses intact, no clubbing or edema.]. NEUROLOGICAL: [Patient is A+Ox3. Speech is clear. Strength rated as: LUE 4/5, RUE, RLE, LLE 5/5. No focal deficits. CN 3-12 grossly intact.]. PSYCHIATRIC: [Patient is cooperative with exam and answers all questions. Mood and affect appear appropriate. ]. LABORATORY DATA: See below. IMAGING: [ Head CT: FINDINGS: Brain: No intracranial mass, mass effect or midline shift. No acute intracranial hemorrhage. No CT evidence of acute cortical infarct. Ventricles, cisterns, and sulci are normal in size for age. Bones/joints: No calvarial fracture or destructive process. Paranasal sinuses: Imaged paranasal sinuses are normally aerated. Mastoid air cells: Mastoid air cells and middle ear structures are normally aerated. Orbital cavity: Imaged orbits are unremarkable. Soft tissues: No focal extracranial soft tissue swelling. IMPRESSION: No acute or concerning focal intracranial abnormality. Brain MRA: FINDINGS: Anterior circulation: Normal flow signal and luminal caliber in the petrous, cavernous and supraclinoid internal carotid arteries. Normal appearance of the anterior cerebral artery branches and middle cerebral artery branches through the MCA trifurcations. No occlusion, high-grade focal stenosis or dissection. No aneurysm. Posterior circulation: Normal distal vertebral arteries, with patent normal caliber basilar artery, and normal superior cerebellar and posterior cerebral arteries. No occlusion, high-grade stenosis or aneurysm. IMPRESSION: Unremarkable MR angiogram of the ramona of Wilhelm and intracranial vertebrobasilar system. Brain MRI:FINDINGS: No abnormal restriction of diffusion to indicate acute CVA. Midline structures and cerebellar tonsillar position appear normal. Ventricles, cisterns and sulci are symmetric and normal for age. No intracranial mass, midline shift or abnormal extra-axial fluid. No acute intracranial hemorrhage. No abnormal white matter signal on FLAIR and T2 sequences. Optic chiasm and pituitary infundibulum appear normal. Normal vascular flow voids in major intracranial arteries and dural venous sinuses. Paranasal sinuses are normally aerated. Mastoid air cells are normally aerated. Optic globes and orbits are unremarkable. IMPRESSION: Unremarkable noncontrast MRI of the brain. ] MICROBIOLOGY: Please see below. ASSESSMENT/PLAN: 1. [Weakness/Mydriasis]. - Dr. Britt has been contacted about this patient and has been consulted on this case - Neurology will follow in the morning - Patient has had several negative scans, so dx of stroke is currently unlikely 2. New murmur - Murmur was appreciated on exam by myself as well as ED staff, patient states that she has never been told she has a murmur before. Since she denies symptoms associated with murmur, i.e. shortness of breath, exercise intolerance, chest pain. Murmur work-up may be considered, but may be better suited as an outpatient. 3. HTN - Vital signs will be trended, patient's BP is currently trending down on its own. - Can consider intermediate school teacher treatment if numbers stay elevated while in the hospital 4. Freedman's esophagus - continue ppi, prochlorperazine, elavil 5. DVT prophylaxis - heparin ordered Vital Signs Vital Signs Date Time Temp Pulse Resp B/P (MAP) Pulse Ox O2 Delivery O2 Flow Rate FiO2 10/13/20 23:15 130/74 (92) 10/13/20 23:14 80 97 Room Air 10/13/20 20:03 98.4 10/13/20 19:51 20 Laboratory Data Labs 24H Laboratory Tests 2 10/13/20 19:40: Immature Granulocyte % (Auto) 0.2, Neutrophils (%) (Auto) 45.0, Lymphocytes (%) (Auto) 42.5, Monocytes (%) (Auto) 10.6H, Eosinophils (%) (Auto) 1.2, Basophils (%) (Auto) 0.5, Neutrophils # (Auto) 4.1, Lymphocytes # (Auto) 3.9, Monocytes # (Auto) 1.0H, Eosinophils # (Auto) 0.1, Basophils # (Auto) 0.1, Nucleated Red Blood Cells % (auto) 0.0, Prothrombin Time 12.3, Prothromb Time International Ratio 0.90, Activated Partial Thromboplast Time 32.8, Total Creatine Kinase 66, Creatine Kinase MB < 1.0, Creatine Kinase MB Relative Index 1.52, Troponin I < 0.02 10/13/20 19:52: Bedside Glucose (Misc Panel) 101 10/13/20 20:00: POC Glucose (Misc Panel) 97, POC Sodium (Misc Panel) 140, POC Potassium (Misc Panel) 3.8, POC Chloride (Misc Panel) 105, POC Total CO2 (Misc Panel) 26.0, POC Blood Urea Nitrogen (Misc Panel 4L, POC Ionized Calcium (Misc Panel) 4.3L, POC Creatinine (Misc Panel) 1.0, POC Hematocrit (Misc Panel) 42.0 10/13/20 23:20: CBC/BMP Laboratory Tests 10/13/20 19:40 Home Medications Scheduled Amitriptyline HCl (Amitriptyline HCl) 25 Mg Tablet, 25 MG PO QHS Lansoprazole (Lansoprazole) 30 Mg Capsule.dr, 30 MG PO BID Mirtazapine (Remeron) 15 Mg Tablet, 15 MG PO QHS Scopolamine (Transderm-Scop) 1 Each Patch.td.3, 1.5 MG TOP Q3RD Scheduled PRN Prochlorperazine (Prochlorperazine Maleate) 5 Mg Tablet, 5 MG PO Q8H PRN for NAUSEA OR VOMITING Allergies Coded Allergies: No Known Allergies (Unverified , 09/03/19) A-FIB/CHADSVASC A-FIB History Current/History of A-Fib/PAF?: No Attending Note Attending Note TIME OF SERVICE 1130PM is a 20 yr old w a hx of HTN & Barrets s/p Adebayo fundoplication who presented w c/o 1 month in duration enlarged pupil and blurry vision of unclear cause. Her work-up including CT of the head and MRIs are unrevealing. Plan: f/u w in the morning. Rest per ANDREW Jones's H&P MICHAELLE JONES Oct 14, 2020 00:09 MARJORIE WALL MD Oct 14, 2020 02:36
[2020-10-14 00:10] LABS: RSV AMPLIFICATION NEGATIVE (NEGATIVE)
[2020-10-14] MEDS ORDERED: PROCHLORPERAZINE 5 MG TAB (S0183) PO PRN (00:50)
[2020-10-14 05:18] LABS: HEMATOCRIT 39.7 % (36.0-47.0); HEMOGLOBIN 13.5 g/dl (12.0-15.5); MEAN CORPUSCULAR HEMOGLOBIN 28.8 pg (27.0-33.0); MEAN CORPUSCULAR VOLUME 84.8 fl (80.0-96.0); PLATELET COUNT, AUTOMATED 321 10^3/uL (150-450); RED BLOOD COUNT 4.68 10^6/uL (4.00-5.40); WHITE BLOOD COUNT 7.4 10^3/uL (4.0-10.0)
[2020-10-14 05:24] LABS: BLOOD UREA NITROGEN 7 MG/DL (7-18); CALCIUM LEVEL 8.6 MG/DL (8.5-10.1); CARBON DIOXIDE LEVEL 25 MEQ/L (21-32); CHLORIDE LEVEL 110 MEQ/L (98-107); CREATININE FOR GFR 0.76 MG/DL (0.55-1.30); GLOMERULAR FILTRATION RATE > 60.0 (>60); GLUCOSE, FASTING 99 MG/DL (70-100); POTASSIUM SERUM 3.7 MEQ/L (3.5-5.1); SODIUM LEVEL 143 MEQ/L (136-145)
--- NOTE | 2020-10-14 09:08 | IPNPDOC ---
Date Seen The patient was seen on 10/14/20. Progress Note Hospitalist progress note dictated. If urgently needed, pls call hypertype to stat transcribe progress note dictated by Dr. Landon. PLAN: [facility] -ophthalmology consult Dr. Arnulfo Allan -Neurology consult Dr. Birtt -normal MRI/MRA brain/CT HEAD. VS, I&O, 24H, Fishbone Vital Signs/I&O Vital Signs Date Time Temp Pulse Resp B/P (MAP) Pulse Ox O2 Delivery O2 Flow Rate FiO2 10/14/20 08:00 97.8 76 18 128/88 (101) 99 Room Air I&O- Last 24 Hours up to 6 AM 10/14/20 06:00 Intake Total 240 ml Balance 240 ml Laboratory Data 24H LABS Laboratory Tests 2 10/13/20 19:40: Immature Granulocyte % (Auto) 0.2, Neutrophils (%) (Auto) 45.0, Lymphocytes (%) (Auto) 42.5, Monocytes (%) (Auto) 10.6H, Eosinophils (%) (Auto) 1.2, Basophils (%) (Auto) 0.5, Neutrophils # (Auto) 4.1, Lymphocytes # (Auto) 3.9, Monocytes # (Auto) 1.0H, Eosinophils # (Auto) 0.1, Basophils # (Auto) 0.1, Nucleated Red Blood Cells % (auto) 0.0, Prothrombin Time 12.3, Prothromb Time International Ratio 0.90, Activated Partial Thromboplast Time 32.8, Total Creatine Kinase 66, Creatine Kinase MB < 1.0, Creatine Kinase MB Relative Index 1.52, Troponin I < 0.02 10/13/20 19:52: Bedside Glucose (Misc Panel) 101 10/13/20 20:00: POC Glucose (Misc Panel) 97, POC Sodium (Misc Panel) 140, POC Potassium (Misc Panel) 3.8, POC Chloride (Misc Panel) 105, POC Total CO2 (Misc Panel) 26.0, POC Blood Urea Nitrogen (Misc Panel 4L, POC Ionized Calcium (Misc Panel) 4.3L, POC Creatinine (Misc Panel) 1.0, POC Hematocrit (Misc Panel) 42.0 10/13/20 23:20: Coronavirus (COVID-19)(PCR) NEGATIVE, Influenza Type A (RT-PCR) NEGATIVE, Influenza Type B (RT-PCR) NEGATIVE, Respiratory Syncytial Virus (PCR) NEGATIVE 10/14/20 04:45: Nucleated Red Blood Cells % (auto) 0.0, Anion Gap 8, Glomerular Filtration Rate > 60.0, Calcium Level 8.6 CBC/BMP Laboratory Tests 10/13/20 19:40 10/14/20 04:45 SONAL LANDON MD Oct 14, 2020 09:08
[2020-10-14] MEDS: OMEPRAZOLE 20 MG CAP PO SCH ×2 (09:15→20:45)
[2020-10-14] MEDS: HEPARIN SOD (PORCINE) 5000UNITS/ML 1ML VIAL/SYRINGE SC SCH ×2 (09:16→20:45)
--- NOTE | 2020-10-14 09:39 | ECGEPIP ---
[facility] - ED Test Date: 2020-10-13 Pat Name: TERESO REYEZ Department: Room: - Gender: Female [employer]: : [id number] Requested By: YADIEL Soto Order Number: [id number] Reading MD: Jesus Fuentes Measurements Intervals Trade Rate: 82 P: 47 IA: 134 QRS: 44 QRSD: 84 T: 33 QT: 390 QTc: 455 Interpretive Statements Normal sinus rhythm NO PRIORS FOR COMPARISON Electronically Signed on 10-14-2020 9:39:25 EDT by Jesus Fuentes
--- NOTE | 2020-10-14 13:11 | IPN ---
PROGRESS NOTE DATE: 10/14/2020 SUBJECTIVE: Patient was seen and examined at the bedside. Chart has been reviewed. She denies any headache, diplopia. She continues to have blurred vision especially on the left eye. No pain. Patient's weakness on the left side has improved back to baseline. MRI/MRA of the brain are normal. Patient denies any anhidrosis. Patient denies vertigo, ataxia, bowel/bladder impairment, arm pain or hand weakness, neck or head pain. OBJECTIVE: Vital signs: Temperature 97.8, pulse 76, respiratory rate 18, blood pressure 128/88, 99% on room air. General: Awake, alert, oriented to person, place and time, answering questions appropriately. HEENT: No facial asymmetry. Patient has now lid lag bilaterally. No ptosis of the lower eyelid noted. Left eye is dilated at 6 mm, right eye is 4 mm. Lungs: Clear to auscultation, no wheezes, rhonchi or rales. Heart: S1 and S2 sinus rhythm. Abdomen: Soft, nontender, nondistended, positive bowel sounds. Extremities: No cyanosis, clubbing or pitting edema. Neurologic: Motor function is 5/5 times 4 extremities. No sensory disturbance. LABORATORY DATA: White count 7.3, hemoglobin 13, hematocrit 39, platelet count 321. Sodium 143, potassium 3.7, chloride 110, bicarb 25, BUN 7, creatinine 0.76, glucose 99. Troponin less than 0.02. IMAGING STUDIES: CT of the head 10/13/2020: No acute or concerning focal intracranial abnormality. MRI of the brain: Unremarkable. MRA of the [place]: Intracranial vertebral basilar system. Non-contrast MRI of the brain. Chest x-ray 10/13/2020: No acute or focal cardiopulmonary process. ASSESSMENT: This is a 20-year-old female with recent Adebayo Fundoplication August 24, 2020 complicated by blurred vision and dilated pupil on the left ongoing with blurred vision now associated with left upper and lower extremity weakness with left pupil larger than the right noticed yesterday, history of Freedman's esophagus, hypertension. IMPRESSIONS/PLANS: 1. Anisocoria: CT of the head, MRI of the brain, MRA of the brain are all within normal limits. Dr. Britt neurologist and hydramatic specialist Dr. Allan have been consulted. 2. Hypertension: Stable, currently controlled. 3. History of Freedman's esophagus: On PPI, prochlorperazine and Elavil. 4. History of recent Adebayo Fundoplication: Post-op management per her previous surgeon. 5. DVT prophylaxis: With compression stockings. 6. Disposition: Awaiting ophthalmology recommendations, possible discharge later today if no further work-up is needed. MORIS
[2020-10-14] MEDS ORDERED: ONDANSETRON 4MG/2ML VIAL IV PRN (14:20)
[2020-10-14] MEDS ORDERED: ONDANSETRON 4MG/2ML VIAL IV ONE (14:35)
--- NOTE | 2020-10-14 14:57 | REP ---
INDICATION: N/V. COMPARISON: 09/06/2020. TECHNIQUE: Single AP supine view of the abdomen. FINDINGS: There is mild gaseous distention of the small bowel, nonspecific. There is gas within the nondistended ascending colon and transverse colon. This is also nonspecific. There are no calcifications. Skeletal structures are unremarkable. IMPRESSION: Nonspecific bowel gas pattern. No evidence of bowel obstruction at this time. <Electronically signed by Ezequiel Ac > 10/14/20 [id number]
[2020-10-14 15:28] LABS: AMPHETAMINES LEVEL URINE NEGATIVE (NEGATIVE); BARBITURATES URINE NEGATIVE (NEGATIVE); BENZODIAZEPINES URINE NEGATIVE (NEGATIVE); CANNABINOIDS URINE NEGATIVE (NEGATIVE); COCAINE METABOLITE URINE NEGATIVE (NEGATIVE); METHADONE URINE NEGATIVE (NEGATIVE); OPIATES URINE NEGATIVE (NEGATIVE); PHENCYCLIDINE URINE NEGATIVE (NEGATIVE)
[2020-10-14 15:28] LABS: URINE PREG TEST NEGATIVE (NEGATIVE)
--- NOTE | 2020-10-14 15:33 | REP ---
INDICATION: dilated pupil n/v. COMPARISON: Comparison brain CT and brain MR study are from the previous day, 10/13/2020.. TECHNIQUE: Helical scanning is acquired. 5 mm axial images were reformatted. Coronal MPR images were generated. FINDINGS: Bone window settings demonstrate an intact bony calvarium. There is no evidence of skull fracture or incidental bony calvarial lesion. The visualized paranasal sinuses appear clear. No intraorbital abnormality is seen. On soft tissue window setting images; the lateral, third, and fourth ventricles are normal in size and position. Dockery-white differentiation pattern is normal above and below the tentorium. There are is no evidence of intracranial hemorrhage. No mass, edema, infarction, or midline shift is seen. No extra-axial fluid collection is appreciated. IMPRESSION: Negative noncontrast head CT. <Electronically signed by Arcadio Pablo > 10/14/20 [id number]
[2020-10-14 15:44] LABS: ALBUMIN 4.5 GM/DL (3.2-5.2); ALT/SGPT 26 U/L (12-78); BILIRUBIN,TOTAL 0.6 MG/DL (0.2-1.0); BLOOD UREA NITROGEN 7 MG/DL (7-18); CALCIUM LEVEL 9.7 MG/DL (8.5-10.1); CARBON DIOXIDE LEVEL 24 MEQ/L (21-32); CHLORIDE LEVEL 108 MEQ/L (98-107); GLOMERULAR FILTRATION RATE > 60.0 (>60); GLUCOSE, FASTING 99 MG/DL (70-100); MAGNESIUM LEVEL 2.1 MG/DL (1.8-2.4); POTASSIUM SERUM 3.7 MEQ/L (3.5-5.1); SODIUM LEVEL 141 MEQ/L (136-145); TOTAL PROTEIN 7.1 GM/DL (6.4-8.2)
[2020-10-14] MEDS ORDERED: PROMETHAZINE INJ 25 MG/ML VIAL (J2550) IV ONE (16:00)
[2020-10-14] MEDS: NITROGLYCERIN 2% OINT 1 GM *U/D* PKT TOP SCH ×3 (16:29→23:56)
[2020-10-14] MEDS ORDERED: PILL CUTTER 1 EACH XX PRN (16:50)
[2020-10-14] MEDS ORDERED: LORazepam 0.5 MG TAB PO PRN (16:50)
[2020-10-14] MEDS: SIMETHICONE 80MG CHEW TAB PO SCH ×2 (16:52→20:46)
[2020-10-14] MEDS ORDERED: **hydrALAZINE** 10 MG TAB PO PRN (18:40)
[2020-10-14] MEDS: METOCLOPRAMIDE INJ 10MG/2ML VIAL (J2765 PER 1) IV SCH (20:35)
[2020-10-14] MEDS ORDERED: AMITRIPTYLINE 25MG TABLET PO SCH (21:00)
[2020-10-14] MEDS ORDERED: MIRTAZAPINE 15 MG TAB PO SCH (21:00)
[2020-10-14] MEDS ORDERED: KETOROLAC 30 MG/ML 1ML VIAL IV ONE (23:15)
[2020-10-15] MEDS: METOCLOPRAMIDE INJ 10MG/2ML VIAL (J2765 PER 1) IV SCH ×2 (01:54→09:52)
[2020-10-15] MEDS: NITROGLYCERIN 2% OINT 1 GM *U/D* PKT TOP SCH (04:05)
[2020-10-15 06:00] VITALS: BP 146/62
[2020-10-15] MEDS ORDERED: CARA1TAB6 PO (08:47)
[2020-10-15] MEDS ORDERED: LISI10TA22 PO (08:47)
[2020-10-15] MEDS ORDERED: MI-A80CH PO (08:47)
[2020-10-15] MEDS ORDERED: SELF1KIT MC (08:49)
[2020-10-15] MEDS: HEPARIN SOD (PORCINE) 5000UNITS/ML 1ML VIAL/SYRINGE SC SCH (09:00)
--- NOTE | 2020-10-15 09:04 | CR ---
CONSULTATION DATE: 10/14/2020 REFERRING PHYSICIAN: Kiya Landon MD REASON FOR CONSULTATION: Altered vision and left-sided weakness. HISTORY OF PRESENT ILLNESS: Carol Rasheed is a 20-year-old woman who states that she developed blurred vision in both eyes, worse on the left side after her Adebayo fundoplication for hiatal hernia in July, which was performed at [facility]. She decided to get reading glasses for episodes of blurred vision but it did help. She came to the emergency department yesterday because she felt blurred vision in the left eye, dilation of left pupil and felt weakness of left arm and leg. She also had headache along with her symptoms. Headache was in the frontal head region, 6/10 in intensity, pressure and throbbing in character. [facility] [place] was contacted and decided against TPA intravenously. They recommended MRI scan of the brain. MRI and MRA of brain and CT scan of head were unremarkable. I was called around 11:30 p.m. last night about this patient. I recommended admitting patient to [facility]. When I saw her today, her headache had left-sided weakness had resolved. She was complaining of abdominal pain, nausea and dry heaves. She appeared in discomfort in her stomach. Her blood pressure was mildly elevated at that time. The nurses applied nitropaste on her chest. She was given Phenergan. She denies any neck pain, back pain, diplopia, dysarthria, falls, loss of consciousness, urinary incontinence, numbness, weakness of her arms and legs at this time. She states that she has baseline trouble swallowing sometimes related to her hiatal hernia. i PAST MEDICAL HISTORY: 1. Hypertension. 2. Freedman's esophagus. 3. Hiatal hernia. 4. Status post Adebayo fundoplication. SOCIAL HISTORY: She is single. She denies smoking, alcohol or illicit drugs. Her boyfriend was present in the room and provided history as well. REVIEW OF SYSTEMS: All systems are reviewed and found to be noncontributory except as mentioned in history of present illness. HOME MEDICATIONS: 1. Amitriptyline 25 mg p.o. q.h.s. 2. Prevacid 30 mg p.o. b.i.d. 3. Mirtazapine 15 mg p.o. q.h.s. 4. Scopolamine patch 1.5 mg every three days. FAMILY HISTORY: Unremarkable and noncontributory. PHYSICAL EXAMINATION: VITAL SIGNS: Temperature 98.4, pulse 80, blood pressure 130/74 and it juan up to a systolic blood pressure 160s. Pulse ox 97% on room air. HEART: Regular rate and rhythm. LUNGS: Clear to auscultation. ABDOMEN: Soft, nontender, nondistended. EXTREMITIES: No pedal edema. MUSCULOSKELETAL: No abnormalities. NEUROLOGICAL: Tongue, uvula midline. 5/5 strength in all four extremities. Deep tendon reflexes are 2+ throughout. Plantars are downgoing. No Juancho sign. No clonus. No tremor or dysmetria. No nystagmus. Left pupil is 6 mm and right pupil is 4 mm, reactive to light bilaterally. Gait is normal. She is currently in pain in her abdomen. DIAGNOSTIC STUDIES: MRI and MRA of brain were reviewed and were unremarkable. CT scan of head was unremarkable. CBC, metabolic profile were unremarkable. Urine toxicology is pending. Her influenza RSV, COVID-19 testing were unremarkable. l ASSESSMENT: 1. 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 2. Migraines with aura, not intractable, without status migrainosus. 3. Episode of left-sided weakness resolved which can represent migraine with aura or complex migraine. 4. Vision disturbances which can also represent migraine with aura although ophthalmology evaluation is pending. PLAN: 1. Recommend ophthalmology consult. 2. Patient is being worked up for ileus, abdominal pain with history of hiatal hernia. 3. Continue amitriptyline 25 mg p.o. q.h.s. and Mirtazapine 15 mg p.o. q.h.s.
[2020-10-15 09:42] LABS: HEMATOCRIT 38.7 % (36.0-47.0); HEMOGLOBIN 13.2 g/dl (12.0-15.5); MEAN CORPUSCULAR HEMOGLOBIN 28.6 pg (27.0-33.0); MEAN CORPUSCULAR HGB CONC 34.1 g/dl (32.0-36.5); MEAN CORPUSCULAR VOLUME 83.9 fl (80.0-96.0); PLATELET COUNT, AUTOMATED 302 10^3/uL (150-450); RED BLOOD COUNT 4.61 10^6/uL (4.00-5.40); WHITE BLOOD COUNT 10.3 10^3/uL (4.0-10.0)
[2020-10-15] MEDS: SIMETHICONE 80MG CHEW TAB PO SCH (09:56)
[2020-10-15 09:57] VITALS: BP 138/81
[2020-10-15] MEDS: OMEPRAZOLE 20 MG CAP PO SCH (09:57)
[2020-10-15 10:08] LABS: ALT/SGPT 21 U/L (12-78); BILIRUBIN,TOTAL 0.6 MG/DL (0.2-1.0); BLOOD UREA NITROGEN 8 MG/DL (7-18); CALCIUM LEVEL 8.8 MG/DL (8.5-10.1); CARBON DIOXIDE LEVEL 23 MEQ/L (21-32); CHLORIDE LEVEL 110 MEQ/L (98-107); CREATININE FOR GFR 0.64 MG/DL (0.55-1.30); GLOMERULAR FILTRATION RATE > 60.0 (>60); GLUCOSE, FASTING 92 MG/DL (70-100); POTASSIUM SERUM 3.5 MEQ/L (3.5-5.1); SODIUM LEVEL 142 MEQ/L (136-145); TOTAL PROTEIN 6.3 GM/DL (6.4-8.2)
--- NOTE | 2020-10-15 10:20 | DS.PDOC ---
Discharge Summary General Date of Admission Oct 14, 2020 at 15:36 Date of Discharge 10/15/20 Discharge Summary Hospitalist Discharge Summary Dictated. If Discharge summary is needed urgently, pls call hypertype at [phone] Landon's Discharge Summary Vital Signs/I&Os Vital Signs Date Time Temp Pulse Resp B/P (MAP) Pulse Ox O2 Delivery O2 Flow Rate FiO2 10/15/20 09:57 138/81 10/15/20 06:00 98.3 94 16 95 Room Air I&O- Last 24 Hours up to 6 AM 10/15/20 06:00 Intake Total 870 ml Output Total 470 ml Balance 400 ml Laboratory Data Labs 24H Laboratory Tests 2 10/14/20 14:24: Urine Opiates Screen NEGATIVE, Urine Methadone Screen NEGATIVE, Urine Barbiturates Screen NEGATIVE, Urine Phencyclidine Screen NEGATIVE, Urine Amph etamines Screen NEGATIVE, Urine Benzodiazepines Screen NEGATIVE, Urine Cocaine Metabolite Screen NEGATIVE, Urine Cannabinoids Screen NEGATIVE 10/14/20 14:40: Urine Test NEGATIVE 10/14/20 14:59: Anion Gap 9, Glomerular Filtration Rate > 60.0, Calcium Level 9.7, Whole Blood Ionized Calcium 4.5, Magnesium Level 2.1, Total Bilirubin 0.6, Aspartate Amino Transf (AST/SGOT) 11, Alanine Aminotransferase (ALT/SGPT) 26, Alkaline Phosphatase 95, Total Protein 7.1, Albumin 4.5, Albumin/Globulin Ratio 1.7 10/15/20 09:25: Anion Gap 9, Glomerular Filtration Rate > 60.0, Calcium Level 8.8, Total Bilirubin 0.6, Aspartate Amino Transf (AST/SGOT) 5L, Alanine Aminotransferase (ALT/SGPT) 21, Alkaline Phosphatase 68, Total Protein 6.3L, Albumin 4.0, Albumin/Globulin Ratio 1.7, Nucleated Red Blood Cells % (auto) 0.0 CBC/BMP Laboratory Tests 10/14/20 14:59 10/15/20 09:25 Discharge Medications Scheduled Amitriptyline HCl (Amitriptyline HCl) 25 Mg Tablet, 25 MG PO QHS, (Reported) Lansoprazole (Lansoprazole) 30 Mg Capsule., 30 MG PO BID, (Reported) Lisinopril (Lisinopril) 10 Mg Tablet, 10 MG PO BID Mirtazapine (Remeron) 15 Mg Tablet, 15 MG PO QHS, (Reported) Simethicone (Mi-Acid) 80 Mg Tab.chew, 120 MG PO QID Sucralfate (Carafate) 1 Gm Tablet, 1 GM PO ACHS 4 times per day take on an empty stomach Scheduled PRN Prochlorperazine (Prochlorperazine Maleate) 5 Mg Tablet, 5 MG PO Q8H PRN for N AUSEA OR VOMITING, (Reported) Allergies Coded Allergies: No Known Allergies (Unverified , 09/03/19) SONAL LANDON MD Oct 15, 2020 10:18
--- NOTE | 2020-10-15 11:42 | DSES ---
DISCHARGE SUMMARY DATE OF ADMISSION: 10/14/2020 DATE OF DISCHARGE: 10/15/2020 CONSULTANTS DURING THIS ADMISSION: 1. Dr. Arnulfo Allan, cheese cooker. 2. Dr. Michael Britt, neurologist. PRIMARY DISCHARGE DIAGNOSES: 1. Adie's pupil. 2. History of hiatal hernia s/p Adebayo fundoplication with persistent dyspepsia. 3. Hypertensive urgency. 4. History of Freedman's esophagus. 6. Complicated Migraines DISCHARGE MEDICATIONS: 1. Lisinopril 10 mg b.i.d. 2. Simethicone 120 p.o. four times daily. 3. Carafate 1 gram a.c. h.s. 4. Amitriptyline 25 q. h.s. 5. Lansoprazole 30 mg b.i.d. 6. Mirtazapine 15 mg q. h.s. 7. Prochlorperazine 5 mg q. 8 as needed for nausea and vomiting. DISCHARGE INSTRUCTIONS: The patient is to have primary care physician refer to hypertensive specialist, pulp piler Dr. Osiel Madden, regarding hypertensive urgency to look for secondary causes of the patient's hypertension. Follow-up with primary care physician within five days of hospital discharge for blood pressure check. Per neurologist Dr. Michael Britt, the patient has a normal variant causing dilated pupil in the left eye called Adie's pupil, but should be treated for complicated migraine.. HOSPITAL COURSE: This is a 20-year-old female with history of Freedman's esophagus status post hypertension on chronic hydrochlorothiazide status post Adebayo fundoplication 08/24/2020, for hiatal hernia. Presented to the emergency room with complaints of blurred vision started at 10/13/2020 around 6 p.m. and was found to have anisocoria with left pupil dilated at 6 mm and the left one at 4 mm. The patient was evaluated with CT of the head, which was negative. MRI and MRA of the brain were also negative. The patient developed abdominal complaints with distention, dyspepsia, and vomiting treated with IV Zosyn, IV Phenergan, and simethicone with improvement. The patient was found to have hypertensive urgency with a blood pressure of 196/88, 172/106 treated with hydrochlorothiazide and Norvasc, and as-needed hydralazine. The patient had no significant improvement and had blood pressure 162/104 when she had nausea, vomiting, and abdominal distention and was given nitroglycerin 1 inch q. 4 hourly with resolution of blood pressure down to 136/86. The patient was transitioned to lisinopril 10 mg p.o. b.i.d. with good control. Her left-sided weakness that she complained about on admission had subsided. Repeat CT of the head had no intracranial hemorrhage and no acute intracranial abnormality. Neurology recommended treatment for complicated migraine. DISCHARGE PHYSICAL EXAMINATION: VITAL SIGNS: Temperature 98.3, pulse 94, respiratory rate 16, blood pressure 146/62, 95% on room air. LUNGS: Clear to auscultation. No wheezing, rales, or rhonchi. HEENT: The patient has a left dilated pupil that measures at 6 mm and right measures at 4 mm reactive. Extraocular muscles are intact. No lid lag. HEART: S1, S2. Sinus rhythm. ABDOMEN: Soft, nontender, and nondistended. EXTREMITIES: No pitting edema. LABORATORY DATA: White count 7.4, hemoglobin 13, hematocrit 39, platelet count 321,000. Sodium 141, potassium 3.7, chloride 108, bicarb 24, BUN 7, creatinine 0.9, glucose of 99, magnesium 2.2, total bilirubin 0.6, AST 11, ALT 26, alkaline phosphatase of 95. IMAGING STUDIES: CT of the head without contrast with no acute intracranial pathology. MRI and MRA of the brain both negative. Unremarkable abdominal x-ray 10/14/2020, nonspecific bowel gas pattern and no evidence of bowel obstruction. Repeat head CT 10/14/2020, negative noncontrast CT. Time spent on discharge 30 minutes. [facility]
[2020-10-15] MEDS ORDERED: SUCRALFATE 1 GM TAB PO SCH (12:00)
== END 2020-10-15 11:44 | disposition home or self-care (01) | DRG 82 ==
LOC: M ED 19:29 → M ED INP 19:30 → ENRESERV 10-14 00:38 → M ICU 10-14 01:20 → M MSPAV 10-14 11:50 → OBSVTOIN 10-14 15:36
PROVIDERS: ADMIT Internal Medicine; ATTEND General Practice
DX: H57.052 Tonic pupil, left eye (principal); I10 Essential (primary) hypertension; H57.02 Anisocoria; R53.1 Weakness; H57.04 Mydriasis; R01.1 Cardiac murmur, unspecified; I16.0 Hypertensive urgency; G43.109 Migraine with aura, not intractable, without status migrainosus; K22.70 Barrett's esophagus without dysplasia; K44.9 Diaphragmatic hernia without obstruction or gangrene; Z79.899 Other long term (current) drug therapy; Z98.890 Other specified postprocedural states

== ENCOUNTER 2020-10-23 02:26 | Observation (INO) | payer BC, OTHER ==
[~2020-10-23] VITALS: Ht 152.4 cm; Wt 61.0 kg
[~2020-10-23 02:26] MED LIST changes: +CARA1TAB6 PO; +LISI10TA22 PO; +MI-A80CH PO; +MIRT-62 PO; +PROC5TAB57 PO; +SCOP1PAT2 TOP; +SELF1KIT MC
[2020-10-23] MEDS ORDERED: HALOPERIDOL 5MG/ML VIAL (J1630 PER 1) IV ONE (04:45)
[2020-10-23] MEDS ORDERED: KETOROLAC 30 MG/ML 1ML VIAL IV ONE (04:45)
[2020-10-23] MEDS ORDERED: NS 1,000 ML IV ONE (04:50)
[2020-10-23 04:52] LABS: BASO # 0.1 10^3/uL (0.0-0.2); BASO % 0.6 % (0.0-1.0); EOS % 0.1 % (0.0-3.0); HEMATOCRIT 42.4 % (36.0-47.0); LYMPH # 1.6 10^3/uL (1.5-5.0); LYMPH % 16.8 % (24.0-44.0); MEAN CORPUSCULAR HEMOGLOBIN 28.8 pg (27.0-33.0); MEAN CORPUSCULAR HGB CONC 35.4 g/dl (32.0-36.5); MEAN CORPUSCULAR VOLUME 81.5 fl (80.0-96.0); MONO # 0.5 10^3/uL (0.0-0.8); MONO % 5.8 % (2.0-8.0); NEUTROPHILS # 7.2 10^3/uL (1.5-8.5); NEUTROPHILS % 76.3 % (36.0-66.0); PLATELET COUNT, AUTOMATED 272 10^3/uL (150-450); WHITE BLOOD COUNT 9.4 10^3/uL (4.0-10.0)
[2020-10-23 05:21] LABS: HCG, SERUM QUALITATIVE NEGATIVE (NEGATIVE)
[2020-10-23 05:24] LABS: ALBUMIN 4.7 GM/DL (3.2-5.2); ALT/SGPT 22 U/L (12-78); BILIRUBIN,DIRECT 0.4 MG/DL (0.0-0.2); BILIRUBIN,TOTAL 1.1 MG/DL (0.2-1.0); BLOOD UREA NITROGEN 15 MG/DL (7-18); CALCIUM LEVEL 9.7 MG/DL (8.5-10.1); CARBON DIOXIDE LEVEL 20 MEQ/L (21-32); CHLORIDE LEVEL 105 MEQ/L (98-107); CREATININE FOR GFR 0.75 MG/DL (0.55-1.30); GLOMERULAR FILTRATION RATE > 60.0 (>60); GLUCOSE, FASTING 93 MG/DL (70-100); LIPASE 75 U/L (73-393); SODIUM LEVEL 138 MEQ/L (136-145); TOTAL PROTEIN 7.4 GM/DL (6.4-8.2)
[2020-10-23 06:57] LABS: AMPHETAMINES LEVEL URINE NEGATIVE (NEGATIVE); BARBITURATES URINE NEGATIVE (NEGATIVE); BENZODIAZEPINES URINE NEGATIVE (NEGATIVE); CANNABINOIDS URINE NEGATIVE (NEGATIVE); COCAINE METABOLITE URINE NEGATIVE (NEGATIVE); METHADONE URINE NEGATIVE (NEGATIVE); OPIATES URINE POSITIVE (NEGATIVE); PHENCYCLIDINE URINE NEGATIVE (NEGATIVE)
[2020-10-23] MEDS ORDERED: AMIT25TA17 PO (07:22)
[2020-10-23] MEDS ORDERED: PROMETHAZINE INJ 25 MG/ML VIAL (J2550) IV ONE (07:35)
[2020-10-23] MEDS ORDERED: ONDANSETRON 4MG/2ML VIAL IV ONE (08:20)
[2020-10-23] MEDS ORDERED: DEPO150I12 IM (08:50)
[2020-10-23] MEDS ORDERED: SCOP1PAT2 TOP (08:50)
[2020-10-23] MEDS ORDERED: SIME80CH6 PO (08:50)
[2020-10-23] MEDS ORDERED: ACETAMINOPHEN TAB 650MG DOSE (2X325MG) PO PRN (10:05)
[2020-10-23] MEDS ORDERED: LORazepam 2 MG/ML VIAL IV PRN (10:05)
[2020-10-23] MEDS ORDERED: ONDANSETRON 4MG/2ML VIAL IV PRN (10:05)
[2020-10-23] MEDS ORDERED: MAALOX 30 ML SUSP *UDC PO PRN (10:05)
[2020-10-23] MEDS ORDERED: MOM 30ML SUSPENSION UDC PO PRN (10:05)
[2020-10-23] MEDS: METOCLOPRAMIDE INJ 10MG/2ML VIAL (J2765 PER 1) IV SCH ×3 (10:31→22:02)
[2020-10-23] MEDS ORDERED: PILL CUTTER 1 EACH XX PRN (11:10)
[2020-10-23] MEDS: SIMETHICONE 80MG CHEW TAB PO SCH ×4 (11:20→20:28)
[2020-10-23] MEDS: DOCUSATE SODIUM 100MG CAPSULE PO SCH ×2 (11:20→20:28)
--- NOTE | 2020-10-23 12:55 | HPEPDOC ---
[facility] Medical History & Physical Date of Admission Oct 23, 2020 Date of Service: Oct 23, 2020 History and Physical CHIEF COMPLAINT: Intractable nausea and vomiting HISTORY OF PRESENT ILLNESS: This is a 20-year-old female history of GERD with Freedman's esophagus. She presents here to uncontrolled nausea and vomiting and poor appetite. This has been an ongoing problem for the past several months. Patient reports that the symptoms have been ongoing since her paraesophageal hernia robotic repair at [facility] in July by Dr. Jackson. Her boyfriend. Tells me that she has good weeks and then wakes her nausea is intermittent and comes and goes. She was feeling bad last night which helped her to come to the hospital. She tells me she was just at [facility] yesterday and went home from the emergency depa rtment for the same problem. Complains that she has a lot of gas. Her vomiting is more so dry heaving. Her appetite is poor. She denies any fevers. While at [facility] last month patient was thought to have psychosomatic causes for her poor oral intake and nausea and vomiting. They consulted psychiatry there who started her on Zoloft. EGD was performed showing distal esophagitis. Patient was prescribed Protonix twice a day and Carafate. Of note patient requesting morphine saying that the only thing that helps. Unclear if there is pain seeking behavior. Her urine drug screen was positive for opiates. She says she went to [facility] yesterday to the emergency department and she was given morphine and went home afterwards. PAST MEDICAL/SURGICAL HISTORY: GERD Hypertension from outside hospital records but patient denies Freedman's esophagus Paraesophageal hernia repair August 24 2020 at [place] surgeon is Dr. Jackson SOCIAL HISTORY: Denies alcohol use Denies tobacco use currently she is a former smoker Denies illicit drug use FAMILY HISTORY: Reviewed and none contributory to this admission ALLERGIES: Please see below. REVIEW OF SYSTEMS: 10 point review of systems complete all negative otherwise stated in HPI HOME MEDICATIONS: Please see below. PHYSICAL EXAMINATION: Constitutional: Awake and alert, in no apparent distress ENT: Sclera are clear. Respiratory: Lungs CTA bilaterally. No respiratory distress. No use of accessory muscles. Cardiovascular: RRR S1 and S2 are normal, no murmur Gastrointestinal: Abdomen is soft, non distended, non tender, BS present. Musculoskeletal: No lower extremity edema. Neurologic: No focal neurological deficit. Mental Status: A&O x3, normal affect Skin: Warm, dry LABORATORY DATA: See below. IMAGING: See chart MICROBIOLOGY: Please see below. ASSESSMENT/PLAN 20-year-old female here with intractable nausea and vomiting. Admitted with conservative management for observation. # Intractable nausea and vomiting: Etiology unclear appears to be chronic for the past several months. There was question at [place] if this is psychosomatic. We will observe the patient overnight with conservative management. I recommend the patient that she should follow-up with her surgeon Dr. Jackson. Lam scheduled Zofran as needed. Simethicone. # GERD: Patient states she has Freedman's esophagus as well I'm unable to confirm this. I will continue her on PPI twice daily. # DVT prophylaxis: Lovenox A Yousef Hospitalist Vital Signs Vital Signs Date Time Temp Pulse Resp B/P (MAP) Pulse Ox O2 Delivery O2 Flow Rate FiO2 10/23/20 11:25 99.1 114 18 150/83 (105) 99 Room Air Laboratory Data Labs 24H Laboratory Tests 2 10/23/20 04:45: Immature Granulocyte % (Auto) 0.4, Neutrophils (%) (Auto) 76.3H, Lymphocytes (%) (Auto) 16.8L, Monocytes (%) (Auto) 5.8, Eosinophils (%) (Auto) 0.1, Basophils (%) (Auto) 0.6, Neutrophils # (Auto) 7.2, Lymphocytes # (Auto) 1.6, Monocytes # (Auto) 0.5, Eosinophils # (Auto) 0.0, Basophils # (Auto) 0.1, Nucleated Red Blood Cells % (auto) 0.0, Anion Gap 13, Glomerular Filtration Rate > 60.0, Calcium Level 9.7, Total Bilirubin 1.1H, Direct Bilirubin 0.4H, Aspartate Amino Transf (AST/SGOT) 8, Alanine Aminotransferase (ALT/SGPT) 22, Alkaline Phosphatase 72, Total Protein 7.4, Albumin 4.7, Albumin/Globulin Ratio 1.7, Lipase 75, Human Chorionic Gonadotropin, Qual NEGATIVE 10/23/20 06:21: Urine Color NASIMA, Urine Appearance CLEAR, Urine pH 6.0, Urine Specific [place] 1.030, Urine Protein 1+H, Urine Glucose (UA) NEGATIVE, Urine Ketones 2+H, Urine Blood NEGATIVE, Urine Nitrite NEGATIVE, Urine Bilirubin NEGATIVE, Urine Urobilinogen 2.0H, Urine Leukocyte Esterase NEGATIVE, Urine WBC (Auto) 2, Urine RBC (Auto) 0, Urine Hyaline Casts (Auto) 0, Urine Bacteria (Auto) NEGATIVE, Urine Squamous Epithelial Cells 1, Urine Mucus (Auto) MODERATE, Urine Sperm (Au to) , Urine Opiates Screen POSITIVEH, Urine Methadone Screen NEGATIVE, Urine Barbiturates Screen NEGATIVE, Urine Phencyclidine Screen NEGATIVE, Urine Amphetamines Screen NEGATIVE, Urine Benzodiazepines Screen NEGATIVE, Urine Cocaine Metabolite Screen NEGATIVE, Urine Cannabinoids Screen NEGATIVE 10/23/20 12:00: CBC/BMP Laboratory Tests 10/23/20 04:45 Home Medications Scheduled Amitriptyline HCl (Amitriptyline HCl) 25 Mg Tablet, 1 TAB PO QPM Lansoprazole (Lansoprazole) 30 Mg Capsule.dr, 30 MG PO BID Medroxyprogesterone Acetate (Depo-Provera) 150 Mg/1 Ml Syringe, 150 MG IM Q3M Ondansetron HCl (Zofran) 4 Mg Tablet, 4 MG PO TID Scopolamine (Transderm-Scop) 1 Each Patch.td.3, 1.5 MG TOP Q72H APPLIED BEHIND LEFT EAR Scheduled PRN Simethicone (Simethicone) 80 Mg Tab.chew, 160 MG PO Q6H PRN for GAS PAIN Allergies Coded Allergies: No Known Allergies (Unverified , 09/03/19) A-FIB/CHADSVASC A-FIB History Current/History of A-Fib/PAF?: No YOUSEMIKE Harding MD Oct 23, 2020 12:45
[2020-10-23 13:04] LABS: RSV AMPLIFICATION NEGATIVE (NEGATIVE)
[2020-10-23] MEDS: PANTOPRAZOLE 40MG TAB (PROTONIX) PO SCH ×2 (13:17→20:28)
[2020-10-23] MEDS: NS 1,000 ML IV SCH (13:18)
[2020-10-23 15:05] VITALS: BP 138/72
[2020-10-23 22:00] VITALS: BP 135/85
[2020-10-24] MEDS: NS 1,000 ML IV SCH (00:04)
[2020-10-24] MEDS: METOCLOPRAMIDE INJ 10MG/2ML VIAL (J2765 PER 1) IV SCH ×2 (04:10→09:11)
[2020-10-24 06:00] VITALS: BP 144/86
[2020-10-24 06:12] LABS: HEMATOCRIT 33.4 % (36.0-47.0); MEAN CORPUSCULAR HGB CONC 34.4 g/dl (32.0-36.5); MEAN CORPUSCULAR VOLUME 84.3 fl (80.0-96.0); PLATELET COUNT, AUTOMATED 198 10^3/uL (150-450); RED BLOOD COUNT 3.96 10^6/uL (4.00-5.40); WHITE BLOOD COUNT 7.5 10^3/uL (4.0-10.0)
[2020-10-24 06:14] LABS: HEMOGLOBIN 11.5 g/dl (12.0-15.5)
[2020-10-24 06:30] LABS: BLOOD UREA NITROGEN 10 MG/DL (7-18); CALCIUM LEVEL 8.2 MG/DL (8.5-10.1); CARBON DIOXIDE LEVEL 21 MEQ/L (21-32); CHLORIDE LEVEL 111 MEQ/L (98-107); CREATININE FOR GFR 0.58 MG/DL (0.55-1.30); GLOMERULAR FILTRATION RATE > 60.0 (>60); GLUCOSE, FASTING 79 MG/DL (70-100); MAGNESIUM LEVEL 2.1 MG/DL (1.8-2.4); POTASSIUM SERUM 3.4 MEQ/L (3.5-5.1); SODIUM LEVEL 141 MEQ/L (136-145)
[2020-10-24] MEDS ORDERED: POTASSIUM CHLORIDE 10 MEQ SR TABLET PO SCH (09:00)
[2020-10-24] MEDS ORDERED: ENOXAPARIN 40MG/0.4ML SYRINGE (J1650 PER 10MG) SC SCH (09:00)
[2020-10-24] MEDS: SIMETHICONE 80MG CHEW TAB PO SCH (09:12)
[2020-10-24] MEDS: PANTOPRAZOLE 40MG TAB (PROTONIX) PO SCH (09:12)
[2020-10-24] MEDS: DOCUSATE SODIUM 100MG CAPSULE PO SCH (09:12)
[2020-10-24] MEDS ORDERED: ZOFR4TAB16 PO (09:24)
--- NOTE | 2020-10-24 09:28 | IPNPDOC ---
Text Note Date of Service The patient was seen on 10/24/20. NOTE Subjective: Patient was seen and examined this morning at bedside. She says she is doing significantly better she says her symptoms have all resolved she is no longer nauseous and hasn't vomited she has good appetite and ready to go home. There was no acute overnight events. Objective: Constitutional: Awake and alert, in no apparent distress ENT: Sclera are clear. Respiratory: Lungs CTA bilaterally. No respiratory distress. No use of accessory muscles. Cardiovascular: RRR S1 and S2 are normal, no murmur Gastrointestinal: Abdomen is soft, non distended, non tender, BS present. Musculoskeletal: No lower extremity edema. Neurologic: No focal neurological deficit. Mental Status: A&O x3, normal affect Skin: Warm, dry Assessment/plan: 20-year-old female here with intractable nausea and vomiting. Admitted with conservative management for observation. All patient's symptoms resolved overnight and she was discharged on 10/24/2020. # Intractable nausea and vomiting: Resolved. There was question at [place] if this is psychosomatic. Patient was observed overnight and all her symptoms resolved. I recommend the patient that she should follow-up with her surgeon Dr. Jackson. Continue Simethicone. Zofran as needed # GERD: Patient states she has Freedman's esophagus as well I'm unable to confirm this. PPI twice daily. # DVT prophylaxis: Shawnee Potter Hospitalist Carlito NICOLE, I+O VSCarlito, I+O Laboratory Tests 10/24/20 05:22 Vital Signs Date Time Temp Pulse Resp B/P (MAP) Pulse Ox O2 Delivery O2 Flow Rate FiO2 10/24/20 06:00 97.3 69 20 144/86 (105) 96 Room Air I&O- Last 24 Hours up to 6 AM 10/24/20 05:59 Intake Total 2190 ml Output Total 200 ml Balance 1990 ml MIKE POTTER MD Oct 24, 2020 09:28
[2020-10-25] MEDS ORDERED: SCOPOLAMINE 1MG TRANSDERMAL PATCH TOP SCH (20:00)
== END 2020-10-24 12:28 | disposition home or self-care (01) ==
LOC: M ED 02:26 → M ED INP 02:27 → ENRESERV 13:32 → M MSPAV 14:58
PROVIDERS: ADMIT Family Medicine; ATTEND Family Medicine
DX: R11.15 Cyclical vomiting syndrome unrelated to migraine (principal); K21.9 Gastro-esophageal reflux disease without esophagitis; K22.70 Barrett's esophagus without dysplasia; Z87.891 Personal history of nicotine dependence; Z79.899 Other long term (current) drug therapy
CPT/HCPCS: 36415; 80048; 80076; 80307; 81001; 83690; 83735; 84703; 85025; 85027; 87631; 96361; 96374; 96375; 96376; 99285; J1630; J1885; J2060; J2405; J2765

== ENCOUNTER → 2021-01-07 | Outpatient (REF) | payer OTHER ==
[~2021-01-07] MED LIST changes: +DEPO150I12 IM; +SIME80CH6 PO; +ZOFR4TAB16 PO
== END ==
LOC: M SFHCWAGY 12:57
PROVIDERS: ATTEND Nurse Practitioner Women's Health
DX: Z11.3 Encounter for screening for infections with a predominantly sexual mode of transmission (principal)

== ENCOUNTER → 2021-01-07 | Outpatient (REF) | payer OTHER | LOC: M SFHCWAGY 13:57 | PROVIDERS: ATTEND Nurse Practitioner Women's Health | DX: Z12.4 Encounter for screening for malignant neoplasm of cervix (principal) ==

== ENCOUNTER 2021-02-28 10:04 | Emergency (ER) | payer BC, OTHER ==
[~2021-02-28] VITALS: Ht 152.4 cm; Wt 56.8 kg
[~2021-02-28 10:04] MED LIST changes: -SCOP1PAT2 TOP; +TRAN1DIS4 TOP
[2021-02-28] MEDS ORDERED: LORazepam 2 MG/ML VIAL IV STA (10:43)
[2021-02-28] MEDS ORDERED: LORazepam 2 MG TAB PO STA (10:50)
[2021-02-28] MEDS ORDERED: ATIV1TAB10 PO (13:56)
[2021-02-28 14:34] VITALS: BP 143/84
== END 2021-02-28 14:35 | disposition home or self-care (01) ==
LOC: EDBD 10:04 → M ED 10:04
DX: F41.9 Anxiety disorder, unspecified (principal); F17.200 Nicotine dependence, unspecified, uncomplicated; Z79.899 Other long term (current) drug therapy

== ENCOUNTER 2021-03-18 02:15 | Emergency (ER) | payer BC, OTHER ==
[~2021-03-18] VITALS: Ht 152.4 cm; Wt 52.3 kg
[~2021-03-18 02:15] MED LIST changes: +ATIV1TAB10 PO; +SCOP1PAT2 TOP; -TRAN1DIS4 TOP
[2021-03-18] MEDS ORDERED: BUSP10TA (02:29)
[2021-03-18] MEDS ORDERED: HYDR-3363 (02:29)
[2021-03-18] MEDS ORDERED: NS 1,000 ML IV ONE (02:30)
[2021-03-18 02:49] LABS: BASO # 0.1 10^3/uL (0.0-0.2); BASO % 0.6 % (0.0-1.0); EOS # 0.1 10^3/uL (0.0-0.5); EOS % 0.7 % (0.0-3.0); HEMATOCRIT 40.8 % (36.0-47.0); HEMOGLOBIN 14.5 g/dl (12.0-15.5); LYMPH # 3.1 10^3/uL (1.5-5.0); LYMPH % 35.1 % (24.0-44.0); MEAN CORPUSCULAR HEMOGLOBIN 29.1 pg (27.0-33.0); MEAN CORPUSCULAR HGB CONC 35.5 g/dl (32.0-36.5); MEAN CORPUSCULAR VOLUME 81.8 fl (80.0-96.0); MONO # 0.7 10^3/uL (0.0-0.8); MONO % 8.4 % (2.0-8.0); NEUTROPHILS # 4.9 10^3/uL (1.5-8.5); NEUTROPHILS % 55.1 % (36.0-66.0); PLATELET COUNT, AUTOMATED 292 10^3/uL (150-450); RED BLOOD COUNT 4.99 10^6/uL (4.00-5.40); WHITE BLOOD COUNT 8.9 10^3/uL (4.0-10.0)
[2021-03-18 02:59] LABS: VENOUS BASE EXCESS -2.9 (-2.0-2.0); VENOUS HCO3 15.5 MEQ/L (23.0-27.0); VENOUS O2 SATURATION 99.1 % (60.0-80.0); VENOUS PARTIAL PRESSURE CO2 16.4 mmHg (38.0-50.0); VENOUS PARTIAL PRESSURE O2 166.8 mmHg (30.0-50.0); VENOUS PH 7.592 UNITS (7.330-7.430); VENOUS STANDARD HCO3 22.1 MEQ/L
[2021-03-18 03:22] LABS: ACETAMINOPHEN LEVEL < 2.0 UG/ML (10.0-30.0); ALBUMIN 4.5 GM/DL (3.2-5.2); ALT/SGPT 24 U/L (12-78); BILIRUBIN,DIRECT 0.3 MG/DL (0.0-0.2); BILIRUBIN,TOTAL 1.4 MG/DL (0.2-1.0); BLOOD UREA NITROGEN 7 MG/DL (7-18); CALCIUM LEVEL 9.4 MG/DL (8.5-10.1); CARBON DIOXIDE LEVEL 18 MEQ/L (21-32); CHLORIDE LEVEL 112 MEQ/L (98-107); CPK CREATINE PHOSPHOKINASE 327 U/L (26-192); CREATININE FOR GFR 0.81 MG/DL (0.55-1.30); ETHYL ALCOHOL (ETHANOL) 0.003 % (0.000-0.010); GLOMERULAR FILTRATION RATE > 60.0 (>60); GLUCOSE, FASTING 95 MG/DL (70-100); POTASSIUM SERUM 3.6 MEQ/L (3.5-5.1); SALICYLATE LEVEL < 1.7 MG/DL (5.0-30.0); SODIUM LEVEL 141 MEQ/L (136-145); THYROID STIMULATING HORMONE 0.326 uIU/ML (0.358-3.740); TOTAL PROTEIN 6.9 GM/DL (6.4-8.2)
[2021-03-18 03:51] LABS: AMPHETAMINES LEVEL URINE NEGATIVE (NEGATIVE); BARBITURATES URINE NEGATIVE (NEGATIVE); BENZODIAZEPINES URINE NEGATIVE (NEGATIVE); CANNABINOIDS URINE POSITIVE (NEGATIVE); COCAINE METABOLITE URINE NEGATIVE (NEGATIVE); METHADONE URINE NEGATIVE (NEGATIVE); OPIATES URINE NEGATIVE (NEGATIVE); PHENCYCLIDINE URINE NEGATIVE (NEGATIVE)
[2021-03-18] MEDS ORDERED: LORazepam 2 MG/ML VIAL IV STA (03:57)
[2021-03-18] MEDS ORDERED: LORazepam 2 MG/ML VIAL As Ordered ONE (04:15)
[2021-03-18 04:18] LABS: FREE T4 1.89 NG/DL (0.76-1.46)
[2021-03-18 06:15] VITALS: BP 152/75
== END 2021-03-18 06:37 | disposition home or self-care (01) ==
LOC: M ED 02:15
DX: F41.0 Panic disorder [episodic paroxysmal anxiety] (principal); F41.1 Generalized anxiety disorder; I10 Essential (primary) hypertension; Z79.899 Other long term (current) drug therapy
CPT/HCPCS: 80048; 80076; 80143; 80307; 82077; 82550; 82803; 84439; 84443; 84702; 85025; 93041; 96361; 96374; 99285; J2060

== ENCOUNTER 2021-03-25 06:59 | Emergency (ER) | payer BC, OTHER ==
[~2021-03-25] VITALS: Ht 152.4 cm; Wt 48.4 kg
[~2021-03-25 06:59] MED LIST changes: +BUSP10TA; +HYDR-3363
[2021-03-25 07:00] VITALS: BP 145/100
[2021-03-25] MEDS ORDERED: VALA1TAB5 (07:09)
[2021-03-25] MEDS ORDERED: DEPO150I12 IM (07:09)
== END 2021-03-25 07:30 | disposition left against medical advice (07) ==
LOC: M ED 06:59
DX: Z53.21 Procedure and treatment not carried out due to patient leaving prior to being seen by health care provider (principal)

== ENCOUNTER → 2021-04-06 | Outpatient (CLI) | payer BC, OTHER ==
[~2021-04-06] MED LIST changes: +VALA1TAB5
[2021-04-06 14:35] LABS: FREE T4 1.33 NG/DL (0.76-1.46); THYROID STIMULATING HORMONE 0.652 uIU/ML (0.358-3.740)
[2021-04-06 14:37] LABS: CORTISOL AM 4.4 UG/DL (4.3-22.4)
[2021-04-06 14:39] LABS: TOTAL T3 109.6 NG/DL (60.0-181.0)
== END ==
LOC: M PLALAB 10:36
PROVIDERS: ATTEND Internal Medicine Endocrinology, Diabetes & Metabolism
DX: E05.00 Thyrotoxicosis with diffuse goiter without thyrotoxic crisis or storm (principal)

== ENCOUNTER 2022-01-21 08:39 | Inpatient (IN) | payer BC, OTHER ==
[~2022-01-21] VITALS: Ht 152.4 cm; Wt 50.3 kg
[~2022-01-21 08:39] MED LIST changes: -SCOP1PAT2 TOP; +TRAN1DIS4 TOP
[2022-01-21] MEDS ORDERED: HYDR-3490 PO (08:51)
[2022-01-21 11:37] LABS: HEMATOCRIT 38.5 % (36.0-47.0); HEMOGLOBIN 13.1 g/dl (12.0-15.5); MEAN CORPUSCULAR HEMOGLOBIN 28.7 pg (27.0-33.0); MEAN CORPUSCULAR VOLUME 84.4 fl (80.0-96.0); PLATELET COUNT, AUTOMATED 353 10^3/uL (150-450); RED BLOOD COUNT 4.56 10^6/uL (4.00-5.40); WHITE BLOOD COUNT 9.1 10^3/uL (4.0-10.0)
[2022-01-21 12:10] LABS: HCG, SERUM QUALITATIVE NEGATIVE (NEGATIVE)
[2022-01-21 12:21] LABS: RSV AMPLIFICATION NEGATIVE (NEGATIVE)
[2022-01-21 12:23] LABS: AMPHETAMINES LEVEL URINE NEGATIVE (NEGATIVE); BARBITURATES URINE NEGATIVE (NEGATIVE); BENZODIAZEPINES URINE NEGATIVE (NEGATIVE); CANNABINOIDS URINE POSITIVE (NEGATIVE); COCAINE METABOLITE URINE NEGATIVE (NEGATIVE); METHADONE URINE NEGATIVE (NEGATIVE); OPIATES URINE NEGATIVE (NEGATIVE); PHENCYCLIDINE URINE NEGATIVE (NEGATIVE)
[2022-01-21 12:24] LABS: ALBUMIN 3.4 GM/DL (3.2-5.2); ALT/SGPT 24 U/L (12-78); BILIRUBIN,DIRECT 0.1 MG/DL (0.0-0.2); BILIRUBIN,TOTAL 0.6 MG/DL (0.2-1.0); BLOOD UREA NITROGEN 6 MG/DL (7-18); CALCIUM LEVEL 9.5 MG/DL (8.5-10.1); CARBON DIOXIDE LEVEL 22 MEQ/L (21-32); CHLORIDE LEVEL 105 MEQ/L (98-107); CREATININE FOR GFR 0.58 MG/DL (0.55-1.30); ETHYL ALCOHOL (ETHANOL) 0.004 % (0.000-0.010); GLOMERULAR FILTRATION RATE > 60.0 (>60); GLUCOSE, FASTING 81 MG/DL (70-100); POTASSIUM SERUM 4.3 MEQ/L (3.5-5.1); SALICYLATE LEVEL < 1.7 MG/DL (5.0-30.0); SODIUM LEVEL 139 MEQ/L (136-145); THYROID STIMULATING HORMONE 0.368 uIU/ML (0.358-3.740); TOTAL PROTEIN 6.7 GM/DL (6.4-8.2)
[2022-01-21] MEDS ORDERED: ERGO500029 PO (13:11)
[2022-01-21] MEDS ORDERED: HOME MED LIST COMPLETE! XX SCH (13:15)
[2022-01-21] MEDS ORDERED: IBUPROFEN 400MG TAB PO PRN (13:35)
[2022-01-21] MEDS ORDERED: MAALOX 30 ML SUSP *UDC PO PRN (13:35)
[2022-01-21] MEDS ORDERED: MOM 30ML SUSPENSION UDC PO PRN (13:35)
[2022-01-21 17:55] VITALS: BP 141/95
[2022-01-21] MEDS: NICOTINE 21MG/24HR 1 EA TRANSDERMAL TD SCH (19:06)
[2022-01-21] MEDS: VITAMIN D 1,000 INTERNATIONAL UNITS TABLET PO SCH (19:06)
[2022-01-21] MEDS: traZODone 50 MG TAB PO PRN (21:40)
[2022-01-21] MEDS: LORazepam 1 MG TAB PO PRN (21:40)
[2022-01-22] MEDS: LORazepam 1 MG TAB PO PRN (06:05)
[2022-01-22 06:21] VITALS: BP 132/74
[2022-01-22] MEDS ORDERED: ONDANSETRON 4MG ORAL DISINTEGRATING TAB SL PRN (08:05)
[2022-01-22] MEDS ORDERED: IBUPROFEN 400MG TAB PO PRN (08:05)
[2022-01-22] MEDS ORDERED: GI COCKTAIL 50ML BTL(HYOSCYAMINE/MAALOX/LIDOCAINE VISCOUS)(1:3:1) PO PRN (08:05)
[2022-01-22] MEDS: NICOTINE 21MG/24HR 1 EA TRANSDERMAL TD SCH (08:30)
[2022-01-22] MEDS: LIDOCAINE 5% (LIDODERM) PATCH TD SCH (08:31)
[2022-01-22] MEDS: SCOPOLAMINE 1MG TRANSDERMAL PATCH TOP SCH (08:32)
[2022-01-22] MEDS ORDERED: cloNIDine HCL 0.1 MG/24 HR PATCH TOP SCH (09:00)
[2022-01-22] MEDS ORDERED: INFLUENZA QUADRIVALENT PF VACCINE 0.5ML SYRINGE IM.IMMUN ONE (09:00)
[2022-01-22] MEDS: PANTOPRAZOLE 40MG TAB (PROTONIX) PO SCH (09:31)
[2022-01-22] MEDS: VITAMIN D 1,000 INTERNATIONAL UNITS TABLET PO SCH (09:31)
[2022-01-22] MEDS ORDERED: PROMETHAZINE 25MG/ML 1ML VIAL IM ONE ×2 (11:00→18:00)
[2022-01-22] MEDS: SUCRALFATE SUSP 1GM/10ML UD PO SCH ×3 (12:03→21:00)
[2022-01-22] MEDS: METOCLOPRAMIDE 10MG TAB PO SCH ×3 (12:10→21:00)
[2022-01-22] MEDS: SIMETHICONE 80MG CHEW TAB PO SCH ×3 (12:57→21:00)
[2022-01-22 13:11] LABS: BASO % 0.5 % (0.0-1.0); LYMPH # 1.1 10^3/uL (1.5-5.0); LYMPH % 13.4 % (24.0-44.0); MEAN CORPUSCULAR HEMOGLOBIN 28.1 pg (27.0-33.0); MEAN CORPUSCULAR VOLUME 82.6 fl (80.0-96.0); MONO # 0.4 10^3/uL (0.0-0.8); MONO % 4.3 % (2.0-8.0); NEUTROPHILS # 6.7 10^3/uL (1.5-8.5); PLATELET COUNT, AUTOMATED 431 10^3/uL (150-450); RED BLOOD COUNT 5.45 10^6/uL (4.00-5.40); WHITE BLOOD COUNT 8.3 10^3/uL (4.0-10.0)
[2022-01-22 13:17] LABS: HEMOGLOBIN 15.3 g/dl (12.0-15.5)
[2022-01-22 13:33] LABS: ERYTHROCYTE SEDIMENTATION RATE 44 mm/hr (0-20)
[2022-01-22 13:46] LABS: ALBUMIN 3.9 GM/DL (3.2-5.2); ALT/SGPT 27 U/L (12-78); AMYLASE 33 U/L (25-115); BILIRUBIN,TOTAL 0.6 MG/DL (0.2-1.0); BLOOD UREA NITROGEN 9 MG/DL (7-18); C REACTIVE PROTEIN QUANTITATIV 5.94 MG/DL (0.00-0.30); CALCIUM LEVEL 9.7 MG/DL (8.5-10.1); CARBON DIOXIDE LEVEL 22 MEQ/L (21-32); CHLORIDE LEVEL 99 MEQ/L (98-107); CREATININE FOR GFR 0.82 MG/DL (0.55-1.30); GLOMERULAR FILTRATION RATE > 60.0 (>60); GLUCOSE, FASTING 82 MG/DL (70-100); LIPASE 53 U/L (73-393); POTASSIUM SERUM 3.8 MEQ/L (3.5-5.1); SODIUM LEVEL 134 MEQ/L (136-145); TOTAL PROTEIN 8.5 GM/DL (6.4-8.2)
[2022-01-22] MEDS ORDERED: LORazepam 2 MG/ML VIAL IM ONE (16:15)
[2022-01-22 16:45] VITALS: BP 160/100
[2022-01-22 17:43] VITALS: BP 160/100
[2022-01-22] MEDS: LevoFLOXacin 750 MG TABLET PO SCH (18:00)
[2022-01-22] MEDS ORDERED: PROMETHAZINE 25MG SUPP PR PRN (19:50)
[2022-01-22] MEDS: **NOTE PATIENT COMMENT** MISC XX SCH (21:40)
[2022-01-22] MEDS: traZODone 50 MG TAB PO PRN (22:28)
[2022-01-22] MEDS: diphenhydrAMINE 25MG CAP PO PRN (22:28)
[2022-01-23 06:34] VITALS: BP 129/77
[2022-01-23] MEDS: SUCRALFATE SUSP 1GM/10ML UD PO SCH ×4 (07:43→21:08)
[2022-01-23] MEDS: METOCLOPRAMIDE 10MG TAB PO SCH ×4 (07:43→21:07)
[2022-01-23] MEDS: diphenhydrAMINE 25MG CAP PO PRN (07:43)
[2022-01-23 08:29] LABS: BASO % 0.3 % (0.0-1.0); EOS % 0.3 % (0.0-3.0); HEMATOCRIT 46.6 % (36.0-47.0); LYMPH # 2.7 10^3/uL (1.5-5.0); LYMPH % 23.7 % (24.0-44.0); MEAN CORPUSCULAR HEMOGLOBIN 28.3 pg (27.0-33.0); MEAN CORPUSCULAR HGB CONC 34.3 g/dl (32.0-36.5); MEAN CORPUSCULAR VOLUME 82.5 fl (80.0-96.0); MONO # 0.8 10^3/uL (0.0-0.8); MONO % 6.6 % (2.0-8.0); NEUTROPHILS # 7.9 10^3/uL (1.5-8.5); NEUTROPHILS % 68.4 % (36.0-66.0); PLATELET COUNT, AUTOMATED 528 10^3/uL (150-450); RED BLOOD COUNT 5.65 10^6/uL (4.00-5.40); WHITE BLOOD COUNT 11.5 10^3/uL (4.0-10.0)
[2022-01-23 08:58] LABS: ALBUMIN 4.1 GM/DL (3.2-5.2); ALT/SGPT 33 U/L (12-78); BILIRUBIN,TOTAL 0.7 MG/DL (0.2-1.0); BLOOD UREA NITROGEN 11 MG/DL (7-18); CALCIUM LEVEL 10.1 MG/DL (8.5-10.1); CARBON DIOXIDE LEVEL 25 MEQ/L (21-32); CHLORIDE LEVEL 95 MEQ/L (98-107); CREATININE FOR GFR 1.05 MG/DL (0.55-1.30); GLOMERULAR FILTRATION RATE > 60.0 (>60); GLUCOSE, FASTING 130 MG/DL (70-100); POTASSIUM SERUM 3.7 MEQ/L (3.5-5.1); SODIUM LEVEL 134 MEQ/L (136-145); TOTAL PROTEIN 8.2 GM/DL (6.4-8.2)
[2022-01-23] MEDS: NICOTINE 21MG/24HR 1 EA TRANSDERMAL TD SCH (09:00)
[2022-01-23] MEDS: SIMETHICONE 80MG CHEW TAB PO SCH ×4 (09:51→21:06)
[2022-01-23] MEDS: LIDOCAINE 5% (LIDODERM) PATCH TD SCH (09:51)
[2022-01-23] MEDS: VITAMIN D 1,000 INTERNATIONAL UNITS TABLET PO SCH (09:51)
[2022-01-23] MEDS: PANTOPRAZOLE 40MG TAB (PROTONIX) PO SCH (09:51)
[2022-01-23 16:22] VITALS: BP 127/80
[2022-01-23] MEDS: LevoFLOXacin 750 MG TABLET PO SCH (17:56)
[2022-01-23] MEDS: **NOTE PATIENT COMMENT** MISC XX SCH (17:59)
[2022-01-23] MEDS: traZODone 50 MG TAB PO PRN (21:06)
[2022-01-23] MEDS: LORazepam 1 MG TAB PO PRN (21:07)
[2022-01-24] MEDS: METOCLOPRAMIDE 10MG TAB PO SCH ×4 (06:44→20:39)
[2022-01-24] MEDS: SUCRALFATE SUSP 1GM/10ML UD PO SCH ×4 (06:44→20:38)
[2022-01-24 07:14] VITALS: BP 101/60
[2022-01-24] MEDS: PILL CUTTER 1 EACH XX PRN ×3 (08:17→17:36)
[2022-01-24] MEDS: VITAMIN D 1,000 INTERNATIONAL UNITS TABLET PO SCH (08:17)
[2022-01-24] MEDS: LIDOCAINE 5% (LIDODERM) PATCH TD SCH (08:17)
[2022-01-24] MEDS: SIMETHICONE 80MG CHEW TAB PO SCH ×4 (08:17→20:38)
[2022-01-24] MEDS: PANTOPRAZOLE 40MG TAB (PROTONIX) PO SCH (08:17)
[2022-01-24] MEDS: NICOTINE 21MG/24HR 1 EA TRANSDERMAL TD SCH (08:18)
[2022-01-24] MEDS ORDERED: hydrOXYzine 50 MG TAB PO PRN (09:05)
[2022-01-24] MEDS: PARoxetine 10MG TABLET PO SCH (09:45)
[2022-01-24] MEDS: diphenhydrAMINE 25MG CAP PO PRN ×2 (13:52→20:40)
[2022-01-24] MEDS: LevoFLOXacin 750 MG TABLET PO SCH (17:32)
[2022-01-24 18:00] VITALS: BP 136/80
[2022-01-24] MEDS: **NOTE PATIENT COMMENT** MISC XX SCH (20:35)
[2022-01-24] MEDS: traZODone 50 MG TAB PO PRN (20:39)
[2022-01-25] MEDS: METOCLOPRAMIDE 10MG TAB PO SCH ×2 (06:45→12:01)
[2022-01-25] MEDS: SUCRALFATE SUSP 1GM/10ML UD PO SCH ×2 (06:49→12:01)
[2022-01-25 06:51] VITALS: BP 127/77
[2022-01-25] MEDS: VITAMIN D 1,000 INTERNATIONAL UNITS TABLET PO SCH (08:14)
[2022-01-25] MEDS: SIMETHICONE 80MG CHEW TAB PO SCH ×2 (08:14→12:01)
[2022-01-25] MEDS: PILL CUTTER 1 EACH XX PRN ×2 (08:14→12:01)
[2022-01-25] MEDS: PARoxetine 10MG TABLET PO SCH (08:14)
[2022-01-25] MEDS: PANTOPRAZOLE 40MG TAB (PROTONIX) PO SCH (08:14)
[2022-01-25] MEDS: LIDOCAINE 5% (LIDODERM) PATCH TD SCH (08:16)
[2022-01-25] MEDS: NICOTINE 21MG/24HR 1 EA TRANSDERMAL TD SCH (08:16)
[2022-01-25] MEDS: SCOPOLAMINE 1MG TRANSDERMAL PATCH TOP SCH (09:00)
[2022-01-25] MEDS ORDERED: SUCR1ORA PO (10:28)
[2022-01-25] MEDS ORDERED: DIPH25CA32 PO (10:28)
[2022-01-25] MEDS ORDERED: METO10TA2 PO (10:28)
[2022-01-25] MEDS ORDERED: PANT40TA29 PO (10:28)
[2022-01-25] MEDS ORDERED: CLON0.1D3 TOP (10:28)
[2022-01-25] MEDS ORDERED: PARO5TAB PO (10:28)
[2022-01-25] MEDS ORDERED: VITAD1000T PO (10:28)
[2022-01-25] MEDS ORDERED: TRAZ-252 PO (10:28)
== END 2022-01-25 12:15 | disposition home or self-care (01) | DRG 756 ==
LOC: M ED 08:39 → M ED INP 13:35 → M PSY 17:49
PROVIDERS: ADMIT Student in an Organized Health Care Education/Training Program; ATTEND Psychiatry & Neurology Psychiatry
DX: F41.8 Other specified anxiety disorders (principal); F32.89 Other specified depressive episodes; F41.0 Panic disorder [episodic paroxysmal anxiety]; F43.10 Post-traumatic stress disorder, unspecified; Z63.8 Other specified problems related to primary support group; I16.0 Hypertensive urgency; R63.4 Abnormal weight loss; K21.9 Gastro-esophageal reflux disease without esophagitis; K22.70 Barrett's esophagus without dysplasia; G43.909 Migraine, unspecified, not intractable, without status migrainosus; Z79.899 Other long term (current) drug therapy; Z88.8 Allergy status to other drugs, medicaments and biological substances; R30.0 Dysuria; R11.2 Nausea with vomiting, unspecified; Z98.890 Other specified postprocedural states

== ENCOUNTER → 2022-04-13 | Outpatient (CLI) | payer BC, OTHER ==
[~2022-04-13] MED LIST changes: +CLON0.1D3 TOP; +DIPH25CA32 PO; +ERGO500029 PO; +METO10TA2 PO; +PANT40TA29 PO; +PARO5TAB PO; +SUCR1ORA PO; +TRAZ-186 PO; +TRAZ-252 PO; +VITAD1000T PO
== END ==
LOC: M WUC 13:15
PROVIDERS: ATTEND Physician Assistant
DX: S63.8X2A Sprain of other part of left wrist and hand, initial encounter (principal); W18.30XA Fall on same level, unspecified, initial encounter; Y92.009 Unspecified place in unspecified non-institutional (private) residence as the place of occurrence of the external cause

== ENCOUNTER → 2022-06-13 | Outpatient (REF) | LOC: M EMP 13:29 | PROVIDERS: ATTEND Family Medicine | DX: Z11.52 Encounter for screening for COVID-19 (principal) ==

== ENCOUNTER → 2022-09-30 | Outpatient (REF) ==
[~2022-09-30] MED LIST changes: +DIPH-435 PO; -DIPH25CA32 PO
== END ==
LOC: M EMP 14:09
PROVIDERS: ATTEND Family Medicine
DX: Z11.52 Encounter for screening for COVID-19 (principal)

== ENCOUNTER 2022-11-05 08:01 | Emergency (ER) | payer BC, OTHER, SELFPAY ==
[~2022-11-05] VITALS: Ht 152.4 cm; Wt 53.6 kg
[2022-11-05] MEDS ORDERED: ONDANSETRON 4MG 2ML VIAL IV ONE (08:45)
[2022-11-05] MEDS ORDERED: NS 1,000 ML IV ONE ×2 (08:45→14:00)
[2022-11-05] MEDS ORDERED: LORazepam 2 MG/ML 1ML VIAL IV STA (08:58)
[2022-11-05 09:28] LABS: BASO % 0.2 % (0.0-1.0); EOS % 0.1 % (0.0-3.0); HEMATOCRIT 39.1 % (36.0-47.0); HEMOGLOBIN 13.8 g/dl (12.0-15.5); LYMPH # 1.2 10^3/uL (1.5-5.0); LYMPH % 9.2 % (24.0-44.0); MEAN CORPUSCULAR HEMOGLOBIN 29.2 pg (27.0-33.0); MEAN CORPUSCULAR HGB CONC 35.3 g/dl (32.0-36.5); MEAN CORPUSCULAR VOLUME 82.7 fl (80.0-96.0); MONO # 0.6 10^3/uL (0.0-0.8); MONO % 4.5 % (2.0-8.0); NEUTROPHILS # 11.5 10^3/uL (1.5-8.5); NEUTROPHILS % 85.7 % (36.0-66.0); PLATELET COUNT, AUTOMATED 339 10^3/uL (150-450); RED BLOOD COUNT 4.73 10^6/uL (4.00-5.40); WHITE BLOOD COUNT 13.4 10^3/uL (4.0-10.0)
[2022-11-05 09:53] LABS: ETHYL ALCOHOL (ETHANOL) < 0.003 % (0.000-0.010); HCG, SERUM QUALITATIVE NEGATIVE (NEGATIVE)
[2022-11-05 09:54] LABS: ACETAMINOPHEN LEVEL < 2.0 UG/ML (10.0-20.0); CPK CREATINE PHOSPHOKINASE 318 U/L (34-145)
[2022-11-05 09:55] LABS: ALBUMIN 4.2 G/DL (3.2-5.2); ALKALINE PHOSPHATASE 79 U/L (46-116); ALT/SGPT 22 U/L (7.0-40); AST/SGOT 25 U/L (<34); BILIRUBIN,DIRECT 0.3 MG/DL (<0.4); BILIRUBIN,TOTAL 0.7 MG/DL (0.3-1.2); BLOOD UREA NITROGEN 6 MG/DL (9-23); CALCIUM LEVEL 9.1 MG/DL (8.5-10.1); CARBON DIOXIDE LEVEL 20 MMOL/L (20-31); CHLORIDE LEVEL 106 MMOL/L (98-107); CREATININE FOR GFR 0.59 MG/DL (0.55-1.30); GLOMERULAR FILTRATION RATE > 60.0 (>60); GLUCOSE, FASTING 115 MG/DL (60-100); POTASSIUM SERUM 3.2 MMOL/L (3.5-5.1); SALICYLATE LEVEL < 3.0 MG/DL (<30); SODIUM LEVEL 139 MMOL/L (136-145); TOTAL PROTEIN 6.7 G/DL (5.7-8.2)
[2022-11-05 09:57] LABS: THYROID STIMULATING HORMONE 0.535 uIU/ML (0.55-4.78)
[2022-11-05] MEDS ORDERED: MORPHINE 2 MG/ML 1ML VIAL IV ONE (10:40)
[2022-11-05] MEDS ORDERED: diphenhydrAMINE 50MG/ML VIAL IV ONE (10:55)
[2022-11-05] MEDS ORDERED: CAPSAICIN 0.025% CR 60 GM TOP ONE (10:55)
[2022-11-05 11:21] LABS: AMPHETAMINES LEVEL URINE NEGATIVE (NEGATIVE); BARBITURATES URINE NEGATIVE (NEGATIVE); BENZODIAZEPINES URINE NEGATIVE (NEGATIVE); COCAINE METABOLITE URINE NEGATIVE (NEGATIVE); METHADONE URINE NEGATIVE (NEGATIVE); OPIATES URINE NEGATIVE (NEGATIVE); PHENCYCLIDINE URINE NEGATIVE (NEGATIVE)
[2022-11-05 11:25] LABS: CANNABINOIDS URINE POSITIVE (NEGATIVE)
[2022-11-05] MEDS ORDERED: ISOVUE-370 76% 100ML VIAL As Ordered ONE (12:12)
[2022-11-05] MEDS ORDERED: D5W/0.45% SODIUM CHLORIDE 1,000 ML IV ONE (16:25)
[2022-11-05 18:45] VITALS: BP 158/83
== END 2022-11-05 18:59 | disposition home or self-care (01) ==
LOC: M ED 08:01 → EDBD 08:01 → M ED 18:59
DX: F12.10 Cannabis abuse, uncomplicated (principal); I10 Essential (primary) hypertension; F32.A Depression, unspecified; F41.0 Panic disorder [episodic paroxysmal anxiety]; F17.200 Nicotine dependence, unspecified, uncomplicated; Z88.8 Allergy status to other drugs, medicaments and biological substances; Z79.899 Other long term (current) drug therapy
CPT/HCPCS: 74177; 80048; 80076; 80143; 80307; 81001; 82077; 82550; 84443; 84703; 85025; 87635; 93005; 96365; 96366; 96375; 99285; J1200; J2060; J2405; Q9967

== ENCOUNTER 2022-11-26 23:43 | Inpatient (IN) | payer BC, MEDICAID, OTHER, SELFPAY ==
[~2022-11-26] VITALS: Ht 152.4 cm; Wt 47.5 kg
[2022-11-27 00:26] LABS: HEMATOCRIT 43.9 % (36.0-47.0); HEMOGLOBIN 15.5 g/dl (12.0-15.5); MEAN CORPUSCULAR HEMOGLOBIN 29.4 pg (27.0-33.0); MEAN CORPUSCULAR HGB CONC 35.3 g/dl (32.0-36.5); MEAN CORPUSCULAR VOLUME 83.1 fl (80.0-96.0); PLATELET COUNT, AUTOMATED 351 10^3/uL (150-450); RED BLOOD COUNT 5.28 10^6/uL (4.00-5.40); WHITE BLOOD COUNT 12.9 10^3/uL (4.0-10.0)
[2022-11-27 00:54] LABS: AMPHETAMINES LEVEL URINE NEGATIVE (NEGATIVE); BARBITURATES URINE NEGATIVE (NEGATIVE); BENZODIAZEPINES URINE NEGATIVE (NEGATIVE); COCAINE METABOLITE URINE NEGATIVE (NEGATIVE); METHADONE URINE NEGATIVE (NEGATIVE); OPIATES URINE NEGATIVE (NEGATIVE); PHENCYCLIDINE URINE NEGATIVE (NEGATIVE)
[2022-11-27 00:56] LABS: CANNABINOIDS URINE POSITIVE (NEGATIVE)
[2022-11-27 00:57] LABS: ETHYL ALCOHOL (ETHANOL) < 0.003 % (0.000-0.010)
[2022-11-27 00:58] LABS: ACETAMINOPHEN LEVEL < 2.0 UG/ML (10.0-20.0); SALICYLATE LEVEL < 3.0 MG/DL (<30)
[2022-11-27 00:59] LABS: ALBUMIN 4.7 G/DL (3.2-5.2); ALKALINE PHOSPHATASE 91 U/L (46-116); ALT/SGPT 29 U/L (7.0-40); AST/SGOT 27 U/L (<34); BILIRUBIN,DIRECT 0.3 MG/DL (<0.4); BILIRUBIN,TOTAL 0.7 MG/DL (0.3-1.2); BLOOD UREA NITROGEN 12 MG/DL (9-23); CALCIUM LEVEL 9.9 MG/DL (8.5-10.1); CARBON DIOXIDE LEVEL 23 MMOL/L (20-31); CHLORIDE LEVEL 102 MMOL/L (98-107); CREATININE FOR GFR 0.76 MG/DL (0.55-1.30); GLOMERULAR FILTRATION RATE > 60.0 (>60); GLUCOSE, FASTING 118 MG/DL (60-100); POTASSIUM SERUM 3.3 MMOL/L (3.5-5.1); SODIUM LEVEL 137 MMOL/L (136-145); TOTAL PROTEIN 7.6 G/DL (5.7-8.2)
[2022-11-27 01:01] LABS: THYROID STIMULATING HORMONE 0.821 uIU/ML (0.55-4.78)
[2022-11-27 01:09] LABS: HCG, SERUM QUALITATIVE NEGATIVE (NEGATIVE)
[2022-11-27] MEDS ORDERED: PARO25TA11 PO (09:33)
[2022-11-27] MEDS ORDERED: CLON-589 PO (09:33)
[2022-11-27] MEDS ORDERED: MAALOX 30 ML SUSP *UDC PO PRN (09:55)
[2022-11-27] MEDS ORDERED: MOM 30ML SUSPENSION UDC PO PRN (09:55)
[2022-11-27] MEDS ORDERED: ACETAMINOPHEN TAB 650MG DOSE (2X325MG) PO PRN (09:55)
[2022-11-27] MEDS ORDERED: IBUPROFEN 400MG TAB PO PRN (09:55)
[2022-11-27] MEDS ORDERED: traZODone 50 MG TAB PO PRN (09:55)
[2022-11-27] MEDS ORDERED: HOME MED LIST COMPLETE! XX SCH (10:10)
[2022-11-27 11:17] VITALS: BP 139/97
[2022-11-27] MEDS: LORazepam 1 MG TAB PO PRN ×2 (12:34→19:05)
[2022-11-27 15:27] VITALS: BP 143/74
[2022-11-28 06:16] VITALS: BP 137/77
[2022-11-28] MEDS: NICOTINE 21MG/24HR 1 EA TRANSDERMAL TD SCH (08:46)
[2022-11-28] MEDS: POTASSIUM CHLORIDE 10MEQ SR TABLET PO SCH ×2 (10:14→20:21)
[2022-11-28 18:15] VITALS: BP 129/79
[2022-11-28] MEDS ORDERED: ARIPiprazole 10 MG TAB PO SCH (21:00)
[2022-11-29] MEDS ORDERED: ONDANSETRON 4MG ORAL DISINTEGRATING TAB PO PRN (04:20)
[2022-11-29 06:09] VITALS: BP 126/58
[2022-11-29 06:36] LABS: CHOLESTEROL RISK RATIO 1.66 (<5); HDL CHOLESTEROL 55.7 MG/DL (>40); LDL CHOLESTEROL 27.3 MG/DL (<100); NON-HDL-C 37.3 MG/DL
[2022-11-29] MEDS: NICOTINE 21MG/24HR 1 EA TRANSDERMAL TD SCH (08:30)
[2022-11-29] MEDS ORDERED: HALO5TAB33 PO (10:29)
[2022-11-29] MEDS ORDERED: ABIL10TA9 PO (10:29)
[2022-11-29] MEDS ORDERED: ONDA4TAB6 PO (10:29)
[2022-11-29] MEDS ORDERED: TRAZ-252 PO (10:29)
[2022-11-29] MEDS ORDERED: NICO21PAT TD (10:29)
== END 2022-11-29 12:08 | disposition home or self-care (01) | DRG 753 ==
LOC: M ED 23:43 → M ED INP 11-27 09:55 → M PSY 11-27 11:09
PROVIDERS: ADMIT Student in an Organized Health Care Education/Training Program; ATTEND Student in an Organized Health Care Education/Training Program
DX: F31.9 Bipolar disorder, unspecified (principal); R00.0 Tachycardia, unspecified; I10 Essential (primary) hypertension; F19.14 Other psychoactive substance abuse with psychoactive substance-induced mood disorder; F12.10 Cannabis abuse, uncomplicated; F17.290 Nicotine dependence, other tobacco product, uncomplicated; G43.709 Chronic migraine without aura, not intractable, without status migrainosus; G47.00 Insomnia, unspecified; K21.9 Gastro-esophageal reflux disease without esophagitis; K22.70 Barrett's esophagus without dysplasia; K44.9 Diaphragmatic hernia without obstruction or gangrene; E87.6 Hypokalemia; Z79.899 Other long term (current) drug therapy; Z88.8 Allergy status to other drugs, medicaments and biological substances